=== PATIENT | female | born 1960 | race Caucasian/White ===

== ENCOUNTER 2020-02-08 13:13 | Outpatient (CLI) | payer OTHER, SELFPAY ==
--- NOTE | ~2020-02-08 | US_ITS ---
US retroperitoneal comp 02/08/2020 14:07 Procedure: Realtime transabdominal ultrasound of the kidneys and bladder. Indication: Abnormal renal function Comparison: No prior studies for comparison. Findings: There are multiple bilateral renal cysts, largest on the right measuring 2.8 cm in largest on the left measuring 2.4 cm. The right kidney measures 12.5 cm and left kidney measures 9.8 cm. Juan J dder within normal limits. There is poor cortical medullary differentiation, consistent with chronic medical renal disease. No hydronephrosis. Impression: 1: Increased cortical renal echotexture with decreased corticomedullary differentiation, consistent w ith chronic medical renal disease. 2: Bilateral renal cysts. Reviewed, dictated and finalized at location A. TOR Impression: 1: Increased cortical renal echotexture with decreased corticomedullary differe ntiation, consistent with chronic medical renal disease. 2: Bilateral renal cysts.
== END 2020-02-08 13:14 | disposition home or self-care (01) ==
PROVIDERS: PCP Family Medicine Adolescent Medicine; Visit Provider Internal Medicine Nephrology
DX: E87.5 Hyperkalemia (principal); N28.1 Cyst of kidney, acquired
CPT/HCPCS: 76770

== ENCOUNTER 2020-03-21 10:23 | Outpatient (CLI) | payer OTHER, SELFPAY ==
--- NOTE | ~2020-03-21 | MM_ITS ---
EXAMINATION: MM screening [place] BI w evan HISTORY: Screening TECHNIQUE: Craniocaudal and mediolateral oblique 3-D tomosynthesis images were obtained and synthetic 2-D images were generated. CAD analysis was submitted and interpreted. COMPARISON: Comparison to multiple prior studies sequentially, with oldest reviewed study dated 05/16. BREAST PARENCHYMAL COMPOSITION: There are scattered areas of fibroglandular density. FINDINGS: There is no evidence of suspicious mass, calcification, or architectural distortion to sugg est malignancy in either breast. There has been no suspicious interval change. IMPRESSION: 1. No mammographic evidence of malignancy. 2. Recommend routine screening mammography in one year. BI-RADS Category 1: Negative Reviewed, dictated and finalized at location A. AL LABORATORY TECHNOLOGY TEACHER
== END 2020-03-21 10:24 | disposition home or self-care (01) ==
LOC: ANHIMG 10:26
PROVIDERS: PCP Family Medicine Adolescent Medicine; Visit Provider Family Medicine Adolescent Medicine
DX: Z12.31 Encounter for screening mammogram for malignant neoplasm of breast (principal)
CPT/HCPCS: 77063; 77067

== ENCOUNTER 2020-12-18 10:31 | Outpatient (CLI) | payer OTHER, SELFPAY ==
--- NOTE | ~2020-12-18 | US_ITS ---
EXAMINATION: US retroperitoneal comp EXAM DATE: 12/18/2020 11:11 INDICATION: Abnormal renal function. TECHNIQUE: Multiple grayscale and Doppler images of the kidneys were obtained (by a technologist who performed the scan) and subsequently reviewed. There is no prior study for comparison. FINDINGS: There is echogenic renal cortex bilaterally making it difficult to distinguish from the hil ar fat, likely indicating medical renal disease. Right kidney: measures 11.1 x 6.1 x 4.4 centimeters. Several right renal lesions consistent with cyst s measuring up to 2.5 cm. There is no hydronephrosis. Left kidney: Measures 9.1 x 5.3 x 5.9 centimeters. Several anechoic renal lesions consistent with cys ts measuring up to 2.2 cm There is no hydronephrosis. Bladder unremarkable. IMPRESSION: 1. Echogenic cortices, medical renal disease. 2. Renal cysts. Reviewed, dictated and finalized at location B.
== END 2020-12-18 10:32 | disposition home or self-care (01) ==
LOC: ANHIMG 10:35
PROVIDERS: PCP Family Medicine Adolescent Medicine; Visit Provider Internal Medicine Nephrology
DX: R94.4 Abnormal results of kidney function studies (principal); E87.5 Hyperkalemia; N28.1 Cyst of kidney, acquired
CPT/HCPCS: 76770

== ENCOUNTER 2021-04-08 09:41 | Outpatient (CLI) | payer OTHER, SELFPAY ==
--- NOTE | ~2021-04-08 | MM_ITS ---
EXAMINATION: MM screening [place] BI w evan HISTORY: Screening TECHNIQUE: Craniocaudal and mediolateral oblique 3-D tomosynthesis images were obtained and synthetic 2-D images were generated. CAD analysis was submitted and interpreted. COMPARISON: Comparison to multiple prior studies sequentially, with oldest reviewed study dated 08/04. BREAST PARENCHYMAL COMPOSITION: There are scattered areas of fibroglandular density. FINDINGS: There is no evidence of suspicious mass, calcification, or architectural distortion to sugg est malignancy in either breast. There has been no suspicious interval change. IMPRESSION: 1. No mammographic evidence of malignancy. 2. Recommend routine screening mammography in one year. BI-RADS Category 1: Negative Reviewed, dictated and finalized at location A. CAL RECORDS ASSISTANT
== END 2021-04-08 09:42 | disposition home or self-care (01) ==
LOC: ANHIMG 09:44
PROVIDERS: PCP Family Medicine Adolescent Medicine; Visit Provider Family Medicine Adolescent Medicine
DX: Z12.31 Encounter for screening mammogram for malignant neoplasm of breast (principal)
CPT/HCPCS: 77063; 77067

== ENCOUNTER 2022-07-12 10:48 | Inpatient (IN) | payer OTHER, SELFPAY ==
[2022-07-12] VITALS (18 sets, daily range): BP systolic 122–158; BP diastolic 74–91; PULSE 91–122; RESP 16–24; TEMP 36.4–36.9; O2SAT 89–100
--- NOTE | ~2022-07-12 | XR_ITS ---
EXAMINATION: XR chest 2V DATE: 07/12/2022 12:34 INDICATION: Shortness of breath and cough TECHNIQUE: AP and lateral views of the chest are obtained. COMPARISON: None available FINDINGS: There are airspace opacities of the mid and lower lung zones. Small pleural effusions are p resent. Cardiomegaly is noted. There is no pneumothorax. There is mild thoracic spondylosis. IMPRESSION: 1. Minimal airspace opacities of the mid and lower lung zones, consistent with atelectasis versus pne umonia. 2. Small pleural effusions. Reviewed, dictated and finalized at location A. IMPRESSION: 1. Minimal airspace opacities of the mid and lower lung zones, consistent with atelectasis versus pneumonia. 2. Small pleural effusions.
--- NOTE | ~2022-07-12 | XR_ITS ---
EXAMINATION: XR chest 2V DATE: 07/15/2022 09:31 INDICATION: Pneumonia TECHNIQUE: PA and lateral views of the chest were obtained. COMPARISON: Chest radiograph dated 07/12/2022 FINDINGS: No focal airspace opacities, pulmonary edema, pleural effusion or pneumothorax. The cardiomediastinal silhouette is normal. Upper thoracic spondylosis. IMPRESSION: 1. No acute cardiopulmonary disease. Reviewed, dictated and finalized at location A.
--- NOTE | ~2022-07-12 | CT_ITS ---
EXAMINATION: CT brain wo con DATE: 07/12/2022 15:50 INDICATION: confusion, falls . TECHNIQUE: Computed tomography (CT) of the head was performed without intravenous contrast. The mA wa s adjusted according to patient size. Iterative reconstruction technique was employed. The dose-lengt h product was 1210.67 mGy-cm. COMPARISON: None. FINDINGS: No acute intracranial hemorrhage or extra-axial fluid collection. No hydrocephalus, mass, or herniation. No acute ischemic infarct. Unremarkable dural venous sinus attenuation. No acute osseous abnormality. Bilateral ethmoid air cell mucosal thickening, the remaining aerated spaces are clear. Mild atrophy and chronic white matter change. Atherosclerotic intracranial calcification. IMPRESSION: No acute intracranial process. Reviewed, dictated and finalized at location K.
--- NOTE | 2022-07-12 11:21 | ECG_ITS ---
Measurements Intervals [place] Rate: 102 P: 68 OR: 165 QRS: 55 QRSD: 92 T: 80 QT: 330 QTc: 431 Interpretive Statements SINUS TACHYCARDIA CANNOT RULE OUT SEPTAL INFARCT, AGE INDETERMINATE INFERIOR INFARCT, AGE INDETERMINATE BORDERLINE T WAVE ABNORMALITY- HIGH LATERAL LEADS ABNORMAL ECG NO PREVIOUS ECG AVAILABLE FOR COMPARISON Electronically Signed On 07-12-2022 13:07:14 CDT by Jordan Ann D.O.
--- NOTE | 2022-07-12 11:47 | PC.NURSE ---
PT has c/o cough, dyspnea and not feeling well for a few days. Exposed to influenza. Pt also reports weakness and falls.
[2022-07-12 11:49] LABS: Basophils Percent Auto 0.3 % (0.2-1.2); Eosinophils Percent Auto 0.2 % (0-4.4); Hematocrit 32.5 % (37.0-47.0); Immature Granulocyte Absolute 0.05 K/mm3 (0.00-0.031); Immature Granulocyte Percent A 0.5 % (0-0.5); Lymphocytes Absolute Auto 1.25 K/mm3 (0.9-3.2); Lymphocytes Percent Auto 12.2 % (18.3-44.2); Mean Corpuscular HGB Conc 30.8 g/dl (32-36); Mean Corpuscular Hemoglobin 26.1 pg (26-34); Mean Corpuscular Volume 84.9 fl (80-100); Mean Platelet Volume 9.2 fl (7.4-10.4); Monocytes Absolute Auto 0.7 K/mm3 (0.1-0.6); Monocytes Percent Auto 7.2 % (2.6-8.5); Neutrophils Absolute Auto 8.1 K/mm3 (1.3-6.7); Neutrophils Percent Auto 79.6 % (45.5-73.1); Platelet Count Result 291 k/mm3 (150-375); Red Blood Count 3.83 M/mm3 (4.2-5.4); Red Cell Distribution Width 13.7 % (11.5-14.5); White Blood Count 10.2 K/mm3 (4.5-10.0)
[2022-07-12] MEDS: ALBUTEROL SULFATE NEB 2.5 MG/3 ML INH INHALATION ×3 (11:50→20:35)
[2022-07-12] MEDS: IPRATROPIUM BR 0.02% INH SOLN 0.5 MG/2.5 ML VIAL INHALATION (11:50)
[2022-07-12 11:55] LABS: Lithium 0.3 mmol/L (0.6-1.2)
[2022-07-12 11:57] LABS: Alveolar/Arterial O2 Gradient 39.4 mmHg; Carboxyhemoglobin 0.8 % THb (0-2.0); Fractional Inspired Oxygen 21 %; Methemoglobin ABG 0.1 %THb (0-1.5); Oxygen Content ABG 13.4 %vol (16.0-22.0); PCO2 ABG 47.2 mmHg (35.0-45.0); PO2 ABG 53.8 mmHg (80.0-100.0); PO2 FiO2 Ratio Arterial Blood 2.56 %; Reduced Hemoglobin 12.7 %THb (0-5.0); pH ABG 7.342 (7.350-7.450)
[2022-07-12 11:57] LABS: Alanine Aminotransferase 20 U/L (6-35); Albumin Level 4.2 g/dL (3.5-5.1); Alkaline Phosphatase 80 U/L (38-126); Anion Gap 7 mmol/L (8-16); Aspartate Amino Transferase 43 U/L (14-36); Bilirubin,Total 0.3 mg/dL (0.2-1.3); Blood Urea Nitrogen 46 mg/dL (7-17); Calcium 9.5 mg/dL (8.4-10.2); Carbon Dioxide 28 mmol/L (22-30); Chloride 106 mmol/L (98-107); Estimated CRCL calculation 17 ml/min; Estimated Glomerular Filt Rate 15; Glucose 200 mg/dL (65-110); Potassium 4.7 mmol/L (3.4-5.0); Sodium 141 mmol/L (137-145)
[2022-07-12 11:58] LABS: Lactic Acid Reflex 1.3 mmol/L (0.7-2.0)
[2022-07-12 11:59] LABS: Oxygen Saturation ABG 85.9 % (95.0-100.0)
[2022-07-12 11:59] LABS: Prothrombin Time 13.5 Seconds (11.1-14.7)
[2022-07-12 12:00] LABS: Device ROOM AIR; Modified Allen's Test Pass; Oxyhemoglobin 86.4 % THb (90.0-100.0); Site Drawn RIGHT BRACHIAL
[2022-07-12 12:00] LABS: Partial Thromboplastin Time 32.1 SECONDS (22.3-36.8)
[2022-07-12 12:09] LABS: NT Pro B Type Natriuretic Pept 851 pg/mL (19.9-100); Troponin I 0.026 ng/mL (0.000-0.034)
[2022-07-12 12:23] LABS: Influenza A QL RT-PCR Negative (Negative); Influenza B QL RT-PCR Negative (Negative); SARS-CoV-2 RNA PCR Negative (Negative)
[2022-07-12] MEDS: AZITHROMYCIN 500 MG/NS 250 ML 500 MG/250 ML BAG 250 MG IVPB (13:32)
--- NOTE | 2022-07-12 14:19 | ED.GENADULT ---
HPI - General Adult General Chief complaint: Unspecified Stated complaint: confusion Time Seen by Provider: 07/12/22 11:04 Source: patient, family (sister) and RN notes reviewed Mode of arrival: ambulatory History of Present Illness HPI narrative: This is a 62 year old female with history of bipolar disorder, DM, hypertension who presents for evaluation of a bad cold . Patient presents with sinus drainage, congestion and cough. She has worsening cough for few days. She does not think she has fever or chills . She denies nausea or vomiting. She denies chest pain or shortness of breath. She reports weakness as she was unable to get up after falling this morning. Her brother helped her out of bed. She denies hitting her head or LOC. Her sister reports patient's provider at [facility] is weaning her off of lithium due to her kidney disease. She is wondering if her lithium levels are off. Related Data Home Medications Medication Instructions Recorded Confirmed benztropine 0.5 mg tablet 0.5 mg PO BID 06/09/21 07/12/22 chlorpromazine 100 mg tablet 100 mg PO QHS 06/09/21 07/12/22 trifluoperazine 2 mg tablet 2 mg PO QHS 06/09/21 07/12/22 lithium carbonate 300 mg capsule 150 mg PO QHS 06/15/22 07/12/22 levothyroxine 50 mcg tablet 50 mcg PO DAILY 07/12/22 07/12/22 Allergies Allergy/AdvReac Type Severity Reaction Status Date / Time Penicillins Allergy Unknown unknown Verified 07/12/22 15:00 Review of Systems Constitutional: Constitutional: Denies weakness ENT: Reports nasal congestion Cardiovascular: Cardiovascular: Denies syncope, Denies rapid heart rate, Denies irregular heart rhythm, Denies leg edema and Denies dyspnea Respiratory: Respiratory: Denies chest congestion, Reports cough, Denies hemoptysis, Denies excessive phlegm production and Denies dyspnea Gastrointestinal: Gastrointestinal: Denies abdominal pain, Denies hematochezia, Denies diarrhea and Denies vomiting Genitourinary: Genitourinary: Denies hematuria and Denies dysuria Musculoskeletal: Musculoskeletal: Denies joint swelling, Denies loss of height and Denies muscle weakness Neurologic: Denies syncope, Denies focal weakness and Denies weakness PMFSH Past Medical History Medical History (Updated 07/12/22 @ 21:03 by Lakisha Willis MD) Anxiety Bipolar disorder Chronic kidney disease Depression Hypercholesterolemia Hypothyroidism Type 2 diabetes mellitus Uterine cancer Vitamin D deficiency Surgical History Surgical History (Updated 07/12/22 @ 14:40 by María Simms PA-C) History of colonoscopy with polypectomy History of hysterectomy for cancer Family History Family History Father Acute myocardial infarction Mother Diabetes mellitus Heart disease Emphysema lung Sibling Breast cancer Social History Social History (Updated 07/12/22 @ 14:40 by María Simms PA-C) Social History: Surrogate medical decision maker: Radha Cheng, . Code status: Full code. Smoking status: Never smoker Second hand tobacco smoke exposure: No Alcohol intake: never Substance use: current Substance use type: does not use Lack of Transportation: No Lack of Food: Never True Current Housing: I Have Housing Concerned About Future Housing: No Difficulty Paying Gas/Electric Bills: No Difficulty Paying for Meds: No Currently Unemployed: No Education: Bachelor's Degree Difficulty w/ Childcare or Family Care: No Living arrangements: alone Occupation/Education: retired Spiritual care concerns: No Agree to blood products: Yes Exam Narrative: GENERAL: Well-appearing, well-nourished, and in no acute distress. HEAD: Normocephalic, atraumatic EYES: PERRLA and EOMI, conjunctiva clear without discharge THROAT:Mucous membranes moist, Oropharynx normal without erythema, exudate, peritonsillar swelling or fluctuance NECK: Supple, without lymphade
--- NOTE | 2022-07-12 14:36 | PM.IMHP ---
H&P: HPI History of Present Illness Date/Time: 07/12/22 15:15 Chief Complaint: Confusion. Narrative: This is a 62-year-old female with bipolar disorder, chronic kidney disease, hypothyroidism, and diabetes who presented to the emergency department via private vehicle from home for evaluation of confusion. The patient provides the following history and her sister offers additional information with the patient's permission. She has been feeling well for several days with which she describes as a bad cold. Symptoms include sinus congestion and drainage, mild sore throat, and a hacking but nonproductive cough. She has been getting progressively more weak and last night she reports that she fell on the floor in her bedroom though states she did not hurt herself. In fact she tells me that she landed on her feet. Her sister notes that she seems be a bit confused and she is concerned that perhaps the patient has lithium toxicity as she is being weaned off of that drug due to worsening renal function. The patient denies fever, chills, sweats, headache, neck ache, nausea, vomiting, diarrhea, and dysuria. She also denies vertigo, focal weakness, paresthesias, difficulty speaking and swallowing, and facial asymmetry. No chest pain, pleuritic pain, or palpitations. She lives at home with her brother who has had similar symptoms. She was afebrile on arrival to the emergency department with stable vital signs. Labs were significant for a white blood cell count of 10.2, hemoglobin 10.0, BUN 46, creatinine 3.10, glucose 200. She tested negative for influenza and COVID. Chest x-ray showed minimal airspace opacities in the mid and lower lung zones consistent with atelectasis versus pneumonia and small pleural effusions. Brain CT showed no acute findings. ABG showed a pH of 7.324, pCO2 42.2, bicarb 25. She does not have an oxygen requirement. In the ED she was started on azithromycin and ceftriaxone for findings of pneumonia and she is being admitted in this setting. Regarding her abnormal blood gas, she is a lifelong nonsmoker and has no history of asthma, COPD, or obstructive sleep apnea. She denies access drug ingestion, illicit substance use, and alcohol use. Review of Systems Review of Systems: Twelve systems were reviewed and are negative except for as per [id number] [facility] Past Medical History Medical History (Updated 07/12/22 @ 21:03 by Lakisha Willis MD) Anxiety Bipolar disorder Chronic kidney disease Depression Hypercholesterolemia Hypothyroidism Type 2 diabetes mellitus Uterine cancer Vitamin D deficiency Surgical History Surgical History (Updated 07/12/22 @ 14:40 by María Simms PA-C) History of colonoscopy with polypectomy History of hysterectomy for cancer Family History Family History Father Acute myocardial infarction Mother Diabetes mellitus Heart disease Emphysema lung Sibling Breast cancer Social History Social History (Updated 07/12/22 @ 14:40 by María Simms PA-C) Social History: Surrogate medical decision maker: Radhasister Conteh. Code status: Full code. Smoking status: Never smoker Second hand tobacco smoke exposure: No Alcohol intake: never Substance use: never Substance use type: does not use Lack of Transportation: No Lack of Food: Never True Current Housing: I Have Housing Concerned About Future Housing: No Difficulty Paying Gas/Electric Bills: No Difficulty Paying for Meds: No Currently Unemployed: No Education: Bachelor's Degree Difficulty w/ Childcare or Family Care: No Living arrangements: alone Occupation/Education: retired Spiritual care concerns: No Agree to blood products: Yes Meds Home Medications and Allergies Home Medications Medication Instructions Recorded Confirmed Type benztropine 0.5 mg tablet 0.5 mg PO BID 06/09/21 07/12/22 History chlorpromazine 100 mg tablet 1
--- NOTE | 2022-07-12 14:42 | ADMGEN ---
This patient, Nicky Villalobos, was admitted to Medical Room 251-. Patient/family oriented to hospital policies and general routines including ID bracelet, bed and alarms, visiting hours, pain management, procedures, bathroom and other care routines, personal items, smoking policy, room service/diet, and visiting hours. Information on how to activate the Rapid Response Team has been discussed. Patient/Family are encouraged to report perceived risks to care and to ask questions if they do not understand what they are told or what they should do.
[2022-07-12 15:33] LABS: Hemoglobin A1C 6.6 % (<5.7)
[2022-07-12 15:35] LABS: Iron 31 ug/dL (37-170)
[2022-07-12 15:36] LABS: Ethanol < 10 mg/dL (<10)
[2022-07-12 15:43] LABS: CRP 2.8 mg/dL (<1.0)
[2022-07-12 15:45] LABS: Percent Iron Saturation 11 % (20-50)
[2022-07-12 15:55] LABS: Procalcitonin 0.3 ng/mL
[2022-07-12 16:07] LABS: Thyroid Stimulating Hormone Reflex 0.441 uIU/mL (0.465-4.68)
[2022-07-12 16:20] LABS: Alveolar/Arterial O2 Gradient 56.5 mmHg; Base Excess ABG -2.6 mEq/l (+/-2.0); Carboxyhemoglobin 0.2 % THb (0-2.0); Fractional Inspired Oxygen 21 %; HCO3 ABG 24.4 mEq/l (22.0-26.0); Oxygen Content ABG 8.5 %vol (16.0-22.0); PCO2 ABG 52.5 mmHg (35.0-45.0); PO2 FiO2 Ratio Arterial Blood 1.45 %; Reduced Hemoglobin 43.7 %THb (0-5.0); Total Hemoglobin 10.8 g/dL (12.0-18.0)
[2022-07-12 16:23] LABS: pH ABG 7.285 (7.350-7.450)
[2022-07-12 16:24] LABS: Oxygen Saturation ABG 50.2 % (95.0-100.0); PO2 ABG 30.4 mmHg (80.0-100.0)
[2022-07-12 16:25] LABS: Modified Allen's Test Pass; Oxyhemoglobin 56.1 % THb (90.0-100.0); Site Drawn LEFT RADIAL
[2022-07-12 17:08] LABS: Glucose Point of Care 263 mg/dl (65-105)
[2022-07-12] MEDS: INSULIN ASPART (*BKC) 100 UNITS/ML SUB-Q (17:16)
--- NOTE | 2022-07-12 17:50 | PC.NURSE ---
This patient, Nicky Villalobos, was transferred to [facility] on 07/12/22 at 1745 . Personal belongings sent with patient. Report given to Harry MACIEL. Appropriate documentation sent with patient.
[2022-07-12 18:02] LABS: Folic Acid 12.2 ng/mL (2.76->20)
--- NOTE | 2022-07-12 18:32 | PC.NURSE ---
This patient, Nicky Villalobos, was received from [facility] on 07/12/22 at 1743. Patient/family oriented to unit policies and routines
[2022-07-12 19:51] LABS: Alveolar/Arterial O2 Gradient 89.7 mmHg; Base Excess ABG -1.6 mEq/l (+/-2.0); Fractional Inspired Oxygen 30 %; Oxygen Content ABG 13.3 %vol (16.0-22.0); Oxygen Saturation ABG 93.9 % (95.0-100.0); Oxyhemoglobin 92.8 % THb (90.0-100.0); PCO2 ABG 44.1 mmHg (35.0-45.0); PO2 ABG 72.4 mmHg (80.0-100.0); PO2 FiO2 Ratio Arterial Blood 2.41 %; Total Hemoglobin 10.1 g/dL (12.0-18.0); pH ABG 7.353 (7.350-7.450)
[2022-07-12 19:53] LABS: Device NON-INVASIVE VENT; Modified Allen's Test Pass; Site Drawn LEFT RADIAL
[2022-07-12 19:54] LABS: Non-Invasive Expiratory Pressure 6 CMH2O; Non-Invasive Inspiratory Pressure 14 CMH2O; Non-Invasive Vent Rate 20 /MIN
[2022-07-12 20:46] LABS: Glucose Point of Care 142 mg/dl (65-105)
[2022-07-12 21:22] LABS: Free T4 Free Thyroxine Reflex 1.43 ng/dL (0.78-2.19)
[2022-07-12] MEDS: BENZTROPINE MESYLATE 0.5 MG TABLET PO (21:26)
[2022-07-12] MEDS: SODIUM BICARBONATE TAB 650 MG TABLET PO (21:26)
[2022-07-12] MEDS: chlorproMAZINE HCL 25 MG TABLET 100 MG PO (21:26)
[2022-07-12] MEDS: TRIFLUOPERAZINE HCL 1 MG TABLET 2 MG PO (21:43)
[2022-07-12 22:18] LABS: Creatine Kinase 1347 U/L (30-135)
[2022-07-12 22:50] LABS: Total Triiodothyronine (T3) 1.01 NG/ML (0.97-1.69)
[2022-07-12] MEDS: LITHIUM CARBONATE 150 MG CAPSULE PO (23:26)
[2022-07-12] MEDS: guaiFENesin 12 HR 600 MG TABCR 1200 MG PO (23:26)
[2022-07-12] MEDS: PRAVASTATIN SODIUM 20 MG TABLET 40 MG PO (23:26)
[2022-07-12] MEDS: LACTATED RINGERS 1,000 ML 100 ML IV CONT (23:27)
[2022-07-13] VITALS (28 sets, daily range): BP systolic 127–147; BP diastolic 64–91; PULSE 74–109; RESP 20–25; TEMP 35.9–36.7; O2SAT 93–100
--- NOTE | 2022-07-13 02:14 | PCRCNOTE ---
Apnea link held pt on cont. BIPAP.
[2022-07-13] MEDS: ALBUTEROL SULFATE NEB 2.5 MG/3 ML INH INHALATION ×4 (03:12→20:57)
[2022-07-13 04:44] LABS: Appearance Urine Clear (Clear); Bacteria Urine None Seen /hpf; Bilirubin Urine Negative (Negative); Blood Urine 2+ (Negative); Color Urine Yellow (Yellow); Glucose Urine UA Trace mg/dL (Negative); Ketones Urine Negative (Negative); Leukocyte Esterase Ur 1+ LEU/UL (Negative); Nitrate Urine Negative (Negative); Non Pathogenic Casts 0-2; Protein Urine 2+ mg/dL (Negative); RBC Urine 0-2 /hpf (0-2); Specific Grav Ur 1.007 (1.001-1.035); Squamous Epithelial Cell Urine None seen /hpf (Few); Urobilinogen Urine 0.2 mg/dL (<2.0)
[2022-07-13 04:50] LABS: Add Urine Microscopic? YES
[2022-07-13 04:56] LABS: Amphetamine Screen Urine Negative (Negative); Barbiturate Screen Urine Negative (Negative); Benzodiazepines Screen Urine Negative (Negative); Cannabinoid Screen Urine Negative (Negative); Cocaine Screen Urine Negative (Negative); Methadone Screen Urine Negative (Negative); Opiate Screen Urine Negative (Negative); Phencyclidine Screen Urine Negative (Negative)
[2022-07-13 05:07] LABS: Basophils Percent Auto 0.5 % (0.2-1.2); Eosinophils Absolute Auto 0.1 K/mm3 (0-0.3); Eosinophils Percent Auto 1.7 % (0-4.4); Hemoglobin 9.2 g/dL (12.0-15.0); Immature Granulocyte Absolute 0.03 K/mm3 (0.00-0.031); Immature Granulocyte Percent A 0.4 % (0-0.5); Lymphocytes Absolute Auto 1.42 K/mm3 (0.9-3.2); Lymphocytes Percent Auto 18.3 % (18.3-44.2); Mean Corpuscular HGB Conc 29.7 g/dl (32-36); Mean Corpuscular Hemoglobin 25.9 pg (26-34); Mean Corpuscular Volume 87.3 fl (80-100); Mean Platelet Volume 9.3 fl (7.4-10.4); Monocytes Absolute Auto 0.9 K/mm3 (0.1-0.6); Monocytes Percent Auto 11.1 % (2.6-8.5); Neutrophils Absolute Auto 5.3 K/mm3 (1.3-6.7); Platelet Count Result 245 k/mm3 (150-375); Red Blood Count 3.55 M/mm3 (4.2-5.4); Red Cell Distribution Width 13.8 % (11.5-14.5); White Blood Count 7.8 K/mm3 (4.5-10.0)
[2022-07-13 05:18] LABS: Alanine Aminotransferase 20 U/L (6-35); Albumin Level 3.7 g/dL (3.5-5.1); Alkaline Phosphatase 68 U/L (38-126); Anion Gap 7 mmol/L (8-16); Aspartate Amino Transferase 42 U/L (14-36); Bilirubin,Total 0.3 mg/dL (0.2-1.3); Blood Urea Nitrogen 44 mg/dL (7-17); Calcium 9.5 mg/dL (8.4-10.2); Carbon Dioxide 26 mmol/L (22-30); Chloride 112 mmol/L (98-107); Estimated CRCL calculation 20 ml/min; Estimated Glomerular Filt Rate 18; Glucose 185 mg/dL (65-110); Magnesium 2.3 mg/dL (1.6-2.3); Potassium 4.4 mmol/L (3.4-5.0); Sodium 145 mmol/L (137-145)
[2022-07-13] MEDS: LEVOTHYROXINE SODIUM 50 MCG TABLET PO (06:45)
[2022-07-13 08:48] LABS: Glucose Point of Care 184 mg/dl (65-105)
--- NOTE | 2022-07-13 09:03 | P.PNIM_ITS ---
Progress Note: A&P Assessment and Plan (1) Acute respiratory failure with hypercapnia: Code(s): J96.02 - Acute respiratory failure with hypercapnia Status: Acute Assessment and Plan: ABG shows a respiratory acidosis with a pH of 7.342, pCO2 47.5, PO2 53.8, ABG O2 saturation 85.9, reduce hemoglobin 12 0.7%, and a bicarb of 25. Hypoxia presumably related to pneumonia. * She received a nebulizer treatment in the ED. * Placed on bipap overnight and repeat imaging with pO2 74 and improved. 07/13/22 Pt with spO2 98% and weaned to 2L high flow cannula. * Apnea link ordered for tonight. * Brain CT negative. (2) Confusion: Code(s): R41.0 - Disorientation, unspecified Status: Resolved Assessment and Plan: Likely related to hypercapnia. * Brain CT was unremarkable. * Urine drug screen negative. * Appears resolved. (3) Pneumonia: Qualifiers: Pneumonia type: due to unspecified organism Laterality: bilateral Lung location: lower lobe of lung Qualified Code(s): J18.9 - Pneumonia, unspecified organism Code(s): J18.9 - Pneumonia, unspecified organism Status: Acute Assessment and Plan: Patient presented with shortness of breath and cough. * Chest x-ray shows opacities to mid-lower lung rodgers and small pleural effusion. * Continue azithromycin and ceftriaxone, first doses 07/12/22. * Sputum for culture pending. * Urinary antigens and mycoplasma IgM pending * Patient's sister reported she was diagnosed with the flu on Wednesday and she is the caregiver for the patient. ED covid19/influenza/RSV negative. However, given exposure, will empirically treat with Tamiflu 30 mg daily (renal dose) and send respiratory viral panel. * Patient and family report no concerns for aspiration/dysphagia. (4) Chronic kidney disease: Qualifiers: Chronic kidney disease stage: stage 4 (severe) Qualified Code(s): N18.4 - Chronic kidney disease, stage 4 (severe) Code(s): N18.9 - Chronic kidney disease, unspecified Status: Chronic Assessment and Plan: Stage 4. She has had progressive of her disease over the last year. She is a patient of Dr. Ladd. [place] being weaned off. * Creatinine 3.10 on admission, it was about 2.6 in mid April. * Bladder scan to ensure she is not retaining urine. * CK >1300 and IV fluids initiated, repeat CK 1000. * Avoid nephrotoxic agents. * 07/13/22 BUN 44, creatinine 2.7, GFR 18. (5) Hypothyroidism: Qualifiers: Hypothyroidism type: unspecified Qualified Code(s): E03.9 - Hypothyroidism, unspecified Code(s): E03.9 - Hypothyroidism, unspecified Status: Chronic Assessment and Plan: TSH within normal limits. Continue levothyroxine at home dose. (6) Type 2 diabetes mellitus: Qualifiers: Diabetes mellitus moth exterminator insulin use: without moth exterminator use Diabetes mellitus complication status: with kidney complications Diabetes mellitus complication detail: with chronic kidney disease Chronic kidney disease stage: stage 4 (severe) Qualified Code(s): E11.22 - Type 2 diabetes mellitus with diabetic chronic kidney disease; N18.4 - Chronic kidney disease, stage 4 (severe) Code(s): E11.9 - Type 2 diabetes mellitus without complications Status: Chronic Assessment and Plan: Chronic. * Continue glipizide. Hold metformin while inpatient. * sliding scale insulin, Accu-Cheks, and hypoglycemic protocol. * A1c 6.6% and stable. (7) Bipolar disorder: Qualifiers: Active
--- NOTE | 2022-07-13 09:03 | PM.IMPN ---
Progress Note: A&P Assessment and Plan (1) Acute respiratory failure with hypercapnia: Code(s): J96.02 - Acute respiratory failure with hypercapnia Status: Acute Assessment and Plan: ABG shows a respiratory acidosis with a pH of 7.342, pCO2 47.5, PO2 53.8, ABG O2 saturation 85.9, reduce hemoglobin 12 0.7%, and a bicarb of 25. Hypoxia presumably related to pneumonia. She received a nebulizer treatment in the ED. Placed on bipap overnight and repeat imaging with pO2 74 and improved. 07/13/22 Pt with spO2 98% and weaned to 2L high flow cannula. Apnea link ordered for tonight. Brain CT negative. (2) Confusion: Code(s): R41.0 - Disorientation, unspecified Status: Resolved Assessment and Plan: Likely related to hypercapnia. Brain CT was unremarkable. Urine drug screen negative. Appears resolved. (3) Pneumonia: Qualifiers: Pneumonia type: due to unspecified organism Laterality: bilateral Lung location: lower lobe of lung Qualified Code(s): J18.9 - Pneumonia, unspecified organism Code(s): J18.9 - Pneumonia, unspecified organism Status: Acute Assessment and Plan: Patient presented with shortness of breath and cough. Chest x-ray shows opacities to mid-lower lung rodgers and small pleural effusion. Continue azithromycin and ceftriaxone, first doses 07/12/22. Sputum for culture pending. Urinary antigens and mycoplasma IgM pending Patient's sister reported she was diagnosed with the flu on Wednesday and she is the caregiver for the patient. ED covid19/influenza/RSV negative. However, given exposure, will empirically treat with Tamiflu 30 mg daily (renal dose) and send respiratory viral panel. Patient and family report no concerns for aspiration/dysphagia. (4) Chronic kidney disease: Qualifiers: Chronic kidney disease stage: stage 4 (severe) Qualified Code(s): N18.4 - Chronic kidney disease, stage 4 (severe) Code(s): N18.9 - Chronic kidney disease, unspecified Status: Chronic Assessment and Plan: Stage 4. She has had progressive of her disease over the last year. She is a patient of Dr. Ladd. [place] being weaned off. Creatinine 3.10 on admission, it was about 2.6 in mid April. Bladder scan to ensure she is not retaining urine. CK >1300 and IV fluids initiated, repeat CK 1000. Avoid nephrotoxic agents. 07/13/22 BUN 44, creatinine 2.7, GFR 18. (5) Hypothyroidism: Qualifiers: Hypothyroidism type: unspecified Qualified Code(s): E03.9 - Hypothyroidism, unspecified Code(s): E03.9 - Hypothyroidism, unspecified Status: Chronic Assessment and Plan: TSH within normal limits. Continue levothyroxine at home dose. (6) Type 2 diabetes mellitus: Qualifiers: Diabetes mellitus retirement insulin use: without meat slicer use Diabetes mellitus complication status: with kidney complications Diabetes mellitus complication detail: with chronic kidney disease Chronic kidney disease stage: stage 4 (severe) Qualified Code(s): E11.22 - Type 2 diabetes mellitus with diabetic chronic kidney disease; N18.4 - Chronic kidney disease, stage 4 (severe) Code(s): E11.9 - Type 2 diabetes mellitus without complications Status: Chronic Assessment and Plan: Chronic. Continue glipizide. Hold metformin while inpatient. sliding scale insulin, Accu-Cheks, and hypoglycemic protocol. A1c 6.6% and stable. (7) Bipolar disorder: Qualifiers: Active/Remission status: remission status unspecified Qualified Code(s): F31.9 - Bipolar disorder, unspecified Code(s): F31.9 - Bipolar disorder, unspecified Status: Chronic Assessment and Plan: Chronic, continue home medications. [place] level is a bit low at 0.3; she is reportedly being weaned off of lithium due to progression of kidney disease. (8) Normocytic anemia: Code(s):
[2022-07-13] MEDS: BENZTROPINE MESYLATE 0.5 MG TABLET PO ×2 (09:55→16:41)
[2022-07-13] MEDS: guaiFENesin 12 HR 600 MG TABCR 1200 MG PO ×2 (09:55→20:37)
[2022-07-13] MEDS: SODIUM BICARBONATE TAB 650 MG TABLET PO ×2 (09:56→16:43)
[2022-07-13] MEDS: glipiZIDE 5 MG TABLET PO ×2 (09:56→16:43)
[2022-07-13 11:06] LABS: Creatine Kinase 1007 U/L (30-135)
[2022-07-13 12:30] LABS: Glucose Point of Care 283 mg/dl (65-105)
[2022-07-13] MEDS: OSELTAMIVIR PHOSPHATE 30 MG CAPSULE PO (12:37)
[2022-07-13] MEDS: INSULIN ASPART (*BKC) 100 UNITS/ML SUB-Q (12:37)
[2022-07-13] MEDS: AZITHROMYCIN 500 MG/NS 250 ML 500 MG/250 ML BAG 250 MG IVPB (14:18)
[2022-07-13 16:05] LABS: Glucose Point of Care 119 mg/dl (65-105)
--- NOTE | 2022-07-13 16:06 | PCCCNOTE ---
On 07/13/22, the student, [Courtney Blas], provided care and completed [facility] documentation on this patient. I have reviewed the student's documentation and agree with the findings.
--- NOTE | 2022-07-13 17:32 | ECHO_ITS ---
Patient Info Name: Nicky Villalobos Age: 62 years : 1960 Gender: Female Ht: 62 in Wt: 195 lbs BSA: 2.01 m2 HR: 88 bpm BP: 127 / 77 mmHg Heart Rhythm: Sinus Rhythm Technical Quality: Fair Exam Date: 07/13/2022 7:52 AM Exam Location: [facility] Pulmonary Patient Status: Inpatient Admit Date: 07/13/2022 Staff Ordering Physician: María Simms PA-C Master Certified Rv Technician: Cally Blake RDCS Attending Provider: Panchito Bardales MD Referring Physician: Demi PORTILLO; Exam Type: CA echo doppler color flow Study Info Indications - HTN, HYPOXIA, HYPERCAPNIA Complete two-dimensional, color flow and Doppler transthoracic echocardiogram is performed. Summary 1. Complete two-dimensional, color flow and Doppler transthoracic echocardiogram is performed. 2. Left ventricular chamber dimension is normal. 3. Left ventricular systolic function is hyperdynamic, estimated at >70%. 4. There is moderate concentric increased left ventricular wall thickness. 5. The left ventricular diastolic function is abnormal. 6. E/e' 19 is elevated. 7. There is mild aortic valve sclerosis. 8. No pulmonary hypertension, estimated pulmonary arterial systolic pressure is 19 mmHg. Left Ventricle E/e' 19 is elevated. Left ventricular chamber dimension is normal. Left ventricular systolic function is hyperdynamic, estimated at >70%. There is moderate concentric increased left ventricular wall thickness. The left ventricular diastolic function is abnormal. Right Ventricle Right ventricular systolic function is normal and with normal TAPSE 1.9 cm. Right ventricular chamber dimension is normal. Left Atria Left atrial chamber dimension is normal. Right Atria Right atrial chamber dimension is normal. Aortic Valve The aortic valve is trileaflet. There is mild aortic valve sclerosis. There is no aortic valve stenosis. There is no aortic valve regurgitation. Pulmonic Valve There is no pulmonic regurgitation. Mitral Valve There is no mitral valve stenosis. There is no mitral valve regurgitation. Tricuspid Valve There is no tricuspid valve regurgitation. No pulmonary hypertension, estimated pulmonary arterial systolic pressure is 19 mmHg. Pericardium/Pleural There is no pericardial effusion. Inferior Vena Cava Inferior vena cava is not well visualized. Aorta The aortic root size at the sinus of Valsalva is normal. Left Ventricular Outflow Tract Name Value Normal LVOT 2D LVOT Diameter 2.0 cm LVOT Doppler LVOT Peak Gradient 17 mmHg LVOT Mean Gradient 11 mmHg LVOT VTI 42 cm LVOT VTI/AV VTI Ratio 1.1 LVOT Stroke Volume 125 ml LVOT CO 11.6 l/min LVOT CI 5.8 l/min/m2 Pulmonic Valve Name Value Normal RVOT Doppler RVOT Peak Gradient 2 mmH
[2022-07-13 20:12] LABS: Glucose Point of Care 151 mg/dl (65-105)
[2022-07-13] MEDS: chlorproMAZINE HCL 25 MG TABLET 100 MG PO (20:36)
[2022-07-13] MEDS: PRAVASTATIN SODIUM 20 MG TABLET 40 MG PO (20:37)
[2022-07-13] MEDS: LITHIUM CARBONATE 150 MG CAPSULE PO (20:37)
[2022-07-13] MEDS: TRIFLUOPERAZINE HCL 1 MG TABLET 2 MG PO (20:38)
[2022-07-14] VITALS (17 sets, daily range): BP systolic 134–187; BP diastolic 78–91; PULSE 88–112; RESP 16–22; TEMP 36.2–36.5; O2SAT 94–100
[2022-07-14 06:31] LABS: Basophils Percent Auto 0.7 % (0.2-1.2); Eosinophils Absolute Auto 0.4 K/mm3 (0-0.3); Eosinophils Percent Auto 5.9 % (0-4.4); Hematocrit 31.4 % (37.0-47.0); Hemoglobin 9.4 g/dL (12.0-15.0); Immature Granulocyte Absolute 0.01 K/mm3 (0.00-0.031); Immature Granulocyte Percent A 0.2 % (0-0.5); Lymphocytes Percent Auto 32.1 % (18.3-44.2); Mean Corpuscular HGB Conc 29.9 g/dl (32-36); Mean Corpuscular Hemoglobin 26.6 pg (26-34); Mean Platelet Volume 9.3 fl (7.4-10.4); Monocytes Absolute Auto 0.6 K/mm3 (0.1-0.6); Monocytes Percent Auto 9.8 % (2.6-8.5); Neutrophils Percent Auto 51.3 % (45.5-73.1); Platelet Count Result 252 k/mm3 (150-375); Red Blood Count 3.53 M/mm3 (4.2-5.4); Red Cell Distribution Width 13.8 % (11.5-14.5); White Blood Count 5.9 K/mm3 (4.5-10.0)
[2022-07-14 06:42] LABS: Alanine Aminotransferase 24 U/L (6-35); Albumin Level 3.7 g/dL (3.5-5.1); Alkaline Phosphatase 70 U/L (38-126); Anion Gap 7 mmol/L (8-16); Aspartate Amino Transferase 38 U/L (14-36); Bilirubin,Total 0.3 mg/dL (0.2-1.3); Blood Urea Nitrogen 42 mg/dL (7-17); Calcium 9.4 mg/dL (8.4-10.2); Carbon Dioxide 25 mmol/L (22-30); Chloride 114 mmol/L (98-107); Creatine Kinase 587 U/L (30-135); Estimated CRCL calculation 22 ml/min; Estimated Glomerular Filt Rate 19; Glucose 241 mg/dL (65-110); Potassium 4.7 mmol/L (3.4-5.0); Sodium 146 mmol/L (137-145)
[2022-07-14] MEDS: LEVOTHYROXINE SODIUM 50 MCG TABLET PO (06:55)
--- NOTE | 2022-07-14 07:01 | P.PNIM_ITS ---
Progress Note: A&P Assessment and Plan (1) Acute respiratory failure with hypercapnia: Code(s): J96.02 - Acute respiratory failure with hypercapnia Status: Resolved Assessment and Plan: ABG shows a respiratory acidosis with a pH of 7.342, pCO2 47.5, PO2 53.8, ABG O2 saturation 85.9, reduce hemoglobin 12 0.7%, and a bicarb of 25. Hypoxia presumably related to pneumonia. * She received a nebulizer treatment in the ED. * Placed on bipap overnight and repeat imaging with pO2 74 and improved. 07/13/22 Pt with spO2 98% and weaned to 2L high flow cannula. * Apnea link with significant apnea/hypopnea and desaturation. * Echocardiogram with suspected HFpEF- moderate LVH, hyperdynamic LV systolic function and abnormal diastolic function. H2FPEF score 70% * Brain CT negative. * Appears resolved. Patient will need nocturnal oxygen set up. (2) Confusion: Code(s): R41.0 - Disorientation, unspecified Status: Resolved Assessment and Plan: Likely related to hypercapnia. * Brain CT was unremarkable. * Urine drug screen negative. * Appears resolved. (3) Pneumonia: Qualifiers: Laterality: bilateral Lung location: lower lobe of lung Pneumonia type: due to unspecified organism Qualified Code(s): J18.9 - Pneumonia, unspecified organism Code(s): J18.9 - Pneumonia, unspecified organism Status: Acute Assessment and Plan: Patient presented with shortness of breath and cough. * Chest x-ray shows opacities to mid-lower lung rodgers and small pleural effusion. * Continue azithromycin and ceftriaxone, first doses 07/12- 07/14. * Sputum for culture pending. * Urinary antigens and mycoplasma IgM pending * Patient's sister reported she was diagnosed with the flu on Wednesday and she is the caregiver for the patient. ED covid19/influenza/RSV negative. However, given exposure, will empirically treat with Tamiflu 30 mg daily (renal dose) and send respiratory viral panel. * Patient and family report no concerns for aspiration/dysphagia. * 07/14/22 Afebrile. Weaned to room air. Repeat chest x-ray in am. Transition to oral cefdinir 300 mg daily (renal dosed) in am. completed 3 days azithromycin 500 mg Q24 hours. * Trend CBC, CRP, procalcitonin (4) Chronic kidney disease: Qualifiers: Chronic kidney disease stage: stage 4 (severe) Qualified Code(s): N18.4 - Chronic kidney disease, stage 4 (severe) Code(s): N18.9 - Chronic kidney disease, unspecified Status: Chronic Assessment and Plan: Stage 4. She has had progressive of her disease over the last year. She is a patient of Dr. Ladd. [place] being weaned off. * Creatinine 3.10 on admission, it was about 2.6 in mid April. * Bladder scan to ensure she is not retaining urine. * CK >1300 and IV fluids initiated, repeat CK 1000. * Avoid nephrotoxic agents. * 07/13/22 BUN 44, creatinine 2.7, GFR 18. * 07/14/22 BUN 42, creatinine 2.5, GFR 19. Improved and appears near baseline. (5) Hypothyroidism: Qualifiers: Hypothyroidism type: unspecified Qualified Code(s): E03.9 - Hypothyroidism, unspecified Code(s): E03.9 - Hypothyroidism, unspecified Status: Chronic Assessment and Plan: TSH within normal limits. Continue levothyroxine at home dose. (6) Type 2 diabetes mellitus: Qualifiers: Chronic kidney disease stage: stage 4 (severe) Diabetes mellitus complication detail: with chronic kidney disease Diabetes mellitus complication status: with kidney complications Diabetes mellitus terminal operations manager insulin use:
--- NOTE | 2022-07-14 07:01 | PM.IMPN ---
Progress Note: A&P Assessment and Plan (1) Acute respiratory failure with hypercapnia: Code(s): J96.02 - Acute respiratory failure with hypercapnia Status: Resolved Assessment and Plan: ABG shows a respiratory acidosis with a pH of 7.342, pCO2 47.5, PO2 53.8, ABG O2 saturation 85.9, reduce hemoglobin 12 0.7%, and a bicarb of 25. Hypoxia presumably related to pneumonia. She received a nebulizer treatment in the ED. Placed on bipap overnight and repeat imaging with pO2 74 and improved. 07/13/22 Pt with spO2 98% and weaned to 2L high flow cannula. Apnea link with significant apnea/hypopnea and desaturation. Echocardiogram with suspected HFpEF- moderate LVH, hyperdynamic LV systolic function and abnormal diastolic function. H2FPEF score 70% Brain CT negative. Appears resolved. Patient will need nocturnal oxygen set up. (2) Confusion: Code(s): R41.0 - Disorientation, unspecified Status: Resolved Assessment and Plan: Likely related to hypercapnia. Brain CT was unremarkable. Urine drug screen negative. Appears resolved. (3) Pneumonia: Qualifiers: Laterality: bilateral Lung location: lower lobe of lung Pneumonia type: due to unspecified organism Qualified Code(s): J18.9 - Pneumonia, unspecified organism Code(s): J18.9 - Pneumonia, unspecified organism Status: Acute Assessment and Plan: Patient presented with shortness of breath and cough. Chest x-ray shows opacities to mid-lower lung rodgers and small pleural effusion. Continue azithromycin and ceftriaxone, first doses 07/12- 07/14. Sputum for culture pending. Urinary antigens and mycoplasma IgM pending Patient's sister reported she was diagnosed with the flu on Wednesday and she is the caregiver for the patient. ED covid19/influenza/RSV negative. However, given exposure, will empirically treat with Tamiflu 30 mg daily (renal dose) and send respiratory viral panel. Patient and family report no concerns for aspiration/dysphagia. 07/14/22 Afebrile. Weaned to room air. Repeat chest x-ray in am. Transition to oral cefdinir 300 mg daily (renal dosed) in am. completed 3 days azithromycin 500 mg Q24 hours. Trend CBC, CRP, procalcitonin (4) Chronic kidney disease: Qualifiers: Chronic kidney disease stage: stage 4 (severe) Qualified Code(s): N18.4 - Chronic kidney disease, stage 4 (severe) Code(s): N18.9 - Chronic kidney disease, unspecified Status: Chronic Assessment and Plan: Stage 4. She has had progressive of her disease over the last year. She is a patient of Dr. Ladd. [place] being weaned off. Creatinine 3.10 on admission, it was about 2.6 in mid April. Bladder scan to ensure she is not retaining urine. CK >1300 and IV fluids initiated, repeat CK 1000. Avoid nephrotoxic agents. 07/13/22 BUN 44, creatinine 2.7, GFR 18. 5/ BUN 42, creatinine 2.5, GFR 19. Improved and appears near baseline. (5) Hypothyroidism: Qualifiers: Hypothyroidism type: unspecified Qualified Code(s): E03.9 - Hypothyroidism, unspecified Code(s): E03.9 - Hypothyroidism, unspecified Status: Chronic Assessment and Plan: TSH within normal limits. Continue levothyroxine at home dose. (6) Type 2 diabetes mellitus: Qualifiers: Chronic kidney disease stage: stage 4 (severe) Diabetes mellitus complication detail: with chronic kidney disease Diabetes mellitus complication status: with kidney complications Diabetes mellitus director long term care insulin use: without director long term care use Qualified Code(s): E11.22 - Type 2 diabetes mellitus with diabetic chronic kidney disease; N18.4 - Chronic kidney disease, stage 4 (severe) Code(s): E11.9 - Type 2 diabetes mellitus without complications Status: Chronic Assessment and Plan: Chronic. Continue glipizide. Hold metformin while inpatient. Her dose may need to be adjusted given
[2022-07-14] MEDS: ALBUTEROL SULFATE NEB 2.5 MG/3 ML INH INHALATION ×3 (07:21→19:49)
[2022-07-14 08:30] LABS: Glucose Point of Care 220 mg/dl (65-105)
[2022-07-14] MEDS: BENZTROPINE MESYLATE 0.5 MG TABLET PO ×2 (09:59→18:35)
[2022-07-14] MEDS: glipiZIDE 5 MG TABLET PO ×2 (09:59→18:35)
[2022-07-14] MEDS: SODIUM BICARBONATE TAB 650 MG TABLET PO ×2 (09:59→18:35)
[2022-07-14] MEDS: OSELTAMIVIR PHOSPHATE 30 MG CAPSULE PO (09:59)
[2022-07-14] MEDS: amLODIPine BESYLATE 5 MG TABLET 10 MG PO (09:59)
[2022-07-14] MEDS: guaiFENesin 12 HR 600 MG TABCR 1200 MG PO ×2 (09:59→21:12)
[2022-07-14] MEDS: INSULIN ASPART (*BKC) 100 UNITS/ML SUB-Q (10:00)
[2022-07-14] MEDS: FERROUS SULFATE 324 MG TABLET PO (10:00)
[2022-07-14 12:00] LABS: Glucose Point of Care 421 mg/dl (65-105)
[2022-07-14] MEDS: INSULIN ASPART (*BKC) 100 UNITS/ML 12 UNITS SUB-Q (13:47)
[2022-07-14 14:55] LABS: Glucose Point of Care 157 mg/dl (65-105)
[2022-07-14] MEDS: AZITHROMYCIN 500 MG/NS 250 ML 500 MG/250 ML BAG 250 MG IVPB (15:23)
[2022-07-14 16:47] LABS: Glucose Point of Care 94 mg/dl (65-105)
--- NOTE | 2022-07-14 19:33 | PC.NURSE ---
This patient, Nicky Villalobos, was transferred to [facility] on 07/14/22 at 1033. Personal belongings sent with patient. Report given to Kalyani. Appropriate documentation sent with patient.
[2022-07-14] MEDS: chlorproMAZINE HCL 25 MG TABLET 100 MG PO (21:12)
[2022-07-14] MEDS: LITHIUM CARBONATE 150 MG CAPSULE PO (21:12)
[2022-07-14] MEDS: PRAVASTATIN SODIUM 20 MG TABLET 40 MG PO (21:12)
[2022-07-14] MEDS: TRIFLUOPERAZINE HCL 1 MG TABLET 2 MG PO (21:12)
[2022-07-14 21:51] LABS: Glucose Point of Care 115 mg/dl (65-105)
[2022-07-15] VITALS (13 sets, daily range): BP systolic 117–127; BP diastolic 86–99; PULSE 71–93; RESP 16–20; TEMP 36.2–36.8; O2SAT 92–100
[2022-07-15] MEDS: ALBUTEROL SULFATE NEB 2.5 MG/3 ML INH INHALATION ×4 (01:22→20:37)
[2022-07-15] MEDS: LEVOTHYROXINE SODIUM 50 MCG TABLET PO (06:06)
[2022-07-15 06:30] LABS: Basophils Absolute Auto 0.1 K/mm3 (0.0-0.1); Basophils Percent Auto 0.7 % (0.2-1.2); Eosinophils Absolute Auto 0.5 K/mm3 (0-0.3); Eosinophils Percent Auto 7.6 % (0-4.4); Hematocrit 32.3 % (37.0-47.0); Hemoglobin 9.6 g/dL (12.0-15.0); Immature Granulocyte Absolute 0.03 K/mm3 (0.00-0.031); Immature Granulocyte Percent A 0.4 % (0-0.5); Lymphocytes Absolute Auto 1.95 K/mm3 (0.9-3.2); Lymphocytes Percent Auto 28.6 % (18.3-44.2); Mean Corpuscular HGB Conc 29.7 g/dl (32-36); Mean Corpuscular Hemoglobin 26.4 pg (26-34); Mean Corpuscular Volume 88.7 fl (80-100); Mean Platelet Volume 9.2 fl (7.4-10.4); Monocytes Absolute Auto 0.5 K/mm3 (0.1-0.6); Monocytes Percent Auto 7.9 % (2.6-8.5); Neutrophils Absolute Auto 3.7 K/mm3 (1.3-6.7); Neutrophils Percent Auto 54.8 % (45.5-73.1); Platelet Count Result 258 k/mm3 (150-375); Red Blood Count 3.64 M/mm3 (4.2-5.4); Red Cell Distribution Width 13.7 % (11.5-14.5); White Blood Count 6.8 K/mm3 (4.5-10.0)
[2022-07-15 06:46] LABS: Alanine Aminotransferase 26 U/L (6-35); Albumin Level 3.7 g/dL (3.5-5.1); Alkaline Phosphatase 65 U/L (38-126); Anion Gap 6 mmol/L (8-16); Aspartate Amino Transferase 39 U/L (14-36); Bilirubin,Total 0.3 mg/dL (0.2-1.3); Blood Urea Nitrogen 38 mg/dL (7-17); CRP 1.8 mg/dL (<1.0); Calcium 9.4 mg/dL (8.4-10.2); Carbon Dioxide 28 mmol/L (22-30); Chloride 108 mmol/L (98-107); Estimated CRCL calculation 17 ml/min; Estimated Glomerular Filt Rate 20; Glucose 166 mg/dL (65-110); Potassium 4.4 mmol/L (3.4-5.0); Sodium 142 mmol/L (137-145)
[2022-07-15 07:13] LABS: Procalcitonin 0.3 ng/mL
[2022-07-15 07:38] LABS: Glucose Point of Care 139 mg/dl (65-105)
[2022-07-15] MEDS: SODIUM BICARBONATE TAB 650 MG TABLET PO ×2 (08:29→17:18)
[2022-07-15] MEDS: OSELTAMIVIR PHOSPHATE 30 MG CAPSULE PO (08:29)
[2022-07-15] MEDS: amLODIPine BESYLATE 5 MG TABLET 10 MG PO (08:29)
[2022-07-15] MEDS: BENZTROPINE MESYLATE 0.5 MG TABLET PO ×2 (08:29→17:18)
[2022-07-15] MEDS: CEFDINIR 300 MG CAPSULE PO (08:29)
[2022-07-15] MEDS: guaiFENesin 12 HR 600 MG TABCR 1200 MG PO ×2 (08:29→20:47)
[2022-07-15] MEDS: FERROUS SULFATE 324 MG TABLET PO (08:29)
[2022-07-15] MEDS: glipiZIDE 5 MG TABLET PO ×2 (08:29→17:18)
[2022-07-15 11:20] LABS: Glucose Point of Care 286 mg/dl (65-105)
[2022-07-15] MEDS: INSULIN ASPART (*BKC) 100 UNITS/ML SUB-Q ×2 (11:50→17:18)
--- NOTE | 2022-07-15 14:59 | P.PNIM_ITS ---
Progress Note: A&P Assessment and Plan (1) Acute respiratory failure with hypercapnia: Code(s): J96.02 - Acute respiratory failure with hypercapnia Status: Resolved Assessment and Plan: ABG shows a respiratory acidosis with a pH of 7.342, pCO2 47.5, PO2 53.8, ABG O2 saturation 85.9, reduce hemoglobin 12 0.7%, and a bicarb of 25. Hypoxia presumably related to pneumonia. * She received a nebulizer treatment in the ED. * Placed on bipap and repeat imaging with pO2 74 and improved. 07/13/22 Pt with spO2 98% and weaned to 2L high flow cannula. * Apnea link with significant apnea/hypopnea and desaturation. * Echocardiogram with suspected HFpEF- moderate LVH, hyperdynamic LV systolic function and abnormal diastolic function. H2FPEF score 70% * Brain CT negative. * Appears resolved. Patient will need nocturnal oxygen set up. * plan to complete [facility] tonight on 2 L supplemental O2. hopeful discharge tomorrow if improved [facility] on nocturnal O2 (2) Confusion: Code(s): R41.0 - Disorientation, unspecified Status: Resolved Assessment and Plan: Likely related to hypercapnia. * Brain CT was unremarkable. * Urine drug screen negative. * Appears resolved. patient is back to her baseline status at this time (3) Pneumonia: Qualifiers: Laterality: bilateral Lung location: lower lobe of lung Pneumonia type : due to unspecified organism Qualified Code(s): J18.9 - Pneumonia, unspecified organism Code(s): J18.9 - Pneumonia, unspecified organism Status: Acute Assessment and Plan: Patient presented with shortness of breath and cough. * Chest x-ray shows opacities to mid-lower lung rodgers and small pleural effusion. * Continue azithromycin and ceftriaxone, first doses 07/12- 07/14. * Sputum for culture pending. * Urinary antigens and mycoplasma IgM pending * Patient's sister reported she was diagnosed with the flu on Wednesday and she is the caregiver for the patient. ED covid19/influenza/RSV negative. However, given exposure, will continue to treat empirically with Tamiflu 30 mg daily (renal dose) and send respiratory viral panel. * Patient and family report no concerns for aspiration/dysphagia. * patient is an overall symptomatic improvement. She has been weaned to room air. Repeat CXR with no acute cardiopulmonary disease. * continue p.o. cefdinir 300 mg daily (renal dosed) for 4 total doses to complete a 7 day course (4) Chronic kidney disease: Qualifiers: Chronic kidney disease stage: stage 4 (severe) Qualified Code(s): N18.4 - Chronic kidney disease, stage 4 (severe) Code(s): N18.9 - Chronic kidney disease, unspecified Status: Chronic Assessment and Plan: Stage 4. She has had progressive of her disease over the last year. She is a pat ient of Dr. Ladd. [place] being weaned off. * Creatinine 3.10 on admission, it was about 2.6 in mid April. * CK >1300 and IV fluids initiated, repeat CK 1000. * Avoid nephrotoxic agents. * creatinine appears stable, near baseline (5) Hypothyroidism: Qualifiers: Hypothyroidism type: unspecified Qualified Code(s): E03.9 - Hypothyroidism, unspecified Code(s): E03.9 - Hypothyroidism, unspecified Status: Chronic Assessment and Plan: TSH within normal limits. Continue levothyroxine at home dose. (6) Type 2 diabetes mellitus: Qualifiers: Diabetes mellitus terminal operations manager insulin use: without penitentiary use Diabetes mellitus complication status: with kidney complications Diabetes mellitus c
--- NOTE | 2022-07-15 14:59 | PM.IMPN ---
Progress Note: A&P Assessment and Plan (1) Acute respiratory failure with hypercapnia: Code(s): J96.02 - Acute respiratory failure with hypercapnia Status: Resolved Assessment and Plan: ABG shows a respiratory acidosis with a pH of 7.342, pCO2 47.5, PO2 53.8, ABG O2 saturation 85.9, reduce hemoglobin 12 0.7%, and a bicarb of 25. Hypoxia presumably related to pneumonia. She received a nebulizer treatment in the ED. Placed on bipap and repeat imaging with pO2 74 and improved. 07/13/22 Pt with spO2 98% and weaned to 2L high flow cannula. Apnea link with significant apnea/hypopnea and desaturation. Echocardiogram with suspected HFpEF- moderate LVH, hyperdynamic LV systolic function and abnormal diastolic function. H2FPEF score 70% Brain CT negative. Appears resolved. Patient will need nocturnal oxygen set up. plan to complete [facility] tonight on 2 L supplemental O2. hopeful discharge tomorrow if improved [facility] on nocturnal O2 (2) Confusion: Code(s): R41.0 - Disorientation, unspecified Status: Resolved Assessment and Plan: Likely related to hypercapnia. Brain CT was unremarkable. Urine drug screen negative. Appears resolved. patient is back to her baseline status at this time (3) Pneumonia: Qualifiers: Laterality: bilateral Lung location: lower lobe of lung Pneumonia type: due to unspecified organism Qualified Code(s): J18.9 - Pneumonia, unspecified organism Code(s): J18.9 - Pneumonia, unspecified organism Status: Acute Assessment and Plan: Patient presented with shortness of breath and cough. Chest x-ray shows opacities to mid-lower lung rodgers and small pleural effusion. Continue azithromycin and ceftriaxone, first doses 07/12- 07/14. Sputum for culture pending. Urinary antigens and mycoplasma IgM pending Patient's sister reported she was diagnosed with the flu on Wednesday and she is the caregiver for the patient. ED covid19/influenza/RSV negative. However, given exposure, will continue to treat empirically with Tamiflu 30 mg daily (renal dose) and send respiratory viral panel. Patient and family report no concerns for aspiration/dysphagia. patient is an overall symptomatic improvement. She has been weaned to room air. Repeat CXR with no acute cardiopulmonary disease. continue p.o. cefdinir 300 mg daily (renal dosed) for 4 total doses to complete a 7 day course (4) Chronic kidney disease: Qualifiers: Chronic kidney disease stage: stage 4 (severe) Qualified Code(s): N18.4 - Chronic kidney disease, stage 4 (severe) Code(s): N18.9 - Chronic kidney disease, unspecified Status: Chronic Assessment and Plan: Stage 4. She has had progressive of her disease over the last year. She is a patient of Dr. Ladd. [place] being weaned off. Creatinine 3.10 on admission, it was about 2.6 in mid April. CK >1300 and IV fluids initiated, repeat CK 1000. Avoid nephrotoxic agents. creatinine appears stable, near baseline (5) Hypothyroidism: Qualifiers: Hypothyroidism type: unspecified Qualified Code(s): E03.9 - Hypothyroidism, unspecified Code(s): E03.9 - Hypothyroidism, unspecified Status: Chronic Assessment and Plan: TSH within normal limits. Continue levothyroxine at home dose. (6) Type 2 diabetes mellitus: Qualifiers: Diabetes mellitus roller mill tender insulin use: without roller mill tender use Diabetes mellitus complication status: with kidney complications Diabetes mellitus complication detail: with chronic kidney disease Chronic kidney disease stage: stage 4 (severe) Qualified Code(s): E11.22 - Type 2 diabetes mellitus with diabetic chronic kidney disease; N18.4 - Chronic kidney disease, stage 4 (severe) Code(s): E11.9 - Type 2 diabetes mellitus without complications Status: Chronic Assessment and Plan: Chronic. Continue glipizid
[2022-07-15 16:33] LABS: Glucose Point of Care 245 mg/dl (65-105)
[2022-07-15] MEDS: chlorproMAZINE HCL 25 MG TABLET 100 MG PO (20:47)
[2022-07-15] MEDS: TRIFLUOPERAZINE HCL 1 MG TABLET 2 MG PO (20:47)
[2022-07-15] MEDS: LITHIUM CARBONATE 150 MG CAPSULE PO (20:47)
[2022-07-15] MEDS: PRAVASTATIN SODIUM 20 MG TABLET 40 MG PO (20:47)
[2022-07-15 21:00] LABS: Glucose Point of Care 169 mg/dl (65-105)
[2022-07-16] VITALS (9 sets, daily range): BP systolic 153; BP diastolic 86; PULSE 86–103; RESP 18–20; TEMP 35.9; O2SAT 93–100
[2022-07-16] MEDS: ALBUTEROL SULFATE NEB 2.5 MG/3 ML INH INHALATION ×3 (01:44→13:34)
--- NOTE | 2022-07-16 05:04 | PCRCNOTE ---
Attempted apnea link on 2L. Found apnea link off patient multiple times throughout night. Also found patient without cannula in her nose multiple times. Not enough data was recorded. Will attempt again karyn 07/16.
[2022-07-16] MEDS: LEVOTHYROXINE SODIUM 50 MCG TABLET PO (06:14)
[2022-07-16 06:34] LABS: Basophils Percent Auto 0.5 % (0.2-1.2); Eosinophils Absolute Auto 0.5 K/mm3 (0-0.3); Hematocrit 35.2 % (37.0-47.0); Hemoglobin 10.2 g/dL (12.0-15.0); Immature Granulocyte Absolute 0.04 K/mm3 (0.00-0.031); Immature Granulocyte Percent A 0.5 % (0-0.5); Lymphocytes Absolute Auto 2.07 K/mm3 (0.9-3.2); Lymphocytes Percent Auto 24.4 % (18.3-44.2); Mean Corpuscular Hemoglobin 25.5 pg (26-34); Mean Platelet Volume 9.3 fl (7.4-10.4); Monocytes Absolute Auto 0.6 K/mm3 (0.1-0.6); Monocytes Percent Auto 7.2 % (2.6-8.5); Neutrophils Absolute Auto 5.2 K/mm3 (1.3-6.7); Neutrophils Percent Auto 61.4 % (45.5-73.1); Platelet Count Result 294 k/mm3 (150-375); Red Cell Distribution Width 13.3 % (11.5-14.5); White Blood Count 8.5 K/mm3 (4.5-10.0)
[2022-07-16 06:52] LABS: Alanine Aminotransferase 29 U/L (6-35); Albumin Level 4.1 g/dL (3.5-5.1); Alkaline Phosphatase 78 U/L (38-126); Anion Gap 10 mmol/L (8-16); Aspartate Amino Transferase 37 U/L (14-36); Bilirubin,Total 0.4 mg/dL (0.2-1.3); Blood Urea Nitrogen 47 mg/dL (7-17); Calcium 9.4 mg/dL (8.4-10.2); Carbon Dioxide 26 mmol/L (22-30); Chloride 105 mmol/L (98-107); Estimated CRCL calculation 20 ml/min; Estimated Glomerular Filt Rate 24; Glucose 199 mg/dL (65-110); Potassium 4.9 mmol/L (3.4-5.0); Sodium 141 mmol/L (137-145)
[2022-07-16 07:38] LABS: Glucose Point of Care 182 mg/dl (65-105)
[2022-07-16 07:39] LABS: Platelet Estimate Adequate (Adequate)
[2022-07-16 07:40] LABS: Burr Cells 1+ (NORMAL); Schistocytes None Seen (NORMAL)
[2022-07-16] MEDS: CEFDINIR 300 MG CAPSULE PO (09:25)
[2022-07-16] MEDS: SODIUM BICARBONATE TAB 650 MG TABLET PO (09:25)
[2022-07-16] MEDS: glipiZIDE 5 MG TABLET PO (09:25)
[2022-07-16] MEDS: OSELTAMIVIR PHOSPHATE 30 MG CAPSULE PO (09:25)
[2022-07-16] MEDS: BENZTROPINE MESYLATE 0.5 MG TABLET PO (09:25)
[2022-07-16] MEDS: guaiFENesin 12 HR 600 MG TABCR 1200 MG PO (09:25)
[2022-07-16] MEDS: amLODIPine BESYLATE 5 MG TABLET 10 MG PO (09:26)
[2022-07-16] MEDS: FERROUS SULFATE 324 MG TABLET PO (09:26)
--- NOTE | 2022-07-16 11:04 | P.DS_ITS ---
DS: Admitting Diagnosis Discharge Date 07/16/2022 Admitting Diagnosis pneumonia DS: Discharge Diagnosis Discharge Diagnosis (1) Acute respiratory failure with hypercapnia: Code(s): J96.02 - Acute respiratory failure with hypercapnia Status: Resolved Assessment and Plan: ABG shows a respiratory acidosis with a pH of 7.342, pCO2 47.5, PO2 53.8, ABG O2 saturation 85.9, reduce hemoglobin 12 0.7%, and a bicarb of 25. Hypoxia presumably related to pneumonia. * She received a nebulizer treatment in the ED. * Placed on bipap and repeat imaging with pO2 74 and improved. 07/13/22 Pt with spO2 98% and weaned to 2L high flow cannula. * Apnea link with significant apnea/hypopnea and desaturation. * Echocardiogram with suspected HFpEF- moderate LVH, hyperdynamic LV systolic function and abnormal diastolic function. H2FPEF score 70% * Brain CT negative. * Pt with 297 min with O2 sats <88% on apnea link on 07/14. Repeated on 2 L on 07/15, with short test due to apnea link off pt and cannula out of nose but still with significant episodes of hypoxia. Pt will be discharged on 4 L nocturnal O2 with plans for repeat overnight oximetry as an outpatient. Home oxygen has been arranged and pts sister and brother will be educated as well to assist patient. * Will need outpatient sleep study (2) Confusion: Code(s): R41.0 - Disorientation, unspecified Status: Resolved Assessment and Plan: Likely related to hypercapnia. * Brain CT was unremarkable. * Urine drug screen negative. * Resolved. patient is back to her baseline status (3) Pneumonia: Qualifiers: Laterality: bilateral Lung location: lower lobe of lung Pneumonia type: due to unspecified organism Qualified Code(s): J18.9 - Pneumonia, unspecified organism Code(s): J18.9 - Pneumonia, unspecified organism Status: Acute Assessment and Plan: Patient presented with shortness of breath and cough. * Chest x-ray showed opacities to mid-lower lung rodgers and small pleural effusion. * Received azithromycin and ceftriaxone. Continue PO cefdinir to complete 7 day course, 30 mg daily renally dosed * Sputum culture negative * Urinary antigens and mycoplasma IgM pending, will monitor * Patient's sister reported she was diagnosed with the flu on Wednesday and she is the caregiver for the patient. ED covid19/influenza/RSV negative. However, given exposure, treated empirically with Tamiflu 30 mg daily (renally dosed) * Patient and family report no concerns for aspiration/dysphagia. * patient with overall symptomatic improvement. She was weaned to room air during daytime. Repeat CXR with no acute cardiopulmonary disease. (4) Chronic kidney disease: Qualifiers: Chronic kidney disease stage: stage 4 (severe) Qualified Code(s): N18.4 - Chronic kidney disease, stage 4 (severe) Code(s): N18.9 - Chronic kidney disease, unspecified Status: Chronic Assessment and Plan: Stage 4. She has had progressive of her disease over the last year. She is a patient of Dr. Ladd. [place] being weaned off. * Creatinine 3.10 on admission, it was about 2.6 in mid April. * CK >1300 and IV fluids initiated, repeat CK 1000. * Avoid nephrotoxic agents. * creatinine stabilized (5) Hypothyroidism: Qualifiers: Hypothyroidism type: unspecified Qualified Code(s): E03.9 - Hypothyro idism, unspecified Code(s): E03.9 - Hypothyroidism, unspecified Status: Chronic Assessment and Plan: TSH within normal limits. * Continue le
--- NOTE | 2022-07-16 11:04 | PM.DS ---
DS: Admitting Diagnosis Discharge Date 07/16/2022 Admitting Diagnosis pneumonia DS: Discharge Diagnosis Discharge Diagnosis (1) Acute respiratory failure with hypercapnia: Code(s): J96.02 - Acute respiratory failure with hypercapnia Status: Resolved Assessment and Plan: ABG shows a respiratory acidosis with a pH of 7.342, pCO2 47.5, PO2 53.8, ABG O2 saturation 85.9, reduce hemoglobin 12 0.7%, and a bicarb of 25. Hypoxia presumably related to pneumonia. She received a nebulizer treatment in the ED. Placed on bipap and repeat imaging with pO2 74 and improved. 07/13/22 Pt with spO2 98% and weaned to 2L high flow cannula. Apnea link with significant apnea/hypopnea and desaturation. Echocardiogram with suspected HFpEF- moderate LVH, hyperdynamic LV systolic function and abnormal diastolic function. H2FPEF score 70% Brain CT negative. Pt with 297 min with O2 sats <88% on apnea link on 07/14. Repeated on 2 L on 07/15, with short test due to apnea link off pt and cannula out of nose but still with significant episodes of hypoxia. Pt will be discharged on 4 L nocturnal O2 with plans for repeat overnight oximetry as an outpatient. Home oxygen has been arranged and pts sister and brother will be educated as well to assist patient. Will need outpatient sleep study (2) Confusion: Code(s): R41.0 - Disorientation, unspecified Status: Resolved Assessment and Plan: Likely related to hypercapnia. Brain CT was unremarkable. Urine drug screen negative. Resolved. patient is back to her baseline status (3) Pneumonia: Qualifiers: Laterality: bilateral Lung location: lower lobe of lung Pneumonia type: due to unspecified organism Qualified Code(s): J18.9 - Pneumonia, unspecified organism Code(s): J18.9 - Pneumonia, unspecified organism Status: Acute Assessment and Plan: Patient presented with shortness of breath and cough. Chest x-ray showed opacities to mid-lower lung rodgers and small pleural effusion. Received azithromycin and ceftriaxone. Continue PO cefdinir to complete 7 day course, 30 mg daily renally dosed Sputum culture negative Urinary antigens and mycoplasma IgM pending, will monitor Patient's sister reported she was diagnosed with the flu on Wednesday and she is the caregiver for the patient. ED covid19/influenza/RSV negative. However, given exposure, treated empirically with Tamiflu 30 mg daily (renally dosed) Patient and family report no concerns for aspiration/dysphagia. patient with overall symptomatic improvement. She was weaned to room air during daytime. Repeat CXR with no acute cardiopulmonary disease. (4) Chronic kidney disease: Qualifiers: Chronic kidney disease stage: stage 4 (severe) Qualified Code(s): N18.4 - Chronic kidney disease, stage 4 (severe) Code(s): N18.9 - Chronic kidney disease, unspecified Status: Chronic Assessment and Plan: Stage 4. She has had progressive of her disease over the last year. She is a patient of Dr. Ladd. [place] being weaned off. Creatinine 3.10 on admission, it was about 2.6 in mid April. CK >1300 and IV fluids initiated, repeat CK 1000. Avoid nephrotoxic agents. creatinine stabilized (5) Hypothyroidism: Qualifiers: Hypothyroidism type: unspecified Qualified Code(s): E03.9 - Hypothyroidism, unspecified Code(s): E03.9 - Hypothyroidism, unspecified Status: Chronic Assessment and Plan: TSH within normal limits. Continue levothyroxine at home dose. (6) Type 2 diabetes mellitus: Qualifiers: Chronic kidney disease stage: stage 4 (severe) Diabetes mellitus complication detail: with chronic kidney disease Diabetes mellitus complication status: with kidney complications Diabetes mellitus halfway insulin use: without rat exterminator use Qualified Code(s): E11.22 - Type 2 diabetes mellitus with diabetic chron
[2022-07-16 11:45] LABS: Glucose Point of Care 217 mg/dl (65-105)
[2022-07-16] MEDS: INSULIN ASPART (*BKC) 100 UNITS/ML SUB-Q (12:15)
[2022-07-16 20:51] LABS: Pneumococcal Antigen Urine Not Detected (Not Detected)
[2022-07-17 20:46] LABS: Mycoplasma IgM Antibody Titer 84 U/mL (<770)
[2022-07-20 06:09] LABS: Legionella pneumophila Ag Ur Not Detected (Not Detected)
== END 2022-07-16 14:15 | disposition home or self-care (01) | DRG 133 ==
LOC: ANHED 11:04 → ANH2MED 14:06 → ANHIMU 17:56 → ANH3MEDSUR 07-14 13:57
PROVIDERS: Nurse Practitioner Family; Physician Assistant; Admitting Provider Internal Medicine; Emergency Provider General Practice; PCP Family Medicine Adolescent Medicine; Visit Provider Physician Assistant
DX: J96.02 Acute respiratory failure with hypercapnia (principal); J18.9 Pneumonia, unspecified organism; I12.9 Hypertensive chronic kidney disease with stage 1 through stage 4 chronic kidney disease, or unspecified chronic kidney disease; D63.1 Anemia in chronic kidney disease; E11.22 Type 2 diabetes mellitus with diabetic chronic kidney disease; E03.9 Hypothyroidism, unspecified; E78.00 Pure hypercholesterolemia, unspecified; E55.9 Vitamin D deficiency, unspecified; F31.9 Bipolar disorder, unspecified; G47.30 Sleep apnea, unspecified; N18.4 Chronic kidney disease, stage 4 (severe); R41.0 Disorientation, unspecified; Z90.710 Acquired absence of both cervix and uterus; Z85.42 Personal history of malignant neoplasm of other parts of uterus; Z20.822 Contact with and (suspected) exposure to COVID-19; Z88.0 Allergy status to penicillin; Z79.84 Long term (current) use of oral hypoglycemic drugs
CPT/HCPCS: 36415; 36600; 70450; 71046; 80053; 80178; 80307; 81001; 82375; 82550; 82607; 82728; 82746; 82805; 82948; 83036; 83050; 83540; 83550; 83605; 83735; 83880; 84145; 84439; 84443; 84480; 84484; 85025; 85610; 85730; 86140; 86738; 87040; 87070; 87086; 87205; 87254; 87449; 87636; 87899; 93005; 93306; 94002; 94640; 94667; 94668; 94762; 96365; 96367; 97161; 97165; 99285; A9270; G0378; G0379; J0456; J0696; J1815; J7120

== ENCOUNTER 2023-01-05 10:07 | Outpatient (CLI) | payer OTHER, SELFPAY ==
--- NOTE | ~2023-01-05 | MM_ITS ---
EXAMINATION: MM screening [place] BI w evan HISTORY: Screening mammogram, family history of breast cancer in her sister. TECHNIQUE: Craniocaudal and mediolateral oblique 3-D tomosynthesis images were obtained and synthetic 2-D images were generated. CAD analysis was submitted and interpreted. COMPARISON: 04/08/2021, 03/21/2020, 03/01/2019 BREAST PARENCHYMAL COMPOSITION: There are scattered areas of fibroglandular density. FINDINGS: No suspicious mass, calcification, or architectural distortion are identified in either yesy ast to suggest malignancy. There has been no suspicious interval change. IMPRESSION: 1. No mammographic evidence of malignancy. 2. Recommend routine screening mammography in one year. BI-RADS Category 1: Negative Reviewed, dictated and finalized at location A. [employer]
== END 2023-01-05 10:08 | disposition home or self-care (01) ==
PROVIDERS: PCP Family Medicine Adolescent Medicine; Visit Provider Family Medicine Adolescent Medicine
DX: Z12.31 Encounter for screening mammogram for malignant neoplasm of breast (principal)
CPT/HCPCS: 77063; 77067

== ENCOUNTER 2023-05-29 10:32 | Emergency (ER) | payer OTHER, SELFPAY ==
--- NOTE | 2023-05-29 10:38 | ED.GENADULT ---
HPI - General Adult General Chief complaint: Upper Respiratory Infection Stated complaint: DIFFICULTY SWALLOWING Time Seen by Provider: 05/29/23 10:34 Source: patient Mode of arrival: ambulatory Limitations: no limitations History of Present Illness HPI narrative: 63-year-old female patient presents to the [facility] with complaints of sore throat/difficulty swallowing for weeks. Patient does have history of psych issues was recently taken off of the lithium in January. Patient does have stage IV kidney failure and is getting ready to start dialysis, but not currently on. The patient's primary doctor this week for complaints of belching and was put on pantoprozole. The patient's sister is with her who is her proxy and states that for the past 4 days patient has significantly declined and has not really been taking in much fluid or food and is complaining that she cannot swallow. Patient states she last urinated this morning however patient has had some confusion is so unable to assess if this is true. Related Data Home Medications Medication Instructions Recorded Confirmed benztropine 0.5 mg tablet 0.5 mg PO BID 06/09/21 05/29/23 chlorpromazine 100 mg tablet 100 mg PO QHS 06/09/21 05/29/23 trifluoperazine 2 mg tablet 2 mg PO QHS 06/09/21 05/29/23 levothyroxine 50 mcg tablet 50 mcg PO DAILY 07/12/22 05/29/23 cholecalciferol (vitamin D3) 25 25 mcg PO DAILY 12/07/22 05/29/23 mcg (1,000 unit) chewable tablet (Vitamin D3) Allergies Allergy/AdvReac Type Severity Reaction Status Date / Time Penicillins Allergy Unknown unknown Verified 05/29/23 10:39 Review of Systems Review of Systems: CONSTITUTIONAL: Denies fever, chills, or sweats. EYES: Denies visual changes, redness, or discharge. ENT: Denies rhinorrhea, congestion, sore throat, or otalgia. CARDIOVASCULAR: Denies chest pain, palpitations, or edema. RESPIRATORY: Denies cough or dyspnea. GASTROINTESTINAL: Denies abdominal pain, nausea, vomiting, or diarrhea. GENITOURINARY: Denies dysuria or hematuria. SKIN: Denies rash or itching. MUSCULOSKELETAL: Denies back pain, joint pain, or myalgia. NEUROLOGIC: Denies headache, numbness, or weakness. PSYCHIATRIC: Denies anxiety or depression. 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 Code status: Full code. Smoking status: Never smoker Second hand tobacco smoke exposure: No Alcohol intake: never Substance use: current Substance use type: does not use Do You Feel Safe in your Home?: Yes Lack of Transportation: No Lack of Food: Never True Current Housing: I Have Housing Concerned About Future Housing: No Difficulty Paying Gas/Electric Bills: No Difficulty Paying for Meds: No Currently Unemployed: No Education: Bachelor's Degree Difficulty w/ Childcare or Family Care: No Living arrangements: alone Occupation/Education: retired Gender identity (if verbaliz
[2023-05-29 10:42] VITALS: BP 148/91; PULSE 88; RESP 16; TEMP 36.2; O2SAT 98
== END 2023-05-29 11:19 | disposition short-term general hospital (02) ==
PROVIDERS: Emergency Provider Nurse Practitioner Family; PCP Family Medicine Adolescent Medicine
DX: R33.9 Retention of urine, unspecified (principal); J02.9 Acute pharyngitis, unspecified; R41.0 Disorientation, unspecified; I12.9 Hypertensive chronic kidney disease with stage 1 through stage 4 chronic kidney disease, or unspecified chronic kidney disease; E11.22 Type 2 diabetes mellitus with diabetic chronic kidney disease; Z79.84 Long term (current) use of oral hypoglycemic drugs; N18.4 Chronic kidney disease, stage 4 (severe); E03.9 Hypothyroidism, unspecified; E66.9 Obesity, unspecified; Z68.31 Body mass index [BMI] 31.0-31.9, adult; E78.00 Pure hypercholesterolemia, unspecified; N25.81 Secondary hyperparathyroidism of renal origin; E55.9 Vitamin D deficiency, unspecified; Z85.42 Personal history of malignant neoplasm of other parts of uterus
CPT/HCPCS: 87081; 87880; 99212; G0463

== ENCOUNTER 2023-05-29 11:39 | Inpatient (IN) | payer OTHER, SELFPAY ==
[2023-05-29] VITALS (9 sets, daily range): BP systolic 135–153; BP diastolic 76–88; PULSE 83–98; RESP 14–21; TEMP 36.6–37.3; O2SAT 94–100; BMI 31.8
--- NOTE | ~2023-05-29 | XR_ITS ---
EXAMINATION: XR barium swallow modified DATE: 05/31/2023 13:45 INDICATION: Dysphagia. TECHNIQUE: The patient was given barium-containing material of multiple consistencies to swallow by t he speech pathologist while I performed fluoroscopy. Fluoroscopy exposure time was 0.1 minutes. The n umber of fluoroscopy images saved to the PACS was 1. Dose-area product was 0.9 Gy-cm^2. FINDINGS: There is reduced laryngeal elevation. IMPRESSION: 1. No laryngeal penetration or aspiration. 2. Please refer to the speech therapy report for recommendations. Reviewed, dictated and finalized at location A.
--- NOTE | ~2023-05-29 | US_ITS ---
EXAMINATION: US renal BI DATE: 05/30/2023 09:04 INDICATION: acute/chronic CKD TECHNIQUE: Multiple grayscale and Doppler ultrasound images of the kidneys were obtained. COMPARISON: 12/18/2020, report only. FINDINGS: The right kidney measures 13.4 x 4.6 x 5.2 cm. The left kidney measures 11.7 x 5.5 x 4.7 cm. The kidn eys demonstrate increased parenchymal echogenicity. Somewhat lobular, thick-walled, septated right up per pole and left lower pole lesions measuring 2.9 cm and 3.1 cm respectively. Multiple simple appear ing right renal cysts also noted. There is mild left. The bladder is normal. IMPRESSION: Nonsimple right upper pole and left lower pole renal cystic lesions, recommend MRI or CT without and with contrast for further evaluation. Bilateral medical renal disease. Mild left hydronephrosis. Reviewed, dictated and finalized at location K.
--- NOTE | ~2023-05-29 | MR_ITS ---
EXAMINATION: MR abdomen wo/w con DATE: 06/04/2023 09:18 INDICATION: Kidney masses. TECHNIQUE: Magnetic resonance imaging (MRI) of the abdomen was performed without and with 15 mL Multi Lalo intravenous contrast. COMPARISON: None. FINDINGS: The liver is normal. There are gallstones in the gallbladder, which is normal in size. The spleen is normal. There are dilated sidechains of the pancreatic duct, likely chronic pancreatitis. The adrenal glands are normal. There are cysts in the kidneys measuring up to 3.4 cm on the right. There is a 12 mm hemorrhagic cyst in left kidney. There are no dilated loops of bowel. There are no pathologically enlarged lymph nodes. There is no free intraperitoneal fluid. IMPRESSION: 1. Benign cysts in the kidneys. 2. Cholelithiasis. Reviewed, dictated and finalized at location A.
--- NOTE | ~2023-05-29 | CT_ITS ---
EXAMINATION: CT brain wo con DATE: 05/29/2023 13:05 INDICATION: Transient alteration of awareness TECHNIQUE: Computed tomography (CT) of the head was performed without intravenous contrast. The mA wa s adjusted according to patient size. Iterative reconstruction technique was employed. Exam dose: 60 5.33 mGy-cm total exam DLP. COMPARISON: 07/12/2022 CT brain images are not available from PACS at this time FINDINGS: Bilateral carotid siphon internal carotid artery calcifications. There is nonspecific diminished attenuation cerebral white matter, likely due to chronic small vessel ischemic changes. There is central and cortical cerebral volume loss. Chronic right basal ganglia lacunar infarct. Smal l chronic lacunar infarct of the head of the right caudate nucleus. No intracranial mass lesion or hemorrhage or recent cerebrovascular accident is noted. No midline shift or mass effect. No subdural or epidural hematoma. No fracture or bone destruction of the cranial vault. The paranasal sinuses and mastoid air cells are normally developed and aerated. IMPRESSION: Cerebral atherosclerosis chronic right basal ganglia lacunar infarcts Moderate central and cortical cerebral atrophy No acute intracranial finding Reviewed, dictated and finalized at Location A. Reviewed, dictated and finalized at location A. IMPRESSION: Cerebral atherosclerosis chronic right basal ganglia lacunar infar cts Moderate central and cortical cerebral atrophy No acute intracranial finding
--- NOTE | ~2023-05-29 | XR_ITS ---
XR UGI w esoph water soluble DATE: 05/30/2023 09:26 INDICATION: TECHNIQUE: Single contrast water soluble upper gastrointestinal series DAP: 34.681 Gycm2 1.6 minutes fluoroscopy time. 108 images. COMPARISON: None FINDINGS: Normal deglutition. There are some tertiary contractions of the esophagus. No stricture, mu cosal fold thickening, erosion or ulceration of the esophagus or stomach is detected. Normally shaped duodenal bulb. No duodenal stricture. There is some thickening of the folds in the po stbulbar area of the duodenum suggesting duodenitis. IMPRESSION: Prominent post bulbar duodenal folds suggesting duodenitis Reviewed, dictated and finalized at Location A. Reviewed, dictated and finalized at location A.
--- NOTE | 2023-05-29 12:39 | ECG_ITS ---
Measurements Intervals [place] Rate: 84 P: 74 WI: 164 QRS: 28 QRSD: 112 T: 56 QT: 375 Avg RR: 711 QTc: 416 QTcB: 444 QTcF: 420 Interpretive Statements SINUS RHYTHM INFERIOR MYOCARDIAL INFARCTION, OF INDETERMINATE AGE [40+ ms Q WAVE AND OR ST/T ABNORMALITY IN II/aVF] ABNORMAL ECG SEE SCANNED COPY FOR SIGNATURE MTDD
--- NOTE | 2023-05-29 12:42 | ED.AMS ---
HPI - Altered Mental Status General Chief Complaint: Altered Mental Status Stated Complaint: stage 4 kidney failure/sent from express care/conf Time Seen by Provider: 05/29/23 12:02 History of Present Illness HPI narrative: Patient is a 63-year-old female who presents ER from urgent care for altered mental status. Worsening over last week. Typically oriented x4 but currently only oriented to self. She believes it is 1961, when told that is her year and she is given a 2nd chance she still gets question wrong. She is unsure why she is here. Family reports decreased urination over last week. No reports of fever. Patient has been off of lithium for the last 4 months due to worsening renal failure. She sees Dr. Ladd and is in the early stages of going on dialysis but is not been determined if it will be hemodialysis or peritoneal dialysis. Family reports patient has some mental delay but her current cognition is different than the norm. Related Data Home Medications Medication Instructions Recorded Confirmed benztropine 0.5 mg tablet 0.5 mg PO BID 06/09/21 05/29/23 chlorpromazine 100 mg tablet 100 mg PO QHS 06/09/21 05/29/23 trifluoperazine 2 mg tablet 2 mg PO QHS 06/09/21 05/29/23 levothyroxine 50 mcg tablet 25 mcg PO DAILY 07/12/22 05/29/23 amlodipine 10 mg tablet 10 mg PO DAILY 05/29/23 05/29/23 sodium bicarbonate 650 mg tablet 650 mg PO QHS 05/29/23 05/29/23 Allergies Allergy/AdvReac Type Severity Reaction Status Date / Time Penicillins Allergy Unknown unknown Verified 05/29/23 18:14 Review of Systems Review of Systems: ROS unobtainable: Yes unobtainable due to mental status PMFSH Past Medical History Medical History Anxiety Bipolar disorder, unspecified Chronic kidney disease, stage IV (severe) Depression Hypertensive chronic kidney disease with stage 1 through stage 4 chronic kidney disease, or unspecified chronic kidney disease Hypothyroidism, unspecified Obesity (BMI 30-39.9) Pneumonia Pure hypercholesterolemia, unspecified 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 Code status: Full code. Smoking status: Never smoker Second hand tobacco smoke exposure: No Alcohol intake: never Substance use: current Substance use type: does not use Do You Feel Safe in your Home?: Yes Lack of Transportation: No Lack of Food: Never True Current Housing: I Have Housing Concerned About Future Housing: No Difficulty Paying Gas/Electric Bills: No Difficulty Paying for Meds: No Currently Unemployed: No Education: Decline to Answer Difficulty w/ Childcare or Family Care: No Living arrangements: alone Occupation/Education: retired Spiritual care concerns: No Agree to blood products: Yes Exam Narrative: GENERAL: Well-appearing, well-nourished, and in no acute distress. HEAD: Normocephalic, atraumatic. ENT: Mucous membranes moist. NECK: Supple. CHEST: Clear to auscultation. No respiratory distress. HEART: Regular rate and rhythm. Normal peripheral pulses. ABDOMEN: Soft, nontender, nondistended. EXTREMITIES: Normal range of motion. No edema. SKIN: Warm, dry, no rash. NEURO: Alert and oriented x1. PSYCH: Normal mood and affect. Course Course Emergency Course: Patient resting comfortably. Admit for observation for altered mental status and UTI. Vital Signs Vital signs: Vital Signs Temperature 99.1 F 05/29/23 11:55 Pulse Rate 83 05/29/23 11:55 Respiratory Rate 21 H 05/29/23 11:55 Blood Pressure 135/88 05/29/23 11:55 Pulse Oximetry 96 05/29/23 11:55 Oxygen Delivery Room Air 05/29/23 11:55 Temperature 97.9 F 05/29/23 18:09 Pulse Rate 98 05/29/23 18:09 Respiratory Rate 14 05/29/23 18:09 Blood Pressure 141/76 H 05/29/23 18:09 Pulse Oximetry 96 05/29/23 18:09 Oxygen Delivery Room Air 05/29/23 17:50 MDM - Altered Mental Status Lab Data 05/29/23 12:38 05/29/23 12:38 Labs: Lab Results 05/29/23 05/29/23 Range/Units 12:38 13:28 WBC 6.6 (4.5-10.0) K/mm3 RBC 4.12 L (4.2-5.4) M/mm3 Hgb 10.8 L (12.0-15.0) g/dL Hct 34.7 L (37.0-47.0) % MCV 84.2 (80-100) fl MCH 26.2 (26-34) pg MCHC 31.1 L (32-36) g/dl RDW 13.2 (11.5-14.5) % Plt Count 330 (150-375) k/mm3 MPV 9.5 (7.4-10.4) fl Immature Gran % (Auto) 0.3 (0-0.5) % Neut % (Auto) 64.6 (45.5-73.1) % Lymph % (Auto) 24.7 (18.3-44.2) % [place] % (Auto) 7.2 (2.6-8.5) % Eos % (Auto) 2.4 (0-4.4) % Baso % (Auto) 0.8 (0.2-1.2) % Lymph # (Auto) 1.64 (0.9-3.2) K/mm3 [place] # (Auto) 0.5 (0.1-0.6) K/mm3 Eos # (Auto) 0.2 (0-0.3) K/mm3 Baso # (Auto) 0.1 (0.0-0.1) K/mm3 Abs Immat Gran (auto) 0.02 (0.00-0.031) K/mm3 Absolute Neuts (auto) 4.3 (1.3-6.7) K/mm3 Absolute Nucleated RBC 0.000 (0.0-0.012) K/mm3 Nucleated RBC % 0.0 (0.0-0.2) % PT 13.4 (11.1-14.7) Seconds INR 1.0 APTT 37.8 H (22.3-36.8) Seconds Sodium 139 (137-145) mmol/L Potassium 4.1 (3.4-5.0) mmol/L Chloride 109 H (98-107) mmol/L Carbon Dioxide 22 (22-30) mmol/L Anion Gap 8 (4-12) mmol/L BUN 33 H D (7-17) mg/dL Creatinine 4.30 H (0.7-1.0) mg/dL Estim Creat Clear Calc 11 ml/min Estimated GFR 10 L (59 - ) Glucose 69 (65-110) mg/dL Calcium 9.8 (8.4-10.2) mg/dL Total Bilirubin 0.4 (0.2-1.3) mg/dL AST 29 (14-36) U/L ALT 19 (6-35) U/L Alkaline Phosphatase 86 (38-126) U/L Ammonia < 9 L (9-30) umol/L Troponin I 0.020 (0.000-0.034) ng/mL Total Protein 7.0 (6.3-8.2) g/dL Albumin 4.0 (3.5-5.1) g/dL Urine Color Yellow (Yellow) Urine Appearance Clear (Clear) Urine pH 6.0 (5.0-9.0) Ur Specific [place] 1.005 (1.001-1.035) Urine Protein 2+ H (Negative) mg/dL Urine Glucose (UA) Negative (Negative) mg/dL Urine Ketones Trace H (Negative) mg/dL Ur Blood (Man) 1+ H (Negative) Urine Nitrate Negative (Negative) Urine Bilirubin Negative (Negative) Urine Urobilinogen 0.2 (<2.0) mg/dL Leukocyte Esterase Rfl 3+ H (Negative) [place]/UL Urine RBC 0-2 (0-2) /hpf Urine WBC 51-100 H (0-3) /hpf Ur Squamous Epith Cells None seen (Few) /hpf Urine Bacteria Rare /hpf Urine Casts 0-2 Urine Opiates Screen Negative (Negative) Urine Methadone Screen Negative (Negative) Ur Barbiturates Screen Negative (Negative) Ur Phencyclidine Scrn Negative (Negative) Ur Amphetamine Screen Negative (Negative) U Benzodiazepines Scrn Negative (Negative) [place] < 0.2 L (0.6-1.2) mmol/L Urine Cocaine Screen Negative (Negative) U Cannabinoids Screen Negative (Negative) Ethyl Alcohol < 10 (<10) mg/dL Imaging Data Radiologist's impression: ITS Impressions Head CT 05/29/23 13:08 IMPRESSION: Cerebral atherosclerosis chronic right basal ganglia lacunar infarcts Moderate central and cortical cerebral atrophy No acute intracranial finding ECG Data EKG #1: ECG completion date: 05/29/23 ECG completion time: 12:39 EKG Interpretation: normal rate (84), sinus rhythm, non-specific ST changes (baseline wander II/aVF), normal QRS, normal QT and NL axis Discharge Plan Discharge Clinical Impression: Acute UTI, Acute metabolic encephalopathy Patient Disposition: Still a Patient Condition: Stable
[2023-05-29 12:46] LABS: Basophils Absolute Auto 0.1 K/mm3 (0.0-0.1); Basophils Percent Auto 0.8 % (0.2-1.2); Eosinophils Absolute Auto 0.2 K/mm3 (0-0.3); Eosinophils Percent Auto 2.4 % (0-4.4); Hematocrit 34.7 % (37.0-47.0); Hemoglobin 10.8 g/dL (12.0-15.0); Immature Granulocyte Absolute 0.02 K/mm3 (0.00-0.031); Immature Granulocyte Percent A 0.3 % (0-0.5); Lymphocytes Absolute Auto 1.64 K/mm3 (0.9-3.2); Lymphocytes Percent Auto 24.7 % (18.3-44.2); Mean Corpuscular HGB Conc 31.1 g/dl (32-36); Mean Corpuscular Hemoglobin 26.2 pg (26-34); Mean Corpuscular Volume 84.2 fl (80-100); Mean Platelet Volume 9.5 fl (7.4-10.4); Monocytes Absolute Auto 0.5 K/mm3 (0.1-0.6); Monocytes Percent Auto 7.2 % (2.6-8.5); Neutrophils Absolute Auto 4.3 K/mm3 (1.3-6.7); Neutrophils Percent Auto 64.6 % (45.5-73.1); Platelet Count Result 330 k/mm3 (150-375); Red Blood Count 4.12 M/mm3 (4.2-5.4); Red Cell Distribution Width 13.2 % (11.5-14.5); White Blood Count 6.6 K/mm3 (4.5-10.0)
[2023-05-29 12:54] LABS: Ammonia < 9 umol/L (9-30)
[2023-05-29 12:55] LABS: Ethanol < 10 mg/dL (<10)
[2023-05-29 12:56] LABS: Alanine Aminotransferase 19 U/L (6-35); Alkaline Phosphatase 86 U/L (38-126); Anion Gap 8 mmol/L (4-12); Aspartate Amino Transferase 29 U/L (14-36); Bilirubin,Total 0.4 mg/dL (0.2-1.3); Blood Urea Nitrogen 33 mg/dL (7-17); Calcium 9.8 mg/dL (8.4-10.2); Carbon Dioxide 22 mmol/L (22-30); Chloride 109 mmol/L (98-107); Estimated CRCL calculation 11 ml/min; Estimated Glomerular Filt Rate 10; Glucose 69 mg/dL (65-110); Potassium 4.1 mmol/L (3.4-5.0); Sodium 139 mmol/L (137-145)
[2023-05-29 12:59] LABS: Lithium < 0.2 mmol/L (0.6-1.2)
[2023-05-29 13:01] LABS: Prothrombin Time 13.4 Seconds (11.1-14.7)
[2023-05-29 13:02] LABS: Partial Thromboplastin Time 37.8 Seconds (22.3-36.8)
[2023-05-29 13:44] LABS: Appearance Urine Clear (Clear); Bacteria Urine Rare /hpf; Bilirubin Urine Negative (Negative); Blood Urine 1+ (Negative); Color Urine Yellow (Yellow); Glucose Urine UA Negative (Negative); Ketones Urine Trace mg/dL (Negative); Leukocyte Esterase Ur 3+ LEU/UL (Negative); Nitrate Urine Negative (Negative); Non Pathogenic Casts 0-2; Protein Urine 2+ mg/dL (Negative); RBC Urine 0-2 /hpf (0-2); Specific Grav Ur 1.005 (1.001-1.035); Squamous Epithelial Cell Urine None Seen /hpf (Few); Urobilinogen Urine 0.2 mg/dL (<2.0); WBC Urine 51-100 /hpf (0-3)
[2023-05-29 13:45] LABS: Add Urine Microscopic? YES
[2023-05-29 13:53] LABS: Amphetamine Screen Urine Negative (Negative); Barbiturate Screen Urine Negative (Negative); Benzodiazepines Screen Urine Negative (Negative); Cannabinoid Screen Urine Negative (Negative); Cocaine Screen Urine Negative (Negative); Methadone Screen Urine Negative (Negative); Opiate Screen Urine Negative (Negative); Phencyclidine Screen Urine Negative (Negative)
[2023-05-29] MEDS: SODIUM CHLORIDE 0.9% IV 1,000 ML 100 ML IV CONT (15:22)
--- NOTE | 2023-05-29 16:57 | PC.NURSE ---
This patient, Nicky Villalobos, was admitted to 3 [facility] Surg Room 303-01 @ 16:29. Patient/family oriented to hospital policies and general routines including ID bracelet, bed and alarms, visiting hours, pain management, procedures, bathroom and other care routines, personal items, smoking policy, room service/diet, and visiting hours. Information on how to activate the Rapid Response Team has been discussed. Patient/Family are encouraged to report perceived risks to care and to ask questions if they do not understand what they are told or what they should do.
--- NOTE | 2023-05-29 17:08 | P.HP_ITS ---
H&P: HPI History of Present Illness Date/Time: 05/29/23 15:30 Chief Complaint: Difficulties swallowing. Narrative: This is a 63-year-old female with bipolar disorder, chronic kidney disease, hypothyroidism, and diabetes who presented to the emergency department via private vehicle from home for evaluation of difficulties swallowing. The patient provides the following history and her sister offers additional information with the patient's permission. Due to the patient's worsening kidney function she was tapered off of lithium last fall and she has had increasing issues with anxiety since that time and according to sister she seems to perseverate on things that are beyond her control but caused her to be quite distressed. She was trialed on Zoloft but apparently did not react well to the drug in since that she has been on treated for anxiety. The last several months she has been complaining of difficulties swallowing seems to have same anxiety surrounding both liquid and solid intake. She has lost about 30 lb in the same time frame and she has intermittent episodes of indigestion and belching. She called her sister today with these concerns and she was brought in for evaluation. She does not have sensations as though food is getting stuck in her throat or chest. She denies concerns for aspiration. No nausea or vomiting. Historically she has not had issues with GERD and she has no history of ulcers to her knowledge. No melena or hematochezia. She has had a colonoscopy with history of polyps but has never had an upper endoscopy. In the ED: She was afebrile on arrival with stable vital signs. Labs were significant for a chronic and stable anemia and an increased BUN and creatinine from baseline at 33 and 4.30 respectively. Urine was positive for 2+ protein, trace ketones, 1+ blood, 3+ leukocyte esterase, 51 to 100 wbc's, and rare bacteria. With further questioning she has noticed a decrease in urine output and mild dysuria. Review of Systems Review of Systems: Twelve systems were reviewed and are negative except for as per HPI. 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 Code status: Full code. Smoking status: Never smoker Second hand tobacco smoke exposure: No Alcohol intake: never Substance use: current Substance use type: does not use Do You Feel Safe in your Home?: Yes Lack of Transportation: No Lack of Food: Never True Current Housing: I Have Housing Concerned About Future Housing: No Difficulty Paying Gas/Electric Bills: No Difficulty Paying for Meds: No Currently Unemployed: No Education: Decline to Answer Difficulty w/ Childcare or Family Care: No Living arrangements: alone Occupation/Education: retired Spiritual care concerns: No Agree to blood products: Yes Meds Home Medications and Allergies Home Medications Medication Instructions Recorded Confirmed Type benztropine 0.5 mg tablet 0.5 mg PO BID 06/09/21 05/29/23 History chlorpromazine 100 mg tablet 100 mg PO QHS 06/09/21 05/29/23 History trifluoperazine 2 mg tablet 2 mg PO QHS 06/09/21 05/29/23 History levothyroxine 50 mcg tablet 25 mcg PO DAILY 07/12/22 05/29/23 History pravastatin 40 mg tablet 40 mg PO QHS #90 tabs 10/28/22 05/29/23 Rx glipizide 5 mg tablet 5 mg PO BID #180 tabs 11/26/22 05/29/23 Rx pantoprazole 40 mg tablet,delayed 40 mg PO QAM #30 tabs 05/25/23 05/29/23 Rx release amlodipine 10 mg tablet 10 mg PO DAILY 05/29/23 05/29/23 History sodium bicarbonate 650 mg tablet 650 mg PO QHS 05/29/23 05/29/23 History Allergies Allergy/AdvReac Type Severity Reaction Status Date / Time Penicillins Allergy Unknown unknown Verified 05/29/23 18:14 Vital Signs Vital Signs - 24 hr 05/29/23 11:55 05/29/23 12:40 05/29/23 15:22 Temperature 99.1 F 98.4 F Pulse Rate 83 Respiratory Rate 21 H Blood Pressure 135/88 Pulse Oximetry 96 Oxygen Delivery Room Air Room Air 05/29/23 12:00 05/29/23 13:00 05/29/23 14:00 Temperature Pulse Rate 88 84 85 Respiratory Rate 14 21 H 20 Blood Pressure 138/84 136/80 135/88 Pulse Oximetry 98 97 100 Oxygen Delivery 05/29/23 15:00 Temperature Pulse Rate 87 Respiratory Rate 18 Blood Pressure 136/78 Pulse Oximetry 97 Oxygen Delivery Exam Narrative: General:?Nontoxic-appearing female in the semi-Amador position in bed in no acute distress. Weight: 76.5 kg. BMI: 31.9. HEENT:??Normocephalic, atraumatic. Wearing corrective lenses. PERRL, EOMI. Sclera anicteric. Tacky mucous membranes. Neck:??Supple. Respiratory:?Respirations are nonlabored and lungs are clear to auscultation. Cardiovascular:??Regular rate and rhythm with S1-S2. Gastrointestinal:??Abdomen is soft and protuberant with a distended bladder. No guarding or rebound tenderness. Skin:??Warm and dry.? No rash or lesions on limited exam. Extremities:??No cyanosis, clubbing, or edema. Radial and pedal pulses intact. No palpable knots or cords. Neurological:??Alert and oriented to name, age, date of , and place. She could not give me the current year. Cranial nerves 2-12 are grossly intact. Speech is clear.? No facial asymmetry. No gross focal deficits to casual conversation. Psychiatric:?Flat affect.? Poor eye contact. H&P: Results Labs Labs: Short CBC 05/29/23 Range/Units 12:38 WBC 6.6 (4.5-10.0) K/mm3 Hgb 10.8 L (12.0-15.0) g/dL Hct 34.7 L (37.0-47.0) % Plt Count 330 (150-375) k/mm3 [facility] 04/06/24 12:38 Sodium 139 Potassium 4.1 Chloride 109 H Carbon Dioxide 22 BUN 33 H D Creatinine 4.30 H Glucose 69 Calcium 9.8 Cardiac Enzymes 05/29/23 Range/Units 12:38 Troponin I 0.020 (0.000-0.034) ng/mL Liver Function 05/29/23 Range/Units 12:38 Total Bilirubin 0.4 (0.2-1.3) mg/dL AST 29 (14-36) U/L ALT 19 (6-35) U/L Alkaline Phosphatase 86 (38-126) U/L Albumin 4.0 (3.5-5.1) g/dL Urine 05/29/23 Range/Units 13:28 Urine Color Yellow (Yellow) Urine Appearance Clear (Clear) Urine pH 6.0 (5.0-9.0) Ur Specific [place] 1.005 (1.001-1.035) Urine Protein 2+ H (Negative) mg/dL Urine Glucose (UA) Negative (Negative) mg/dL Impressions Head CT 05/29/23 13:08 IMPRESSION: Cerebral atherosclerosis chronic right basal ganglia lacunar infarcts Moderate central and cortical cerebral atrophy No acute intracranial finding Assessment and Plan Assessment and plan (1) Acute on chronic kidney failure: Code(s): N17.9 - Acute kidney failure, unspecified; N18.9 - Chronic kidney disease, unspecified Status: Acute (2) Urinary retention: Code(s): R33.9 - Retention of urine, unspecified Status: Acute (3) Dysphagia: Code(s): R13.10 - Dysphagia, unspecified Status: Acute (4) Dehydration: Code(s): E86.0 - Dehydration Status: Acute (5) Abnormal urinalysis: Code(s): R82.90 - Unspecified abnormal findings in urine Status: Acute (6) Chronic anemia: Code(s): D64.9 - Anemia, unspecified Status: Acute (7) Type 2 diabetes mellitus: Code(s): E11.9 - Type 2 diabetes mellitus without complications Status: Acute (8) Psychiatric illness: Code(s): F99 - Mental disorder, not otherwise specified Status: Acute Plan The patient presented to the emergency department for evaluation of difficulty swallowing as detailed in HPI. Labs, imaging, EKG, and all reports were personally reviewed. This has been an ongoing problem for her for a couple of months and she has lost approximately 30 lb in the same time frame. She complains of GERD symptoms, bloating, and belching raising the possibility of gastritis or ulcer. May be some component of anxiety; when I was in the room with her and encouraged her to drink she was able to do so without issue. Continue PPI and obtain upper GI series tomorrow. May consider GI consult depending those results. She has worsening renal failure which is likely due to a combination of dehydration from decreased oral intake and urinary retention. Sandhu catheter has been inserted with strict I/O. Renal ultrasound ordered. All medications will be renally dosed and nephrotoxic agents will be held. She is on several medications which could cause urinary retention but these need to be continued for her underlying psychiatric illnesses. She endorses mild dysuria and her UA does demonstrate increased WBCs, 3+ leukocyte esterase, and rare bacteria on microscopy thus will continue ceftriaxone pending urine culture. She will be cautiously hydrated overnight with close monitoring of volume status. Hold glipizide given worsening renal function. Initiate sliding scale insulin, Accu-Cheks, and hypoglycemic protocol. The rest of her home medications will be reviewed and resumed as appropriate. Findings and treatment plan were discussed with the patient and her sister. Questions were solicited and answered to satisfaction. The patient's medical management will be taken over by the hospitalist team in a.m. Quality VTE Prophylaxis VTE prophylaxis: pharmacologic ordered The patient has been admitted under observation status.
[2023-05-29 17:14] LABS: Glucose Point of Care 77 mg/dl (65-105)
[2023-05-29 18:17] LABS: Glucose Point of Care 118 mg/dl (65-105)
[2023-05-29] MEDS: chlorproMAZINE HCL 25 MG TABLET 100 MG PO (21:40)
[2023-05-29] MEDS: PRAVASTATIN SODIUM 20 MG TABLET 40 MG PO (21:40)
[2023-05-29] MEDS: SODIUM BICARBONATE TAB 650 MG TABLET PO (21:40)
[2023-05-29] MEDS: BENZTROPINE MESYLATE 0.5 MG TABLET PO (21:40)
[2023-05-29] MEDS: TRIFLUOPERAZINE HCL 1 MG TABLET 2 MG PO (21:41)
[2023-05-29 22:20] LABS: Glucose Point of Care 169 mg/dl (65-105)
[2023-05-30] MEDS: LEVOTHYROXINE SODIUM 25 MCG TABLET PO (05:03)
[2023-05-30] MEDS: SODIUM CHLORIDE 0.9% IV 1,000 ML 100 ML IV CONT (05:06)
[2023-05-30 06:00] VITALS: BP 147/86; PULSE 96; RESP 17; TEMP 36.4; O2SAT 94
[2023-05-30 06:09] LABS: Hematocrit 31.9 % (37.0-47.0); Hemoglobin 9.6 g/dL (12.0-15.0); Mean Corpuscular HGB Conc 30.1 g/dl (32-36); Mean Corpuscular Hemoglobin 25.6 pg (26-34); Mean Corpuscular Volume 85.1 fl (80-100); Mean Platelet Volume 9.6 fl (7.4-10.4); Platelet Count Result 305 k/mm3 (150-375); Red Blood Count 3.75 M/mm3 (4.2-5.4); Red Cell Distribution Width 13.2 % (11.5-14.5)
[2023-05-30 06:19] LABS: Anion Gap 11 mmol/L (4-12); Blood Urea Nitrogen 30 mg/dL (7-17); Calcium 9.6 mg/dL (8.4-10.2); Carbon Dioxide 18 mmol/L (22-30); Chloride 111 mmol/L (98-107); Estimated CRCL calculation 12 ml/min; Estimated Glomerular Filt Rate 11; Glucose 119 mg/dL (65-110); Magnesium 2.3 mg/dL (1.6-2.3); Potassium 3.8 mmol/L (3.4-5.0); Sodium 140 mmol/L (137-145)
[2023-05-30 07:39] LABS: Glucose Point of Care 118 mg/dl (65-105)
--- NOTE | 2023-05-30 09:24 | P.PNIM_ITS ---
Progress Note: A&P Assessment and Plan (1) Dysphagia: Code(s): R13.10 - Dysphagia, unspecified Status: Acute Assessment and Plan: 05/30/23: * Reporting difficulty swallowing for the past 2 weeks, she states that things seem to get caught in her throat and she is unable to clear it. * Upper GI series results pending * GI consulted * Will need a barium swallow as she was choking on thin liquids while I was in the room * Denies any new neuro deficits * Speech is normal, facial features are symmetrical * CT of the brain showing old chronic right basal ganglia lacune are infarcts, moderate central and cortical cerebral atrophy, no acute intracranial finding (2) Acute UTI: Code(s): N39.0 - Urinary tract infection, site not specified Status: Acute Assessment and Plan: 05/30/23: * UA showed 2+ protein, trace ketones, 1+ urine blood, 3+ leukocytes, 51-100 urine wbc's. * Urine culture was obtained and is pending * Patient was started on Rocephin and will continue * Renal ultrasound results pending (3) Hypothyroidism, unspecified: Code(s): E03.9 - Hypothyroidism, unspecified Status: Chronic Assessment and Plan: 05/30/23: * Continue Synthroid (4) Bipolar disorder, unspecified: Code(s): F31.9 - Bipolar disorder, unspecified Status: Chronic Assessment and Plan: 05/30/23: * Continue sertraline and chlorpromazine (5) Type 2 diabetes mellitus with diabetic chronic kidney disease: Code(s): E11.22 - Type 2 diabetes mellitus with diabetic chronic kidney disease Status: Chronic Assessment and Plan: 05/30/23: * Blood glucose ranging * Hemoglobin A1c * Accu-Cheks AC and HS * Diabetic diet * Hypoglycemic protocol * Low-dose sliding scale insulin ordered * Will hold glipizide now (6) Pure hypercholesterolemia, unspecified: Code(s): E78.00 - Pure hypercholesterolemia, unspecified Status: Chronic Assessment and Plan: 05/30/23: * Continue pravastatin Time Spent With Patient Time with patient: 25 - 35 minutes Subjective Date/time seen: 05/30/23 09:24 Interval history: This is a 63-year-old female who presented to the hospital on 05/29/2023 with difficulty swallowing. Workup in the hospital included a head CT which was negative for any acute findings, showed cerebral atherosclerosis chronic right basal ganglia lacunar infarcts. Renal ultrasound and Upper GI series, results pending. Labs revealed a white blood cell count of 6.0, hemoglobin 9.6, BUN 30, creatinine 4.10, EGFR 11. UA shown 2+ urine protein, trace ketones, 1+ urine blood, 3+ leukocyte, 51-100 urine wbc's. Urine culture was obtained and is pending. Patient was given 1 L of normal saline in the ED along with some Rocephin. Nephrology was consulted for acute kidney injury superimposed on chronic kidney disease. She denies any fever, chills, nausea, vomiting, abdominal pain, pain, shortness a breath. She endorses 1 episode of diarrhea today, she some congestion, along with some burping that has been going on for a couple of weeks. We will go ahead and consult GI and also get a barium swallow study. Review of Systems Review of Systems: All systems reviewed & are unremarkable except as noted in HPI and below Constitutional: Constitutional: Reports as per HPI and Reports no additional constitutional complaints Eyes: Eyes: Reports as per HPI and Reports no additional eye complaints ENT: Reports system reviewed and no additional complaints, except as documented and Reports as per HPI Cardiovascular: Cardiovascular: Reports as per HPI and Reports no additional cardiovascular complaints Respiratory: Respiratory: Reports as per HPI and Reports no additional respiratory complaints Gastrointestinal: Gastrointestinal: Reports as per HPI and Reports no additional gastrointestinal complaints Genitourinary: Genitourinary: Reports no additional female genitourinary complaints and Reports as per HPI Musculoskeletal: Musculoskeletal: Reports no additional musculoskeletal complaints and Reports as per HPI Integumentary/Breasts: Skin/Breast: Reports system reviewed and no additional complaints, except as docu and Reports as per HPI Neurologic: Reports system reviewed and no additional complaints, except as documented and Reports as per HPI Psychiatric: Psychiatric: Reports no additional psychiatric complaints and Reports as per HPI Exam Narrative: General: In no acute distress, well nourished Head: atraumatic, no encephalopathy Eyes: EOMI, PERRLA, sclera clear ENT: moist mucous membranes, nasal passages clear Neck: supple, no JVD, no adenopathy, trachea midline Cardiac: Normal S1 and S2. RRR, No murmur, gallops or friction rubs, peripheral pulses intact. Respiratory: Lungs clear to auscultation, no adventitious lung sounds, currently on room air Gastrointestinal: soft, non-distended, non-tender, normoactive bowel sounds. : murray catheter in place Extremities: moves all extremities well, no edema Skin: clean, dry, intact. No wounds or lesions. Neuro: Alert and oriented x3, cranial nerves intact, no neuro deficits. Psych: normal mood, normal affect, interactive Objective Data Vital Signs Vital Signs: Vital Signs - 24 hr 05/29/23 11:55 05/29/23 12:40 05/29/23 15:22 Temperature 99.1 F 98.4 F Pulse Rate 83 Respiratory Rate 21 H Blood Pressure 135/88 Pulse Oximetry 96 Oxygen Delivery Room Air Room Air 05/29/23 12:00 05/29/23 13:00 05/29/23 14:00 Temperature Pulse Rate 88 84 85 Respiratory Rate 14 21 H 20 Blood Pressure 138/84 136/80 135/88 Pulse Oximetry 98 97 100 Oxygen Delivery 05/29/23 15:00 05/29/23 17:50 05/29/23 18:09 Temperature 97.9 F Pulse Rate 87 98 Respiratory Rate 18 14 Blood Pressure 136/78 141/76 H Pulse Oximetry 97 96 Oxygen Delivery Room Air 05/29/23 21:26 05/29/23 20:00 05/30/23 06:00 Temperature 98.7 F 97.6 F Pulse Rate 93 96 Respiratory Rate 18 17 Blood Pressure 153/79 H 147/86 H Pulse Oximetry 94 94 94 Oxygen Delivery Room Air Intake/Output Intake/Output: Intake & Output 05/27/23 05/28/23 05/29/23 05/30/23 23:59 23:59 23:59 23:59 Intake Total 50 1700 Output Total 700 1450 Balance -650 250 Meds/Results Medications: Active Medications Generic Name Dose Route Start Last Admin Trade Name Freq PRN Reason Stop Dose Admin Acetaminophen 650 mg 05/29/23 14:55 Acetaminophen 325 Mg Tablet PO Q4H PRN Mild Pain (1-3) or Fever Amlodipine Besylate 10 mg 05/30/23 09:00 Amlodipine Besylate 5 Mg Tablet PO DAILY VIRIDIANA Benztropine Mesylate 0.5 mg 05/29/23 20:40 05/29/23 21:40 Benztropine Mesylate 0.5 Mg Tablet PO 0.5 mg BID VIRIDIANA Administration Chlorpromazine HCl 100 mg 05/29/23 21:00 05/29/23 21:40 Chlorpromazine Hcl 25 Mg Tablet PO 100 mg QHS VIRIDIANA Administration Dextrose 12.5 gm 05/29/23 20:59 Dextrose 50% 25 Gm/50 Ml Syringe IV PUSH PRN PRN Hypoglycemia Protocol Glucagon 1 mg 05/29/23 20:59 Glucagon For Inj 1 Mg Vial IM PRN PRN Hypoglycemia Protocol Glucose 15 gm 05/29/23 20:59 Glucose Oral Gel 15 Gm Of Glucse In 37.5 Gm Tube PO PRN PRN Hypoglycemia Protocol Ceftriaxone Sodium 1 gm in 50 mls @ 100 mls/hr 05/30/23 14:00 Rocephin 1 Gm/Ns 50 Ml IVPB Q24H VIRIDIANA Sodium Chloride 1,000 mls @ 80 mls/hr 05/29/23 14:55 05/30/23 05:06 Normal Saline Iv IV CONT 100 mls/hr .[id number] VIRIDIANA Administration Dextrose 1,000 mls @ 100 mls/hr 05/29/23 20:59 Dextrose 5% 1,000 Ml IVPB PRN PRN Hypoglycemia Protocol Insulin Aspart 2 - 5 units 05/30/23 08:00 Insulin Aspart (*Bkc) 100 Units/Ml SUB-Q TIDWM [facility] Protocol Insulin Aspart 1 - 2 units 05/29/23 21:00 05/29/23 21:40 Insulin Aspart (*Bkc) 100 Units/Ml SUB-Q Not Given HS [facility] Protocol Levothyroxine Sodium 25 mcg 05/30/23 06:30 05/30/23 05:03 Levothyroxine Sodium 25 Mcg Tablet PO 25 mcg DAILY@0630 VIRIDIANA Administration Ondansetron HCl 4 mg 05/29/23 14:55 Ondansetron Inj 4 Mg/2 Ml Vial IV PUSH Q4H PRN Nausea Pantoprazole Sodium 40 mg 05/30/23 09:00 Pantoprazole 40 Mg Tablet PO QAM [facility] Pravastatin Sodium 40 mg 05/29/23 21:00 05/29/23 21:40 Pravastatin Sodium 20 Mg Tablet PO 40 mg QHS VIRIDIANA Administration Sodium Bicarbonate 1,300 mg 05/30/23 09:00 Sodium Bicarbonate Tab 650 Mg Tablet PO QAM [facility] Sodium Bicarbonate 650 mg 05/29/23 21:00 05/29/23 21:40 Sodium Bicarbonate Tab 650 Mg Tablet PO 650 mg HS VIRIDIANA Administration Trifluoperazine HCl 2 mg 05/29/23 21:00 05/29/23 21:41 Trifluoperazine Hcl 1 Mg Tablet PO 2 mg QHS VIRIDIANA Administration Radiology Results: ITS Impressions Head CT 05/29/23 13:08 IMPRESSION: Cerebral atherosclerosis chronic right basal ganglia lacunar infarcts Moderate central and cortical cerebral atrophy No acute intracranial finding Labs Labs: Laboratory Results - last 24 hr 05/29/23 05/29/23 05/29/23 12:38 13:28 17:12 WBC 6.6 RBC 4.12 L Hgb 10.8 L Hct 34.7 L MCV 84.2 MCH 26.2 MCHC 31.1 L RDW 13.2 Plt Count 330 MPV 9.5 Immature Gran % (Auto) 0.3 Neut % (Auto) 64.6 Lymph % (Auto) 24.7 [place] % (Auto) 7.2 Eos % (Auto) 2.4 Baso % (Auto) 0.8 Lymph # (Auto) 1.64 [place] # (Auto) 0.5 Eos # (Auto) 0.2 Baso # (Auto) 0.1 Abs Immat Gran (auto) 0.02 Absolute Neuts (auto) 4.3 Absolute Nucleated RBC 0.000 Nucleated RBC % 0.0 PT 13.4 INR 1.0 APTT 37.8 H Sodium 139 Potassium 4.1 Chloride 109 H Carbon Dioxide 22 Anion Gap 8 BUN 33 H D Creatinine 4.30 H Estim Creat Clear Calc 11 Estimated GFR 10 L Glucose 69 POC Capillary Glucose 77 Calcium 9.8 Magnesium Total Bilirubin 0.4 AST 29 ALT 19 Alkaline Phosphatase 86 Ammonia < 9 L Troponin I 0.020 Total Protein 7.0 Albumin 4.0 Urine Color Yellow Urine Appearance Clear Urine pH 6.0 Ur Specific [place] 1.005 Urine Protein 2+ H Urine Glucose (UA) Negative Urine Ketones Trace H Ur Blood (Man) 1+ H Urine Nitrate Negative Urine Bilirubin Negative Urine Urobilinogen 0.2 Leukocyte Esterase Rfl 3+ H Urine RBC 0-2 Urine WBC 51-100 H Ur Squamous Epith Cells None seen Urine Bacteria Rare Urine Casts 0-2 Urine Opiates Screen Negative Urine Methadone Screen Negative Ur Barbiturates Screen Negative Ur Phencyclidine Scrn Negative Ur Amphetamine Screen Negative U Benzodiazepines Scrn Negative [place] < 0.2 L Urine Cocaine Screen Negative U Cannabinoids Screen Negative Ethyl Alcohol < 10 05/29/23 05/29/23 05/30/23 18:13 21:37 05:22 WBC 6.0 RBC 3.75 L Hgb 9.6 L Hct 31.9 L MCV 85.1 MCH 25.6 L MCHC 30.1 L RDW 13.2 Plt Count 305 MPV 9.6 Immature Gran % (Auto) Neut % (Auto) Lymph % (Auto) [place] % (Auto) Eos % (Auto) Baso % (Auto) Lymph # (Auto) [place] # (Auto) Eos # (Auto) Baso # (Auto) Abs Immat Gran (auto) Absolute Neuts (auto) Absolute Nucleated RBC Nucleated RBC % PT INR APTT Sodium Potassium Chloride Carbon Dioxide Anion Gap BUN Creatinine Estim Creat Clear Calc Estimated GFR Glucose POC Capillary Glucose 118 H 169 H Calcium Magnesium Total Bilirubin AST ALT Alkaline Phosphatase Ammonia Troponin I Total Protein Albumin Urine Color Urine Appearance Urine pH Ur Specific [place] Urine Protein Urine Glucose (UA) Urine Ketones Ur Blood (Man) Urine Nitrate Urine Bilirubin Urine Urobilinogen Leukocyte Esterase Rfl Urine RBC Urine WBC Ur Squamous Epith Cells Urine Bacteria Urine Casts Urine Opiates Screen Urine Methadone Screen Ur Barbiturates Screen Ur Phencyclidine Scrn Ur Amphetamine Screen U Benzodiazepines Scrn [place] Urine Cocaine Screen U Cannabinoids Screen Ethyl Alcohol 05/30/23 05/30/23 05:25 07:36 WBC RBC Hgb Hct MCV MCH MCHC RDW Plt Count MPV Immature Gran % (Auto) Neut % (Auto) Lymph % (Auto) [place] % (Auto) Eos % (Auto) Baso % (Auto) Lymph # (Auto) [place] # (Auto) Eos # (Auto) Baso # (Auto) Abs Immat Gran (auto) Absolute Neuts (auto) Absolute Nucleated RBC Nucleated RBC % PT INR APTT Sodium 140 Potassium 3.8 Chloride 111 H Carbon Dioxide 18 L Anion Gap 11 BUN 30 H Creatinine 4.10 H Estim Creat Clear Calc 12 Estimated GFR 11 L Glucose 119 H POC Capillary Glucose 118 H Calcium 9.6 Magnesium 2.3 Total Bilirubin AST ALT Alkaline Phosphatase Ammonia Troponin I Total Protein Albumin Urine Color Urine Appearance Urine pH Ur Specific [place] Urine Protein Urine Glucose (UA) Urine Ketones Ur Blood (Man) Urine Nitrate Urine Bilirubin Urine Urobilinogen Leukocyte Esterase Rfl Urine RBC Urine WBC Ur Squamous Epith Cells Urine Bacteria Urine Casts Urine Opiates Screen Urine Methadone Screen Ur Barbiturates Screen Ur Phencyclidine Scrn Ur Amphetamine Screen U Benzodiazepines Scrn [place] Urine Cocaine Screen U Cannabinoids Screen Ethyl Alcohol
[2023-05-30] MEDS: SODIUM BICARBONATE TAB 650 MG TABLET 1300 MG PO (09:33)
[2023-05-30] MEDS: amLODIPine BESYLATE 5 MG TABLET 10 MG PO (09:34)
[2023-05-30] MEDS: BENZTROPINE MESYLATE 0.5 MG TABLET PO ×2 (09:34→16:15)
[2023-05-30] MEDS: PANTOPRAZOLE 40 MG TABLET PO (09:34)
[2023-05-30] MEDS: INSULIN ASPART (*BKC) 100 UNITS/ML SUB-Q (12:00)
[2023-05-30 12:54] LABS: Glucose Point of Care 252 mg/dl (65-105)
[2023-05-30 13:14] LABS: Glucose Point of Care 241 mg/dl (65-105)
[2023-05-30 14:00] VITALS: BP 134/85; PULSE 92; RESP 18; TEMP 36.2; O2SAT 97
--- NOTE | 2023-05-30 16:40 | P.CONNP_ITS ---
Assessment and Plan Assessment and plan (1) DES (acute kidney injury): Code(s): N17.9 - Acute kidney failure, unspecified Status: Acute Assessment and Plan: The patient has DES. she has not been eating very well over the last few months. possibly she is dehydrated. other causes of des consist of rhabdomyolysis, obstruction, and less likely AIN or GN. will get ck, urine 'lytes, renal sono. continue IVFs for now (2) Chronic kidney disease, stage IV (severe): Code(s): N18.4 - Chronic kidney disease, stage 4 (severe) Status: Acute Assessment and Plan: sees Dr Ladd in the office baseline gfr around 20 (3) Vitamin D deficiency: Code(s): E55.9 - Vitamin D deficiency, unspecified Status: Acute (4) Hypertensive chronic kidney disease with stage 1 through stage 4 chronic kidney disease, or unspecified chronic kidney disease: Code(s): I12.9 - Hypertensive chronic kidney disease with stage 1 through stage 4 chronic kidney disease, or unspecified chronic kidney disease Status: Chronic Assessment and Plan: BP isunder good control amlodipine on board. (5) Type 2 diabetes mellitus with diabetic chronic kidney disease: Code(s): E11.22 - Type 2 diabetes mellitus with diabetic chronic kidney disease Status: Chronic Assessment and Plan: on accuchecks and SSI per hospitalist History of Present Illness Reason for Consult Consult date: 05/30/23 Chief Complaint Chief complaint: v-tac History of Present Illness Narrative: Nicky Acuñais a 63-year-old female with bipolar disorder, chronic kidney disease, hypothyroidism, and diabetes who came in with difficulty swallowing. This has been going on for the last few months intermittently. she has lost 30 pounds over the last few months. no n/v. no gerd. She went to the ER and was found to be dehydrated. her Creatinine generally runs in the 2 to 2.5 range and is up to 4.1 this time. she received fluids overnight and the creatinine came down from 4.3 to 4.1. hemoglobin was stable. 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 Code status: Full code. Smoking status: Never smoker Second hand tobacco smoke exposure: No Alcohol intake: never Substance use: current Substance use type: does not use Do You Feel Safe in your Home?: Yes Lack of Transportation: No Lack of Food: Never True Current Housing: I Have Housing Concerned About Future Housing: No Difficulty Paying Gas/Electric Bills: No Difficulty Paying for Meds: No Currently Unemployed: No Education: Decline to Answer Difficulty w/ Childcare or Family Care: No Living arrangements: alone Occupation/Education: retired Spiritual care concerns: No Agree to blood products: Yes Meds Home Medications and Allergies Home Medications Medication Instructions Recorded Confirmed Type benztropine 0.5 mg tablet 0.5 mg PO BID 06/09/21 05/29/23 History chlorpromazine 100 mg tablet 100 mg PO QHS 06/09/21 05/29/23 History trifluoperazine 2 mg tablet 2 mg PO QHS 06/09/21 05/29/23 History levothyroxine 50 mcg tablet 25 mcg PO DAILY 07/12/22 05/29/23 History pravastatin 40 mg tablet 40 mg PO QHS #90 tabs 10/28/22 05/29/23 Rx glipizide 5 mg tablet 5 mg PO BID #180 tabs 11/26/22 05/29/23 Rx pantoprazole 40 mg tablet,delayed 40 mg PO QAM #30 tabs 05/25/23 05/29/23 Rx release amlodipine 10 mg tablet 10 mg PO DAILY 05/29/23 05/29/23 History sodium bicarbonate 650 mg tablet 650 mg PO QHS 05/29/23 05/29/23 History Allergies Allergy/AdvReac Type Severity Reaction Status Date / Time Penicillins Allergy Unknown unknown Verified 05/29/23 18:14 Vital Signs Vital Signs - 24 hr 05/29/23 17:50 05/29/23 18:09 05/29/23 21:26 Temperature 97.9 F 98.7 F Pulse Rate 98 93 Respiratory Rate 14 18 Blood Pressure 141/76 H 153/79 H Pulse Oximetry 96 94 Oxygen Delivery Room Air 05/29/23 20:00 05/30/23 06:00 05/30/23 09:34 Temperature 97.6 F Pulse Rate 96 Respiratory Rate 17 Blood Pressure 147/86 H Pulse Oximetry 94 94 Oxygen Delivery Room Air Room Air 05/30/23 14:00 Temperature 97.2 F L Pulse Rate 92 Respiratory Rate 18 Blood Pressure 134/85 Pulse Oximetry 97 Oxygen Delivery Results Lab Results 05/30/23 05:22 05/30/23 05:25 Lab results: Most recent lab results Calcium 9.6 mg/dL (8.4-10.2) 05/30/23 05:25 Magnesium 2.3 mg/dL (1.6-2.3) 05/30/23 05:25 AMG Consult Billing Inpatient Consult Inpatient Consults: [id number] Initial Admit Mod
[2023-05-30 16:58] LABS: Glucose Point of Care 152 mg/dl (65-105)
--- NOTE | 2023-05-30 17:44 | WPDGICN ---
Assessment and Plan Assessment and plan (1) Dysphagia: Code(s): R13.10 - Dysphagia, unspecified Status: Acute Assessment and Plan: will proceed with egd tomorrow to assess if esophagitis, ring, stricture, etc (2) Acute on chronic kidney failure: Code(s): N17.9 - Acute kidney failure, unspecified; N18.9 - Chronic kidney disease, unspecified Status: Acute Assessment and Plan: by nephrology on fluids (3) Bipolar disorder, unspecified: Code(s): F31.9 - Bipolar disorder, unspecified Status: Chronic (4) Acute metabolic encephalopathy: Code(s): G93.41 - Metabolic encephalopathy Status: Acute (5) Acute UTI: Code(s): N39.0 - Urinary tract infection, site not specified Status: Acute Assessment and Plan: on abx (6) Psychiatric illness: Code(s): F99 - Mental disorder, not otherwise specified Status: Acute (7) Type 2 diabetes mellitus: Code(s): E11.9 - Type 2 diabetes mellitus without complications Status: Acute GI Consult Note Consult date/time: 05/30/23 17:44 Reason for consult: dysphagia, weight loss HPI: Nicky Villalobos is a 63 year old female with history of bipolar disorder, chronic kidney disease stage IV, hypothyroidism, and diabetes here with some confusion (sister at bedside says that due to the patient's worsening kidney function she was tapered off of lithium last fall and she has had increasing issues with anxiety), last 2 weeks also choking and poor appetite, no eating more than 4-5 bites which is unusual, also weight loss. Patient says that she has been choking because of anxiety . Never had EGD. Colonoscopy in 2015 per patient. Labs chronic anemia and an increased BUN and creatinine from baseline at 33 and 4.30 respectively. Urine was positive for 2+ protein, trace ketones, 1+ blood, 3+ leukocyte esterase, 51 to 100 wbc's, and rare bacteria, started on abx and evaluated by nephrology. Review of Systems Constitutional: Comments: weight loss Eyes: Eyes: Denies blurry vision ENT: Reports Normal hearing present Cardiovascular: Cardiovascular: Denies chest pain Respiratory: Respiratory: Denies cough Gastrointestinal: Gastrointestinal: Reports no additional gastrointestinal complaints Genitourinary: Genitourinary: Denies flank pain Musculoskeletal: Musculoskeletal: Denies neck pain Integumentary/Breasts: Skin/Breast: Denies rash Neurologic: Reports confusion Psychiatric: Psychiatric: Reports anxiety and Denies confusion [facility] Past Medical History Medical History Anxiety Bipolar disorder, unspecified Chronic kidney disease, stage IV (severe) Depression Hypertensive chronic kidney disease with stage 1 through stage 4 chronic kidney disease, or unspecified chronic kidney disease Hypothyroidism, unspecified Obesity (BMI 30-39.9) Pneumonia Pure hypercholesterolemia, unspecified Secondary renal 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 Code status: Full code. Smoking status: Never smoker Second hand tobacco smoke exposure: No Alcohol intake: never Substance use: current Substance use type: does not use Do You Feel Safe in your Home?: Yes Lack of Transportation: No Lack of Food: Never True Current Housing: I Have Housing Concerned About Future Housing: No Difficulty Paying Gas/Electric Bills: No Difficulty Paying for Meds: No Currently Unemployed: No Education: Decline to Answer Difficulty w/ Childcare or Family Care: No Living arrangements: alone Occupation/Education: retired Spiritual care concerns: No Agree to blood products: Yes Meds Home Medications and Allergies Home Medications Medication Instructions Recorded Confirmed Type benztropine 0.5 mg tablet 0.5 mg PO BID 06/09/21 05/29/23 History chlorpromazine 100 mg tablet 100 mg PO QHS 06/09/21 05/29/23 History trifluoperazine 2 mg tablet 2 mg PO QHS 06/09/21 05/29/23 History levothyroxine 50 mcg tablet 25 mcg PO DAILY 07/12/22 05/29/23 History pravastatin 40 mg tablet 40 mg PO QHS #90 tabs 10/28/22 05/29/23 Rx glipizide 5 mg tablet 5 mg PO BID #180 tabs 11/26/22 05/29/23 Rx pantoprazole 40 mg tablet,delayed 40 mg PO QAM #30 tabs 05/25/23 05/29/23 Rx release amlodipine 10 mg tablet 10 mg PO DAILY 05/29/23 05/29/23 History sodium bicarbonate 650 mg tablet 650 mg PO QHS 05/29/23 05/29/23 History Allergies Allergy/AdvReac Type Severity Reaction Status Date / Time Penicillins Allergy Unknown unknown Verified 05/29/23 18:14 Vital Signs Vital Signs - 24 hr 05/29/23 17:50 05/29/23 18:09 05/29/23 21:26 Temperature 97.9 F 98.7 F Pulse Rate 98 93 Respiratory Rate 14 18 Blood Pressure 141/76 H 153/79 H Pulse Oximetry 96 94 Oxygen Delivery Room Air 05/29/23 20:00 05/30/23 06:00 05/30/23 09:34 Temperature 97.6 F Pulse Rate 96 Respiratory Rate 17 Blood Pressure 147/86 H Pulse Oximetry 94 94 Oxygen Delivery Room Air Room Air 05/30/23 14:00 Temperature 97.2 F L Pulse Rate 92 Respiratory Rate 18 Blood Pressure 134/85 Pulse Oximetry 97 Oxygen Delivery Exam Const: General: comfortable and no acute distress HENMT: Face/Nose/Sinus: Normal nares present Eyes: Sclera: sclerae normal Neck: Neck: supple Resp: Effort & Inspection: normal respiratory effort Cardio: Rate: regular rate GI: GI Palp: Yes Soft to palpation and No Tenderness to palpation present (GI) Auscultation: normal bowel sounds Skin: General skin exam: normal color Neuro: Speech: normal speech Motor exam (neuro): 5/5 motor strength present throughout Other: awake and alert but confused after more complex questions sister at bedside Extrem: General: normal to inspection Psych: Affect: Anxious affect present Results Labs 05/30/23 05:22 05/30/23 05:25 Labs: Short CBC 05/30/23 Range/Units 05:22 WBC 6.0 (4.5-10.0) K/mm3 Hgb 9.6 L (12.0-15.0) g/dL Hct 31.9 L (37.0-47.0) % Plt Count 305 (150-375) k/mm3 BMP 05/30/23 05:25 Sodium 140 Potassium 3.8 Chloride 111 H Carbon Dioxide 18 L BUN 30 H Creatinine 4.10 H Glucose 119 H Calcium 9.6 AMG Consult Billing Inpatient Consult Inpatient Consults: [id number] Initial Admit High
[2023-05-30 18:46] LABS: Appearance Urine Clear (Clear); Bacteria Urine None Seen /hpf; Bilirubin Urine Negative (Negative); Blood Urine 1+ (Negative); Color Urine Yellow (Yellow); Glucose Urine UA Negative (Negative); Ketones Urine Negative (Negative); Leukocyte Esterase Ur 2+ LEU/UL (Negative); Nitrate Urine Negative (Negative); Non Pathogenic Casts 0-2; Protein Urine 2+ mg/dL (Negative); RBC Urine 0-2 /hpf (0-2); Specific Grav Ur 1.006 (1.001-1.035); Squamous Epithelial Cell Urine None Seen /hpf (Few); Urobilinogen Urine 0.2 mg/dL (<2.0); pH Urine 6.5 (5.0-9.0)
[2023-05-30 18:47] LABS: Creatinine Urine 33.3 mg/dL; Total Protein Urine Random 111 mg/dL; Ur Ttl Prot Creatinine Ratio 3.33 mg/mg (0-0.20)
[2023-05-30 18:48] LABS: Add Urine Microscopic? YES; Sodium Urine Random 35 meq/L
[2023-05-30 20:00] VITALS: O2SAT 99
[2023-05-30 20:39] LABS: Creatine Kinase 64 U/L (30-135)
[2023-05-30 21:17] VITALS: BP 159/94; PULSE 92; RESP 18; TEMP 36.4; O2SAT 99
[2023-05-30] MEDS: SODIUM BICARBONATE TAB 650 MG TABLET PO (21:27)
[2023-05-30] MEDS: TRIFLUOPERAZINE HCL 1 MG TABLET 2 MG PO (21:27)
[2023-05-30] MEDS: chlorproMAZINE HCL 25 MG TABLET 100 MG PO (21:28)
[2023-05-30] MEDS: PRAVASTATIN SODIUM 20 MG TABLET 40 MG PO (21:28)
[2023-05-30] MEDS: HEPARIN SODIUM 5,000 UNITS/ML VIAL 5000 UNITS SUB-Q (21:48)
[2023-05-31] VITALS (9 sets, daily range): BP systolic 120–141; BP diastolic 74–95; PULSE 85–100; RESP 16–24; TEMP 36.1–36.4; O2SAT 96–100
[2023-05-31 04:01] LABS: Glucose Point of Care 150 mg/dl (65-105)
[2023-05-31] MEDS: SODIUM CHLORIDE 0.9% IV 1,000 ML 80 ML IV CONT (05:41)
[2023-05-31 06:45] LABS: Albumin Level 3.8 g/dL (3.5-5.1); Anion Gap 9 mmol/L (4-12); Blood Urea Nitrogen 28 mg/dL (7-17); Calcium 9.7 mg/dL (8.4-10.2); Carbon Dioxide 20 mmol/L (22-30); Chloride 110 mmol/L (98-107); Estimated CRCL calculation 12 ml/min; Estimated Glomerular Filt Rate 12; Glucose 145 mg/dL (65-110); Phosphorus 4.6 mg/dL (2.5-4.5); Potassium 3.9 mmol/L (3.4-5.0); Sodium 139 mmol/L (137-145)
[2023-05-31 06:59] LABS: Glucose Point of Care 148 mg/dl (65-105)
--- NOTE | 2023-05-31 08:52 | P.PNIM_ITS ---
Progress Note: A&P Assessment and Plan (1) Dysphagia: Code(s): R13.10 - Dysphagia, unspecified Status: Acute Assessment and Plan: 05/30/23: * Reporting difficulty swallowing for the past 2 weeks, she states that things seem to get caught in her throat and she is unable to clear it. * Upper GI series results pending * GI consulted * Will need a barium swallow as she was choking on thin liquids while I was in the room * Denies any new neuro deficits * Speech is normal, facial features are symmetrical * CT of the brain showing old chronic right basal ganglia lacune are infarcts, moderate central and cortical cerebral atrophy, no acute intracranial finding 05/31/2023: * Plan is for an EGD today GI * She will have a barium swallow was well * GI following (2) Acute UTI: Code(s): N39.0 - Urinary tract infection, site not specified Status: Acute Assessment and Plan: 05/30/23: * UA showed 2+ protein, trace ketones, 1+ urine blood, 3+ leukocytes, 51-100 urine wbc's. * Urine culture was obtained and is pending * Patient was started on Rocephin and will continue * Renal ultrasound results pending 05/31/23: * Urine culture showing aerococcus urinae * Rocephin changed to cefdinir * Renal ultrasound showing non simple right upper pole and left lower pole renal cystic lesion, mild left hydronephrosis * Nephrology following (3) Hypothyroidism, unspecified: Code(s): E03.9 - Hypothyroidism, unspecified Status: Chronic Assessment and Plan: 05/30/23: * Continue Synthroid 05/31/23: * No change to current treatment (4) Bipolar disorder, unspecified: Code(s): F31.9 - Bipolar disorder, unspecified Status: Chronic Assessment and Plan: 05/30/23: * Continue sertraline and chlorpromazine 05/31/23: * No change to current treatment plan (5) Type 2 diabetes mellitus with diabetic chronic kidney disease: Code(s): E11.22 - Type 2 diabetes mellitus with diabetic chronic kidney disease Status: Chronic Assessment and Plan: 05/30/23: * Blood glucose ranging 148-152 * Hemoglobin A1c 6.5 * Accu-Cheks AC and HS * Diabetic diet * Hypoglycemic protocol * Low-dose sliding scale insulin ordered * Will hold glipizide now 05/31/23: * Continue with current treatment plan (6) Pure hypercholesterolemia, unspecified: Code(s): E78.00 - Pure hypercholesterolemia, unspecified Status: Chronic Assessment and Plan: 05/30/23: * Continue pravastatin 05/31/23: * No change to current treatment plan Time Spent With Patient Time with patient: 15 - 25 minutes Subjective Date/time seen: 05/31/23 08:52 Interval history: 05/30/23: This is a 63-year-old female who presented to the hospital on 05/29/2023 with difficulty swallowing. Workup in the hospital included a head CT which was negative for any acute findings, showed cerebral atherosclerosis chronic right basal ganglia lacunar infarcts. Renal ultrasound and Upper GI series, results pending. Labs revealed a white blood cell count of 6.0, hemoglobin 9.6, BUN 30, creatinine 4.10, EGFR 11. UA shown 2+ urine protein, trace ketones, 1+ urine blood, 3+ leukocyte, 51-100 urine wbc's. Urine culture was obtained and is pending. Patient was given 1 L of normal saline in the ED along with some Rocephin. Nephrology was consulted for acute kidney injury superimposed on chronic kidney disease. She denies any fever, chills, nausea, vomiting, abdominal pain, pain, shortness a breath. She endorses 1 episode of diarrhea today, she some congestion, along with some burping that has been going on for a couple of weeks. We will go ahead and consult GI and also get a barium swallow study. 05/31/23: Plan today for EGD with GI services along with a barium swallow. Labs today showing a creatinine of 3.9 EGFR bicarb 20. Urine culture showing aerococcus urinae final read. Patient was switched from Rocephin to cefdinir today. Nephrology and GI following. Review of Systems Review of Systems: All systems reviewed & are unremarkable except as noted in HPI and below Constitutional: Constitutional: Reports as per HPI and Reports no additional constitutional complaints Eyes: Eyes: Reports as per HPI and Reports no additional eye complaints ENT: Reports system reviewed and no additional complaints, except as documented and Reports as per HPI Cardiovascular: Cardiovascular: Reports as per HPI and Reports no additional cardiovascular complaints Respiratory: Respiratory: Reports as per HPI and Reports no additional respiratory complaints Gastrointestinal: Gastrointestinal: Reports as per HPI and Reports no additional gastrointestinal complaints Genitourinary: Genitourinary: Reports no additional female genitourinary complaints and Reports as per HPI Musculoskeletal: Musculoskeletal: Reports no additional musculoskeletal complaints and Reports as per HPI Integumentary/Breasts: Skin/Breast: Reports system reviewed and no additional complaints, except as docu and Reports as per HPI Neurologic: Reports system reviewed and no additional complaints, except as documented and Reports as per HPI Psychiatric: Psychiatric: Reports no additional psychiatric complaints and Reports as per HPI Exam Narrative: General: In no acute distress, well nourished Head: atraumatic, no encephalopathy Eyes: EOMI, PERRLA, sclera clear ENT: moist mucous membranes, nasal passages clear Neck: supple, no JVD, no adenopathy, trachea midline Cardiac: Normal S1 and S2. RRR, No murmur, gallops or friction rubs, peripheral pulses intact. Respiratory: Lungs clear to auscultation, no adventitious lung sounds, currently on room air Gastrointestinal: soft, non-distended, non-tender, normoactive bowel sounds. : murray catheter in place Extremities: moves all extremities well, no edema Skin: clean, dry, intact. No wounds or lesions. Neuro: Alert and oriented x3, cranial nerves intact, no neuro deficits. Psych: normal mood, normal affect, interactive Objective Data Vital Signs Vital Signs: Vital Signs - 24 hr 05/30/23 09:34 05/30/23 14:00 05/30/23 21:17 Temperature 97.2 F L 97.6 F Pulse Rate 92 92 Respiratory Rate 18 18 Blood Pressure 134/85 159/94 H Pulse Oximetry 97 99 Oxygen Delivery Room Air 05/30/23 20:00 05/31/23 06:00 Temperature 97.6 F Pulse Rate 85 Respiratory Rate 18 Blood Pressure 141/85 H Pulse Oximetry 99 96 Oxygen Delivery Room Air Intake/Output Intake/Output: Intake & Output 05/28/23 05/29/23 05/30/23 05/31/23 23:59 23:59 23:59 23:59 Intake Total 50 3104 Output Total 700 3000 1250 Balance -650 104 -1250 Meds/Results Medications: Active Medications Generic Name Dose Route Start Last Admin Trade Name Freq PRN Reason Stop Dose Admin Acetaminophen 650 mg 05/29/23 14:55 Acetaminophen 325 Mg Tablet PO Q4H PRN Mild Pain (1-3) or Fever Amlodipine Besylate 10 mg 05/30/23 09:00 05/30/23 09:34 Amlodipine Besylate 5 Mg Tablet PO 10 mg DAILY VIRIDIANA Administration Benztropine Mesylate 0.5 mg 05/29/23 20:40 05/30/23 16:15 Benztropine Mesylate 0.5 Mg Tablet PO 0.5 mg BID VIRIDIANA Administration Cefdinir 300 mg 05/31/23 09:00 Cefdinir 300 Mg Capsule PO 06/05/23 21:00 Q12HR VIRIDIANA Chlorpromazine HCl 100 mg 05/29/23 21:00 05/30/23 21:28 Chlorpromazine Hcl 25 Mg Tablet PO 100 mg QHS VIRIDIANA Administration Dextrose 12.5 gm 05/29/23 20:59 Dextrose 50% 25 Gm/50 Ml Syringe IV PUSH PRN PRN Hypoglycemia Protocol Glucagon 1 mg 05/29/23 20:59 Glucagon For Inj 1 Mg Vial IM PRN PRN Hypoglycemia Protocol Glucose 15 gm 05/29/23 20:59 Glucose Oral Gel 15 Gm Of Glucse In 37.5 Gm Tube PO PRN PRN Hypoglycemia Protocol Heparin Sodium (Porcine) 5,000 units 05/30/23 21:00 05/30/23 21:48 Heparin Sodium 5,000 Units/Ml Vial SUB-Q 5,000 units Q12HR VIRIDIANA Administration Sodium Chloride 1,000 mls @ 80 mls/hr 05/29/23 14:55 05/31/23 05:41 Normal Saline Iv IV CONT 80 mls/hr .[id number] VIRIDIANA Administration Dextrose 1,000 mls @ 100 mls/hr 05/29/23 20:59 Dextrose 5% 1,000 Ml IVPB PRN PRN Hypoglycemia Protocol Insulin Aspart 2 - 5 units 05/30/23 08:00 05/30/23 17:21 Insulin Aspart (*Bkc) 100 Units/Ml SUB-Q Not Given TIDWM [facility] Protocol Insulin Aspart 1 - 2 units 05/29/23 21:00 05/30/23 21:50 Insulin Aspart (*Bkc) 100 Units/Ml SUB-Q Not Given HS VIRIDIANA Protocol Levothyroxine Sodium 25 mcg 05/30/23 06:30 05/31/23 05:33 Levothyroxine Sodium 25 Mcg Tablet PO Not Given DAILY@0630 [facility] Ondansetron HCl 4 mg 05/29/23 14:55 Ondansetron Inj 4 Mg/2 Ml Vial IV PUSH Q4H PRN Nausea Pantoprazole Sodium 40 mg 05/30/23 09:00 05/30/23 09:34 Pantoprazole 40 Mg Tablet PO 40 mg QAM VIRIDIANA Administration Pravastatin Sodium 40 mg 05/29/23 21:00 05/30/23 21:28 Pravastatin Sodium 20 Mg Tablet PO 40 mg QHS VIRIDIANA Administration Sodium Bicarbonate 1,300 mg 05/30/23 09:00 05/30/23 09:33 Sodium Bicarbonate Tab 650 Mg Tablet PO 1,300 mg QAM VIRIDIANA Administration Sodium Bicarbonate 650 mg 05/29/23 21:00 05/30/23 21:27 Sodium Bicarbonate Tab 650 Mg Tablet PO 650 mg HS VIRIDIANA Administration Trifluoperazine HCl 2 mg 05/29/23 21:00 05/30/23 21:27 Trifluoperazine Hcl 1 Mg Tablet PO 2 mg QHS VIRIDIANA Administration Radiology Results: ITS Impressions Head CT 05/29/23 13:08 IMPRESSION: Cerebral atherosclerosis chronic right basal ganglia lacunar infarcts Moderate central and cortical cerebral atrophy No acute intracranial finding Renal Ultrasound 05/30/23 15:09 IMPRESSION: Nonsimple right upper pole and left lower pole renal cystic lesions, recommend MRI or CT without and with contrast for further evaluation. Bilateral medical renal disease. Mild left hydronephrosis. Labs Labs: Laboratory Results - last 24 hr 05/30/23 05/30/23 05/30/23 05:22 11:24 13:09 Sodium Potassium Chloride Carbon Dioxide Anion Gap BUN Creatinine Estim Creat Clear Calc Estimated GFR Glucose POC Capillary Glucose 252 H 241 H Calcium Phosphorus Total Creatine Kinase 64 Albumin Urine Color Urine Appearance Urine pH Ur Specific [place] Urine Protein Urine Glucose (UA) Urine Ketones Ur Blood (Man) Urine Nitrate Urine Bilirubin Urine Urobilinogen Ur Leukocyte Esterase Urine RBC Urine WBC Ur Squamous Epith Cells Urine Bacteria Urine Casts U Random Total Protein Ur Random Sodium Urine Creatinine Protein/Creat Ratio 2 05/30/23 05/30/23 05/30/23 16:53 18:30 20:35 Sodium Potassium Chloride Carbon Dioxide Anion Gap BUN Creatinine Estim Creat Clear Calc Estimated GFR Glucose POC Capillary Glucose 152 H 150 H Calcium Phosphorus Total Creatine Kinase Albumin Urine Color Yellow Urine Appearance Clear Urine pH 6.5 Ur Specific [place] 1.006 Urine Protein 2+ H Urine Glucose (UA) Negative Urine Ketones Negative Ur Blood (Man) 1+ H Urine Nitrate Negative Urine Bilirubin Negative Urine Urobilinogen 0.2 Ur Leukocyte Esterase 2+ H Urine RBC 0-2 Urine WBC 11-20 H Ur Squamous Epith Cells None seen Urine Bacteria None seen Urine Casts 0-2 U Random Total Protein 111 Ur Random Sodium 35 Urine Creatinine 33.3 Protein/Creat Ratio 2 3.33 H 05/31/23 05/31/23 05:49 06:47 Sodium 139 Potassium 3.9 Chloride 110 H Carbon Dioxide 20 L Anion Gap 9 BUN 28 H Creatinine 3.90 H Estim Creat Clear Calc 12 Estimated GFR 12 L Glucose 145 H POC Capillary Glucose 148 H Calcium 9.7 Phosphorus 4.6 H Total Creatine Kinase Albumin 3.8 Urine Color Urine Appearance Urine pH Ur Specific [place] Urine Protein Urine Glucose (UA) Urine Ketones Ur Blood (Man) Urine Nitrate Urine Bilirubin Urine Urobilinogen Ur Leukocyte Esterase Urine RBC Urine WBC Ur Squamous Epith Cells Urine Bacteria Urine Casts U Random Total Protein Ur Random Sodium Urine Creatinine Protein/Creat Ratio 2 Quality VTE Prophylaxis VTE prophylaxis: pharmacologic ordered
[2023-05-31 09:37] LABS: Glucose Point of Care 138 mg/dl (65-105)
[2023-05-31] MEDS: LACTATED RINGERS 1,000 ML 150 ML IV CONT (09:37)
[2023-05-31 09:51] LABS: Basophils Percent Auto 0.6 % (0.2-1.2); Eosinophils Absolute Auto 0.2 K/mm3 (0-0.3); Eosinophils Percent Auto 3.1 % (0-4.4); Hematocrit 32.1 % (37.0-47.0); Immature Granulocyte Absolute 0.01 K/mm3 (0.00-0.031); Immature Granulocyte Percent A 0.2 % (0-0.5); Lymphocytes Absolute Auto 1.43 K/mm3 (0.9-3.2); Lymphocytes Percent Auto 22.5 % (18.3-44.2); Mean Corpuscular HGB Conc 31.2 g/dl (32-36); Mean Corpuscular Hemoglobin 26.3 pg (26-34); Mean Corpuscular Volume 84.5 fl (80-100); Mean Platelet Volume 9.8 fl (7.4-10.4); Monocytes Absolute Auto 0.4 K/mm3 (0.1-0.6); Monocytes Percent Auto 6.8 % (2.6-8.5); Neutrophils Absolute Auto 4.2 K/mm3 (1.3-6.7); Neutrophils Percent Auto 66.8 % (45.5-73.1); Platelet Count Result 329 k/mm3 (150-375); Red Cell Distribution Width 13.2 % (11.5-14.5); White Blood Count 6.4 K/mm3 (4.5-10.0)
--- NOTE | 2023-05-31 09:52 | P.PNAN_ITS ---
Anes - Initial Pre Proc Eval Procedure: Operation Date: 05/31/23 15:30 Proposed Procedures p Esophagogastroduodenoscopy - Jean Haque MD Date/Time: 05/31/23 09:52 Surgeon: Clemente Ford MD Pre Op Diagnosis: v-tac Patient Data Age: 63 Gender: F Height: 1.55 m Weight: 76.6 kg Last Vital Signs Temp 97.6 F 05/31/23 09:30 Pulse 87 05/31/23 09:30 Resp 19 05/31/23 09:30 BP 139/74 05/31/23 09:30 Pulse Ox 100 05/31/23 09:30 O2 Del Method Room Air 05/31/23 09:30 Allergies Allergy/AdvReac Type Severity Reaction Status Date / Time Penicillins Allergy Unknown unknown Verified 05/31/23 09:28 Home Medications Medication Instructions Recorded Confirmed Type benztropine 0.5 mg tablet 0.5 mg PO BID 06/09/21 05/29/23 History chlorpromazine 100 mg tablet 100 mg PO QHS 06/09/21 05/29/23 History trifluoperazine 2 mg tablet 2 mg PO QHS 06/09/21 05/29/23 History levothyroxine 50 mcg tablet 25 mcg PO DAILY 07/12/22 05/29/23 History pravastatin 40 mg tablet 40 mg PO QHS #90 tabs 10/28/22 05/29/23 Rx glipizide 5 mg tablet 5 mg PO BID #180 tabs 11/26/22 05/29/23 Rx pantoprazole 40 mg tablet,delayed 40 mg PO QAM #30 tabs 05/25/23 05/29/23 Rx release amlodipine 10 mg tablet 10 mg PO DAILY 05/29/23 05/29/23 History sodium bicarbonate 650 mg tablet 650 mg PO QHS 05/29/23 05/29/23 History Laboratory Tests 05/30/23 05/30/23 05/30/23 05:22 11:24 13:09 WBC RBC Hgb Hct MCV MCH MCHC RDW Plt Count MPV Immature Gran % (Auto) Neut % (Auto) Lymph % (Auto) [place] % (Auto) Eos % (Auto) Baso % (Auto) Lymph # (Auto) [place] # (Auto) Eos # (Auto) Baso # (Auto) Abs Immat Gran (auto) Absolute Neuts (auto) Absolute Nucleated RBC Nucleated RBC % Sodium Potassium Chloride Carbon Dioxide Anion Gap BUN Creatinine Estim Creat Clear Calc Estimated GFR Glucose POC Capillary Glucose 252 H mg/dl 241 H mg/dl (65-105) (65-105) Calcium Phosphorus Total Bilirubin AST ALT Alkaline Phosphatase Total Creatine Kinase 64 U/L (30-135) Total Protein Albumin Urine Color Urine Appearance Urine pH Ur Specific [place] Urine Protein Urine Glucose (UA) Urine Ketones Ur Blood (Man) Urine Nitrate Urine Bilirubin Urine Urobilinogen Ur Leukocyte Esterase Urine RBC Urine WBC Ur Squamous Epith Cells Urine Bacteria Urine Casts U Random Total Protein Ur Random Sodium Urine Creatinine Protein/Creat Ratio 2 05/30/23 05/30/23 05/30/23 16:53 18:30 20:35 WBC RBC Hgb Hct MCV MCH MCHC RDW Plt Count MPV Immature Gran % (Auto) Neut % (Auto) Lymph % (Auto) [place] % (Auto) Eos % (Auto) Baso % (Auto) Lymph # (Auto) [place] # (Auto) Eos # (Auto) Baso # (Auto) Abs Immat Gran (auto) Absolute Neuts (auto) Absolute Nucleated RBC Nucleated RBC % Sodium Potassium Chloride Carbon Dioxide Anion Gap BUN Creatinine Estim Creat Clear Calc Estimated GFR Glucose POC Capillary Glucose 152 H mg/dl 150 H mg/dl (65-105) (65-105) Calcium Phosphorus Total Bilirubin AST ALT Alkaline Phosphatase Total Creatine Kinase Total Protein Albumin Urine Color Yellow (Yellow) Urine Appearance Clear (Clear) Urine pH 6.5 (5.0-9.0) Ur Specific [place] 1.006 (1.001-1.035) Urine Protein 2+ H mg/dL (Negative) Urine Glucose (UA) Negative mg/dL (Negative) Urine Ketones Negative mg/dL (Negative) Ur Blood (Man) 1+ H (Negative) Urine Nitrate Negative (Negative) Urine Bilirubin Negative (Negative) Urine Urobilinogen 0.2 mg/dL (<2.0) Ur Leukocyte Esterase 2+ H [place]/UL (Negative) Urine RBC 0-2 /hpf (0-2) Urine WBC 11-20 H /hpf (0-3) Ur Squamous Epith Cells None seen /hpf (Few) Urine Bacteria None seen /hpf Urine Casts 0-2 U Random Total Protein 111 mg/dL Ur Random Sodium 35 meq/L Urine Creatinine 33.3 mg/dL Protein/Creat Ratio 2 3.33 H mg/mg (0-0.20) 05/31/23 05/31/23 05/31/23 05:43 05:49 06:47 WBC Pending RBC Pending Hgb Pending Hct Pending MCV Pending MCH Pending MCHC Pending RDW Pending Plt Count Pending MPV Pending Immature Gran % (Auto) Pending Neut % (Auto) Pending Lymph % (Auto) Pending [place] % (Auto) Pending Eos % (Auto) Pending Baso % (Auto) Pending Lymph # (Auto) Pending [place] # (Auto) Pending Eos # (Auto) Pending Baso # (Auto) Pending Abs Immat Gran (auto) Pending Absolute Neuts (auto) Pending Absolute Nucleated RBC Pending Nucleated RBC % Pending Sodium Pending 139 mmol/L (137-145) Potassium Pending 3.9 mmol/L (3.4-5.0) Chloride Pending 110 H mmol/L (98-107) Carbon Dioxide Pending 20 L mmol/L (22-30) Anion Gap Pending 9 mmol/L (4-12) BUN Pending 28 H mg/dL (7-17) Creatinine Pending 3.90 H mg/dL (0.7-1.0) Estim Creat Clear Calc Pending 12 ml/min Estimated GFR Pending 12 L (59 - ) Glucose Pending 145 H mg/dL (65-110) POC Capillary Glucose 148 H mg/dl (65-105) Calcium Pending 9.7 mg/dL (8.4-10.2) Phosphorus 4.6 H mg/dL (2.5-4.5) Total Bilirubin Pending AST Pending ALT Pending Alkaline Phosphatase Pending Total Creatine Kinase Total Protein Pending Albumin Pending 3.8 g/dL (3.5-5.1) Urine Color Urine Appearance Urine pH Ur Specific [place] Urine Protein Urine Glucose (UA) Urine Ketones Ur Blood (Man) Urine Nitrate Urine Bilirubin Urine Urobilinogen Ur Leukocyte Esterase Urine RBC Urine WBC Ur Squamous Epith Cells Urine Bacteria Urine Casts U Random Total Protein Ur Random Sodium Urine Creatinine Protein/Creat Ratio 2 05/31/23 09:35 WBC RBC Hgb Hct MCV MCH MCHC RDW Plt Count MPV Immature Gran % (Auto) Neut % (Auto) Lymph % (Auto) [place] % (Auto) Eos % (Auto) Baso % (Auto) Lymph # (Auto) [place] # (Auto) Eos # (Auto) Baso # (Auto) Abs Immat Gran (auto) Absolute Neuts (auto) Absolute Nucleated RBC Nucleated RBC % Sodium Potassium Chloride Carbon Dioxide Anion Gap BUN Creatinine Estim Creat Clear Calc Estimated GFR Glucose POC Capillary Glucose 138 H mg/dl (65-105) Calcium Phosphorus Total Bilirubin AST ALT Alkaline Phosphatase Total Creatine Kinase Total Protein Albumin Urine Color Urine Appearance Urine pH Ur Specific [place] Urine Protein Urine Glucose (UA) Urine Ketones Ur Blood (Man) Urine Nitrate Urine Bilirubin Urine Urobilinogen Ur Leukocyte Esterase Urine RBC Urine WBC Ur Squamous Epith Cells Urine Bacteria Urine Casts U Random Total Protein Ur Random Sodium Urine Creatinine Protein/Creat Ratio 2 Patient hx anesthesia problems: none Family hx anesthesia problems: none Results Review: All pre-operative results and documents have been reviewed as part of the pre- operative evaluation. 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 Code status: Full code. Smoking status: Never smoker Second hand tobacco smoke exposure: No Alcohol intake: never Substance use: current Substance use type: does not use Do You Feel Safe in your Home?: Yes Lack of Transportation: No Lack of Food: Never True Current Housing: I Have Housing Concerned About Future Housing: No Difficulty Paying Gas/Electric Bills: No Difficulty Paying for Meds: No Currently Unemployed: No Education: Decline to Answer Difficulty w/ Childcare or Family Care: No Living arrangements: alone Occupation/Education: retired Spiritual care concerns: No Agree to blood products: Yes Anes - Eval Final PreProcedure Day of Procedure 05/31/23 09:52 Patient weight: obese Heart: regular rate and rhythm Lungs: clear to auscultation Airway: Mallampati scale class II Neurological: alert and oriented Last oral intake: >/= 8 hours ASA classification: III Emergent: no Anesthetic plan: proceed Anesthesia type and monitoring: general GIVS and standard monitoring Results Review: All pre-operative results and documents have been reviewed as part of the pre- operative evaluation. Informed Consent: The patient's anesthetic plan and its attendant risks and benefits were discussed with the patient/family/POA. Questions were solicited and answers provided to the satisfaction of the patient/family/POA.
[2023-05-31 09:58] LABS: Alanine Aminotransferase 17 U/L (6-35); Albumin Level 3.7 g/dL (3.5-5.1); Alkaline Phosphatase 90 U/L (38-126); Anion Gap 9 mmol/L (4-12); Aspartate Amino Transferase 31 U/L (14-36); Bilirubin,Total 0.4 mg/dL (0.2-1.3); Blood Urea Nitrogen 29 mg/dL (7-17); Calcium 10.1 mg/dL (8.4-10.2); Carbon Dioxide 21 mmol/L (22-30); Chloride 109 mmol/L (98-107); Estimated CRCL calculation 12 ml/min; Estimated Glomerular Filt Rate 12; Glucose 145 mg/dL (65-110); Potassium 3.9 mmol/L (3.4-5.0); Sodium 139 mmol/L (137-145)
[2023-05-31] MEDS: BENZOCAINE (*SP) 60 ML SPRAY CAN (HURRICAINE) 1 SPRAY MUCOUS MEM (10:04)
[2023-05-31] MEDS: amLODIPine BESYLATE 5 MG TABLET 10 MG PO (11:12)
[2023-05-31] MEDS: BENZTROPINE MESYLATE 0.5 MG TABLET PO ×2 (11:13→16:44)
[2023-05-31] MEDS: HEPARIN SODIUM 5,000 UNITS/ML VIAL 5000 UNITS SUB-Q ×2 (11:13→21:53)
[2023-05-31] MEDS: PANTOPRAZOLE 40 MG TABLET PO (11:14)
[2023-05-31] MEDS: SODIUM BICARBONATE TAB 650 MG TABLET 1300 MG PO (11:15)
[2023-05-31 11:16] LABS: Glucose Point of Care 121 mg/dl (65-105)
--- NOTE | 2023-05-31 11:40 | P.PNNP_ITS ---
Progress Note: A&P Assessment and Plan (1) DES (acute kidney injury): Code(s): N17.9 - Acute kidney failure, unspecified Status: Acute Assessment and Plan: * some improvement noted * suspect a component of volume depletion/dehydration and infection * has not been eating/drinking well for the last few months * UA suggestive of UTI * evaluation to date: * renal u/s with cystic lesions, bilateral medical renal disease, and mild left hydronephrosis * urine electrolytes non-prerenal * urine eosinophils negative * nephrotic range proteinuria * CPK normal * possible element of CKD progression (?) * continue trial of IVFs * follow repeat labs and UOP (2) Chronic kidney disease, stage IV (severe): Code(s): N18.4 - Chronic kidney disease, stage 4 (severe) Status: Chronic Assessment and Plan: * creatinine had been running around 2.7 - 3.1mg/dl for the last 6 moths * associated with worsening proteinuria arguing in favor of ongoing CKD progression * though to be secondary to diabetes, hypertension, vascular disease and possibly 40 years of lithium use (3) Dysphagia: Code(s): R13.10 - Dysphagia, unspecified Status: Acute Assessment and Plan: * noted for the last 2 weeks if not longer * EGD today with mild gastritis * upper GI series results noted as well * continue supportive therapy (4) Acute UTI: Code(s): N39.0 - Urinary tract infection, site not specified Status: Acute Assessment and Plan: * admission UA highly suggestive * urine culture with Aerococcus urinae * on antibiotics (5) Hypertensive chronic kidney disease with stage 1 through stage 4 chronic kidney disease, or unspecified chronic kidney disease: Code(s): I12.9 - Hypertensive chronic kidney disease with stage 1 through stage 4 chronic kidney disease, or unspecified chronic kidney disease Status: Chronic Assessment and Plan: * reasonable control at this time * follow trend of hemodynamics (6) Type 2 diabetes mellitus with diabetic chronic kidney disease: Code(s): E11.22 - Type 2 diabetes mellitus with diabetic chronic kidney disease Status: Chronic Assessment and Plan: * follow accu-cheks * glycemic control per hospitalists Will continue to follow. Subjective Date/time seen: 05/31/23 11:04 Interval history: Follow-up for acute kidney injury/acute renal failure on chronic kidney disease. Chart reviewed -- assuming care from Dr. Hernandez; s/p EGD earlier today with results/findings noted; no other acute complaints voiced at the time of my visit; no issues/events overnight or earlier this morning; slow improvement in renal function noted. Exam Narrative: General: WD/WN female in NAD Heart: normal S1 and S2; no rub Lungs: clear to auscultation Abdomen: soft, nontender, nondistended, positive bowel sounds Extremities: no cyanosis or clubbing; no edema Skin: warm and dry Objective Data Vital Signs Vital Signs: Vital Signs Temp Pulse Resp BP Pulse Ox O2 Del Method 05/31/23 10:35 85 22 H 131/76 100 Room Air 05/31/23 10:25 85 17 137/84 100 Room Air 05/31/23 10:15 100 23 H 120/86 100 Room Air 05/31/23 09:30 97.6 F 87 19 139/74 100 Room Air 05/31/23 06:00 97.6 F 85 18 141/85 H 96 05/30/23 20:00 99 Room Air 05/30/23 21:17 97.6 F 92 18 159/94 H 99 05/30/23 14:00 97.2 F L 92 18 134/85 97 Intake/Output Intake/Output: Intake & Output 05/28/23 05/29/23 05/30/23 05/31/23 23:59 23:59 23:59 23:59 Intake Total 50 3104 100 Output Total 700 3000 1550 Balance -650 104 -1450 Meds/Results Medications: Active Medications Generic Name Dose Route Start Last Admin Trade Name Freq PRN Reason Stop Dose Admin Acetaminophen 650 mg 05/29/23 14:55 Acetaminophen 325 Mg Tablet PO Q4H PRN Mild Pain (1-3) or Fever Amlodipine Besylate 10 mg 05/30/23 09:00 05/31/23 11:12 Amlodipine Besylate 5 Mg Tablet PO 10 mg DAILY VIRIDIANA Administration Benztropine Mesylate 0.5 mg 05/29/23 20:40 05/31/23 11:13 Benztropine Mesylate 0.5 Mg Tablet PO 0.5 mg BID VIRIDIANA Administration Cefdinir 300 mg 05/31/23 09:00 Cefdinir 300 Mg Capsule PO 06/05/23 21:00 Q12HR VIRIDIANA Chlorpromazine HCl 100 mg 05/29/23 21:00 05/30/23 21:28 Chlorpromazine Hcl 25 Mg Tablet PO 100 mg QHS VIRIDIANA Administration Dextrose 12.5 gm 05/29/23 20:59 Dextrose 50% 25 Gm/50 Ml Syringe IV PUSH PRN PRN Hypoglycemia Protocol Glucagon 1 mg 05/29/23 20:59 Glucagon For Inj 1 Mg Vial IM PRN PRN Hypoglycemia Protocol Glucose 15 gm 05/29/23 20:59 Glucose Oral Gel 15 Gm Of Glucse In 37.5 Gm Tube PO PRN PRN Hypoglycemia Protocol Heparin Sodium (Porcine) 5,000 units 05/30/23 21:00 05/31/23 11:13 Heparin Sodium 5,000 Units/Ml Vial SUB-Q 5,000 units Q12HR VIRIDIANA Administration Sodium Chloride 1,000 mls @ 80 mls/hr 05/29/23 14:55 05/31/23 05:41 Normal Saline Iv IV CONT 80 mls/hr .[id number] VIRIDIANA Administration Dextrose 1,000 mls @ 100 mls/hr 05/29/23 20:59 Dextrose 5% 1,000 Ml IVPB PRN PRN Hypoglycemia Protocol Insulin Aspart 2 - 5 units 05/30/23 08:00 05/31/23 12:12 Insulin Aspart (*Bkc) 100 Units/Ml SUB-Q Not Given TIDWM [facility] Protocol Insulin Aspart 1 - 2 units 05/29/23 21:00 05/30/23 21:50 Insulin Aspart (*Bkc) 100 Units/Ml SUB-Q Not Given HS [facility] Protocol Levothyroxine Sodium 25 mcg 05/30/23 06:30 05/31/23 05:33 Levothyroxine Sodium 25 Mcg Tablet PO Not Given DAILY@0630 [facility] Ondansetron HCl 4 mg 05/29/23 14:55 Ondansetron Inj 4 Mg/2 Ml Vial IV PUSH Q4H PRN Nausea Pantoprazole Sodium 40 mg 05/30/23 09:00 05/31/23 11:14 Pantoprazole 40 Mg Tablet PO 40 mg QAM [facility] Administration Pravastatin Sodium 40 mg 05/29/23 21:00 05/30/23 21:28 Pravastatin Sodium 20 Mg Tablet PO 40 mg QHS VIRIDIANA Administration Sodium Bicarbonate 1,300 mg 05/30/23 09:00 05/31/23 11:15 Sodium Bicarbonate Tab 650 Mg Tablet PO 650 mg QAM [facility]IR[facility]IANA Administration Sodium Bicarbonate 650 mg 05/29/23 21:00 05/30/23 21:27 Sodium Bicarbonate Tab 650 Mg Tablet PO 650 mg HS [facility]IRIDIANA Administration Trifluoperazine HCl 2 mg 05/29/23 21:00 05/30/23 21:27 Trifluoperazine Hcl 1 Mg Tablet PO 2 mg QHS VIRIDIANA Administration Radiology Results: ITS Impressions Head CT 05/29/23 13:08 IMPRESSION: Cerebral atherosclerosis chronic right basal ganglia lacunar infarcts Moderate central and cortical cerebral atrophy No acute intracranial finding Renal Ultrasound 05/30/23 15:09 IMPRESSION: Nonsimple right upper pole and left lower pole renal cystic lesions, recommend MRI or CT without and with contrast for further evaluation. Bilateral medical renal disease. Mild left hydronephrosis. Upper GI Series 05/31/23 10:21 IMPRESSION: Prominent post bulbar duodenal folds suggesting duodenitis Labs Labs: Laboratory Tests 05/31/23 05:49 05/31/23 05:49 Calcium 10.1 Phosphorus 4.6 H Total Bilirubin 0.4 AST 31 ALT 17 Alkaline Phosphatase 90 Total Protein 6.0 L Albumin 3.7 Microbiology 05/29/23 13:28 Urine Catheterized Urine Culture - Final Aerococcus urinae [facility] Follow-up Hospital Follow-up: [id number] [facility]
[2023-05-31] MEDS: CEFDINIR 300 MG CAPSULE PO ×2 (13:44→21:53)
--- NOTE | 2023-05-31 14:22 | PCSTNOTE ---
Please refer to the Modified Barium Swallow Evaluation in the EMR.
--- NOTE | 2023-05-31 14:53 | P.PNIM_ITS ---
Progress Note: A&P Assessment and Plan (1) Dysphagia: Code(s): R13.10 - Dysphagia, unspecified Status: Acute Assessment and Plan: 05/30/23: * Reporting difficulty swallowing for the past 2 weeks, she states that things seem to get caught in her throat and she is unable to clear it. * Upper GI series results pending * GI consulted * Will need a barium swallow as she was choking on thin liquids while I was in the room * Denies any new neuro deficits * Speech is normal, facial features are symmetrical * CT of the brain showing old chronic right basal ganglia lacune are infarcts, moderate central and cortical cerebral atrophy, no acute intracranial finding 05/31/23: * EGD today only showed gastritis, she had biopsies taken in GI will follow up with her when the biopsies results. * She had a barium swallow as well today and passed without any issue * GI has signed off and will follow up with her outpatient (2) Acute UTI: Code(s): N39.0 - Urinary tract infection, site not specified Status: Acute Assessment and Plan: 05/30/23: * UA showed 2+ protein, trace ketones, 1+ urine blood, 3+ leukocytes, 51-100 urine wbc's. * Urine culture was obtained and is pending * Patient was started on Rocephin and will continue * Renal ultrasound results pending 05/31/2023: * Urine culture showing aerococcus urinae on final read * Rocephin switched to cefdinir * Nephrology is following for acute kidney injury (3) Hypothyroidism, unspecified: Code(s): E03.9 - Hypothyroidism, unspecified Status: Chronic Assessment and Plan: 05/30/23: * Continue Synthroid 05/31/23: * No change to current treatment plan (4) Bipolar disorder, unspecified: Code(s): F31.9 - Bipolar disorder, unspecified Status: Chronic Assessment and Plan: 05/30/23: * Continue sertraline and chlorpromazine 05/31/23: * No change to current treatment (5) Type 2 diabetes mellitus with diabetic chronic kidney disease: Code(s): E11.22 - Type 2 diabetes mellitus with diabetic chronic kidney disease Status: Chronic Assessment and Plan: 05/30/23: * Blood glucose -407 * Hemoglobin A1c 6.5 * Accu-Cheks AC and HS * Diabetic diet * Hypoglycemic protocol * Low-dose sliding scale insulin ordered * Will hold glipizide now 05/31/23: * No change to current treatment plan (6) Pure hypercholesterolemia, unspecified: Code(s): E78.00 - Pure hypercholesterolemia, unspecified Status: Chronic Assessment and Plan: 05/30/23: * Continue pravastatin 05/31/23: * No change to current treatment plan Time Spent With Patient Time with patient: 25 - 35 minutes Subjective Date/time seen: 05/31/23 14:53 Interval history: 05/30/23: This is a 63-year-old female who presented to the hospital on 05/29/2023 with difficulty swallowing. Workup in the hospital included a head CT which was ne gative for any acute findings, showed cerebral atherosclerosis chronic right basal ganglia lacunar infarcts. Renal ultrasound and Upper GI series, results pending. Labs revealed a white blood cell count of 6.0, hemoglobin 9.6, BUN 30, creatinine 4.10, EGFR 11. UA shown 2+ urine protein, trace ketones, 1+ urine blood, 3+ leukocyte, 51-100 urine wbc's. Urine culture was obtained and is pending. Patient was given 1 L of normal saline in the ED along with some Rocephin. Nephrology was consulted for acute kidney injury superimposed on chronic kidney disease. She denies any fever, chills, nausea, vomiting, abdominal pain, pain, shortness a breath. She endorses 1 episode of diarrhea today, she some congestion, along with some burping that has been going on for a couple of weeks. We will go ahead and consult GI and also get a barium swallow study. 05/31/23: She denies any new complaints today. Plan today for EGD showed mild gastritis, biopsies were taken. She also had a barium swallow today which was normal. Labs today showing a creatinine of 3.9 EGFR bicarb 20. Urine culture showing aerococcus urinae final read. Patient was switched from Rocephin to cefdinir today. Nephrology following for acute kidney injury. Review of Systems Review of Systems: Twelve systems were reviewed and are negative except for as per HPI. All systems reviewed & are unremarkable except as noted in HPI and below Constitutional: Constitutional: Reports as per HPI and Reports no additional constitutional complaints Eyes: Eyes: Reports as per HPI and Reports no additional eye complaints ENT: Reports system reviewed and no additional complaints, except as documented and Reports as per HPI Cardiovascular: Cardiovascular: Reports as per HPI and Reports no additional cardiovascular complaints Respiratory: Respiratory: Reports as per HPI and Reports no additional respiratory complaints Gastrointestinal: Gastrointestinal: Reports as per HPI and Reports no additional gastrointestinal complaints Genitourinary: Genitourinary: Reports no additional female genitourinary complaints and Reports as per HPI Musculoskeletal: Musculoskeletal: Reports no additional musculoskeletal complaints and Reports as per HPI Integumentary/Breasts: Skin/Breast: Reports system reviewed and no additional complaints, except as docu and Reports as per HPI Neurologic: Reports system reviewed and no additional complaints, except as documented and Reports as per HPI Psychiatric: Psychiatric: Reports no additional psychiatric complaints and Reports as per HPI Exam Narrative: General: In no acute distress, well nourished Head: atraumatic, no encephalopathy Eyes: EOMI, PERRLA, sclera clear ENT: moist mucous membranes, nasal passages clear Neck: supple, no JVD, no adenopathy, trachea midline Cardiac: Normal S1 and S2. RRR, No murmur, gallops or friction rubs, peripheral pulses intact. Respiratory: Lungs clear to auscultation, no adventitious lung sounds, currently on room air Gastrointestinal: soft, non-distended, non-tender, normoactive bowel sounds. : voiding without difficulty. Extremities: moves all extremities well, no edema Skin: clean, dry, intact. No wounds or lesions. Neuro: Alert and oriented x3, cranial nerves intact, no neuro deficits. Psych: normal mood, normal affect, interactive Objective Data Vital Signs Vital Signs: Vital Signs - 24 hr 05/30/23 21:17 05/30/23 20:00 05/31/23 06:00 Temperature 97.6 F 97.6 F Pulse Rate 92 85 Respiratory Rate 18 18 Blood Pressure 159/94 H 141/85 H Pulse Oximetry 99 99 96 Oxygen Delivery Room Air 05/31/23 09:30 05/31/23 10:15 05/31/23 10:25 Temperature 97.6 F Pulse Rate 87 100 85 Respiratory Rate 19 23 H 17 Blood Pressure 139/74 120/86 137/84 Pulse Oximetry 100 100 100 Oxygen Delivery Room Air Room Air Room Air 05/31/23 10:35 Temperature Pulse Rate 85 Respiratory Rate 22 H Blood Pressure 131/76 Pulse Oximetry 100 Oxygen Delivery Room Air Intake/Output Intake/Output: Intake & Output 05/28/23 05/29/23 05/30/23 05/31/23 23:59 23:59 23:59 23:59 Intake Total 50 3104 100 Output Total 700 3000 1550 Balance -650 104 -1450 Meds/Results Medications: Active Medications Generic Name Dose Route Start Last Admin Trade Name Freq PRN Reason Stop Dose Admin Acetaminophen 650 mg 05/29/23 14:55 Acetaminophen 325 Mg Tablet PO Q4H PRN Mild Pain (1-3) or Fever Amlodipine Besylate 10 mg 05/30/23 09:00 05/31/23 11:12 Amlodipine Besylate 5 Mg Tablet PO 10 mg DAILY VIRIDIANA Administration Benztropine Mesylate 0.5 mg 05/29/23 20:40 05/31/23 11:13 Benztropine Mesylate 0.5 Mg Tablet PO 0.5 mg BID VIRIDIANA Administration Cefdinir 300 mg 05/31/23 09:00 05/31/23 13:44 Cefdinir 300 Mg Capsule PO 06/05/23 21:00 300 mg Q12HR VIRIDIANA Administration Chlorpromazine HCl 100 mg 05/29/23 21:00 05/30/23 21:28 Chlorpromazine Hcl 25 Mg Tablet PO 100 mg QHS VIRIDIANA Administration Dextrose 12.5 gm 05/29/23 20:59 Dextrose 50% 25 Gm/50 Ml Syringe IV PUSH PRN PRN Hypoglycemia Protocol Glucagon 1 mg 05/29/23 20:59 Glucagon For Inj 1 Mg Vial IM PRN PRN Hypoglycemia Protocol Glucose 15 gm 05/29/23 20:59 Glucose Oral Gel 15 Gm Of Glucse In 37.5 Gm Tube PO PRN PRN Hypoglycemia Protocol Heparin Sodium (Porcine) 5,000 units 05/30/23 21:00 05/31/23 11:13 Heparin Sodium 5,000 Units/Ml Vial SUB-Q 5,000 units Q12HR VIRIDIANA Administration Sodium Chloride 1,000 mls @ 80 mls/hr 05/29/23 14:55 05/31/23 05:41 Normal Saline Iv IV CONT 80 mls/hr .[id number] VIRIDIANA Administration Dextrose 1,000 mls @ 100 mls/hr 05/29/23 20:59 Dextrose 5% 1,000 Ml IVPB PRN PRN Hypoglycemia Protocol Insulin Aspart 2 - 5 units 05/30/23 08:00 05/31/23 12:12 Insulin Aspart (*Bkc) 100 Units/Ml SUB-Q Not Given TIDWM [facility] Protocol Insulin Aspart 1 - 2 units 05/29/23 21:00 05/30/23 21:50 Insulin Aspart (*Bkc) 100 Units/Ml SUB-Q Not Given HS [facility] Protocol Levothyroxine Sodium 25 mcg 05/30/23 06:30 05/31/23 05:33 Levothyroxine Sodium 25 Mcg Tablet PO Not Given DAILY@0630 [facility] Ondansetron HCl 4 mg 05/29/23 14:55 Ondansetron Inj 4 Mg/2 Ml Vial IV PUSH Q4H PRN Nausea Pantoprazole Sodium 40 mg 05/30/23 09:00 05/31/23 11:14 Pantoprazole 40 Mg Tablet PO 40 mg QAM VIRIDIANA Administration Pravastatin Sodium 40 mg 05/29/23 21:00 05/30/23 21:28 Pravastatin Sodium 20 Mg Tablet PO 40 mg QHS VIRIDIANA Administration Sodium Bicarbonate 1,300 mg 05/30/23 09:00 05/31/23 11:15 Sodium Bicarbonate Tab 650 Mg Tablet PO 650 mg QAM [facility] Administration Sodium Bicarbonate 650 mg 05/29/23 21:00 05/30/23 21:27 Sodium Bicarbonate Tab 650 Mg Tablet PO 650 mg HS [facility] Administration Trifluoperazine HCl 2 mg 05/29/23 21:00 05/30/23 21:27 Trifluoperazine Hcl 1 Mg Tablet PO 2 mg QHS VIRIDIANA Administration Radiology Results: ITS Impressions Head CT 05/29/23 13:08 IMPRESSION: Cerebral atherosclerosis chronic right basal ganglia lacunar infarcts Moderate central and cortical cerebral atrophy No acute intracranial finding Renal Ultrasound 05/30/23 15:09 IMPRESSION: Nonsimple right upper pole and left lower pole renal cystic lesions, recommend MRI or CT without and with contrast for further evaluation. Bilateral medical renal disease. Mild left hydronephrosis. Upper GI Series 05/31/23 10:21 IMPRESSION: Prominent post bulbar duodenal folds suggesting duodenitis Labs Labs: Laboratory Results - last 24 hr 05/30/23 05/30/23 05/30/23 05:22 16:53 18:30 WBC RBC Hgb Hct MCV MCH MCHC RDW Plt Count MPV Immature Gran % (Auto) Neut % (Auto) Lymph % (Auto) [place] % (Auto) Eos % (Auto) Baso % (Auto) Lymph # (Auto) [place] # (Auto) Eos # (Auto) Baso # (Auto) Abs Immat Gran (auto) Absolute Neuts (auto) Absolute Nucleated RBC Nucleated RBC % Sodium Potassium Chloride Carbon Dioxide Anion Gap BUN Creatinine Estim Creat Clear Calc Estimated GFR Glucose POC Capillary Glucose 152 H Calcium Phosphorus Total Bilirubin AST ALT Alkaline Phosphatase Total Creatine Kinase 64 Total Protein Albumin Urine Color Yellow Urine Appearance Clear Urine pH 6.5 Ur Specific [place] 1.006 Urine Protein 2+ H Urine Glucose (UA) Negative Urine Ketones Negative Ur Blood (Man) 1+ H Urine Nitrate Negative Urine Bilirubin Negative Urine Urobilinogen 0.2 Ur Leukocyte Esterase 2+ H Urine RBC 0-2 Urine WBC 11-20 H Ur Squamous Epith Cells None seen Urine Bacteria None seen Urine Casts 0-2 U Random Total Protein 111 Ur Random Sodium 35 Urine Creatinine 33.3 Protein/Creat Ratio 2 3.33 H 05/30/23 05/31/23 05/31/23 20:35 05:43 05:49 WBC 6.4 RBC 3.80 L Hgb 10.0 L Hct 32.1 L MCV 84.5 MCH 26.3 MCHC 31.2 L RDW 13.2 Plt Count 329 MPV 9.8 Immature Gran % (Auto) 0.2 Neut % (Auto) 66.8 Lymph % (Auto) 22.5 [place] % (Auto) 6.8 Eos % (Auto) 3.1 Baso % (Auto) 0.6 Lymph # (Auto) 1.43 [place] # (Auto) 0.4 Eos # (Auto) 0.2 Baso # (Auto) 0.0 Abs Immat Gran (auto) 0.01 Absolute Neuts (auto) 4.2 Absolute Nucleated RBC 0.000 Nucleated RBC % 0.0 Sodium 139 139 Potassium 3.9 3.9 Chloride 109 H 110 H Carbon Dioxide 21 L 20 L Anion Gap 9 9 BUN 29 H 28 H Creatinine 3.90 H 3.90 H Estim Creat Clear Calc 12 12 Estimated GFR 12 L 12 L Glucose 145 H 145 H POC Capillary Glucose 150 H Calcium 10.1 9.7 Phosphorus 4.6 H Total Bilirubin 0.4 AST 31 ALT 17 Alkaline Phosphatase 90 Total Creatine Kinase Total Protein 6.0 L Albumin 3.7 3.8 Urine Color Urine Appearance Urine pH Ur Specific [place] Urine Protein Urine Glucose (UA) Urine Ketones Ur Blood (Man) Urine Nitrate Urine Bilirubin Urine Urobilinogen Ur Leukocyte Esterase Urine RBC Urine WBC Ur Squamous Epith Cells Urine Bacteria Urine Casts U Random Total Protein Ur Random Sodium Urine Creatinine Protein/Creat Ratio 2 05/31/23 05/31/23 05/31/23 06:47 09:35 11:11 WBC RBC Hgb Hct MCV MCH MCHC RDW Plt Count MPV Immature Gran % (Auto) Neut % (Auto) Lymph % (Auto) [place] % (Auto) Eos % (Auto) Baso % (Auto) Lymph # (Auto) [place] # (Auto) Eos # (Auto) Baso # (Auto) Abs Immat Gran (auto) Absolute Neuts (auto) Absolute Nucleated RBC Nucleated RBC % Sodium Potassium Chloride Carbon Dioxide Anion Gap BUN Creatinine Estim Creat Clear Calc Estimated GFR Glucose POC Capillary Glucose 148 H 138 H 121 H Calcium Phosphorus Total Bilirubin AST ALT Alkaline Phosphatase Total Creatine Kinase Total Protein Albumin Urine Color Urine Appearance Urine pH Ur Specific [place] Urine Protein Urine Glucose (UA) Urine Ketones Ur Blood (Man) Urine Nitrate Urine Bilirubin Urine Urobilinogen Ur Leukocyte Esterase Urine RBC Urine WBC Ur Squamous Epith Cells Urine Bacteria Urine Casts U Random Total Protein Ur Random Sodium Urine Creatinine Protein/Creat Ratio 2 Quality VTE Prophylaxis VTE prophylaxis: pharmacologic ordered
[2023-05-31 16:29] LABS: Glucose Point of Care 242 mg/dl (65-105)
[2023-05-31] MEDS: INSULIN ASPART (*BKC) 100 UNITS/ML SUB-Q (18:02)
[2023-05-31 20:51] LABS: Glucose Point of Care 164 mg/dl (65-105)
[2023-05-31] MEDS: TRIFLUOPERAZINE HCL 1 MG TABLET 2 MG PO (21:52)
[2023-05-31] MEDS: chlorproMAZINE HCL 25 MG TABLET 100 MG PO (21:53)
[2023-05-31] MEDS: PRAVASTATIN SODIUM 20 MG TABLET 40 MG PO (21:53)
[2023-05-31] MEDS: SODIUM BICARBONATE TAB 650 MG TABLET PO (21:53)
[2023-06-01 02:04] LABS: Eosinophil Urine None Seen % (None Seen); Urine Eos QC 2nd Tech Confirmed
[2023-06-01 04:35] VITALS: BP 113/81; PULSE 84; RESP 20; TEMP 36.4; O2SAT 93
[2023-06-01] MEDS: SODIUM CHLORIDE 0.9% IV 1,000 ML 80 ML IV CONT ×2 (05:05→18:27)
[2023-06-01] MEDS: LEVOTHYROXINE SODIUM 25 MCG TABLET PO (05:05)
[2023-06-01 06:26] LABS: Basophils Absolute Auto 0.1 K/mm3 (0.0-0.1); Basophils Percent Auto 0.9 % (0.2-1.2); Eosinophils Absolute Auto 0.3 K/mm3 (0-0.3); Eosinophils Percent Auto 4.9 % (0-4.4); Hematocrit 31.7 % (37.0-47.0); Hemoglobin 9.5 g/dL (12.0-15.0); Immature Granulocyte Absolute 0.02 K/mm3 (0.00-0.031); Immature Granulocyte Percent A 0.3 % (0-0.5); Lymphocytes Absolute Auto 1.62 K/mm3 (0.9-3.2); Lymphocytes Percent Auto 27.6 % (18.3-44.2); Mean Corpuscular Volume 86.6 fl (80-100); Mean Platelet Volume 9.6 fl (7.4-10.4); Monocytes Absolute Auto 0.4 K/mm3 (0.1-0.6); Monocytes Percent Auto 6.8 % (2.6-8.5); Neutrophils Absolute Auto 3.5 K/mm3 (1.3-6.7); Neutrophils Percent Auto 59.5 % (45.5-73.1); Platelet Count Result 312 k/mm3 (150-375); Red Blood Count 3.66 M/mm3 (4.2-5.4); White Blood Count 5.9 K/mm3 (4.5-10.0)
[2023-06-01 07:26] LABS: Alanine Aminotransferase 15 U/L (6-35); Albumin Level 3.5 g/dL (3.5-5.1); Alkaline Phosphatase 82 U/L (38-126); Anion Gap 8 mmol/L (4-12); Aspartate Amino Transferase 19 U/L (14-36); Bilirubin,Total 0.3 mg/dL (0.2-1.3); Blood Urea Nitrogen 28 mg/dL (7-17); Calcium 9.5 mg/dL (8.4-10.2); Carbon Dioxide 22 mmol/L (22-30); Chloride 109 mmol/L (98-107); Estimated CRCL calculation 13 ml/min; Estimated Glomerular Filt Rate 12; Glucose 140 mg/dL (65-110); Sodium 139 mmol/L (137-145)
[2023-06-01 08:09] LABS: Glucose Point of Care 134 mg/dl (65-105)
[2023-06-01 09:03] VITALS: O2SAT 96
[2023-06-01] MEDS: CEFDINIR 300 MG CAPSULE PO ×2 (09:37→23:25)
[2023-06-01] MEDS: amLODIPine BESYLATE 5 MG TABLET 10 MG PO (09:37)
[2023-06-01] MEDS: SODIUM BICARBONATE TAB 650 MG TABLET 1300 MG PO (09:37)
[2023-06-01] MEDS: BENZTROPINE MESYLATE 0.5 MG TABLET PO ×2 (09:37→16:43)
[2023-06-01] MEDS: PANTOPRAZOLE 40 MG TABLET PO (09:37)
[2023-06-01] MEDS: HEPARIN SODIUM 5,000 UNITS/ML VIAL 5000 UNITS SUB-Q ×2 (09:38→23:25)
--- NOTE | 2023-06-01 10:35 | P.PNNP_ITS ---
Progress Note: A&P Assessment and Plan (1) DES (acute kidney injury): Code(s): N17.9 - Acute kidney failure, unspecified Status: Acute Assessment and Plan: * some improvement noted * suspect a component of volume depletion/dehydration and infection * has not been eating/drinking well for the last few months * UA suggestive of UTI * evaluation to date: * renal u/s with cystic lesions, bilateral medical renal disease, and mild left hydronephrosis * urine electrolytes non-prerenal * urine eosinophils negative * nephrotic range proteinuria * CPK normal * possible element of CKD progression (?) * continue trial of IVFs * follow repeat labs and UOP (2) Chronic kidney disease, stage IV (severe): Code(s): N18.4 - Chronic kidney disease, stage 4 (severe) Status: Chronic Assessment and Plan: * creatinine had been running around 2.7 - 3.1mg/dl for the last 6 moths * associated with worsening proteinuria arguing in favor of ongoing CKD progression * though to be secondary to diabetes, hypertension, vascular disease and possibly 40 years of lithium use (3) Dysphagia: Code(s): R13.10 - Dysphagia, unspecified Status: Acute Assessment and Plan: * noted for the last 2 weeks if not longer * EGD today with mild gastritis * upper GI series results noted as well * continue supportive therapy (4) Acute UTI: Code(s): N39.0 - Urinary tract infection, site not specified Status: Acute Assessment and Plan: * admission UA highly suggestive * urine culture with Aerococcus urinae * on antibiotics (5) Hypertensive chronic kidney disease with stage 1 through stage 4 chronic kidney disease, or unspecified chronic kidney disease: Code(s): I12.9 - Hypertensive chronic kidney disease with stage 1 through stage 4 chronic kidney disease, or unspecified chronic kidney disease Status: Chronic Assessment and Plan: * reasonable control at this time * follow trend of hemodynamics (6) Type 2 diabetes mellitus with diabetic chronic kidney disease: Code(s): E11.22 - Type 2 diabetes mellitus with diabetic chronic kidney disease Status: Chronic Assessment and Plan: * follow accu-cheks * glycemic control per hospitalists Will continue to follow. Subjective Date/time seen: 06/01/23 10:35 Interval history: Follow-up for acute kidney injury/acute renal failure on chronic kidney disease. No apparent distress voiced at the time of my visit; sister at bedside and we discussed the situation; eating/drinking better but still not back to baseline; ongoing fluctuations in mentation as noted by visual hallucinations and confusion; renal function relatively stable by labs this AM (but not back to baseline). Exam Narrative: General: WD/WN female in NAD Heart: normal S1 and S2; no rub Lungs: clear to auscultation Abdomen: soft, nontender, nondistended, positive bowel sounds Extremities: no cyanosis or clubbing; no edema Skin: warm and intact Objective Data Vital Signs Vital Signs: Vital Signs Temp Pulse Resp BP Pulse Ox O2 Del Method FiO2 06/01/23 09:03 96 Room Air 21 06/01/23 04:35 97.6 F 84 20 113/81 93 05/31/23 20:00 98 Room Air 05/31/23 20:40 97.3 F L 88 24 H 128/95 H 98 05/31/23 14:00 96.9 F L 96 16 130/83 96 Intake/Output Intake/Output: Intake & Output 05/29/23 05/30/23 05/31/23 06/01/23 23:59 23:59 23:59 23:59 Intake Total 50 3104 2100 200 Output Total 700 3000 2575 5635 Balance -650 090 -789 -183 Meds/Results Medications: Active Medications Generic Name Dose Route Start Last Admin Trade Name Freq PRN Reason Stop Dose Admin Acetaminophen 650 mg 05/29/23 14:55 Acetaminophen 325 Mg Tablet PO Q4H PRN Mild Pain (1-3) or Fever Amlodipine Besylate 10 mg 05/30/23 09:00 06/01/23 09:37 Amlodipine Besylate 5 Mg Tablet PO 10 mg DAILY VIRIDIANA Administration Benztropine Mesylate 0.5 mg 05/29/23 20:40 06/01/23 09:37 Benztropine Mesylate 0.5 Mg Tablet PO 0.5 mg BID VIRIDIANA Administration Cefdinir 300 mg 05/31/23 09:00 06/01/23 09:37 Cefdinir 300 Mg Capsule PO 06/05/23 21:00 300 mg Q12HR VIRIDIANA Administration Chlorpromazine HCl 100 mg 05/29/23 21:00 05/31/23 21:53 Chlorpromazine Hcl 25 Mg Tablet PO 100 mg QHS VIRIDIANA Administration Dextrose 12.5 gm 05/29/23 20:59 Dextrose 50% 25 Gm/50 Ml Syringe IV PUSH PRN PRN Hypoglycemia Protocol Glucagon 1 mg 05/29/23 20:59 Glucagon For Inj 1 Mg Vial IM PRN PRN Hypoglycemia Protocol Glucose 15 gm 05/29/23 20:59 Glucose Oral Gel 15 Gm Of Glucse In 37.5 Gm Tube PO PRN PRN Hypoglycemia Protocol Heparin Sodium (Porcine) 5,000 units 05/30/23 21:00 06/01/23 09:38 Heparin Sodium 5,000 Units/Ml Vial SUB-Q 5,000 units Q12HR VIRIDIANA Administration Sodium Chloride 1,000 mls @ 80 mls/hr 05/29/23 14:55 06/01/23 05:05 Normal Saline Iv IV CONT 80 mls/hr .[id number] VIRIDIANA Administration Dextrose 1,000 mls @ 100 mls/hr 05/29/23 20:59 Dextrose 5% 1,000 Ml IVPB PRN PRN Hypoglycemia Protocol Insulin Aspart 2 - 5 units 05/30/23 08:00 06/01/23 09:36 Insulin Aspart (*Bkc) 100 Units/Ml SUB-Q Not Given TIDWM VIRIDIANA Protocol Insulin Aspart 1 - 2 units 05/29/23 21:00 05/31/23 21:54 Insulin Aspart (*Bkc) 100 Units/Ml SUB-Q Not Given HS VIRIDIANA Protocol Levothyroxine Sodium 25 mcg 05/30/23 06:30 06/01/23 05:05 Levothyroxine Sodium 25 Mcg Tablet PO 25 mcg DAILY@0630 VIRIDIANA Administration Ondansetron HCl 4 mg 05/29/23 14:55 Ondansetron Inj 4 Mg/2 Ml Vial IV PUSH Q4H PRN Nausea Pantoprazole Sodium 40 mg 05/30/23 09:00 06/01/23 09:37 Pantoprazole 40 Mg Tablet PO 40 mg QAM VIRIDIANA Administration Pravastatin Sodium 40 mg 05/29/23 21:00 05/31/23 21:53 Pravastatin Sodium 20 Mg Tablet PO 40 mg QHS VIRIDIANA Administration Sodium Bicarbonate 1,300 mg 05/30/23 09:00 06/01/23 09:37 Sodium Bicarbonate Tab 650 Mg Tablet PO 1,300 mg QAM VIRIDIANA Administration Sodium Bicarbonate 650 mg 05/29/23 21:00 05/31/23 21:53 Sodium Bicarbonate Tab 650 Mg Tablet PO 650 mg HS VIRIDIANA Administration Trifluoperazine HCl 2 mg 05/29/23 21:00 05/31/23 21:52 Trifluoperazine Hcl 1 Mg Tablet PO 2 mg QHS VIRIDIANA Administration Radiology Results: ITS Impressions Head CT 05/29/23 13:08 IMPRESSION: Cerebral atherosclerosis chronic right basal ganglia lacunar infarcts Moderate central and cortical cerebral atrophy No acute intracranial finding Renal Ultrasound 05/30/23 15:09 IMPRESSION: Nonsimple right upper pole and left lower pole renal cystic lesions, recommend MRI or CT without and with contrast for further evaluation. Bilateral medical renal disease. Mild left hydronephrosis. Upper GI Series 05/31/23 10:21 IMPRESSION: Prominent post bulbar duodenal folds suggesting duodenitis Modified Barium Swallow 05/31/23 15:00 IMPRESSION: 1. No laryngeal penetration or aspiration. 2. Please refer to the speech therapy report for recommendations. Labs Labs: Laboratory Tests 06/01/23 05:58 06/01/23 05:59 Calcium 9.5 Total Bilirubin 0.3 AST 19 ALT 15 Alkaline Phosphatase 82 Total Protein 6.0 L Albumin 3.5 Urine Eosinophils Microbiology 05/29/23 13:28 Urine Catheterized Urine Culture - Final Aerococcus urinae [facility] Follow-up Hospital Follow-up: [id number] [facility]
[2023-06-01 11:54] LABS: Glucose Point of Care 250 mg/dl (65-105)
[2023-06-01] MEDS: INSULIN ASPART (*BKC) 100 UNITS/ML SUB-Q ×2 (12:27→23:38)
--- NOTE | 2023-06-01 12:49 | P.PNIM_ITS ---
Progress Note: A&P Assessment and Plan (1) Dysphagia: Code(s): R13.10 - Dysphagia, unspecified Status: Acute Assessment and Plan: 05/30/23: * Reporting difficulty swallowing for the past 2 weeks, she states that things seem to get caught in her throat and she is unable to clear it. * Upper GI series results pending * GI consulted * Will need a barium swallow as she was choking on thin liquids while I was in the room * Denies any new neuro deficits * Speech is normal, facial features are symmetrical * CT of the brain showing old chronic right basal ganglia lacune are infarcts, moderate central and cortical cerebral atrophy, no acute intracranial finding 05/31/23: * EGD today only showed gastritis, she had biopsies taken in GI will follow up with her when the biopsies results. * She had a barium swallow as well today and passed without any issue * GI has signed off and will follow up with her outpatient 06/01/23: * No change to current treatment plan (2) Acute UTI: Code(s): N39.0 - Urinary tract infection, site not specified Status: Acute Assessment and Plan: 05/30/23: * UA showed 2+ protein, trace ketones, 1+ urine blood, 3+ leukocytes, 51-100 urine wbc's. * Urine culture was obtained and is pending * Patient was started on Rocephin and will continue * Renal ultrasound results pending 05/31/2023: * Urine culture showing aerococcus urinae on final read * Rocephin switched to cefdinir * Nephrology is following for acute kidney injury 06/01/2023: * Continue cefdinir * Nephrology following * Creatinine 3.8 today trending downward (3) Hypothyroidism, unspecified: Code(s): E03.9 - Hypothyroidism, unspecified Status: Chronic Assessment and Plan: 05/30/23: * Continue Synthroid 05/31/23: * No change to current treatment plan (4) Bipolar disorder, unspecified: Code(s): F31.9 - Bipolar disorder, unspecified Status: Chronic Assessment and Plan: 05/30/23: * Continue sertraline and chlorpromazine 05/31/23: * No change to current treatment (5) Type 2 diabetes mellitus with diabetic chronic kidney disease: Code(s): E11.22 - Type 2 diabetes mellitus with diabetic chronic kidney disease Status: Chronic Assessment and Plan: 05/30/23: * Blood glucose -820 * Hemoglobin A1c 6.5 * Accu-Cheks AC and HS * Diabetic diet * Hypoglycemic protocol * Low-dose sliding scale insulin ordered * Will hold glipizide now 05/31/23: * No change to current treatment plan (6) Pure hypercholesterolemia, unspecified: Code(s): E78.00 - Pure hypercholesterolemia, unspecified Status: Chronic Assessment and Plan: 05/30/23: * Continue pravastatin 05/31/23: * No change to current treatment plan Time Spent With Patient Time with patient: 15 - 25 minutes Subjective Date/time seen: 06/01/23 12:49 Interval history: 05/30/23: This is a 63-year-old female who presented to the hospital on 05/29/2023 with difficulty swallowing. Workup in the hospital included a head CT which was negative for any acute findings, showed cerebral atherosclerosis chronic right basal ganglia lacunar infarcts. Renal ultrasound and Upper GI series, results pending. Labs revealed a white blood cell count of 6.0, hemoglobin 9.6, BUN 30, creatinine 4.10, EGFR 11. UA shown 2+ urine protein, trace ketones, 1+ urine blood, 3+ leukocyte, 51-100 urine wbc's. Urine culture was obtained and is pending. Patient was given 1 L of normal saline in the ED along with some Rocephin. Nephrology was consulted for acute kidney injury superimposed on chronic kidney disease. She denies any fever, chills, nausea, vomiting, abdominal pain, pain, shortness a breath. She endorses 1 episode of diarrhea today, she some congestion, along with some burping that has been going on for a couple of weeks. We will go ahead and consult GI and also get a barium swallow study. 05/31/23: She denies any new complaints today. Plan today for EGD showed mild gastritis, biopsies were taken. She also had a barium swallow today which was normal. Labs today showing a creatinine of 3.9 EGFR bicarb 20. Urine culture showing aerococcus urinae final read. Patient was switched from Rocephin to cefdinir today. Nephrology following for acute kidney injury. 06/01/23: She denies any new complaints today. Labs revealed Hemoglobin is 9.5, creatinine 3.80, EGFR 12. Nephrology is still following. Review of Systems Review of Systems: Twelve systems were reviewed and are negative except for as per HPI. All systems reviewed & are unremarkable except as noted in HPI and below Constitutional: Constitutional: Reports as per HPI and Reports no additional constitutional complaints Eyes: Eyes: Reports as per HPI and Reports no additional eye complaints ENT: Reports system reviewed and no additional complaints, except as d ocumented and Reports as per HPI Cardiovascular: Cardiovascular: Reports as per HPI and Reports no additional cardiovascular complaints Respiratory: Respiratory: Reports as per HPI and Reports no additional respiratory complaints Gastrointestinal: Gastrointestinal: Reports as per HPI and Reports no additional gastrointestinal complaints Genitourinary: Genitourinary: Reports no additional female genitourinary complaints and Reports as per HPI Musculoskeletal: Musculoskeletal: Reports no additional musculoskeletal complaints and Reports as per HPI Integumentary/Breasts: Skin/Breast: Reports system reviewed and no additional complaints, except as docu and Reports as per HPI Neurologic: Reports system reviewed and no additional complaints, except as documented and Reports as per HPI Psychiatric: Psychiatric: Reports no additional psychiatric complaints and Reports as per HPI Exam Narrative: General: In no acute distress, well nourished Head: atraumatic, no encephalopathy Eyes: EOMI, PERRLA, sclera clear ENT: moist mucous membranes, nasal passages clear Neck: supple, no JVD, no adenopathy, trachea midline Cardiac: Normal S1 and S2. RRR, No murmur, gallops or friction rubs, peripheral pulses intact. Respiratory: Lungs clear to auscultation, no adventitious lung sounds, currently on room air Gastrointestinal: soft, non-distended, non-tender, normoactive bowel sounds. : voiding without difficulty. Extremities: moves all extremities well, no edema Skin: clean, dry, intact. No wounds or lesions. Neuro: Alert and oriented x3, cranial nerves intact, no neuro deficits. Psych: normal mood, normal affect, interactive Objective Data Vital Signs Vital Signs: Vital Signs - 24 hr 05/31/23 14:00 05/31/23 20:40 05/31/23 20:00 Temperature 96.9 F L 97.3 F L Pulse Rate 96 88 Respiratory Rate 16 24 H Blood Pressure 130/83 128/95 H Pulse Oximetry 96 98 98 Oxygen Delivery Room Air Fraction of Inspired Oxygen 06/01/23 04:35 06/01/23 09:03 Temperature 97.6 F Pulse Rate 84 Respiratory Rate 20 Blood Pressure 113/81 Pulse Oximetry 93 96 Oxygen Delivery Room Air Fraction of Inspired Oxygen 21 Intake/Output Intake/Output: Intake & Output 05/29/23 05/30/23 05/31/23 06/01/23 23:59 23:59 23:59 23:59 Intake Total 50 3104 2100 437 Output Total 700 7412 2195 1127 Balance -650 681 -803 -274 Meds/Results Medications: Active Medications Generic Name Dose Route Start Last Admin Trade Name Freq PRN Reason Stop Dose Admin Acetaminophen 650 mg 05/29/23 14:55 Acetaminophen 325 Mg Tablet PO Q4H PRN Mild Pain (1-3) or Fever Amlodipine Besylate 10 mg 05/30/23 09:00 06/01/23 09:37 Amlodipine Besylate 5 Mg Tablet PO 10 mg DAILY VIRIDIANA Administration Benztropine Mesylate 0.5 mg 05/29/23 20:40 06/01/23 09:37 Benztropine Mesylate 0.5 Mg Tablet PO 0.5 mg BID VIRIDIANA Administration Cefdinir 300 mg 05/31/23 09:00 06/01/23 09:37 Cefdinir 300 Mg Capsule PO 06/05/23 21:00 300 mg Q12HR VIRIDIANA Administration Chlorpromazine HCl 100 mg 05/29/23 21:00 05/31/23 21:53 Chlorpromazine Hcl 25 Mg Tablet PO 100 mg QHS VIRIDIANA Administration Dextrose 12.5 gm 05/29/23 20:59 Dextrose 50% 25 Gm/50 Ml Syringe IV PUSH PRN PRN Hypoglycemia Protocol Glucagon 1 mg 05/29/23 20:59 Glucagon For Inj 1 Mg Vial IM PRN PRN Hypoglycemia Protocol Glucose 15 gm 05/29/23 20:59 Glucose Oral Gel 15 Gm Of Glucse In 37.5 Gm Tube PO PRN PRN Hypoglycemia Protocol Heparin Sodium (Porcine) 5,000 units 05/30/23 21:00 06/01/23 09:38 Heparin Sodium 5,000 Units/Ml Vial SUB-Q 5,000 units Q12HR VIRIDIANA Administration Sodium Chloride 1,000 mls @ 80 mls/hr 05/29/23 14:55 06/01/23 05:05 Normal Saline Iv IV CONT 80 mls/hr .[id number] VIRIDIANA Administration Dextrose 1,000 mls @ 100 mls/hr 05/29/23 20:59 Dextrose 5% 1,000 Ml IVPB PRN PRN Hypoglycemia Protocol Insulin Aspart 2 - 5 units 05/30/23 08:00 06/01/23 12:27 Insulin Aspart (*Bkc) 100 Units/Ml SUB-Q 2 units TIDWM VIRIDIANA Administration Protocol Insulin Aspart 1 - 2 units 05/29/23 21:00 05/31/23 21:54 Insulin Aspart (*Bkc) 100 Units/Ml SUB-Q Not Given HS VIRIDIANA Protocol Levothyroxine Sodium 25 mcg 05/30/23 06:30 06/01/23 05:05 Levothyroxine Sodium 25 Mcg Tablet PO 25 mcg DAILY@0630 VIRIDIANA Administration Ondansetron HCl 4 mg 05/29/23 14:55 Ondansetron Inj 4 Mg/2 Ml Vial IV PUSH Q4H PRN Nausea Pantoprazole Sodium 40 mg 05/30/23 09:00 06/01/23 09:37 Pantoprazole 40 Mg Tablet PO 40 mg QAM VIRIDIANA Administration Pravastatin Sodium 40 mg 05/29/23 21:00 05/31/23 21:53 Pravastatin Sodium 20 Mg Tablet PO 40 mg QHS VIRIDIANA Administration Sodium Bicarbonate 1,300 mg 05/30/23 09:00 06/01/23 09:37 Sodium Bicarbonate Tab 650 Mg Tablet PO 1,300 mg QAM VIRIDIANA Administration Sodium Bicarbonate 650 mg 05/29/23 21:00 05/31/23 21:53 Sodium Bicarbonate Tab 650 Mg Tablet PO 650 mg HS VIRIDIANA Administration Trifluoperazine HCl 2 mg 05/29/23 21:00 05/31/23 21:52 Trifluoperazine Hcl 1 Mg Tablet PO 2 mg QHS VIRIDIANA Administration Radiology Results: ITS Impressions Head CT 05/29/23 13:08 IMPRESSION: Cerebral atherosclerosis chronic right basal ganglia lacunar infarcts Moderate central and cortical cerebral atrophy No acute intracranial finding Renal Ultrasound 05/30/23 15:09 IMPRESSION: Nonsimple right upper pole and left lower pole renal cystic lesions, recommend MRI or CT without and with contrast for further evaluation. Bilateral medical renal disease. Mild left hydronephrosis. Upper GI Series 05/31/23 10:21 IMPRESSION: Prominent post bulbar duodenal folds suggesting duodenitis Modified Barium Swallow 05/31/23 15:00 IMPRESSION: 1. No laryngeal penetration or aspiration. 2. Please refer to the speech therapy report for recommendations. Labs Labs: Laboratory Results - last 24 hr 05/31/23 05/31/23 05/31/23 16:25 20:45 23:02 WBC RBC Hgb Hct MCV MCH MCHC RDW Plt Count MPV Immature Gran % (Auto) Neut % (Auto) Lymph % (Auto) [place] % (Auto) Eos % (Auto) Baso % (Auto) Lymph # (Auto) [place] # (Auto) Eos # (Auto) Baso # (Auto) Abs Immat Gran (auto) Absolute Neuts (auto) Absolute Nucleated RBC Nucleated RBC % Sodium Potassium Chloride Carbon Dioxide Anion Gap BUN Creatinine Estim Creat Clear Calc Estimated GFR Glucose POC Capillary Glucose 242 H 164 H Calcium Total Bilirubin AST ALT Alkaline Phosphatase Total Protein Albumin Urine Eosinophils None seen 06/01/23 06/01/23 06/01/23 05:58 05:59 07:52 WBC 5.9 RBC 3.66 L Hgb 9.5 L Hct 31.7 L MCV 86.6 MCH 26.0 MCHC 30.0 L RDW 13.0 Plt Count 312 MPV 9.6 Immature Gran % (Auto) 0.3 Neut % (Auto) 59.5 Lymph % (Auto) 27.6 [place] % (Auto) 6.8 Eos % (Auto) 4.9 H Baso % (Auto) 0.9 Lymph # (Auto) 1.62 [place] # (Auto) 0.4 Eos # (Auto) 0.3 Baso # (Auto) 0.1 Abs Immat Gran (auto) 0.02 Absolute Neuts (auto) 3.5 Absolute Nucleated RBC 0.000 Nucleated RBC % 0.0 Sodium 139 Potassium 4.0 Chloride 109 H Carbon Dioxide 22 Anion Gap 8 BUN 28 H Creatinine 3.80 H Estim Creat Clear Calc 13 Estimated GFR 12 L Glucose 140 H POC Capillary Glucose 134 H Calcium 9.5 Total Bilirubin 0.3 AST 19 ALT 15 Alkaline Phosphatase 82 Total Protein 6.0 L Albumin 3.5 Urine Eosinophils 06/01/23 11:16 WBC RBC Hgb Hct MCV MCH MCHC RDW Plt Count MPV Immature Gran % (Auto) Neut % (Auto) Lymph % (Auto) [place] % (Auto) Eos % (Auto) Baso % (Auto) Lymph # (Auto) [place] # (Auto) Eos # (Auto) Baso # (Auto) Abs Immat Gran (auto) Absolute Neuts (auto) Absolute Nucleated RBC Nucleated RBC % Sodium Potassium Chloride Carbon Dioxide Anion Gap BUN Creatinine Estim Creat Clear Calc Estimated GFR Glucose POC Capillary Glucose 250 H Calcium Total Bilirubin AST ALT Alkaline Phosphatase Total Protein Albumin Urine Eosinophils Quality VTE Prophylaxis VTE prophylaxis: pharmacologic ordered
[2023-06-01 14:00] VITALS: BP 128/94; PULSE 108; RESP 22; TEMP 36.5; O2SAT 97
[2023-06-01 16:08] LABS: Glucose Point of Care 174 mg/dl (65-105)
[2023-06-01 20:50] VITALS: BP 146/94; PULSE 89; RESP 20; TEMP 36.3; O2SAT 98
[2023-06-01 21:49] LABS: Glucose Point of Care 248 mg/dl (65-105)
[2023-06-01] MEDS: chlorproMAZINE HCL 25 MG TABLET 100 MG PO (23:24)
[2023-06-01] MEDS: TRIFLUOPERAZINE HCL 1 MG TABLET 2 MG PO (23:24)
[2023-06-01] MEDS: PRAVASTATIN SODIUM 20 MG TABLET 40 MG PO (23:25)
[2023-06-01] MEDS: SODIUM BICARBONATE TAB 650 MG TABLET PO (23:25)
[2023-06-02 04:45] VITALS: BP 157/91; PULSE 80; RESP 16; TEMP 36.8; O2SAT 98
[2023-06-02] MEDS: LEVOTHYROXINE SODIUM 25 MCG TABLET PO (05:53)
[2023-06-02 06:11] LABS: Basophils Percent Auto 0.6 % (0.2-1.2); Eosinophils Absolute Auto 0.3 K/mm3 (0-0.3); Eosinophils Percent Auto 4.2 % (0-4.4); Hematocrit 33.1 % (37.0-47.0); Hemoglobin 9.8 g/dL (12.0-15.0); Immature Granulocyte Absolute 0.03 K/mm3 (0.00-0.031); Immature Granulocyte Percent A 0.4 % (0-0.5); Lymphocytes Absolute Auto 1.69 K/mm3 (0.9-3.2); Lymphocytes Percent Auto 23.8 % (18.3-44.2); Mean Corpuscular HGB Conc 29.6 g/dl (32-36); Mean Corpuscular Hemoglobin 25.7 pg (26-34); Mean Corpuscular Volume 86.6 fl (80-100); Mean Platelet Volume 9.7 fl (7.4-10.4); Monocytes Absolute Auto 0.6 K/mm3 (0.1-0.6); Monocytes Percent Auto 7.7 % (2.6-8.5); Neutrophils Absolute Auto 4.5 K/mm3 (1.3-6.7); Neutrophils Percent Auto 63.3 % (45.5-73.1); Platelet Count Result 316 k/mm3 (150-375); Red Blood Count 3.82 M/mm3 (4.2-5.4); Red Cell Distribution Width 13.1 % (11.5-14.5); White Blood Count 7.1 K/mm3 (4.5-10.0)
[2023-06-02 06:33] LABS: Alanine Aminotransferase 14 U/L (6-35); Albumin Level 3.8 g/dL (3.5-5.1); Alkaline Phosphatase 84 U/L (38-126); Anion Gap 11 mmol/L (4-12); Aspartate Amino Transferase 20 U/L (14-36); Bilirubin,Total 0.3 mg/dL (0.2-1.3); Blood Urea Nitrogen 33 mg/dL (7-17); Calcium 9.9 mg/dL (8.4-10.2); Carbon Dioxide 20 mmol/L (22-30); Chloride 113 mmol/L (98-107); Estimated CRCL calculation 12 ml/min; Estimated Glomerular Filt Rate 11; Glucose 144 mg/dL (65-110); Potassium 3.8 mmol/L (3.4-5.0); Sodium 144 mmol/L (137-145)
--- NOTE | 2023-06-02 06:51 | PC.NURSE ---
Pt refused 2100 meds on 06/01/23. Pt was educated and still refused meds. Called pt sister to make her aware then pt agreed to take meds while pt sister was on the phone. Pt has been re-directed multiple times throughout the night. Pt continues to hallucinate throughout the night stating she is in residential and the police is here for her. Pt states she does not want to take meds due to its evidence of all the hurt she has caused her friends and family. Pt pulled out her IV twice and pulled out her murray. Murray was reinserted due to bladder scan of 450ml in the bladder. Pt currently does not have an IV, on standby for further instructions by the AM hospitalist.
[2023-06-02 08:02] LABS: Glucose Point of Care 152 mg/dl (65-105)
[2023-06-02] MEDS: BENZTROPINE MESYLATE 0.5 MG TABLET PO ×2 (08:19→17:20)
[2023-06-02] MEDS: amLODIPine BESYLATE 5 MG TABLET 10 MG PO (08:20)
[2023-06-02] MEDS: PANTOPRAZOLE 40 MG TABLET PO (08:20)
[2023-06-02] MEDS: SODIUM BICARBONATE TAB 650 MG TABLET 1300 MG PO (08:20)
[2023-06-02] MEDS: HEPARIN SODIUM 5,000 UNITS/ML VIAL 5000 UNITS SUB-Q ×2 (08:20→20:25)
[2023-06-02 08:57] LABS: Hypochromasia 1+; Platelet Estimate Adequate (Adequate); Schistocytes None Seen
[2023-06-02] MEDS: CEFDINIR 300 MG CAPSULE PO ×2 (09:46→20:24)
[2023-06-02 11:29] LABS: Glucose Point of Care 309 mg/dl (65-105)
--- NOTE | 2023-06-02 11:30 | P.PNNP_ITS ---
Progress Note: A&P Assessment and Plan (1) DES (acute kidney injury): Code(s): N17.9 - Acute kidney failure, unspecified Status: Acute Assessment and Plan: * some improvement noted * suspect a component of volume depletion/dehydration and infection * has not been eating/drinking well for the last few months * UA suggestive of UTI * evaluation to date: * renal u/s with cystic lesions, bilateral medical renal disease, and mild left hydronephrosis * urine electrolytes non-prerenal * urine eosinophils negative * nephrotic range proteinuria * CPK normal * suspect there is an element of CKD progression present as well * follow repeat labs and UOP (2) Chronic kidney disease, stage IV (severe): Code(s): N18.4 - Chronic kidney disease, stage 4 (severe) Status: Chronic Assessment and Plan: * creatinine had been running around 2.7 - 3.1mg/dl for the last 6 moths * associated with worsening proteinuria arguing in favor of ongoing CKD progression * though to be secondary to diabetes, hypertension, vascular disease and possibly 40 years of lithium use (3) Dysphagia: Code(s): R13.10 - Dysphagia, unspecified Status: Acute Assessment and Plan: * noted for the last 2 weeks if not longer * EGD today with mild gastritis * upper GI series results noted as well * continue supportive therapy (4) Acute UTI: Code(s): N39.0 - Urinary tract infection, site not specified Status: Acute Assessment and Plan: * admission UA highly suggestive * urine culture with Aerococcus urinae * on antibiotics (5) Hypertensive chronic kidney disease with stage 1 through stage 4 chronic kidney disease, or unspecified chronic kidney disease: Code(s): I12.9 - Hypertensive chronic kidney disease with stage 1 through stage 4 chronic kidney disease, or unspecified chronic kidney disease Status: Chronic Assessment and Plan: * reasonable control at this time * follow trend of hemodynamics (6) Type 2 diabetes mellitus with diabetic chronic kidney disease: Code(s): E11.22 - Type 2 diabetes mellitus with diabetic chronic kidney disease Status: Chronic Assessment and Plan: * follow accu-cheks * glycemic control per hospitalists Will continue to follow. Subjective Date/time seen: 06/02/23 11:30 Interval history: Follow-up for acute kidney injury/acute renal failure on chronic kidney disease. No new issues or complaints voiced at this time; no apparent distress voiced; renal function fluctuating as noted by trend of AM labs; no acute issues/events overnight or earlier this morning. Exam Narrative: General: WD/WN female in NAD Heart: normal S1 and S2; no rub Lungs: clear to auscultation Abdomen: soft, nontender, nondistended, positive bowel sounds Extremities: no cyanosis or clubbing; no edema Skin: no rash Objective Data Vital Signs Vital Signs: Vital Signs Temp Pulse Resp BP Pulse Ox O2 Del Method 06/02/23 1w:00 97.8 F 84 20 116/87 100 06/02/23 04:45 98.3 F 80 16 157/91 H 98 06/01/23 20:00 Room Air 06/01/23 20:50 97.3 F L 89 20 146/94 H 98 Intake/Output Intake/Output: Intake & Output 05/30/23 05/31/23 06/01/23 06/02/23 23:59 23:59 23:59 23:59 Intake Total 3104 2100 3467 1349.3 Output Total 3000 2575 2675 1999 Balance 104 -475 792 -650.7 Meds/Results Medications: Active Medications Generic Name Dose Route Start Last Admin Trade Name Freq PRN Reason Stop Dose Admin Acetaminophen 650 mg 05/29/23 14:55 Acetaminophen 325 Mg Tablet PO Q4H PRN Mild Pain (1-3) or Fever Amlodipine Besylate 10 mg 05/30/23 09:00 06/02/23 08:20 Amlodipine Besylate 5 Mg Tablet PO 10 mg DAILY VIRIDIANA Administration Benztropine Mesylate 0.5 mg 05/29/23 20:40 06/02/23 08:19 Benztropine Mesylate 0.5 Mg Tablet PO 0.5 mg BID VIRIDIANA Administration Cefdinir 300 mg 05/31/23 09:00 06/02/23 09:46 Cefdinir 300 Mg Capsule PO 06/05/23 21:00 300 mg Q12HR VIRIDIANA Administration Chlorpromazine HCl 100 mg 05/29/23 21:00 06/01/23 23:24 Chlorpromazine Hcl 25 Mg Tablet PO 100 mg QHS VIRIDIANA Administration Dextrose 12.5 gm 05/29/23 20:59 Dextrose 50% 25 Gm/50 Ml Syringe IV PUSH PRN PRN Hypoglycemia Protocol Glucagon 1 mg 05/29/23 20:59 Glucagon For Inj 1 Mg Vial IM PRN PRN Hypoglycemia Protocol Glucose 15 gm 05/29/23 20:59 Glucose Oral Gel 15 Gm Of Glucse In 37.5 Gm Tube PO PRN PRN Hypoglycemia Protocol Heparin Sodium (Porcine) 5,000 units 05/30/23 21:00 06/02/23 08:20 Heparin Sodium 5,000 Units/Ml Vial SUB-Q 5,000 units Q12HR VIRIDIANA Administration Sodium Chloride 1,000 mls @ 80 mls/hr 05/29/23 14:55 06/02/23 05:13 Normal Saline Iv IV CONT 0 mls/hr .[id number] VIRIDIANA Infusion Dextrose 1,000 mls @ 100 mls/hr 05/29/23 20:59 Dextrose 5% 1,000 Ml IVPB PRN PRN Hypoglycemia Protocol Insulin Aspart 2 - 5 units 05/30/23 08:00 06/02/23 13:22 Insulin Aspart (*Bkc) 100 Units/Ml SUB-Q 4 units TIDWM VIRIDIANA Administration Protocol Insulin Aspart 1 - 2 units 05/29/23 21:00 06/01/23 23:38 Insulin Aspart (*Bkc) 100 Units/Ml SUB-Q 2 units HS VIRIDIANA Administration Protocol Levothyroxine Sodium 25 mcg 05/30/23 06:30 06/02/23 05:53 Levothyroxine Sodium 25 Mcg Tablet PO 25 mcg DAILY@0630 VIRIDIANA Administration Ondansetron HCl 4 mg 05/29/23 14:55 Ondansetron Inj 4 Mg/2 Ml Vial IV PUSH Q4H PRN Nausea Pantoprazole Sodium 40 mg 05/30/23 09:00 06/02/23 08:20 Pantoprazole 40 Mg Tablet PO 40 mg QAM VIRIDIANA Administration Pravastatin Sodium 40 mg 05/29/23 21:00 06/01/23 23:25 Pravastatin Sodium 20 Mg Tablet PO 40 mg QHS VIRIDIANA Administration Sodium Bicarbonate 1,300 mg 05/30/23 09:00 06/02/23 08:20 Sodium Bicarbonate Tab 650 Mg Tablet PO 1,300 mg QAM VIRIDIANA Administration Sodium Bicarbonate 650 mg 05/29/23 21:00 06/01/23 23:25 Sodium Bicarbonate Tab 650 Mg Tablet PO 650 mg HS VIRIDIANA Administration Trifluoperazine HCl 2 mg 05/29/23 21:00 06/01/23 23:24 Trifluoperazine Hcl 1 Mg Tablet PO 2 mg QHS VIRIDIANA Administration Radiology Results: ITS Impressions Head CT 05/29/23 13:08 IMPRESSION: Cerebral atherosclerosis chronic right basal ganglia lacunar infarcts Moderate central and cortical cerebral atrophy No acute intracranial finding Renal Ultrasound 05/30/23 15:09 IMPRESSION: Nonsimple right upper pole and left lower pole renal cystic lesions, recommend MRI or CT without and with contrast for further evaluation. Bilateral medical renal disease. Mild left hydronephrosis. Upper GI Series 05/31/23 10:21 IMPRESSION: Prominent post bulbar duodenal folds suggesting duodenitis Modified Barium Swallow 05/31/23 15:00 IMPRESSION: 1. No laryngeal penetration or aspiration. 2. Please refer to the speech therapy report for recommendations. Labs Labs: Laboratory Tests 06/02/23 05:32 06/02/23 05:32 Calcium 9.9 Total Bilirubin 0.3 AST 20 ALT 14 Alkaline Phosphatase 84 Total Protein 6.0 L Albumin 3.8 AMG Follow-up Billing Hospital Follow-up Hospital Follow-up: [id number] Subs Hosp Care Mod
--- NOTE | 2023-06-02 12:55 | P.DS_ITS ---
DS: Admitting Diagnosis Discharge Date 06/02/23 Admitting Diagnosis Acute on chronic kidney failure Urinary retention Dysphasia Dehydration Abnormally urinalysis Chronic anemia Type 2 diabetes mellitus Psychiatric illness DS: Discharge Diagnosis Discharge Diagnosis (1) Dysphagia: Code(s): R13.10 - Dysphagia, unspecified Status: Acute (2) Acute UTI: Code(s): N39.0 - Urinary tract infection, site not specified Status: Acute (3) Hypothyroidism, unspecified: Code(s): E03.9 - Hypothyroidism, unspecified Status: Chronic (4) Bipolar disorder, unspecified: Code(s): F31.9 - Bipolar disorder, unspecified Status: Chronic (5) Type 2 diabetes mellitus with diabetic chronic kidney disease: Code(s): E11.22 - Type 2 diabetes mellitus with diabetic chronic kidney disease Status: Chronic (6) Pure hypercholesterolemia, unspecified: Code(s): E78.00 - Pure hypercholesterolemia, unspecified Status: Chronic DS: Summary Hospital Course Reason for hospitalization: Acute on chronic kidney failure Urinary retention Dysphasia Dehydration Abnormally urinalysis Chronic anemia Type 2 diabetes mellitus Psychiatric illness Hospital Course: 05/30/23: This is a 63-year-old female who presented to the hospital on 05/29/2023 with difficulty swallowing.? Workup in the hospital included a head CT which was negative for any acute findings, showed cerebral atherosclerosis chronic right basal ganglia lacunar infarcts.? Renal ultrasound and Upper GI series, results pending.? Labs revealed a white blood cell count of 6.0, hemoglobin 9.6, BUN 30, creatinine 4.10, EGFR 11.? UA shown 2+ urine protein, trace ketones, 1+ urine blood, 3+ leukocyte, 51-100 urine wbc's.? Urine culture was obtained and is pending.? Patient was given 1 L of normal saline in the ED along with some Rocephin.? Nephrology was consulted for acute kidney injury superimposed on chronic kidney disease.? She denies any fever, chills, nausea, vomiting, abdominal pain, pain, shortness a breath.? She endorses 1 episode of diarrhea today, she some congestion, along with some burping that has been going on for a couple of weeks.? We will go ahead and consult GI and also get a barium swallow study. 05/31/23: She denies any new complaints today.? Plan today for EGD showed mild gastritis, biopsies were taken.? She also had a barium swallow today which was normal.? Labs today showing a creatinine of 3.9 EGFR bicarb 20.? Urine culture showing aerococcus urinae final read.? Patient was switched from Rocephin to cefdinir today.? Nephrology following for acute kidney injury. 06/01/23: She denies any new complaints today.? Labs revealed Hemoglobin is 9.5, creatinine 3.80, EGFR 12.? Nephrology is still following. 06/02/2023: She denies any new complaints today. Labs today show hemoglobin of 9.8, creatinine is 4.1, EGFR is 11. I spoke with Nephrology and they are fine with discharge today. Patient will need to follow up with Dr. Murali valdivia in a couple of weeks to discuss her kidney function further. She was started on cefdinir for her urinary tract infection and will need to finish that course and follow- up with primary care physician in 1 week. Final diagnosis: Acute on chronic kidney disease, urinary tract infection, dysphasia, dehydration Status at Discharge Cognitive/behavioral status at discharge: Alert and oriented x3 Functional status at discharge: independent ambulation Overall status at discharge: patient is progressing back to baseline Time Spent with Patient Time attestation: Total time spent providing and/or coordinating discharge services: Time spent: Greater than 30 minutes Exam Narrative: General: In no acute distress, well nourished Head: atraumatic, no encephalopathy Eyes: EOMI, PERRLA, sclera clear ENT: moist mucous membranes, nasal passages clear Neck: supple, no JVD, no adenopathy, trachea midline Cardiac: Normal S1 and S2. RRR, No murmur, gallops or friction rubs, peripheral pulses intact. Respiratory: Lungs clear to auscultation, no adventitious lung sounds, currently on room air Gastrointestinal: soft, non-distended, non-tender, normoactive bowel sounds. : voiding without difficulty. Extremities: moves all extremities well, no edema Skin: clean, dry, intact. No wounds or lesions. Neuro: Alert and oriented x3, cranial nerves intact, no neuro deficits. Psych: normal mood, normal affect, interactive DS: Data Data Completed and Pending Completed studies during hospitalization: Pending at discharge 05/31/23 10:13 Surgical [PTH] Routine Head CT Modified barium swallow Renal ultrasound Pending studies at discharge: None Labs on day of discharge: Labs from last 24 hours 06/02/23 06/02/23 06/02/23 11:19 07:54 05:32 WBC 7.1 RBC 3.82 L Hgb 9.8 L Hct 33.1 L MCV 86.6 MCH 25.7 L MCHC 29.6 L RDW 13.1 Plt Count 316 MPV 9.7 Immature Gran % (Auto) 0.4 Neut % (Auto) 63.3 Lymph % (Auto) 23.8 [place] % (Auto) 7.7 Eos % (Auto) 4.2 Baso % (Auto) 0.6 Lymph # (Auto) 1.69 [place] # (Auto) 0.6 Eos # (Auto) 0.3 Baso # (Auto) 0.0 Abs Immat Gran (auto) 0.03 Absolute Neuts (auto) 4.5 Absolute Nucleated RBC 0.000 Nucleated RBC % 0.0 Platelet Estimate Adequate Hypochromasia 1+ Schistocytes None seen Sodium 144 Potassium 3.8 Chloride 113 H Carbon Dioxide 20 L Anion Gap 11 BUN 33 H Creatinine 4.10 H Estim Creat Clear Calc 12 Estimated GFR 11 L Glucose 144 H POC Capillary Glucose 309 H 152 H Calcium 9.9 Total Bilirubin 0.3 AST 20 ALT 14 Alkaline Phosphatase 84 Total Protein 6.0 L Albumin 3.8 06/01/23 06/01/23 20:54 16:03 WBC RBC Hgb Hct MCV MCH MCHC RDW Plt Count MPV Immature Gran % (Auto) Neut % (Auto) Lymph % (Auto) [place] % (Auto) Eos % (Auto) Baso % (Auto) Lymph # (Auto) [place] # (Auto) Eos # (Auto) Baso # (Auto) Abs Immat Gran (auto) Absolute Neuts (auto) Absolute Nucleated RBC Nucleated RBC % Platelet Estimate Hypochromasia Schistocytes Sodium Potassium Chloride Carbon Dioxide Anion Gap BUN Creatinine Estim Creat Clear Calc Estimated GFR Glucose POC Capillary Glucose 248 H 174 H Calcium Total Bilirubin AST ALT Alkaline Phosphatase Total Protein Albumin Procedures/Treatments: EGD Discharge Plan Discharge Attending physician on discharge: Jericho Junior Consulting providers: Jean Haque; Deniz Hernandez Discharging Clinician: Kandice Salazar Anticipated Discharge Date/Time: 06/02/23 12:44 Patient Disposition: Home, Self-Care Activity: as tolerated Diet: as tolerated Discharge Instructions: * Finish your antibiotic as directed * Follow-up with your primary care physician in 1 week * He will also need follow-up with Dr. Hernandez within 2 weeks regarding your kidney function * Follow-up with ANDREA Salinas in 2 weeks for biopsy recurrent after EGD Patient Instructions: Antibiotic Form Patient Language: [place]ian Stand Alone Forms: General Discharge Information Follow-up/Referrals: Deniz Hernandez MD [Physician] - 2 Weeks Jean Haqeu MD [Physician] - 2 Weeks Vic Clarke MD [Primary Care Provider] - 1 Week Discharge Medications: New cefdinir 300 mg Capsule 300 mg PO Q12HR Qty: 7 0RF Continued pantoprazole 40 mg tablet,delayed release (DR/EC) 40 mg PO QAM Qty: 30 5RF Rx Instructions: For acid trifluoperazine 2 mg tablet 2 mg PO QHS benztropine 0.5 mg tablet 0.5 mg PO BID chlorpromazine 100 mg tablet 100 mg PO QHS levothyroxine 50 mcg tablet 25 mcg PO DAILY Rx Instructions: TAKE 1 TABLET BY MOUTH EVERY DAY sodium bicarbonate 650 mg tablet 650 mg PO QHS Rx Instructions: Take 2 tabs in the AM and 1 tab in the PM amlodipine 10 mg tablet 10 mg PO DAILY Rx Instructions: TAKE 1 TABLET BY MOUTH EVERY DAY pravastatin 40 mg tablet 40 mg PO QHS Qty: 90 2RF glipizide 5 mg tablet 5 mg PO BID Qty: 180 3RF Date of admission: 06/01/23 13:19 Primary Care Provider: Vic Clarke Admitting Provider: Clemente Ford Attending physician on admission: Clemente Ford Condition: Improved Quality VTE Prophylaxis VTE prophylaxis: pharmacologic ordered
[2023-06-02] MEDS: INSULIN ASPART (*BKC) 100 UNITS/ML SUB-Q (13:22)
[2023-06-02 14:00] VITALS: BP 116/87; PULSE 84; RESP 20; TEMP 36.6; O2SAT 100
[2023-06-02 16:29] LABS: Glucose Point of Care 183 mg/dl (65-105)
[2023-06-02 20:00] VITALS: PULSE 84; RESP 20; O2SAT 100
[2023-06-02] MEDS: chlorproMAZINE HCL 25 MG TABLET 100 MG PO (20:24)
[2023-06-02] MEDS: SODIUM BICARBONATE TAB 650 MG TABLET PO (20:24)
[2023-06-02] MEDS: PRAVASTATIN SODIUM 20 MG TABLET 40 MG PO (20:24)
[2023-06-02] MEDS: TRIFLUOPERAZINE HCL 1 MG TABLET 2 MG PO (20:25)
[2023-06-02] MEDS: ACETAMINOPHEN 325 MG TABLET 650 MG PO (20:25)
[2023-06-02 21:05] VITALS: BP 133/76; PULSE 86; RESP 16; TEMP 36.3; O2SAT 100
[2023-06-02 21:51] LABS: Glucose Point of Care 290 mg/dl (65-105)
[2023-06-03 05:45] VITALS: BP 135/73; PULSE 87; RESP 20; TEMP 36.7; O2SAT 97
[2023-06-03 06:50] LABS: Basophils Percent Auto 0.6 % (0.2-1.2); Eosinophils Absolute Auto 0.3 K/mm3 (0-0.3); Eosinophils Percent Auto 4.9 % (0-4.4); Hematocrit 31.4 % (37.0-47.0); Hemoglobin 9.5 g/dL (12.0-15.0); Immature Granulocyte Absolute 0.02 K/mm3 (0.00-0.031); Immature Granulocyte Percent A 0.3 % (0-0.5); Lymphocytes Absolute Auto 1.62 K/mm3 (0.9-3.2); Lymphocytes Percent Auto 24.2 % (18.3-44.2); Mean Corpuscular HGB Conc 30.3 g/dl (32-36); Mean Corpuscular Hemoglobin 25.8 pg (26-34); Mean Corpuscular Volume 85.3 fl (80-100); Mean Platelet Volume 9.8 fl (7.4-10.4); Monocytes Absolute Auto 0.5 K/mm3 (0.1-0.6); Monocytes Percent Auto 7.2 % (2.6-8.5); Neutrophils Absolute Auto 4.2 K/mm3 (1.3-6.7); Neutrophils Percent Auto 62.8 % (45.5-73.1); Platelet Count Result 305 k/mm3 (150-375); Red Blood Count 3.68 M/mm3 (4.2-5.4); Red Cell Distribution Width 12.9 % (11.5-14.5); White Blood Count 6.7 K/mm3 (4.5-10.0)
[2023-06-03 07:04] LABS: Alanine Aminotransferase 13 U/L (6-35); Albumin Level 3.5 g/dL (3.5-5.1); Alkaline Phosphatase 82 U/L (38-126); Anion Gap 8 mmol/L (4-12); Aspartate Amino Transferase 19 U/L (14-36); Bilirubin,Total 0.3 mg/dL (0.2-1.3); Blood Urea Nitrogen 34 mg/dL (7-17); Calcium 9.7 mg/dL (8.4-10.2); Carbon Dioxide 22 mmol/L (22-30); Chloride 110 mmol/L (98-107); Estimated CRCL calculation 12 ml/min; Estimated Glomerular Filt Rate 12; Glucose 150 mg/dL (65-110); Potassium 3.7 mmol/L (3.4-5.0); Sodium 140 mmol/L (137-145)
[2023-06-03 08:02] LABS: Glucose Point of Care 153 mg/dl (65-105)
--- NOTE | 2023-06-03 09:04 | P.PNIM_ITS ---
Progress Note: A&P Assessment and Plan (1) Acute UTI: Code(s): N39.0 - Urinary tract infection, site not specified Status: Acute Assessment and Plan: 05/30/23: * UA showed 2+ protein, trace ketones, 1+ urine blood, 3+ leukocytes, 51-100 urine wbc's. * Urine culture was obtained and is pending * Patient was started on Rocephin and will continue * Renal ultrasound results pending 05/31/2023: * Urine culture showing aerococcus urinae on final read * Rocephin switched to cefdinir * Nephrology is following for acute kidney injury 06/01/2023: * Continue cefdinir * Nephrology following * Creatinine 3.8 today trending downward 06/03/2023: * No change to current treatment (2) Dysphagia: Code(s): R13.10 - Dysphagia, unspecified Status: Acute Assessment and Plan: 05/30/23: * Reporting difficulty swallowing for the past 2 weeks, she states that things seem to get caught in her throat and she is unable to clear it. * Upper GI series results pending * GI consulted * Will need a barium swallow as she was choking on thin liquids while I was in the room * Denies any new neuro deficits * Speech is normal, facial features are symmetrical * CT of the brain showing old chronic right basal ganglia lacune are infarcts, moderate central and cortical cerebral atrophy, no acute intracranial finding 05/31/23: * EGD today only showed gastritis, she had biopsies taken in GI will follow up with her when the biopsies results. * She had a barium swallow as well today and passed without any issue * GI has signed off and will follow up with her outpatient 06/01/23: * No change to current treatment plan (3) Hypothyroidism, unspecified: Code(s): E03.9 - Hypothyroidism, unspecified Status: Chronic Assessment and Plan: 05/30/23: * Continue Synthroid 05/31/23: * No change to current treatment plan (4) Bipolar disorder, unspecified: Code(s): F31.9 - Bipolar disorder, unspecified Status: Chronic Assessment and Plan: 05/30/23: * Continue sertraline and chlorpromazine 05/31/23: * No change to current treatment (5) Type 2 diabetes mellitus with diabetic chronic kidney disease: Code(s): E11.22 - Type 2 diabetes mellitus with diabetic chronic kidney disease Status: Chronic Assessment and Plan: 05/30/23: * Blood glucose [id number] * Hemoglobin A1c 6.5 * Accu-Cheks AC and HS * Diabetic diet * Hypoglycemic protocol * Low-dose sliding scale insulin ordered * Will hold glipizide now 05/31/23: * No change to current treatment plan (6) Pure hypercholesterolemia, unspecified: Code(s): E78.00 - Pure hypercholesterolemia, unspecified Status: Chronic Assessment and Plan: 05/30/23: * Continue pravastatin 05/31/23: * No change to current treatment plan (7) Urinary retention: Code(s): R33.9 - Retention of urine, unspecified Status: Acute Assessment and Plan: 05/31/23: * Murray DC yesterday and we did a voiding trial. She was only able to the void a little bit and then her post void bladder scan showed greater than 250 still in her bladder. We went ahead and replace the Murray catheter and started her on tamsulosin. Urology was also consulted. Plan is to take Murray out again tomorrow and give her another voiding trial. If she is still unable to clear her bladder we will have to replace the Murray again and she will have to follow up with Urology on an outpatient basis. Her sister was present for this discussion in the room and states that if she goes home with her Murray catheter in she had concerns for safety issues. * Continue tamsulosin * Urology following Time Spent With Patient Time with patient: 25 - 35 minutes Subjective Date/time seen: 06/03/23 09:04 Interval history: 05/30/23: This is a 63-year-old female who presented to the hospital on 05/29/2023 with difficulty swallowing. Workup in the hospital included a head CT which was negative for any acute findings, showed cerebral atherosclerosis chronic right basal ganglia lacunar infarcts. Renal ultrasound and Upper GI series, results pending. Labs revealed a white blood cell count of 6.0, hemoglobin 9.6, BUN 30, creatinine 4.10, EGFR 11. UA shown 2+ urine protein, trace ketones, 1+ urine blood, 3+ leukocyte, 51-100 urine wbc's. Urine culture was obtained and is pending. Patient was given 1 L of normal saline in the ED along with some Rocephin. Nephrology was consulted for acute kidney injury superimposed on chronic kidney disease. She denies any fever, chills, nausea, vomiting, abdominal pain, pain, shortness a breath. She endorses 1 episode of diarrhea today, she some congestion, along with some burping that has been going on for a couple of weeks. We will go ahead and consult GI and also get a barium swallow study. 05/31/23: She denies any new complaints today. Plan today for EGD showed mild gastritis, biopsies were taken. She also had a barium swallow today which was normal. Labs today showing a creatinine of 3.9 EGFR bicarb 20. Urine culture showing aerococcus urinae final read. Patient was switched from Rocephin to cefdinir today. Nephrology following for acute kidney injury. 06/01/23: She denies any new complaints today. Labs revealed Hemoglobin is 9.5, creatinine 3.80, EGFR 12. Nephrology is still following. 06/02/23: Patient had murray catheter placed due to urinary retention. We tried a voiding trial yesterday upon discharge and after her first void bladder scan read greater than 250ml. Murray placed again and patient started on Flomax. We will get Urology consult. 06/03/23: Patient denies any patient complaints today. Labs today show hemoglobin of 9.5, creatinine 3.9, EGFR 12, blood sugars ranging 150-290. Urology to see patient today. We will continue with Flomax for now with plans for voiding trial tomorrow it if she does well with a voiding trial we may be able to discharge in the morning. Review of Systems Review of Systems: Twelve systems were reviewed and are negative except for as per HPI. All systems reviewed & are unremarkable except as noted in HPI and below Constitutional: Constitutional: Reports as per HPI and Reports no additional constitutional complaints Eyes: Eyes: Reports as per HPI and Reports no additional eye complaints ENT: Reports system reviewed and no additional complaints, except as documented and Reports as per HPI Cardiovascular: Cardiovascular: Reports as per HPI and Reports no additional cardiovascular complaints Respiratory: Respiratory: Reports as per HPI and Reports no additional respiratory complaints Gastrointestinal: Gastrointestinal: Reports as per HPI and Reports no additional gastrointestinal complaints Genitourinary: Genitourinary: Reports no additional female genitourinary complaints and Reports as per HPI Musculoskeletal: Musculoskeletal: Reports no additional musculoskeletal complaints and Reports as per HPI Integumentary/Breasts: Skin/Breast: Reports system reviewed and no additional complaints, except as docu and Reports as per HPI Neurologic: Reports system reviewed and no additional complaints, except as documented and Reports as per HPI Psychiatric: Psychiatric: Reports no additional psychiatric complaints and Reports as per HPI Exam Narrative: General: In no acute distress, well nourished Head: atraumatic, no encephalopathy Eyes: EOMI, PERRLA, sclera clear ENT: moist mucous membranes, nasal passages clear Neck: supple, no JVD, no adenopathy, trachea midline Cardiac: Normal S1 and S2. RRR, No murmur, gallops or friction rubs, peripheral pulses intact. Respiratory: Lungs clear to auscultation, no adventitious lung sounds, currently on room air Gastrointestinal: soft, non-distended, non-tender, normoactive bowel sounds. : voiding without difficulty. Extremities: moves all extremities well, no edema Skin: clean, dry, intact. No wounds or lesions. Neuro: Alert and oriented x3, cranial nerves intact, no neuro deficits. Psych: normal mood, normal affect, interactive Objective Data Vital Signs Vital Signs: Vital Signs - 24 hr 06/02/23 14:00 06/02/23 20:00 06/02/23 21:05 Temperature 97.8 F 97.3 F L Pulse Rate 84 84 86 Respiratory Rate 20 20 16 Blood Pressure 116/87 133/76 Pulse Oximetry 100 100 100 Oxygen Delivery Room Air Fraction of Inspired Oxygen 06/03/23 05:45 Temperature 98.1 F Pulse Rate 87 Respiratory Rate 20 Blood Pressure 135/73 Pulse Oximetry 97 Oxygen Delivery Fraction of Inspired Oxygen Intake/Output Intake/Output: Intake & Output 05/31/23 06/01/23 06/02/23 06/03/23 23:59 23:59 23:59 23:59 Intake Total 2100 3467 3369.3 450 Output Total 2575 2675 3515 1450 Balance -475 792 -145.7 -1000 Meds/Results Medications: Active Medications Generic Name Dose Route Start Last Admin Trade Name Freq PRN Reason Stop Dose Admin Acetaminophen 650 mg 05/29/23 14:55 06/02/23 20:25 Acetaminophen 325 Mg Tablet PO 650 mg Q4H PRN Administration Mild Pain (1-3) or Fever Amlodipine Besylate 10 mg 05/30/23 09:00 06/02/23 08:20 Amlodipine Besylate 5 Mg Tablet PO 10 mg DAILY VIRIDIANA Administration Benztropine Mesylate 0.5 mg 05/29/23 20:40 06/02/23 17:20 Benztropine Mesylate 0.5 Mg Tablet PO 0.5 mg BID VIRIDIANA Administration Cefdinir 300 mg 05/31/23 09:00 06/02/23 20:24 Cefdinir 300 Mg Capsule PO 06/05/23 21:00 300 mg Q12HR VIRIDIANA Administration Chlorpromazine HCl 100 mg 05/29/23 21:00 06/02/23 20:24 Chlorpromazine Hcl 25 Mg Tablet PO 100 mg QHS VIRIDIANA Administration Dextrose 12.5 gm 05/29/23 20:59 Dextrose 50% 25 Gm/50 Ml Syringe IV PUSH PRN PRN Hypoglycemia Protocol Glucagon 1 mg 05/29/23 20:59 Glucagon For Inj 1 Mg Vial IM PRN PRN Hypoglycemia Protocol Glucose 15 gm 05/29/23 20:59 Glucose Oral Gel 15 Gm Of Glucse In 37.5 Gm Tube PO PRN PRN Hypoglycemia Protocol Heparin Sodium (Porcine) 5,000 units 05/30/23 21:00 06/02/23 20:25 Heparin Sodium 5,000 Units/Ml Vial SUB-Q 5,000 units Q12HR VIRIDIANA Administration Sodium Chloride 1,000 mls @ 80 mls/hr 05/29/23 14:55 06/02/23 17:26 Normal Saline Iv IV CONT Not Given .[id number] [facility] Dextrose 1,000 mls @ 100 mls/hr 05/29/23 20:59 Dextrose 5% 1,000 Ml IVPB PRN PRN Hypoglycemia Protocol Insulin Aspart 2 - 5 units 05/30/23 08:00 06/03/23 08:18 Insulin Aspart (*Bkc) 100 Units/Ml SUB-Q Not Given TIDWM [facility] Protocol Insulin Aspart 1 - 2 units 05/29/23 21:00 06/02/23 22:02 Insulin Aspart (*Bkc) 100 Units/Ml SUB-Q Not Given HS [facility] Protocol Levothyroxine Sodium 25 mcg 05/30/23 06:30 06/03/23 05:14 Levothyroxine Sodium 25 Mcg Tablet PO Not Given DAILY@0630 [facility] Ondansetron HCl 4 mg 05/29/23 14:55 Ondansetron Inj 4 Mg/2 Ml Vial IV PUSH Q4H PRN Nausea Pantoprazole Sodium 40 mg 05/30/23 09:00 06/02/23 08:20 Pantoprazole 40 Mg Tablet PO 40 mg QAM VIRIDIANA Administration Pravastatin Sodium 40 mg 05/29/23 21:00 06/02/23 20:24 Pravastatin Sodium 20 Mg Tablet PO 40 mg QHS VIRIDIANA Administration Sodium Bicarbonate 1,300 mg 05/30/23 09:00 06/02/23 08:20 Sodium Bicarbonate Tab 650 Mg Tablet PO 1,300 mg QAM VIRIDIANA Administration Sodium Bicarbonate 650 mg 05/29/23 21:00 06/02/23 20:24 Sodium Bicarbonate Tab 650 Mg Tablet PO 650 mg HS VIRIDIANA Administration Tamsulosin HCl 0.4 mg 06/03/23 08:35 Tamsulosin Hcl 0.4 Mg Capsule PO QAM [facility] Trifluoperazine HCl 2 mg 05/29/23 21:00 06/02/23 20:25 Trifluoperazine Hcl 1 Mg Tablet PO 2 mg QHS VIRIDIANA Administration Radiology Results: ITS Impressions Head CT 05/29/23 13:08 IMPRESSION: Cerebral atherosclerosis chronic right basal ganglia lacunar infarcts Moderate central and cortical cerebral atrophy No acute intracranial finding Renal Ultrasound 05/30/23 15:09 IMPRESSION: Nonsimple right upper pole and left lower pole renal cystic lesions, recommend MRI or CT without and with contrast for further evaluation. Bilateral medical renal disease. Mild left hydronephrosis. Upper GI Series 05/31/23 10:21 IMPRESSION: Prominent post bulbar duodenal folds suggesting duodenitis Modified Barium Swallow 05/31/23 15:00 IMPRESSION: 1. No laryngeal penetration or aspiration. 2. Please refer to the speech therapy report for recommendations. Labs Labs: Laboratory Results - last 24 hr 06/02/23 06/02/23 06/02/23 11:19 16:26 21:09 WBC RBC Hgb Hct MCV MCH MCHC RDW Plt Count MPV Immature Gran % (Auto) Neut % (Auto) Lymph % (Auto) [place] % (Auto) Eos % (Auto) Baso % (Auto) Lymph # (Auto) [place] # (Auto) Eos # (Auto) Baso # (Auto) Abs Immat Gran (auto) Absolute Neuts (auto) Absolute Nucleated RBC Nucleated RBC % Sodium Potassium Chloride Carbon Dioxide Anion Gap BUN Creatinine Estim Creat Clear Calc Estimated GFR Glucose POC Capillary Glucose 309 H 183 H 290 H Calcium Total Bilirubin AST ALT Alkaline Phosphatase Total Protein Albumin 06/03/23 06/03/23 06:12 07:49 WBC 6.7 RBC 3.68 L Hgb 9.5 L Hct 31.4 L MCV 85.3 MCH 25.8 L MCHC 30.3 L RDW 12.9 Plt Count 305 MPV 9.8 Immature Gran % (Auto) 0.3 Neut % (Auto) 62.8 Lymph % (Auto) 24.2 [place] % (Auto) 7.2 Eos % (Auto) 4.9 H Baso % (Auto) 0.6 Lymph # (Auto) 1.62 [place] # (Auto) 0.5 Eos # (Auto) 0.3 Baso # (Auto) 0.0 Abs Immat Gran (auto) 0.02 Absolute Neuts (auto) 4.2 Absolute Nucleated RBC 0.000 Nucleated RBC % 0.0 Sodium 140 Potassium 3.7 Chloride 110 H Carbon Dioxide 22 Anion Gap 8 BUN 34 H Creatinine 3.90 H Estim Creat Clear Calc 12 Estimated GFR 12 L Glucose 150 H POC Capillary Glucose 153 H Calcium 9.7 Total Bilirubin 0.3 AST 19 ALT 13 Alkaline Phosphatase 82 Total Protein 6.0 L Albumin 3.5 Quality VTE Prophylaxis VTE prophylaxis: pharmacologic ordered
[2023-06-03] MEDS: PANTOPRAZOLE 40 MG TABLET PO (09:56)
[2023-06-03] MEDS: CEFDINIR 300 MG CAPSULE PO ×2 (09:56→22:17)
[2023-06-03] MEDS: amLODIPine BESYLATE 5 MG TABLET 10 MG PO (09:56)
[2023-06-03] MEDS: BENZTROPINE MESYLATE 0.5 MG TABLET PO ×2 (09:56→18:35)
[2023-06-03] MEDS: TAMSULOSIN HCL 0.4 MG CAPSULE PO (09:56)
[2023-06-03] MEDS: SODIUM BICARBONATE TAB 650 MG TABLET 1300 MG PO (09:57)
[2023-06-03] MEDS: HEPARIN SODIUM 5,000 UNITS/ML VIAL 5000 UNITS SUB-Q ×2 (09:57→22:17)
[2023-06-03 12:08] LABS: Glucose Point of Care 272 mg/dl (65-105)
--- NOTE | 2023-06-03 12:32 | P.PNNP_ITS ---
Progress Note: A&P Assessment and Plan (1) DES (acute kidney injury): Code(s): N17.9 - Acute kidney failure, unspecified Status: Acute Assessment and Plan: * relative stability noted * suspect a component of volume depletion/dehydration and infection * has not been eating/drinking well for the last few months * UA suggestive of UTI * evaluation to date: * renal u/s with cystic lesions, bilateral medical renal disease, and mild left hydronephrosis * urine electrolytes non-prerenal * urine eosinophils negative * nephrotic range proteinuria * CPK normal * suspect there is an element of CKD progression present as well * follow repeat labs and UOP (2) Chronic kidney disease, stage IV (severe): Code(s): N18.4 - Chronic kidney disease, stage 4 (severe) Status: Chronic Assessment and Plan: * creatinine had been running around 2.7 - 3.1mg/dl for the last 6 moths * associated with worsening proteinuria arguing in favor of ongoing CKD progression * though to be secondary to diabetes, hypertension, vascular disease and possibly 40 years of lithium use (3) Dysphagia: Code(s): R13.10 - Dysphagia, unspecified Status: Acute Assessment and Plan: * noted for the last 2 weeks if not longer * s/p EGD with mild gastritis * upper GI series results noted as well * continue supportive therapy (4) Acute UTI: Code(s): N39.0 - Urinary tract infection, site not specified Status: Acute Assessment and Plan: * admission UA highly suggestive * urine culture with Aerococcus urinae * on antibiotics (5) Urinary retention: Code(s): R33.9 - Retention of urine, unspecified Status: Acute Assessment and Plan: * evidence noted following discontinuation of murray catheter yesterday * murray catheter replaced and started on flomax * Urology to see (6) Hypertensive chronic kidney disease with stage 1 through stage 4 chronic kidney disease, or unspecified chronic kidney disease: Code(s): I12.9 - Hypertensive chronic kidney disease with stage 1 through stage 4 chronic kidney disease, or unspecified chronic kidney disease Status: Chronic Assessment and Plan: * reasonable control at this time * follow trend of hemodynamics (7) Type 2 diabetes mellitus with diabetic chronic kidney disease: Code(s): E11.22 - Type 2 diabetes mellitus with diabetic chronic kidney disease Status: Chronic Assessment and Plan: * follow accu-cheks * glycemic control per hospitalists Will continue to follow. Subjective Date/time seen: 06/03/23 12:32 Interval history: Follow-up for acute kidney injury/acute renal failure on chronic kidney disease. Tentative plan for discharge yesterday but following murray catheter removal, she had evidence of urinary retention necessitating replacement of murray catheter and discharge cancelled; started on flomax and awaiting Urology consultation; intermittent confusion noted but did recognize me and know who I was. Exam Narrative: General: WD/WN female in NAD Heart: normal S1 and S2; no rub Lungs: clear to auscultation Abdomen: soft, nontender, nondistended, positive bowel sounds Extremities: no cyanosis or clubbing; no edema Skin: no nodules Objective Data Vital Signs Vital Signs: Vital Signs Temp Pulse Resp BP Pulse Ox O2 Del Method FiO2 06/03/23 12:00 97.1 F L 100 18 120/70 97 06/03/23 05:45 98.1 F 87 20 135/73 97 06/02/23 21:05 97.3 F L 86 16 133/76 100 06/02/23 20:00 84 20 100 Room Air 21 Intake/Output Intake/Output: Intake & Output 05/31/23 06/01/23 06/02/23 06/03/23 23:59 23:59 23:59 23:59 Intake Total 2100 3467 3369.3 1050 Output Total 2575 2675 3515 3050 Balance -475 792 -145.7 -2000 Meds/Results Medications: Active Medications Generic Name Dose Route Start Last Admin Trade Name Freq PRN Reason Stop Dose Admin Acetaminophen 650 mg 05/29/23 14:55 06/02/23 20:25 Acetaminophen 325 Mg Tablet PO 650 mg Q4H PRN Administration Mild Pain (1-3) or Fever Amlodipine Besylate 10 mg 05/30/23 09:00 06/03/23 09:56 Amlodipine Besylate 5 Mg Tablet PO 10 mg DAILY VIRIDIANA Administration Benztropine Mesylate 0.5 mg 05/29/23 20:40 06/03/23 09:56 Benztropine Mesylate 0.5 Mg Tablet PO 0.5 mg BID VIRIDIANA Administration Cefdinir 300 mg 05/31/23 09:00 06/03/23 09:56 Cefdinir 300 Mg Capsule PO 06/05/23 21:00 300 mg Q12HR VIRIDIANA Administration Chlorpromazine HCl 100 mg 05/29/23 21:00 06/02/23 20:24 Chlorpromazine Hcl 25 Mg Tablet PO 100 mg QHS VIRIDIANA Administration Dextrose 12.5 gm 05/29/23 20:59 Dextrose 50% 25 Gm/50 Ml Syringe IV PUSH PRN PRN Hypoglycemia Protocol Glucagon 1 mg 05/29/23 20:59 Glucagon For Inj 1 Mg Vial IM PRN PRN Hypoglycemia Protocol Glucose 15 gm 05/29/23 20:59 Glucose Oral Gel 15 Gm Of Glucse In 37.5 Gm Tube PO PRN PRN Hypoglycemia Protocol Heparin Sodium (Porcine) 5,000 units 05/30/23 21:00 06/03/23 09:57 Heparin Sodium 5,000 Units/Ml Vial SUB-Q 5,000 units Q12HR VIRIDIANA Administration Sodium Chloride 1,000 mls @ 80 mls/hr 05/29/23 14:55 06/02/23 17:26 Normal Saline Iv IV CONT Not Given .[id number] VIRIDIANA Dextrose 1,000 mls @ 100 mls/hr 05/29/23 20:59 Dextrose 5% 1,000 Ml IVPB PRN PRN Hypoglycemia Protocol Insulin Aspart 2 - 5 units 05/30/23 08:00 06/03/23 13:17 Insulin Aspart (*Bkc) 100 Units/Ml SUB-Q 3 units TIDWM VIRIDIANA Administration Protocol Insulin Aspart 1 - 2 units 05/29/23 21:00 06/02/23 22:02 Insulin Aspart (*Bkc) 100 Units/Ml SUB-Q Not Given HS VIRIDIANA Protocol Levothyroxine Sodium 25 mcg 05/30/23 06:30 06/03/23 05:14 Levothyroxine Sodium 25 Mcg Tablet PO Not Given DAILY@0630 VIRIDIANA Ondansetron HCl 4 mg 05/29/23 14:55 Ondansetron Inj 4 Mg/2 Ml Vial IV PUSH Q4H PRN Nausea Pantoprazole Sodium 40 mg 05/30/23 09:00 06/03/23 09:56 Pantoprazole 40 Mg Tablet PO 40 mg QAM VIRIDIANA Administration Pravastatin Sodium 40 mg 05/29/23 21:00 06/02/23 20:24 Pravastatin Sodium 20 Mg Tablet PO 40 mg QHS VIRIDIANA Administration Sodium Bicarbonate 1,300 mg 05/30/23 09:00 06/03/23 09:57 Sodium Bicarbonate Tab 650 Mg Tablet PO 1,300 mg QAM VIRIDIANA Administration Sodium Bicarbonate 650 mg 05/29/23 21:00 06/02/23 20:24 Sodium Bicarbonate Tab 650 Mg Tablet PO 650 mg HS VIRIDIANA Administration Tamsulosin HCl 0.4 mg 06/04/23 09:00 Tamsulosin Hcl 0.4 Mg Capsule PO QAM VIRIDIANA Trifluoperazine HCl 2 mg 05/29/23 21:00 06/02/23 20:25 Trifluoperazine Hcl 1 Mg Tablet PO 2 mg QHS VIRIDIANA Administration Radiology Results: ITS Impressions Head CT 05/29/23 13:08 IMPRESSION: Cerebral atherosclerosis chronic right basal ganglia lacunar infarcts Moderate central and cortical cerebral atrophy No acute intracranial finding Renal Ultrasound 05/30/23 15:09 IMPRESSION: Nonsimple right upper pole and left lower pole renal cystic lesions, recommend MRI or CT without and with contrast for further evaluation. Bilateral medical renal disease. Mild left hydronephrosis. Upper GI Series 05/31/23 10:21 IMPRESSION: Prominent post bulbar duodenal folds suggesting duodenitis Modified Barium Swallow 05/31/23 15:00 IMPRESSION: 1. No laryngeal penetration or aspiration. 2. Please refer to the speech therapy report for recommendations. Labs Labs: Laboratory Tests 06/03/23 06:12 06/03/23 06:12 Calcium 9.7 Total Bilirubin 0.3 AST 19 ALT 13 Alkaline Phosphatase 82 Total Protein 6.0 L Albumin 3.5 AMG Follow-up Billing Hospital Follow-up Hospital Follow-up: [id number] Mod
--- NOTE | 2023-06-03 13:02 | P.CONUR_ITS ---
Assessment and Plan Assessment and plan (1) Urinary retention: Code(s): R33.9 - Retention of urine, unspecified Status: Acute Assessment and Plan: Urinary retention on admission. This is likely related to some of her antipsychotic medications which she needs to continue on. Murray removed on 06/01 and she was able to void with reasonable post void residual, however murray was replaced. Will continue murray today and plan for void trial early in the AM and will monitor urine output. Her sister does not feel that she can safely manage a catheter at home due to her mental status (2) Renal cyst: Code(s): N28.1 - Cyst of kidney, acquired Status: Acute Assessment and Plan: [place] 05/30/23 shows a nonsimple cyst of the right upper pole and the left lower pole with recommendations for f/u CT or MRI with contrast. Her renal function precludes CT with contrast. Will proceed with MRI for further evaluation. Urology Consult Note HPI Date Seen: 06/03/23 Requesting Physician: Clemente Ford MD Primary Care Provider: Vic Clarke MD Consult Narrative Narrative: Nicky Villalobos is a 63 year old female with history of psychiatric disease and type 2 diabetes who is being seen in consultation for urinary retention. She was admitted on 05/29/23 for dysphagia. She was noted to be retaining urine on admi ssion and a murray catheter was placed. Amount of urine retained is unclear. The patient has been confused and has been tugging at her catheter. Murray was removed on 06/02/2023 with plans to discharge the patient. She was able to void a small amount and a bladder scan demonstrated a residual of 230 cc. A murray catheter was replaced as a result of this. She has chronic kidney disease and her creatinine is elevated to 3.9. A renal US completed on 05/30/23 shows a nonsimple cyst of the right upper pole and the left lower pole with mild left hydronephrosis. Urine culture completed on 05/29/23 grew Aerococcus which is likely a contaminant. At the time of my evaluation, she is quite confused and unable to provide any history. Her sister is present at the bedside. She is concerned about her sister needing a catheter, especially if she were to go home with a catheter due to her mental state. 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 Code status: Full code. Smoking status: Never smoker Second hand tobacco smoke exposure: No Alcohol intake: never Substance use: current Substance use type: does not use Do You Feel Safe in your Home?: Yes Lack of Transportation: No Lack of Food: Never True Current Housing: I Have Housing Concerned About Future Housing: No Difficulty Paying Gas/Electric Bills: No Difficulty Paying for Meds: No Currently Unemployed: No Education: Decline to Answer Difficulty w/ Childcare or Family Care: No Living arrangements: alone Occupation/Education: retired Spiritual care concerns: No Agree to blood products: Yes Meds Home Medications and Allergies Home Medications Medication Instructions Recorded Confirmed Type benztropine 0.5 mg tablet 0.5 mg PO BID 06/09/21 05/29/23 History chlorpromazine 100 mg tablet 100 mg PO QHS 06/09/21 05/29/23 History trifluoperazine 2 mg tablet 2 mg PO QHS 06/09/21 05/29/23 History levothyroxine 50 mcg tablet 25 mcg PO DAILY 07/12/22 05/29/23 History pravastatin 40 mg tablet 40 mg PO QHS #90 tabs 10/28/22 05/29/23 Rx glipizide 5 mg tablet 5 mg PO BID #180 tabs 11/26/22 05/29/23 Rx pantoprazole 40 mg tablet,delayed 40 mg PO QAM #30 tabs 05/25/23 05/29/23 Rx release amlodipine 10 mg tablet 10 mg PO DAILY 05/29/23 05/29/23 History sodium bicarbonate 650 mg tablet 650 mg PO QHS 05/29/23 05/29/23 History Allergies Allergy/AdvReac Type Severity Reaction Status Date / Time Penicillins Allergy Unknown unknown Verified 05/31/23 09:28 Vital Signs Vital Signs - 24 hr 06/02/23 14:00 06/02/23 20:00 06/02/23 21:05 Temperature 97.8 F 97.3 F L Pulse Rate 84 84 86 Respiratory Rate 20 20 16 Blood Pressure 116/87 133/76 Pulse Oximetry 100 100 100 Oxygen Delivery Room Air Fraction of Inspired Oxygen 21 06/03/23 05:45 Temperature 98.1 F Pulse Rate 87 Respiratory Rate 20 Blood Pressure 135/73 Pulse Oximetry 97 Oxygen Delivery Fraction of Inspired Oxygen Exam Narrative: General: Awake, alert, comfortable, no acute distress HEENT: Normocephalic, atraumatic, sclerae anicteric Respiratory: Normal respiratory effort, no accessory muscle use Abdomen: Nondistended, soft, nontender : murray catheter drainiing clear yellow urine Skin: Normal coloration, warm and dry Neurologic: No focal neuro deficits noted Psychiatric: Appropriate mood and affect, judgment and insight intact Results Labs 06/03/23 06:12 06/03/23 06:12 Labs: Short CBC 06/03/23 Range/Units 06:12 WBC 6.7 (4.5-10.0) K/mm3 Hgb 9.5 L (12.0-15.0) g/dL Hct 31.4 L (37.0-47.0) % Plt Count 305 (150-375) k/mm3 BMP 06/03/23 06:12 Sodium 140 Potassium 3.7 Chloride 110 H Carbon Dioxide 22 BUN 34 H Creatinine 3.90 H Glucose 150 H Calcium 9.7 Liver Function 06/03/23 Range/Units 06:12 Total Bilirubin 0.3 (0.2-1.3) mg/dL AST 19 (14-36) U/L ALT 13 (6-35) U/L Alkaline Phosphatase 82 (38-126) U/L Albumin 3.5 (3.5-5.1) g/dL
[2023-06-03] MEDS: INSULIN ASPART (*BKC) 100 UNITS/ML SUB-Q (13:17)
[2023-06-03 14:00] VITALS: BP 120/70; PULSE 100; RESP 18; TEMP 36.2; O2SAT 97
[2023-06-03 16:21] LABS: Glucose Point of Care 174 mg/dl (65-105)
[2023-06-03 20:40] VITALS: BP 154/87; PULSE 78; RESP 20; TEMP 36.3; O2SAT 98
[2023-06-03] MEDS: TRIFLUOPERAZINE HCL 1 MG TABLET 2 MG PO (22:16)
[2023-06-03] MEDS: SODIUM BICARBONATE TAB 650 MG TABLET PO (22:16)
[2023-06-03] MEDS: chlorproMAZINE HCL 25 MG TABLET 100 MG PO (22:16)
[2023-06-03] MEDS: PRAVASTATIN SODIUM 20 MG TABLET 40 MG PO (22:16)
[2023-06-03 22:22] LABS: Glucose Point of Care 170 mg/dl (65-105)
[2023-06-04 05:20] VITALS: BP 101/73; PULSE 108; RESP 20; TEMP 35.9; O2SAT 90
[2023-06-04] MEDS: LEVOTHYROXINE SODIUM 25 MCG TABLET PO (05:46)
[2023-06-04 06:32] LABS: Basophils Percent Auto 0.5 % (0.2-1.2); Eosinophils Absolute Auto 0.4 K/mm3 (0-0.3); Eosinophils Percent Auto 4.7 % (0-4.4); Hematocrit 34.8 % (37.0-47.0); Hemoglobin 10.5 g/dL (12.0-15.0); Immature Granulocyte Absolute 0.02 K/mm3 (0.00-0.031); Immature Granulocyte Percent A 0.3 % (0-0.5); Lymphocytes Absolute Auto 1.78 K/mm3 (0.9-3.2); Lymphocytes Percent Auto 23.1 % (18.3-44.2); Mean Corpuscular HGB Conc 30.2 g/dl (32-36); Mean Corpuscular Hemoglobin 25.8 pg (26-34); Mean Corpuscular Volume 85.5 fl (80-100); Monocytes Absolute Auto 0.6 K/mm3 (0.1-0.6); Monocytes Percent Auto 8.2 % (2.6-8.5); Neutrophils Absolute Auto 4.9 K/mm3 (1.3-6.7); Neutrophils Percent Auto 63.2 % (45.5-73.1); Nucleated Red Blood Cells Perc 0.5 % (0.0-0.2); Platelet Count Result 310 k/mm3 (150-375); Red Blood Count 4.07 M/mm3 (4.2-5.4); White Blood Count 7.7 K/mm3 (4.5-10.0)
[2023-06-04 06:43] LABS: Alanine Aminotransferase 16 U/L (6-35); Albumin Level 3.8 g/dL (3.5-5.1); Alkaline Phosphatase 83 U/L (38-126); Anion Gap 6 mmol/L (4-12); Aspartate Amino Transferase 24 U/L (14-36); Bilirubin,Total 0.2 mg/dL (0.2-1.3); Blood Urea Nitrogen 37 mg/dL (7-17); Calcium 9.8 mg/dL (8.4-10.2); Carbon Dioxide 24 mmol/L (22-30); Chloride 108 mmol/L (98-107); Estimated CRCL calculation 13 ml/min; Estimated Glomerular Filt Rate 12; Glucose 164 mg/dL (65-110); Potassium 3.8 mmol/L (3.4-5.0); Sodium 138 mmol/L (137-145)
[2023-06-04 08:12] LABS: Glucose Point of Care 169 mg/dl (65-105)
--- NOTE | 2023-06-04 09:26 | P.PNUR_ITS ---
Progress Note: A&P Assessment and Plan (1) Urinary retention: Code(s): R33.9 - Retention of urine, unspecified Status: Acute Assessment and Plan: Urinary retention on admission. This is likely related to some of her antipsychotic medications which she needs to continue on. Murray removed on 06/01 and she was able to void with reasonable post void residual, however murray was replaced. Murray catheter to be removed this AM. Monitor urine output and check bladder scan after first void. (2) Renal cyst: Code(s): N28.1 - Cyst of kidney, acquired Status: Acute Assessment and Plan: [place] 05/30/23 shows a nonsimple cyst of the right upper pole and the left lower pole with recommendations for f/u imaging MRI abdomen w/wo completed this morning shows benign renal cysts that require no further follow up Subjective Subjective Date/Time Seen: 06/04/23 09:26 Interval history: Nicky is feeling well this morning. She is more responsive and participates in conversation more. She has no pain. Denies nausea or vomiting. Murray catheter is draining clear yellow urine. Review of Systems Review of Systems: All systems reviewed & are unremarkable except as noted in HPI and below Exam Narrative: General: Awake, alert, comfortable, no acute distress HEENT: Normocephalic, atraumatic, sclerae anicteric Respiratory: Normal respiratory effort, no accessory muscle use Abdomen: Nondistended, soft, nontender : murray catheter draining clear yellow urine Skin: Normal coloration, warm and dry Neurologic: No focal neuro deficits noted Psychiatric: Appropriate mood and affect, judgment and insight intact Objective Data Vital Signs Vital Signs: Vital Signs - 24 hr 06/03/23 14:00 06/03/23 20:40 06/04/23 05:20 Temperature 97.1 F L 97.3 F L 96.6 F L Pulse Rate 100 78 108 H Respiratory Rate 18 20 20 Blood Pressure 120/70 154/87 H 101/73 Pulse Oximetry 97 98 90 Intake/Output Intake/Output: Intake & Output 06/01/23 06/02/23 06/03/23 06/04/23 23:59 23:59 23:59 23:59 Intake Total 3467 3369.3 1670 440 Output Total 2675 3515 3500 1950 Balance 792 -145.7 -1830 -1510 Meds/Results Medications: Active Medications Generic Name Dose Route Start Last Admin Trade Name Freq PRN Reason Stop Dose Admin Acetaminophen 650 mg 05/29/23 14:55 06/02/23 20:25 Acetaminophen 325 Mg Tablet PO 650 mg Q4H PRN Administration Mild Pain (1-3) or Fever Amlodipine Besylate 10 mg 05/30/23 09:00 06/03/23 09:56 Amlodipine Besylate 5 Mg Tablet PO 10 mg DAILY VIRIDIANA Administration Benztropine Mesylate 0.5 mg 05/29/23 20:40 06/03/23 18:35 Benztropine Mesylate 0.5 Mg Tablet PO 0.5 mg BID VIRIDIANA Administration Cefdinir 300 mg 05/31/23 09:00 06/03/23 22:17 Cefdinir 300 Mg Capsule PO 06/05/23 21:00 300 mg Q12HR VIRIDIANA Administration Chlorpromazine HCl 100 mg 05/29/23 21:00 06/03/23 22:16 Chlorpromazine Hcl 25 Mg Tablet PO 100 mg QHS VIRIDIANA Administration Dextrose 12.5 gm 05/29/23 20:59 Dextrose 50% 25 Gm/50 Ml Syringe IV PUSH PRN PRN Hypoglycemia Protocol Glucagon 1 mg 05/29/23 20:59 Glucagon For Inj 1 Mg Vial IM PRN PRN Hypoglycemia Protocol Glucose 15 gm 05/29/23 20:59 Glucose Oral Gel 15 Gm Of Glucse In 37.5 Gm Tube PO PRN PRN Hypoglycemia Protocol Heparin Sodium (Porcine) 5,000 units 05/30/23 21:00 06/03/23 22:17 Heparin Sodium 5,000 Units/Ml Vial SUB-Q 5,000 units Q12HR VIRIDIANA Administration Sodium Chloride 1,000 mls @ 80 mls/hr 05/29/23 14:55 06/02/23 17:26 Normal Saline Iv IV CONT Not Given .[id number] VIRIDIANA Dextrose 1,000 mls @ 100 mls/hr 05/29/23 20:59 Dextrose 5% 1,000 Ml IVPB PRN PRN Hypoglycemia Protocol Insulin Aspart 2 - 5 units 05/30/23 08:00 06/04/23 08:53 Insulin Aspart (*Bkc) 100 Units/Ml SUB-Q Not Given TIDWM [facility] Protocol Insulin Aspart 1 - 2 units 05/29/23 21:00 06/03/23 22:17 Insulin Aspart (*Bkc) 100 Units/Ml SUB-Q Not Given HS [facility] Protocol Levothyroxine Sodium 25 mcg 05/30/23 06:30 06/04/23 05:46 Levothyroxine Sodium 25 Mcg Tablet PO 25 mcg DAILY@0630 VIRIDIANA Administration Ondansetron HCl 4 mg 05/29/23 14:55 Ondansetron Inj 4 Mg/2 Ml Vial IV PUSH Q4H PRN Nausea Pantoprazole Sodium 40 mg 05/30/23 09:00 06/03/23 09:56 Pantoprazole 40 Mg Tablet PO 40 mg QAM [facility] Administration Pravastatin Sodium 40 mg 05/29/23 21:00 06/03/23 22:16 Pravastatin Sodium 20 Mg Tablet PO 40 mg QHS [facility] Administration Sodium Bicarbonate 1,300 mg 05/30/23 09:00 06/03/23 09:57 Sodium Bicarbonate Tab 650 Mg Tablet PO 1,300 mg QAM [facility] Administration Sodium Bicarbonate 650 mg 05/29/23 21:00 06/03/23 22:16 Sodium Bicarbonate Tab 650 Mg Tablet PO 650 mg HS [facility] Administration Tamsulosin HCl 0.4 mg 06/04/23 09:00 Tamsulosin Hcl 0.4 Mg Capsule PO QAM VIRIDIANA Trifluoperazine HCl 2 mg 05/29/23 21:00 06/03/23 22:16 Trifluoperazine Hcl 1 Mg Tablet PO 2 mg QHS VIRIDIANA Administration Radiology Results: ITS Impressions Head CT 05/29/23 13:08 IMPRESSION: Cerebral atherosclerosis chronic right basal ganglia lacunar infarcts Moderate central and cortical cerebral atrophy No acute intracranial finding Renal Ultrasound 05/30/23 15:09 IMPRESSION: Nonsimple right upper pole and left lower pole renal cystic lesions, recommend MRI or CT without and with contrast for further evaluation. Bilateral medical renal disease. Mild left hydronephrosis. Upper GI Series 05/31/23 10:21 IMPRESSION: Prominent post bulbar duodenal folds suggesting duodenitis Modified Barium Swallow 05/31/23 15:00 IMPRESSION: 1. No laryngeal penetration or aspiration. 2. Please refer to the speech therapy report for recommendations. Abdomen MRI 06/04/23 09:21 IMPRESSION: 1. Benign cysts in the kidneys. 2. Cholelithiasis. Labs Labs: Laboratory Results - last 24 hr 06/03/23 06/03/23 06/03/23 11:54 16:07 20:44 WBC RBC Hgb Hct MCV MCH MCHC RDW Plt Count MPV Immature Gran % (Auto) Neut % (Auto) Lymph % (Auto) [place] % (Auto) Eos % (Auto) Baso % (Auto) Lymph # (Auto) [place] # (Auto) Eos # (Auto) Baso # (Auto) Abs Immat Gran (auto) Absolute Neuts (auto) Absolute Nucleated RBC Nucleated RBC % Sodium Potassium Chloride Carbon Dioxide Anion Gap BUN Creatinine Estim Creat Clear Calc Estimated GFR Glucose POC Capillary Glucose 272 H 174 H 170 H Calcium Total Bilirubin AST ALT Alkaline Phosphatase Total Protein Albumin 06/04/23 06/04/23 05:46 08:07 WBC 7.7 RBC 4.07 L Hgb 10.5 L Hct 34.8 L MCV 85.5 MCH 25.8 L MCHC 30.2 L RDW 13.0 Plt Count 310 MPV 10.0 Immature Gran % (Auto) 0.3 Neut % (Auto) 63.2 Lymph % (Auto) 23.1 [place] % (Auto) 8.2 Eos % (Auto) 4.7 H Baso % (Auto) 0.5 Lymph # (Auto) 1.78 [place] # (Auto) 0.6 Eos # (Auto) 0.4 H Baso # (Auto) 0.0 Abs Immat Gran (auto) 0.02 Absolute Neuts (auto) 4.9 Absolute Nucleated RBC 0.040 H Nucleated RBC % 0.5 H Sodium 138 Potassium 3.8 Chloride 108 H Carbon Dioxide 24 Anion Gap 6 BUN 37 H Creatinine 3.70 H Estim Creat Clear Calc 13 Estimated GFR 12 L Glucose 164 H POC Capillary Glucose 169 H Calcium 9.8 Total Bilirubin 0.2 AST 24 ALT 16 Alkaline Phosphatase 83 Total Protein 6.0 L Albumin 3.8
[2023-06-04] MEDS: BENZTROPINE MESYLATE 0.5 MG TABLET PO (09:33)
[2023-06-04] MEDS: SODIUM BICARBONATE TAB 650 MG TABLET 1300 MG PO (09:33)
[2023-06-04] MEDS: PANTOPRAZOLE 40 MG TABLET PO (09:33)
[2023-06-04] MEDS: TAMSULOSIN HCL 0.4 MG CAPSULE PO (09:34)
[2023-06-04] MEDS: HEPARIN SODIUM 5,000 UNITS/ML VIAL 5000 UNITS SUB-Q (09:34)
[2023-06-04] MEDS: CEFDINIR 300 MG CAPSULE PO (09:34)
[2023-06-04] MEDS: amLODIPine BESYLATE 5 MG TABLET 10 MG PO (09:34)
[2023-06-04 09:49] VITALS: TEMP 36.7
[2023-06-04 09:51] VITALS: PULSE 92
--- NOTE | 2023-06-04 10:37 | P.PNNP_ITS ---
Progress Note: A&P Assessment and Plan (1) DES (acute kidney injury): Code(s): N17.9 - Acute kidney failure, unspecified Status: Acute Assessment and Plan: * relative stability noted * suspect a component of volume depletion/dehydration and infection * has not been eating/drinking well for the last few months * UA suggestive of UTI * evaluation to date: * renal u/s with cystic lesions, bilateral medical renal disease, and mild left hydronephrosis * urine electrolytes non-prerenal * urine eosinophils negative * nephrotic range proteinuria * CPK normal * suspect there is an element of CKD progression present as well * follow repeat labs and UOP (2) Chronic kidney disease, stage IV (severe): Code(s): N18.4 - Chronic kidney disease, stage 4 (severe) Status: Chronic Assessment and Plan: * creatinine had been running around 2.7 - 3.1mg/dl for the last 6 moths * associated with worsening proteinuria arguing in favor of ongoing CKD p rogression * though to be secondary to diabetes, hypertension, vascular disease and possibly 40 years of lithium use (3) Dysphagia: Code(s): R13.10 - Dysphagia, unspecified Status: Acute Assessment and Plan: * noted for the last 2 weeks if not longer * s/p EGD with mild gastritis * upper GI series results noted as well * continue supportive therapy (4) Acute UTI: Code(s): N39.0 - Urinary tract infection, site not specified Status: Acute Assessment and Plan: * admission UA highly suggestive * urine culture with Aerococcus urinae * on antibiotics (5) Urinary retention: Code(s): R33.9 - Retention of urine, unspecified Status: Acute Assessment and Plan: * evidence noted following discontinuation of murray catheter on 06/01 * murray catheter replaced and started on flomax * voiding trial today * Urology following (6) Hypertensive chronic kidney disease with stage 1 through stage 4 chronic kidney disease, or unspecified chronic kidney disease: Code(s): I12.9 - Hypertensive chronic kidney disease with stage 1 through stage 4 chronic kidney disease, or unspecified chronic kidney disease Status: Chronic Assessment and Plan: * reasonable control at this time * follow trend of hemodynamics (7) Type 2 diabetes mellitus with diabetic chronic kidney disease: Code(s): E11.22 - Type 2 diabetes mellitus with diabetic chronic kidney disease Status: Chronic Assessment and Plan: * follow accu-cheks * glycemic control per hospitalists Will continue to follow. Subjective Date/time seen: 06/04/23 10:37 Interval history: Follow-up for acute kidney injury/acute renal failure on chronic kidney disease. No apparent distress noted at the time of my visit; no acute issues/events overnight or earlier this morning to report; plan voiding trial this morning without murray catheter as noted by Urology; no other acute complaints to report currently. Exam Narrative: General: WD/WN female in NAD Heart: normal S1 and S2; no rub Lungs: clear to auscultation Abdomen: soft, nontender, nondistended, positive bowel sounds Extremities: no cyanosis or clubbing; no edema Skin: warm and dry Objective Data Vital Signs Vital Signs: Vital Signs Temp Pulse Resp BP Pulse Ox O2 Del Method 06/04/23 08:00 Room Air 06/04/23 09:51 92 06/04/23 09:49 98.0 F 06/04/23 05:20 96.6 F L 108 H 20 101/73 90 06/03/23 20:40 97.3 F L 78 20 154/87 H 98 Intake/Output Intake/Output: Intake & Output 06/01/23 06/02/23 06/03/23 06/04/23 23:59 23:59 23:59 23:59 Intake Total 3467 3369.3 1670 1040 Output Total 2675 3515 3500 2600 Balance 792 -145.7 -1830 -1560 Meds/Results Medications: Active Medications Generic Name Dose Route Start Last Admin Trade Name Bernardq PRN Reason Stop Dose Admin Acetaminophen 650 mg 05/29/23 14:55 06/02/23 20:25 Acetaminophen 325 Mg Tablet PO 650 mg Q4H PRN Administration Mild Pain (1-3) or Fever Amlodipine Besylate 10 mg 05/30/23 09:00 06/04/23 09:34 Amlodipine Besylate 5 Mg Tablet PO 10 mg DAILY VIRIDIANA Administration Benztropine Mesylate 0.5 mg 05/29/23 20:40 06/04/23 09:33 Benztropine Mesylate 0.5 Mg Tablet PO 0.5 mg BID VIRIDIANA Administration Cefdinir 300 mg 05/31/23 09:00 06/04/23 09:34 Cefdinir 300 Mg Capsule PO 06/05/23 21:00 300 mg Q12HR VIRIDIANA Administration Chlorpromazine HCl 100 mg 05/29/23 21:00 06/03/23 22:16 Chlorpromazine Hcl 25 Mg Tablet PO 100 mg QHS VIRIDIANA Administration Dextrose 12.5 gm 05/29/23 20:59 Dextrose 50% 25 Gm/50 Ml Syringe IV PUSH PRN PRN Hypoglycemia Protocol Glucagon 1 mg 05/29/23 20:59 Glucagon For Inj 1 Mg Vial IM PRN PRN Hypoglycemia Protocol Glucose 15 gm 05/29/23 20:59 Glucose Oral Gel 15 Gm Of Glucse In 37.5 Gm Tube PO PRN PRN Hypoglycemia Protocol Heparin Sodium (Porcine) 5,000 units 05/30/23 21:00 06/04/23 09:34 Heparin Sodium 5,000 Units/Ml Vial SUB-Q 5,000 units Q12HR VIRIDIANA Administration Dextrose 1,000 mls @ 100 mls/hr 05/29/23 20:59 Dextrose 5% 1,000 Ml IVPB PRN PRN Hypoglycemia Protocol Insulin Aspart 2 - 5 units 05/30/23 08:00 06/04/23 11:47 Insulin Aspart (*Bkc) 100 Units/Ml SUB-Q 3 units TIDWM VIRIDIANA Administration Protocol Insulin Aspart 1 - 2 units 05/29/23 21:00 06/03/23 22:17 Insulin Aspart (*Bkc) 100 Units/Ml SUB-Q Not Given HS VIRIDIANA Protocol Levothyroxine Sodium 25 mcg 05/30/23 06:30 06/04/23 05:46 Levothyroxine Sodium 25 Mcg Tablet PO 25 mcg DAILY@0630 VIRIDIANA Administration Ondansetron HCl 4 mg 05/29/23 14:55 Ondansetron Inj 4 Mg/2 Ml Vial IV PUSH Q4H PRN Nausea Pantoprazole Sodium 40 mg 05/30/23 09:00 06/04/23 09:33 Pantoprazole 40 Mg Tablet PO 40 mg QAM VIRIDIANA Administration Pravastatin Sodium 40 mg 05/29/23 21:00 06/03/23 22:16 Pravastatin Sodium 20 Mg Tablet PO 40 mg QHS VIRIDIANA Administration Sodium Bicarbonate 1,300 mg 05/30/23 09:00 06/04/23 09:33 Sodium Bicarbonate Tab 650 Mg Tablet PO 1,300 mg QAM VIRIDIANA Administration Sodium Bicarbonate 650 mg 05/29/23 21:00 06/03/23 22:16 Sodium Bicarbonate Tab 650 Mg Tablet PO 650 mg HS VIRIDIANA Administration Tamsulosin HCl 0.4 mg 06/04/23 09:00 06/04/23 09:34 Tamsulosin Hcl 0.4 Mg Capsule PO 0.4 mg QAM VIRIDIANA Administration Trifluoperazine HCl 2 mg 05/29/23 21:00 06/03/23 22:16 Trifluoperazine Hcl 1 Mg Tablet PO 2 mg QHS VIRIDIANA Administration Radiology Results: ITS Impressions Head CT 05/29/23 13:08 IMPRESSION: Cerebral atherosclerosis chronic right basal ganglia lacunar infarcts Moderate central and cortical cerebral atrophy No acute intracranial finding Renal Ultrasound 05/30/23 15:09 IMPRESSION: Nonsimple right upper pole and left lower pole renal cystic lesions, recommend MRI or CT without and with contrast for further evaluation. Bilateral medical renal disease. Mild left hydronephrosis. Upper GI Series 05/31/23 10:21 IMPRESSION: Prominent post bulbar duodenal folds suggesting duodenitis Modified Barium Swallow 05/31/23 15:00 IMPRESSION: 1. No laryngeal penetration or aspiration. 2. Please refer to the speech therapy report for recommendations. Abdomen MRI 06/04/23 09:21 IMPRESSION: 1. Benign cysts in the kidneys. 2. Cholelithiasis. Labs Labs: Laboratory Tests 06/04/23 05:46 06/04/23 05:46 Calcium 9.8 Total Bilirubin 0.2 AST 24 ALT 16 Alkaline Phosphatase 83 Total Protein 6.0 L Albumin 3.8 AMG Follow-up Billing Hospital Follow-up Hospital Follow-up: [id number] [facility]
--- NOTE | 2023-06-04 11:02 | P.DS_ITS ---
DS: Admitting Diagnosis Discharge Date 06/04/23 Admitting Diagnosis Acute on chronic kidney failure Urinary retention Dysphagia Dehydration Abnormal urinalysis Chronic anemia Type 2 diabetes mellitus Psychiatric illness DS: Discharge Diagnosis Discharge Diagnosis (1) Acute UTI: Code(s): N39.0 - Urinary tract infection, site not specified Status: Acute (2) Dysphagia: Code(s): R13.10 - Dysphagia, unspecified Status: Acute (3) Hypothyroidism, unspecified: Code(s): E03.9 - Hypothyroidism, unspecified Status: Chronic (4) Bipolar disorder, unspecified: Code(s): F31.9 - Bipolar disorder, unspecified Status: Chronic (5) Type 2 diabetes mellitus with diabetic chronic kidney disease: Code(s): E11.22 - Type 2 diabetes mellitus with diabetic chronic kidney disease Status: Chronic (6) Pure hypercholesterolemia, unspecified: Code(s): E78.00 - Pure hypercholesterolemia, unspecified Status: Chronic (7) Urinary retention: Code(s): R33.9 - Retention of urine, unspecified Status: Acute DS: Summary Hospital Course Reason for hospitalization: Acute on chronic kidney failure Urinary retention Dysphagia Dehydration Abnormal urinalysis Chronic anemia Type 2 diabetes mellitus Psychiatric illness Hospital Course: Interval history: 05/30/23: This is a 63-year-old female who presented to the hospital on 05/29/2023 with difficulty swallowing.? Workup in the hospital included a head CT which was negative for any acute findings, showed cerebral atherosclerosis chronic right basal ganglia lacunar infarcts.? Renal ultrasound and Upper GI series, results pending.? Labs revealed a white blood cell count of 6.0, hemoglobin 9.6, BUN 30, creatinine 4.10, EGFR 11.? UA shown 2+ urine protein, trace ketones, 1+ urine blood, 3+ leukocyte, 51-100 urine wbc's.? Urine culture was obtained and is pending.? Patient was given 1 L of normal saline in the ED along with some Rocephin.? Nephrology was consulted for acute kidney injury superimposed on chronic kidney disease.? She denies any fever, chills, nausea, vomiting, abdominal pain, pain, shortness a breath.? She endorses 1 episode of diarrhea today, she some congestion, along with some burping that has been going on for a couple of weeks.? We will go ahead and consult GI and also get a barium swallow study. 4/8/24: She denies any new complaints today.? Plan today for EGD showed mild gastritis, biopsies were taken.? She also had a barium swallow today which was normal.? Labs today showing a creatinine of 3.9 EGFR bicarb 20.? Urine culture showing a erococcus urinae final read.? Patient was switched from Rocephin to cefdinir today.? Nephrology following for acute kidney injury. 06/01/23: She denies any new complaints today.? Labs revealed Hemoglobin is 9.5, creatinine 3.80, EGFR 12.? Nephrology is still following. 06/02/23: Patient had murray catheter placed due to urinary retention. We tried a voiding trial yesterday upon discharge and after her first void bladder scan read greater than 250ml. Murray placed again and patient started on Flomax. We will get Urology consult. 06/03/23: Patient denies any patient complaints today.? Labs today show hemoglobin of 9.5, creatinine 3.9, EGFR 12, blood sugars ranging 150-290.? Urology to see patient today.? We will continue with Flomax for now with plans for voiding trial tomorrow it if she does well with a voiding trial we may be able to discharge in the morning. 06/04/2023: Patient denies any new complaints today. Labs today reveal a hemoglobin of 10.5, creatinine is down to 3.7, blood sugar is ranging 164-170. Murray was discontinued today and she underwent a voiding trial. She was able to void 300 ml and her postvoid bladder scan only showed 55 ml. She is okay to go home without the Murray catheter in. We will continue with tamsulosin. MRI abdomen shows benign cyst in the kidneys, cholelithiasis. Patient is stable for discharge today. She will need to follow up with GI in 2 weeks for biopsy results. She will also need to follow up with Urology in 2 weeks for evaluation of her urinary retention. She will also need to follow-up with her Nephrology in 2 weeks for continued monitoring and care of creatinine of 3.8. She will also need to follow up with her primary care physician in 1 week as she was treated for a urinary tract infection. She will finish her cefdinir tomorrow. Final diagnosis: Acute urinary tract infection, acute on chronic kidney disease, urinary retention, GERD, dehydration Status at Discharge Cognitive/behavioral status at discharge: Alert oriented x3 Functional status at discharge: independent ambulation Overall status at discharge: patient is progressing back to baseline Time Spent with Patient Time attestation: Total time spent providing and/or coordinating discharge services: Time spent: Greater than 30 minutes Exam Narrative: General: In no acute distress, well nourished Head: atraumatic, no encephalopathy Eyes: EOMI, PERRLA, sclera clear ENT: moist mucous membranes, nasal passages clear Neck: supple, no JVD, no adenopathy, trachea midline Cardiac: Normal S1 and S2. RRR, No murmur, gallops or friction rubs, peripheral pulses intact. Respiratory: Lungs clear to auscultation, no adventitious lung sounds, currently on room air Gastrointestinal: soft, non-distended, non-tender, normoactive bowel sounds. : voiding without difficulty. Extremities: moves all extremities well, no edema Skin: clean, dry, intact. No wounds or lesions. Neuro: Alert and oriented x3, cranial nerves intact, no neuro deficits. Psych: normal mood, normal affect, interactive DS: Data Data Completed and Pending Completed studies during hospitalization: Abdomen MRI Modified barium swallow Upper GI series Renal ultrasound Head CT Pending studies at discharge: 05/31/23 10:13 Surgical [PTH] Routine Labs on day of discharge: Labs from last 24 hours 06/04/23 06/04/23 06/03/23 08:07 05:46 20:44 WBC 7.7 RBC 4.07 L Hgb 10.5 L Hct 34.8 L MCV 85.5 MCH 25.8 L MCHC 30.2 L RDW 13.0 Plt Count 310 MPV 10.0 Immature Gran % (Auto) 0.3 Neut % (Auto) 63.2 Lymph % (Auto) 23.1 [place] % (Auto) 8.2 Eos % (Auto) 4.7 H Baso % (Auto) 0.5 Lymph # (Auto) 1.78 [place] # (Auto) 0.6 Eos # (Auto) 0.4 H Baso # (Auto) 0.0 Abs Immat Gran (auto) 0.02 Absolute Neuts (auto) 4.9 Absolute Nucleated RBC 0.040 H Nucleated RBC % 0.5 H Sodium 138 Potassium 3.8 Chloride 108 H Carbon Dioxide 24 Anion Gap 6 BUN 37 H Creatinine 3.70 H Estim Creat Clear Calc 13 Estimated GFR 12 L Glucose 164 H POC Capillary Glucose 169 H 170 H Calcium 9.8 Total Bilirubin 0.2 AST 24 ALT 16 Alkaline Phosphatase 83 Total Protein 6.0 L Albumin 3.8 06/03/23 06/03/23 16:07 11:54 WBC RBC Hgb Hct MCV MCH MCHC RDW Plt Count MPV Immature Gran % (Auto) Neut % (Auto) Lymph % (Auto) [place] % (Auto) Eos % (Auto) Baso % (Auto) Lymph # (Auto) [place] # (Auto) Eos # (Auto) Baso # (Auto) Abs Immat Gran (auto) Absolute Neuts (auto) Absolute Nucleated RBC Nucleated RBC % Sodium Potassium Chloride Carbon Dioxide Anion Gap BUN Creatinine Estim Creat Clear Calc Estimated GFR Glucose POC Capillary Glucose 174 H 272 H Calcium Total Bilirubin AST ALT Alkaline Phosphatase Total Protein Albumin Procedures/Treatments: EGD Imaging Radiologist's impression: EXAMINATION: MR abdomen wo/w con DATE: 06/04/2023 09:18 INDICATION: Kidney masses. TECHNIQUE: Magnetic resonance imaging (MRI) of the abdomen was performed without and with 15 mL MultiHance intravenous contrast. COMPARISON: None. FINDINGS: The liver is normal. There are gallstones in the gallbladder, which is normal in size. The spleen is normal. There are dilated sidechains of the pancreatic duct, likely chronic pancreatitis. The adrenal glands are normal. There are cysts in the kidneys measuring up to 3.4 cm on the right. There is a 12 mm hemorrhagic cyst in left kidney. There are no dilated loops of bowel. There are no pathologically enlarged lymph nodes. There is no free intraperitoneal fluid. IMPRESSION: 1. Benign cysts in the kidneys. 2. Cholelithiasis. Reviewed, dictated and finalized at location A. Discharge Plan Discharge Attending physician on discharge: Jericho Junior Consulting providers: Jean Haque; Deniz Hernandez; Franklyn Catherine Discharging Clinician: Kandice Salazar Anticipated Discharge Date/Time: 06/02/23 12:44 Patient Disposition: Home, Self-Care Activity: as tolerated Diet: as tolerated Discharge Instructions: * Finish your antibiotic as directed * Follow-up with your primary care physician in 1 week * you will also need follow-up with Dr. Hernandez within 2 weeks regarding your kidney function * Follow-up with Dr. Aguayo, GI in 2 weeks for biopsy recurrent after EGD * Follow up with Urology in 2 weeks for evaluation of your urinary retention * You were started on Flomax, continue taking this medication as directed. Patient Instructions: Antibiotic Form, Tamsulosin (By mouth), Cefdinir (By mouth), Gastritis (DC), Urinary Tract Infection in Women (DC), Chronic Kidney Disease (DC), GERD (Gastroesophageal Reflux Disease) (DC), Acute Urinary Retention in Women (ED) Patient Language: Hungarian Stand Alone Forms: General Discharge Information Follow-up/Referrals: Franklyn Catherine MD [Physician] - 2 Weeks Deniz Hernandez MD [Physician] - 2 Weeks Jean Haque MD [Physician] - 2 Weeks Vic Clarke MD [Primary Care Provider] - 1 Week Discharge Medications: New cefdinir 300 mg Capsule 300 mg PO Q12HR Qty: 2 0RF tamsulosin 0.4 mg Capsule 0.4 mg PO QAM Qty: 30 0RF Continued pantoprazole 40 mg tablet,delayed release (DR/EC) 40 mg PO QAM Qty: 30 5RF Rx Instructions: For acid trifluoperazine 2 mg tablet 2 mg PO QHS benztropine 0.5 mg tablet 0.5 mg PO BID chlorpromazine 100 mg tablet 100 mg PO QHS levothyroxine 50 mcg tablet 25 mcg PO DAILY Rx Instructions: TAKE 1 TABLET BY MOUTH EVERY DAY sodium bicarbonate 650 mg tablet 650 mg PO QHS Rx Instructions: Take 2 tabs in the AM and 1 tab in the PM amlodipine 10 mg tablet 10 mg PO DAILY Rx Instructions: TAKE 1 TABLET BY MOUTH EVERY DAY pravastatin 40 mg tablet 40 mg PO QHS Qty: 90 2RF glipizide 5 mg tablet 5 mg PO BID Qty: 180 3RF Date of admission: 06/01/23 13:19 Primary Care Provider: Vic Clarke Admitting Provider: Clemente Ford Attending physician on admission: Clemente Ford Condition: Improved Quality VTE Prophylaxis VTE prophylaxis: pharmacologic ordered
[2023-06-04 11:36] LABS: Glucose Point of Care 261 mg/dl (65-105)
[2023-06-04] MEDS: INSULIN ASPART (*BKC) 100 UNITS/ML SUB-Q (11:47)
[2023-06-04 14:00] VITALS: BP 121/86; PULSE 94; RESP 18; TEMP 35.8; O2SAT 100
--- NOTE | 2023-06-04 15:08 | PC.NURSE ---
Pt voided 300 mL urine after murray removal. Bladder scanned patient after and got 55 mL in bladder. Kandice Salazar notified. Proceeding with discharge without murray catheter.
== END 2023-06-04 15:55 | disposition home or self-care (01) | DRG 469 ==
LOC: ANHED 12:13 → ANH3MEDSUR 15:54
PROVIDERS: Internal Medicine Gastroenterology; Internal Medicine Nephrology; Physician Assistant; Admitting Provider Internal Medicine; Emergency Provider Emergency Medicine; PCP Family Medicine Adolescent Medicine; Visit Provider Nurse Practitioner Acute Care
PROC: 0DJ08ZZ Inspection of Upper Intestinal Tract, Via Natural or Artificial Opening Endoscopic (ICD-10-PCS; CPT 43235; principal; 2023-05-31 15:30)
DX: N17.9 Acute kidney failure, unspecified (principal); N39.0 Urinary tract infection, site not specified; N18.4 Chronic kidney disease, stage 4 (severe); I12.9 Hypertensive chronic kidney disease with stage 1 through stage 4 chronic kidney disease, or unspecified chronic kidney disease; G93.41 Metabolic encephalopathy; K29.70 Gastritis, unspecified, without bleeding; R13.10 Dysphagia, unspecified; N25.81 Secondary hyperparathyroidism of renal origin; E11.22 Type 2 diabetes mellitus with diabetic chronic kidney disease; E03.9 Hypothyroidism, unspecified; E78.00 Pure hypercholesterolemia, unspecified; E86.0 Dehydration; I67.2 Cerebral atherosclerosis; D64.9 Anemia, unspecified; E55.9 Vitamin D deficiency, unspecified; R33.9 Retention of urine, unspecified; B96.89 Other specified bacterial agents as the cause of diseases classified elsewhere; F99 Mental disorder, not otherwise specified; F41.9 Anxiety disorder, unspecified; F31.9 Bipolar disorder, unspecified; Z85.42 Personal history of malignant neoplasm of other parts of uterus; Z86.73 Personal history of transient ischemic attack (TIA), and cerebral infarction without residual deficits
CPT/HCPCS: 36415; 70450; 74183; 74240; 76775; 80048; 80053; 80069; 80178; 80307; 81001; 82140; 82550; 82570; 82948; 83735; 84156; 84300; 84484; 85025; 85027; 85610; 85730; 85999; 87081; 87086; 87880; 88305; 92611; 93005; 99285; A9270; A9577; G0378; J0696; J1644; J1815; J2704; J7030; J7120

== ENCOUNTER 2023-07-06 14:34 | Outpatient (CLI) | payer OTHER, SELFPAY ==
--- NOTE | ~2023-07-06 | MR_ITS ---
EXAMINATION: MR brain/brain stem wo con DATE: 07/06/2023 15:48 INDICATION: Acute but persistent short-term memory loss. TECHNIQUE: Magnetic resonance imaging (MRI) of the brain and brainstem was performed without intraven ous contrast. COMPARISON: Head CT 05/29/2023 FINDINGS: There are scattered areas of nonspecific increased T2-weighted signal intensity in the cere bral white matter, which is within normal limits for the patient's age. There is no intracranial hemo rrhage, acute infarction, or abnormal intracranial mass lesion. The ventricles are normal in size. Th e orbits are normal. The mastoid air cells are normal. The paranasal sinuses are clear. IMPRESSION: 1. Normal aging brain. Reviewed, dictated and finalized at location A. IMPRESSION: 1. Normal aging brain.
== END 2023-07-06 14:35 | disposition home or self-care (01) ==
PROVIDERS: PCP Family Medicine Adolescent Medicine; Visit Provider Family Medicine Adolescent Medicine
DX: F03.90 Unspecified dementia, unspecified severity, without behavioral disturbance, psychotic disturbance, mood disturbance, and anxiety (principal)
CPT/HCPCS: 70551

== ENCOUNTER 2023-09-03 11:30 | Inpatient (IN) | payer OTHER, SELFPAY ==
[2023-09-03] VITALS (43 sets, daily range): BP systolic 92–160; BP diastolic 55–123; PULSE 77–122; RESP 13–26; TEMP 36.6–38; O2SAT 90–100; BMI 29.5
--- NOTE | ~2023-09-03 | XR_ITS ---
EXAMINATION: XR shoulder LT min 2V DATE: 09/03/2023 13:14 INDICATION: Left shoulder pain with abduction TECHNIQUE: AP internally and externally rotated, AP oblique externally rotated and transscapular Y vi ews of the left shoulder were obtained. COMPARISON: None FINDINGS: Normal alignment. No fracture. Glenohumeral joint is normal. Mild acromioclavicular osteoarthritis. Soft tissues are unremarkable. IMPRESSION: Mild left acromioclavicular osteoarthritis. No acute osseous abnormality. Reviewed, dictated and finalized at location A.
--- NOTE | ~2023-09-03 | US_ITS ---
Renal-Bladder ultrasound Clinical History: Hyperkalemia Technique: Real-time sonographic imaging of the kidneys and urinary bladder was performed. Findings: The right kidney measures 13.6 cm in length, and is markedly echogenic. Multiple right marcos l cysts are present. No right hydronephrosis. Left kidney not visualized.. The urinary bladder is collapsed around a Sandhu catheter. Impression: Echogenic right kidney is compatible with chronic medical renal disease, multiple renal cysts. Left kidney not seen. Collapsed urinary bladder limits evaluation. Reviewed, dictated and finalized at location M. Impression: Echogenic right kidney is compatible with chronic medical renal disease, multip le renal cysts. Left kidney not seen. Collapsed urinary bladder limits evaluation.
--- NOTE | ~2023-09-03 | CT_ITS ---
Clinical Indication: Status post fall, pain CT Scan of the Chest, Abdomen, and Pelvis, and thoracic and lumbar spine, without Contrast: Technique: Contiguous sections were acquired throughout the chest, abdomen, and pelvis without IV con trast administration. Dedicated imaging of the thoracic and lumbar spine was also performed. Dose red uction technique was used on this scan by utilizing automated exposure control and iterative reconstr uction technique. The dose-length product (DLP) was 4120.65 mGy-cm. Findings: There is no evidence of any significant mediastinal, hilar or axillary lymphadenopathy. The mediastin al soft tissues appear normal. There is no evidence of pleural or pericardial effusion. The lungs are clear. No pulmonary nodules or infiltrates are noted. The liver, spleen, pancreas, gallbladder, and adrenal glands are within normal limits. Bilateral marcos l cysts are probably present. No evidence of aortic aneurysm. No lymphadenopathy. No bowel obstruction or bowel wall thickening. There is no evidence to suggest acute appendicitis. Urinary bladder is unremarkable. No pelvic mass seen. No ascites. No fracture or subluxation seen in the thoracic or lumbar spine. There is an intraosseous hemangioma of T8. There is moderate degenerative disc narrowing at T6-T7, T7-T8, T8-T9. There is mild edematous change at T11-T12, Schmorl's node at the superior endplate of T12. Intervertebral disc spaces in lumb ar spine are relatively well-preserved. No spinal canal stenosis or cord compression identified in the thoracic spine. No significant thoraci c spine disc bulge or herniation seen. There is mild disc bulge at L4-L5, with advanced facet arthropathy and probable mild to moderate cent ral canal stenosis at this level. There is moderate left neural foraminal narrowing and severe right neural foraminal narrowing at this level. Remainder of the lumbar levels demonstrate minimal degenerative change. No other spinal canal stenosi s or neural foraminal narrowing evident in the lumbar spine. Impression: No acute posttraumatic abnormality identified. No fracture or subluxation of the thoracolumbar spine. Advanced degenerative spondylosis at L4-L5, as detailed above. Mild degenerative change overall the t horacic spine, as above. Reviewed, dictated and finalized at location . Impression: No acute posttraumatic abnormality identified. No fracture or subluxation of th e thoracolumbar spine. Advanced degenerative spondylosis at L4-L5, as detailed above. Mild degenerativ e change overall the thoracic spine, as above.
--- NOTE | ~2023-09-03 | MR_ITS ---
MRI of the cervical spine Clinical History: Cervical fracture Technique: Axial T2-weighted and gradient images, and sagittal T1-weighted, T2-weighted, and STIR sapna ges were acquired. Correlation made with CT scan of the cervical spine dated 09/03/2023. Findings: There is marrow edema involving the left lamina/facet of C7, compatible with a nondisplaced fracture seen on prior CT scan. There is additional marrow edema in the region of the right transver se process of C7, compatible fracture in this region, also seen on prior CT scan. There is an acute m ild compression deformity of T3, with mild superior endplate loss of height and associated marrow jase ma. No other fracture or marrow edema seen in the remainder the visualized osseous structures. Remain ing vertebral bodies maintain normal height and alignment. No significant disc bulge or herniation seen at any cervical level. No spinal canal stenosis or cord compression identified in the cervical spine. There is mild motion artifact, but there may be bilater al neural foraminal narrowing at C3-C4, C4-C5. Remaining neural foramina are probably preserved. No abnormal signal seen in the spinal cord. No epidural mass or collection. No other paravertebral soft tissue abnormality seen. Impression: Marrow edema at the left lamina/facet of C7, compatible with nondisplaced fracture, which is better d elineated on prior CT scan. Additional marrow edema in the region of the right transverse process of C7, also consistent with und erlying fracture, also better seen on prior CT scan. Acute mild compression fracture of T3, as detailed above. Mild degenerative spondylosis, as above. Reviewed, dictated and finalized at location . Impression: Marrow edema at the left lamina/facet of C7, compatible with nondisplaced fract ure, which is better delineated on prior CT scan. Additional marrow edema in the region of the right transverse process of C7, al so consistent with underlying fracture, also better seen on prior CT scan. Acute mild compression fracture of T3, as detailed above. Mild degenerative spondylosis, as above.
--- NOTE | ~2023-09-03 | CT_ITS ---
Noncontrast CT scan of the cervical spine Technique: Multiple contiguous axial [address] images of the cervical spine were obtained and rec onstructed in 2D sagittal and coronal planes on the acquisition scanner. Dose reduction technique was used on this scan by utilizing automated exposure control, adjustment of the mA and/or kV according to patient size. The dose-length product (DLP) was 457.62 mGy-cm. Clinical History: Pain Findings: There is an acute, essentially nondisplaced fracture of the left facet/transverse process o f C7 (sagittal image [id number] for example). There is similar probable nondisplaced fracture of the right C7 transverse process (series 2 image 263 for example). No other fracture or dislocation seen. The in tervertebral disc spaces are preserved. No prevertebral soft tissue swelling. Impression: Acute nondisplaced fracture of the left facet/transverse process of C7. Additional nondisplaced fracture of the right C7 transverse process. Reviewed, dictated and finalized at location . Impression: Acute nondisplaced fracture of the left facet/transverse process of C7. Additional nondisplaced fracture of the right C7 transverse process.
--- NOTE | ~2023-09-03 | XR_ITS ---
EXAMINATION: XR chest 1V portable DATE: 09/04/2023 09:07 INDICATION: Chronic kidney disease and hyperkalemia TECHNIQUE: frontal view of the chest was obtained. COMPARISON: Chest radiograph dated 07/15/2022 FINDINGS: The lungs remain clear with no focal airspace opacities, pulmonary edema, pleural effusion or pneumot horax. The cardiomediastinal silhouette is normal. Small amount of oral contrast material within a lo op of small bowel in the left upper quadrant. IMPRESSION: 1. No acute cardiopulmonary disease. Reviewed, dictated and finalized at location A.
--- NOTE | ~2023-09-03 | CT_ITS ---
CT head without contrast Indication: Status post fall COMPARISON: 05/29/2023 Technique: Serial scans were obtained through the brain without the administration of contrast. Dose reduction technique was used on this scan by utilizing automated exposure control and iterative recon struction technique. The dose-length product (DLP) was 681.00 mGy-cm. Findings: There is no evidence of intracranial hemorrhage, mass lesion, or acute infarct. The ventri cles and subarachnoid spaces are dilated, consistent with mild atrophy. Low attenuation regions are seen within the periventricular white matter bilaterally, likely representing changes from chronic mi crovascular ischemic disease. There is no evidence of edema, mass effect or midline shift. The visu alized paranasal sinuses and mastoid air cells are clear. Impression: No intracranial hemorrhage, mass, or acute infarct. Atrophy and chronic white matter changes, as above. Reviewed, dictated and finalized at [facility]. Impression: No intracranial hemorrhage, mass, or acute infarct. Atrophy and chronic white matter changes, as above.
--- NOTE | 2023-09-03 12:44 | ECG_ITS ---
Test Date: 2023-09-03 13:23:26 Measurements Intervals [place] Rate: 81 P: 79 MN: 233 QRS: 204 QRSD: 173 T: 19 QT: 420 QTc: 488 Interpretive Statements SINUS RHYTHM WITH FIRST DEGREE AV BLOCK RIGHT AXIS DEVIATION IVCD, PEAKED T WAVES- CONSIDER HYPERKALEMIA POSSIBLE ANTERIOR MYOCARDIAL INFARCTION , OF INDETERMINATE AGE INFERIOR INFARCT, AGE INDETERMINATE BASELINE WANDER- I, V2-V3 ABNORMAL ECG No previous ECG available for comparison Electronically Signed On 09-03-2023 15:28:55 CDT by Jordan Ann D.O.
--- NOTE | 2023-09-03 12:47 | ED.FALL ---
HPI - Fall General Chief Complaint: Fall Stated Complaint: Fall, Shoulder Pain Time Seen by Provider: 09/03/23 12:03 History of Present Illness HPI Narrative: patient is a 63-year-old female with a history of CKD, hypertension, hyperlipidemia, hypothyroidism, diabetes presenting after a fall. Patient's family is at bedside and helps with the history. Patient lives independently. She had a fall last night around 11:00 p.m.. She states that her legs felt weak and she may have felt lightheaded. States that she fell to the floor onto her left side. Did not strike her head or lose consciousness. Has had left shoulder pain and neck pain since that time. She was unable to get up due to the pain and weakness so she laid on the floor until her family checked on her this morning. She denies chest pain, shortness of breath, leg swelling. She is complaining of some left abdominal pain. No nausea or vomiting. Related Data Home Medications Medication Instructions Recorded Confirmed benztropine 0.5 mg tablet 0.5 mg PO BID 06/09/21 09/03/23 chlorpromazine 100 mg tablet 100 mg PO QHS 06/09/21 09/03/23 trifluoperazine 2 mg tablet 2 mg PO QHS 06/09/21 09/03/23 sodium bicarbonate 650 mg tablet 650 mg PO QHS 05/29/23 09/03/23 divalproex 500 mg tablet,delayed See Rx Instructions .Route .COMPLEX 09/03/23 09/03/23 release Allergies Allergy/AdvReac Type Severity Reaction Status Date / Time Penicillins Allergy Unknown unknown Verified 09/03/23 12:06 Review of Systems Review of Systems: All systems reviewed & are unremarkable except as noted in HPI and below PMFSH Past Medical History Medical History Anxiety Bipolar disorder, unspecified Chronic kidney disease, stage IV (severe) Depression Hypertensive chronic kidney disease with stage 1 through stage 4 chronic kidney disease, or unspecified chronic kidney disease Hypothyroidism, unspecified Obesity (BMI 30-39.9) Pneumonia Pure hypercholesterolemia, unspecified Secondary renal hyperparathyroidism Stage 5 chronic kidney disease Type 2 diabetes mellitus with diabetic chronic kidney disease Uterine cancer Vitamin D deficiency Surgical History Surgical History History of colonoscopy with polypectomy History of hysterectomy for cancer Family History Family History Father Acute myocardial infarction Mother Diabetes mellitus Heart disease Emphysema lung Sibling Breast cancer Sibling Heart disease Diabetes mellitus Social History Social History Social History: Surrogate medical decision maker: Radha Cheng, . Code status: Full code. Smoking status: Never smoker Second hand tobacco smoke exposure: No Alcohol intake: never Substance use: never Substance use type: does not use Do You Feel Safe in your Home?: Yes Lack of Transportation: No Lack of Food: Never True Current Housing: I Have Housing Concerned About Future Housing: No Difficulty Paying Gas/Electric Bills: No Difficulty Paying for Meds: No Currently Unemployed: No Education: Bachelor's Degree Difficulty w/ Childcare or Family Care: No Living arrangements: alone Occupation/Education: retired Gender identity (if verbalized by the patient): Female Spiritual care concerns: No Agree to blood products: Yes Exam Narrative: GENERAL: Nontoxic, lying in bed in no acute distress, pleasant cooperative HEAD: Normocephalic, atraumatic. EYES: PERRLA and EOMI. ENT: Nares clear, no rhinorrhea or epistaxis. Mucous membranes dry NECK: Supple. C-collar in place, mild midline tenderness of C-spine that extends into bilateral paraspinal musculature CHEST: Clear to auscultation. No respiratory distress. HEART: Regular rate and rhythm ABDOMEN: Soft, nontender, nondisten
--- NOTE | 2023-09-03 13:33 | PC.NURSE ---
STEMI called overhead after EKG shown to EDP.
--- NOTE | 2023-09-03 13:37 | PC.NURSE ---
STEMI [address] Dr [address]e [address]
--- NOTE | 2023-09-03 13:38 | PC.NURSE ---
Dr. Foote at bedside discussing possible cardiac cath. Does not appear to be a candidate at this time.
[2023-09-03 13:40] LABS: Basophils Absolute Auto 0.1 K/mm3 (0.0-0.1); Basophils Percent Auto 0.5 % (0.2-1.2); Eosinophils Absolute Auto 0.1 K/mm3 (0-0.3); Eosinophils Percent Auto 1.3 % (0-4.4); Hematocrit 30.9 % (37.0-47.0); Hemoglobin 9.2 g/dL (12.0-15.0); Immature Granulocyte Absolute 0.07 K/mm3 (0.00-0.031); Immature Granulocyte Percent A 0.6 % (0-0.5); Lymphocytes Absolute Auto 1.11 K/mm3 (0.9-3.2); Lymphocytes Percent Auto 10.2 % (18.3-44.2); Mean Corpuscular HGB Conc 29.8 g/dl (32-36); Mean Corpuscular Hemoglobin 27.5 pg (26-34); Mean Corpuscular Volume 92.2 fl (80-100); Mean Platelet Volume 9.3 fl (7.4-10.4); Neutrophils Absolute Auto 8.6 K/mm3 (1.3-6.7); Neutrophils Percent Auto 78.4 % (45.5-73.1); Platelet Count Result 180 k/mm3 (150-375); Red Blood Count 3.35 M/mm3 (4.2-5.4); Red Cell Distribution Width 17.8 % (11.5-14.5); White Blood Count 10.9 K/mm3 (4.5-10.0)
[2023-09-03] MEDS: SODIUM CHLORIDE 0.9% IV 500 ML 999 ML IV CONT (13:47)
[2023-09-03 13:51] LABS: Anisocytosis 1+; Hypochromasia 1+; Platelet Estimate Adequate (Adequate)
[2023-09-03 13:52] LABS: Creatine Kinase 156 U/L (30-135); Schistocytes None Seen
[2023-09-03 13:54] LABS: INR 1.1
[2023-09-03 13:55] LABS: Partial Thromboplastin Time 32.7 Seconds (22.3-36.8)
[2023-09-03] MEDS: ACETAMINOPHEN 500 MG TABLET 1000 MG PO (13:57)
[2023-09-03 14:15] LABS: Alanine Aminotransferase 17 U/L (6-35); Albumin Level 4.5 g/dL (3.5-5.1); Alkaline Phosphatase 87 U/L (38-126); Anion Gap 11 mmol/L (4-12); Aspartate Amino Transferase 30 U/L (14-36); Bilirubin,Total 0.4 mg/dL (0.2-1.3); Blood Urea Nitrogen 74 mg/dL (7-17); Calcium 10.3 mg/dL (8.4-10.2); Carbon Dioxide 15 mmol/L (22-30); Chloride 119 mmol/L (98-107); Estimated CRCL calculation 10 ml/min; Estimated Glomerular Filt Rate 10; Glucose 116 mg/dL (65-110); Lipase 130 U/L (23-300); Magnesium 2.3 mg/dL (1.6-2.3); Sodium 145 mmol/L (137-145); Troponin I 0.035 ng/mL (0.000-0.034)
[2023-09-03 14:16] LABS: Lactic Acid Reflex 0.7 mmol/L (0.7-2.0)
[2023-09-03] MEDS: SODIUM BICARBONATE 8.4% 50 MEQ/50 ML SYRINGE IV PUSH (14:23)
[2023-09-03] MEDS: INSULIN HUMAN REGULAR (*BKC) 100 UNITS/ML 10 UNITS IV PUSH (14:23)
[2023-09-03] MEDS: DEXTROSE 50% 25 GM/50 ML SYRINGE IV PUSH (14:23)
[2023-09-03] MEDS: CALCIUM GLUC 2,000 MG/NS 100ML 2,000 MG/100 ML BAG 100 MG IVPB (14:34)
[2023-09-03 15:19] LABS: Anion Gap 10 mmol/L (4-12); Blood Urea Nitrogen 73 mg/dL (7-17); Calcium 10.6 mg/dL (8.4-10.2); Carbon Dioxide 17 mmol/L (22-30); Chloride 118 mmol/L (98-107); Estimated CRCL calculation 10 ml/min; Estimated Glomerular Filt Rate 11; Glucose 210 mg/dL (65-110); Potassium 9.5 mmol/L (3.4-5.0); Sodium 145 mmol/L (137-145)
--- NOTE | 2023-09-03 16:18 | PM.IMHP ---
H&P: HPI History of Present Illness Date/Time: 09/03/23 16:18 Chief Complaint: Fall, Weakness Narrative: 63 y/o F presents here with fall and weakness with PMH of anxiety/depression, bipolar disorder, CKD, HTN, hypothyroidism, secondary renal hyperparathyroidism, type 2 diabetes, and vitamin-D deficiency. The patient presents here with ground level fall overnight. Patient on able to contribute to majority of history. HPI obtained through chart review. The patient presented here post ground level fall. States she fell around 11:00 p.m. last night. States she was walking when her legs began to feel weak, she became lightheaded, and then she fell onto her left side. She denies head strike or loss of consciousness. Reporting lower back pain and left shoulder pain post fall. Denying any current complaints beyond discomfort due to the bed. Patient does have a history of severe CKD, no previous need for hemodialysis. Initial VS at presentation: 98? F, HR 85, RR 16, 151/118, and 100% on RA ED workup showed: WBC 10.9, hemoglobin 9.2, INR 1.1, sodium 145, K 10 (repeat 9.5), creatinine 4.4 and GFR 10 (previously 3.96 and GFR 12 on 08/31/23), CK 156, and initial troponin 0.035. Head CT showed no acute findings, chronic atrophy and chronic white matter changes. C-spine CT showed an acute nondisplaced fracture of the left facet/ transverse process of the C7 and a right nondisplaced C7 transverse process fracture. Shoulder XR negative for acute fracture. CT of the chest/abdomen/pelvis/spine showed no acute posttraumatic abnormality identified, no fracture subluxation of the thoracic lumbar spine, advanced degenerative spondylosis of L4-L5, mild degenerative changes overall to the thoracic spine. Review of Systems Review of Systems: Limited All systems reviewed & are unremarkable except as noted in HPI and below [facility] Past Medical History Medical History Anxiety Bipolar disorder, unspecified Chronic kidney disease, stage IV (severe) Depression Hypertensive chronic kidney disease with stage 1 through stage 4 chronic kidney disease, or unspecified chronic kidney disease Hypothyroidism, unspecified Obesity (BMI 30-39.9) Pneumonia Pure hypercholesterolemia, unspecified Secondary renal hyperparathyroidism Stage 5 chronic kidney disease Type 2 diabetes mellitus with diabetic chronic kidney disease Uterine cancer Vitamin D deficiency Surgical History Surgical History History of colonoscopy with polypectomy History of hysterectomy for cancer Family History Family History Father Acute myocardial infarction Mother Diabetes mellitus Heart disease Emphysema lung Sibling Breast cancer Sibling Heart disease Diabetes mellitus Social History Social History Social History: Surrogate medical decision maker: Radha Cheng, . Code status: Full code. Smoking status: Never smoker Second hand tobacco smoke exposure: No Alcohol intake: never Substance use: never Substance use type: does not use Do You Feel Safe in your Home?: Yes Lack of Transportation: No Lack of Food: Never True Current Housing: I Have Housing Concerned About Future Housing: No Difficulty Paying Gas/Electric Bills: No Difficulty Paying for Meds: No Currently Unemployed: No Education: Bachelor's Degree Difficulty w/ Childcare or Family Care: No Living arrangements: alone Occupation/Education: retired Gender identity (if verbalized by the patient): Female Spiritual care concerns: No Agree to blood products: Yes Meds Home Medications and Allergies Home Medications Medication Instructions Recorded Confirmed Type benztropine 0.5 mg tablet 0.5 mg PO BID 06/09/21 09/03/23 History ch
--- NOTE | 2023-09-03 16:51 | PM.CNGS ---
Assessment and Plan Assessment and plan (1) Acute hyperkalemia: Code(s): E87.5 - Hyperkalemia Status: Acute Assessment and Plan: The patient presented after a fall that was not witnessed and she remained on the ground overnight. She was found to be severely hyperkalemic with EKG changes. Will place a right femoral Mihai temporary dialysis catheter emergently for dialysis to be done today. Patient currently has a cervical collar in place therefore internal jugular does not appear to be a safe location for dialysis access until she is cleared for removal of the cervical collar. Could consider alternate location once patient is more stable and C-spine has been cleared. (2) Chronic kidney disease (CKD), stage V: Code(s): N18.5 - Chronic kidney disease, stage 5 Status: Acute (3) Bipolar disorder, unspecified: Code(s): F31.9 - Bipolar disorder, unspecified Status: Chronic (4) Type 2 diabetes mellitus: Code(s): E11.9 - Type 2 diabetes mellitus without complications Status: Acute History of Present Illness Consult details Consult date: 09/03/23 Reason for consult: other (Emergent dialysis access) Requesting physician: David Ladd MD Narrative: This is a 63-year-old woman who I am asked to see for placement of an emergent dialysis catheter. She presented to the emergency department today after suffering a fall at home yesterday. She has a history of chronic renal failure and has been getting closer to needing dialysis but has not required dialysis so far. In the emergency department her BUN and creatinine were slightly more elevated from baseline. She was noted to have a potassium level of 10 and was showing some EKG abnormalities consistent with severe hyperkalemia. Patient has bipolar disorder and history is difficult to obtain. Her sister was available in the emergency department for further questioning. Her fall was not witnessed but she was noted to be on the floor when her family came to check on her this morning. She was noted to have a cervical spine transverse process fracture and is currently in a cervical collar. Review of Systems Review of Systems: All systems reviewed & are unremarkable except as noted in HPI and below Constitutional: Constitutional: Denies chills and Denies fever(s) Cardiovascular: Cardiovascular: Denies chest pain and Denies dyspnea Respiratory: Respiratory: Denies dyspnea Gastrointestinal: Gastrointestinal: Denies abdominal pain, Denies diarrhea and Denies vomiting PMFSH Past Medical History Medical History Anxiety Bipolar disorder, unspecified Chronic kidney disease, stage IV (severe) Depression Hypertensive chronic kidney disease with stage 1 through stage 4 chronic kidney disease, or unspecified chronic kidney disease Hypothyroidism, unspecified Obesity (BMI 30-39.9) Pneumonia Pure hypercholesterolemia, unspecified Secondary renal hyperparathyroidism Stage 5 chronic kidney disease Type 2 diabetes mellitus with diabetic chronic kidney disease Uterine cancer Vitamin D deficiency Surgical History Surgical History History of colonoscopy with polypectomy History of hysterectomy for cancer Family History Family History Father Acute myocardial infarction Mother Diabetes mellitus Heart disease Emphysema lung Sibling Breast cancer Sibling Heart disease Diabetes mellitus Social History Social History Social History: Surrogate medical decision maker: Radha Cheng, . Code status: Full code. Smoking status: Never smoker Second hand tobacco smoke exposure: No Alcohol intake: never Substance use: current Substance use type: does not use Do You Feel Safe in your Home?: Yes Lack
--- NOTE | 2023-09-03 16:56 | ADMGEN ---
This patient, Nicky Villalobos, was admitted to Intensive Care Unit-8. Patient/family oriented to hospital policies and general routines including ID bracelet, bed and alarms, visiting hours, pain management, procedures, bathroom and other care routines, personal items, smoking policy, room service/diet, and visiting hours. Information on how to activate the Rapid Response Team has been discussed. Patient/Family are encouraged to report perceived risks to care and to ask questions if they do not understand what they are told or what they should do.
[2023-09-03] MEDS: SODIUM CHLORIDE 0.9% IV 1,000 ML 999 ML IV CONT (17:00)
--- NOTE | 2023-09-03 17:01 | W.PM.PROC2 ---
Procedure Note - Detailed Date of Procedure 09/03/23 Pre-op Diagnosis Hyperkalemia, CKD stage 5 Post-op Diagnosis Same Procedure Performed Right femoral Mihai dialysis catheter placement under ultrasound guidance Surgeon Wilder Gr, DO Anesthesia Local (1% lidocaine) Indications Hyperkalemia with chronic stage 5 kidney disease Findings SonoSite ultrasound was used to identify the right femoral vein. This was visualized as a compressible vessel just medial to the pulsatile femoral artery. An 18 gauge introducer needle was advanced under ultrasound guidance directly into the lumen of the femoral vein. Dark nonpulsatile blood was aspirated. Description of Procedure Procedure as well as risks, benefits, and alternatives were discussed with the patient and sister who is POA. Written consent was obtained and placed in chart prior to procedure. Patient was placed supine in ICU bed. Time-out was done to confirm patient and procedure. Her right groin area was prepped and draped in sterile fashion using chlorhexidine prep. SonoSite ultrasound was used to identify the right femoral vein. 1% lidocaine with epinephrine was anesthetized directly over this area. An 18 gauge introducer needle was then advanced under ultrasound guidance directly into the lumen of the right femoral vein. Dark nonpulsatile blood was aspirated. A 0.035 in guidewire was then advanced through the needle using a modified Seldinger technique. The guidewire advanced smoothly and then the needle was removed. A small incision was made at the insertion site using an 11 blade scalpel. Blue dilators were then advanced over the guidewire to dilate the tract. The 12.5 Pakistani triple-lumen dialysis catheter was then advanced over the guidewire until it was in place at 20 cm. The guidewire was then removed and all 3 lumens were capped. All 3 lumens were aspirated and flushed with sterile saline and functioned with ease. Glue and a Biopatch were placed at the insertion site. The catheter was then sutured in place at the skin using 3-0 silk simple interrupted sutures. Tegaderm dressing was then applied. Implants 12.5 Pakistani triple-lumen 20 cm dialysis catheter Estimated Blood Loss 5 Complications No immediate complications Condition Critical Disposition ICU [facility] Billing Surgery - Charge Forward: Surgery Billing
[2023-09-03 17:03] LABS: Hepatitis B Surface Antigen Negative (Negative)
--- NOTE | 2023-09-03 17:08 | ECG_ITS ---
Test Date: 2023-09-03 17:11:15 Measurements Intervals [place] Rate: 82 P: 46 IA: 199 QRS: 9 QRSD: 141 T: 18 QT: 372 QTc: 436 Interpretive Statements SINUS RHYTHM INTRAVENTRICULAR CONDUCTION DELAY [130+ ms QRS DURATION] poor R-wave progression possible old anterior wall AZ possible old inferior wall AZ INTERPRETATION BASED ON A DEFAULT AGE OF 40 YEARS Compared to ECG 09/03/2023 13:23:26 First degree AV block no longer present Tall peaked to wave no longer present Electronically Signed On 09-04-2023 13:04:41 CDT by Darwin Morejon M.D.
[2023-09-03 17:21] LABS: Hepatitis B Surface Anti Res Negative
[2023-09-03 17:24] LABS: Appearance Urine Cloudy (Clear); Bacteria Urine 4+ /hpf; Bilirubin Urine Negative (Negative); Blood Urine 1+ (Negative); Color Urine Yellow (Yellow); Glucose Urine UA 1+ mg/dL (Negative); Ketones Urine Negative (Negative); Leukocyte Esterase Ur 2+ LEU/UL (Negative); Nitrate Urine Negative (Negative); Non Pathogenic Casts 0-2; Protein Urine 1+ mg/dL (Negative); RBC Urine 0-2 /hpf (0-2); Specific Grav Ur 1.008 (1.001-1.035); Squamous Epithelial Cell Urine None Seen /hpf (Few); Urobilinogen Urine 0.2 mg/dL (<2.0); WBC Urine 51-100 /hpf (0-3); pH Urine 6.5 (5.0-9.0)
--- NOTE | 2023-09-03 17:34 | P.CONNP_ITS ---
Assessment and Plan Assessment and plan (1) Hyperkalemia: Code(s): E87.5 - Hyperkalemia Status: Acute Assessment and Plan: * quite severe on presentation * etiology not clear -- seems a bit out of proportion to degree of kidney disease (as was not present before) * s/p medical management in the ER * emergent dialysis now * may require further dialysis treatments depending of trend of K+ level (2) Chronic kidney disease (CKD), stage V: Code(s): N18.5 - Chronic kidney disease, stage 5 Status: Chronic Assessment and Plan: * baseline creatinine runs around 3.7 - 4.1mg/dl * thought to be secondary to her diabetes, hypertension, vascular disease and possibly 40 years of lithium use * slow progression noted in the last few months * will likely need detention renal replacement therapy soon (although her issues with hyperkalemia may have pushed the need to be sooner) (3) Status post fall: Code(s): Z91.81 - History of falling Status: Acute Assessment and Plan: * as noted by history * caused by hyperkalemia(?) * PT/OT once more stable * imaging noted/reviewed (4) C7 cervical fracture: Code(s): S12.600A - Unspecified displaced fracture of seventh cervical vertebra, initial encounter for closed fracture Status: Acute Assessment and Plan: * as noted by admission imaging * cervical collar in place * Neurosurgery consulted (5) Anemia: Code(s): D64.9 - Anemia, unspecified Status: Chronic Assessment and Plan: * presumably related to advanced CKD * follow trend of H/H * consider empiric Epogen (6) Hypertension: Code(s): I10 - Essential (primary) hypertension Status: Chronic Assessment and Plan: * reasonable control * maybe fluctuating more due to pain * resume home medications as needed * follow trend of hemodynamics (7) Type 2 diabetes mellitus: Code(s): E11.9 - Type 2 diabetes mellitus without complications Status: Chronic Assessment and Plan: * follow accu-cheks * glycemic control per hospitalists Long extensive discussion (greater than 20 minutes) with the patient regarding her life-threatening hyperkalemia in conjunction with her known advanced chronic kidney disease as well as the need for emergent dialysis to correct this electrolyte abnormality efficiently. She appeared to voice understanding. I will continue follow patient with you while she remains hospitalized and make further recommendations as deemed necessary Thank you for allowing me to participate in the care of this patient. History of Present Illness Reason for Consult Consult date: 09/03/23 Reason for consult: chronic renal failure and hyperkalemia Chief Complaint Chief complaint: Hyerkalemia History of Present Illness Narrative: Most of the information that I have obtained is from review of the electronic medical record as well as discussion with the ER physician along with my personal knowledge of the patient as is difficult to call to get a full and complete history from the patient as she does not focus on the questions asked and tends to go off on tangents unrelated to the questions being asked of her (has some baseline cognitive issues). The patient is a 63-year-old female with a past medical history as outlined below who presented to [facility] Emergency Room for further evaluation status post fall. The patient lives independently and apparently she had a fall last night around 11:00 p.m.. She repo
--- NOTE | 2023-09-03 17:34 | PM.CNNEP ---
Assessment and Plan Assessment and plan (1) Hyperkalemia: Code(s): E87.5 - Hyperkalemia Status: Acute Assessment and Plan: quite severe on presentation etiology not clear -- seems a bit out of proportion to degree of kidney disease (as was not present before) s/p medical management in the ER emergent dialysis now may require further dialysis treatments depending of trend of K+ level (2) Chronic kidney disease (CKD), stage V: Code(s): N18.5 - Chronic kidney disease, stage 5 Status: Chronic Assessment and Plan: baseline creatinine runs around 3.7 - 4.1mg/dl thought to be secondary to her diabetes, hypertension, vascular disease and possibly 40 years of lithium use slow progression noted in the last few months will likely need exterminator helper renal replacement therapy soon (although her issues with hyperkalemia may have pushed the need to be sooner) (3) Status post fall: Code(s): Z91.81 - History of falling Status: Acute Assessment and Plan: as noted by history caused by hyperkalemia(?) PT/OT once more stable imaging noted/reviewed (4) C7 cervical fracture: Code(s): S12.600A - Unspecified displaced fracture of seventh cervical vertebra, initial encounter for closed fracture Status: Acute Assessment and Plan: as noted by admission imaging cervical collar in place Neurosurgery consulted (5) Anemia: Code(s): D64.9 - Anemia, unspecified Status: Chronic Assessment and Plan: presumably related to advanced CKD follow trend of H/H consider empiric Epogen (6) Hypertension: Code(s): I10 - Essential (primary) hypertension Status: Chronic Assessment and Plan: reasonable control maybe fluctuating more due to pain resume home medications as needed follow trend of hemodynamics (7) Type 2 diabetes mellitus: Code(s): E11.9 - Type 2 diabetes mellitus without complications Status: Chronic Assessment and Plan: follow accu-cheks glycemic control per hospitalists Long extensive discussion (greater than 20 minutes) with the patient regarding her life-threatening hyperkalemia in conjunction with her known advanced chronic kidney disease as well as the need for emergent dialysis to correct this electrolyte abnormality efficiently. She appeared to voice understanding. I will continue follow patient with you while she remains hospitalized and make further recommendations as deemed necessary Thank you for allowing me to participate in the care of this patient. History of Present Illness Reason for Consult Consult date: 09/03/23 Reason for consult: chronic renal failure and hyperkalemia Chief Complaint Chief complaint: Hyerkalemia History of Present Illness Narrative: Most of the information that I have obtained is from review of the electronic medical record as well as discussion with the ER physician along with my personal knowledge of the patient as is difficult to call to get a full and complete history from the patient as she does not focus on the questions asked and tends to go off on tangents unrelated to the questions being asked of her (has some baseline cognitive issues). The patient is a 63-year-old female with a past medical history as outlined below who presented to [facility] Emergency Room for further evaluation status post fall. The patient lives independently and apparently she had a fall last night around 11:00 p.m.. She reports that her legs felt somewhat weak and she thinks she might have felt lightheaded but she is not completely sure. She fell on the floor on her left side and denied hitting her head or losing consciousness prior to or after the fall. Following the fall, she noted left shoulder pain, low back pain, and neck pain. Unfortunately, due to the severity of the fall, she was unable to get up due to pain and generalized weakness so she
[2023-09-03 17:45] LABS: Troponin I 0.034 ng/mL (0.000-0.034)
[2023-09-03 18:02] LABS: Add Urine Microscopic? YES
[2023-09-03 18:27] LABS: MRSA (PCR) NOT DETECTED (NOT DETECTE)
--- NOTE | 2023-09-03 19:19 | PHAR ---
PT'S HOME MED TRIFLUOPERAZINE 2 MG TABS VERIFIED BY PHARMACY
[2023-09-03] MEDS: SODIUM BICARBONATE TAB 650 MG TABLET PO (20:34)
[2023-09-03] MEDS: BENZTROPINE MESYLATE 0.5 MG TABLET PO (20:35)
[2023-09-03] MEDS: chlorproMAZINE HCL 25 MG TABLET 100 MG PO (20:35)
[2023-09-03] MEDS: DIVALPROEX SODIUM DR 250 MG TABEC 500 MG PO (20:40)
[2023-09-03] MEDS: HEPARIN SODIUM 1,000 UNITS/ML VIAL 4000 UNITS (21:30)
[2023-09-03] MEDS: CENTRAL LINE FLUSH 10 ML IV PUSH (22:00)
--- NOTE | 2023-09-03 22:26 | ECG_ITS ---
Test Date: 2023-09-03 22:44:02 Measurements Intervals [place] Rate: 115 P: 78 OR: 152 QRS: 61 QRSD: 102 T: 91 QT: 330 QTc: 457 Interpretive Statements SINUS TACHYCARDIA CANNOT R/O SEPTAL INFARCT, AGE INDETERMINATE INFERIOR INFARCT, AGE INDETERMINATE BORDERLINE ST-T WAVE ABNORMALITY- HIGH LATERAL LEADS BASELINE ARTIFACT- V1-V6 ABNORMAL ECG Compared to ECG 09/03/2023 13:23:26 HEART RATE HAS INCREASED PEAKED T WAVES RESOLVED Electronically Signed On 09-04-2023 06:55:53 CDT by Jordan Ann D.O.
[2023-09-03 23:26] LABS: Troponin I 0.044 ng/mL (0.000-0.034)
[2023-09-03 23:29] LABS: Anion Gap 8 mmol/L (4-12); Blood Urea Nitrogen 21 mg/dL (7-17); Carbon Dioxide 31 mmol/L (22-30); Chloride 102 mmol/L (98-107); Estimated CRCL calculation 28 ml/min; Estimated Glomerular Filt Rate 30; Glucose 87 mg/dL (65-110); Potassium 3.9 mmol/L (3.4-5.0); Sodium 141 mmol/L (137-145)
[2023-09-04] VITALS (35 sets, daily range): BP systolic 93–136; BP diastolic 64–89; PULSE 89–120; RESP 11–19; TEMP 36.6–38.2; O2SAT 91–99
[2023-09-04] MEDS: CENTRAL LINE FLUSH 10 ML IV PUSH ×3 (06:00→22:00)
[2023-09-04 06:13] LABS: Basophils Absolute Auto 0.1 K/mm3 (0.0-0.1); Eosinophils Absolute Auto 0.3 K/mm3 (0-0.3); Eosinophils Percent Auto 3.6 % (0-4.4); Hematocrit 28.4 % (37.0-47.0); Hemoglobin 8.4 g/dL (12.0-15.0); Immature Granulocyte Absolute 0.05 K/mm3 (0.00-0.031); Immature Granulocyte Percent A 0.6 % (0-0.5); Lymphocytes Absolute Auto 1.49 K/mm3 (0.9-3.2); Lymphocytes Percent Auto 18.6 % (18.3-44.2); Mean Corpuscular HGB Conc 29.6 g/dl (32-36); Mean Corpuscular Hemoglobin 27.4 pg (26-34); Mean Corpuscular Volume 92.5 fl (80-100); Mean Platelet Volume 9.3 fl (7.4-10.4); Monocytes Percent Auto 12.2 % (2.6-8.5); Neutrophils Absolute Auto 5.1 K/mm3 (1.3-6.7); Platelet Count Result 160 k/mm3 (150-375); Red Blood Count 3.07 M/mm3 (4.2-5.4); Red Cell Distribution Width 17.9 % (11.5-14.5)
[2023-09-04 06:25] LABS: Alanine Aminotransferase 16 U/L (6-35); Albumin Level 3.5 g/dL (3.5-5.1); Alkaline Phosphatase 64 U/L (38-126); Anion Gap 7 mmol/L (4-12); Aspartate Amino Transferase 30 U/L (14-36); Bilirubin,Total 0.4 mg/dL (0.2-1.3); Blood Urea Nitrogen 27 mg/dL (7-17); Calcium 9.1 mg/dL (8.4-10.2); Carbon Dioxide 30 mmol/L (22-30); Chloride 104 mmol/L (98-107); Creatine Kinase 99 U/L (30-135); Estimated CRCL calculation 21 ml/min; Estimated Glomerular Filt Rate 21; Glucose 79 mg/dL (65-110); Magnesium 1.9 mg/dL (1.6-2.3); Phosphorus 5.1 mg/dL (2.5-4.5); Potassium 5.2 mmol/L (3.4-5.0); Sodium 141 mmol/L (137-145)
[2023-09-04] MEDS: DIVALPROEX SODIUM DR 250 MG TABEC 500 MG PO ×2 (06:26→20:37)
[2023-09-04] MEDS: LEVOTHYROXINE SODIUM 50 MCG TABLET PO (06:26)
[2023-09-04 06:55] LABS: Thyroid Stimulating Hormone Reflex 0.632 uIU/mL (0.465-4.68)
[2023-09-04 06:58] LABS: Anisocytosis 1+; Hypochromasia 1+; Platelet Estimate Adequate (Adequate); Schistocytes None Seen
[2023-09-04 07:06] LABS: Hemoglobin A1C 5.5 % (<5.7)
[2023-09-04 08:21] LABS: Glucose Point of Care 68 mg/dl (65-105)
[2023-09-04] MEDS: DEXTROSE 50% 25 GM/50 ML SYRINGE IV PUSH (08:28)
[2023-09-04] MEDS: SODIUM ZIRCONIUM CYCLOSILICATE 10 GM POWD.PACK PO (08:40)
[2023-09-04] MEDS: ENOXAPARIN 30 MG/0.3 ML SYRINGE SUB-Q (08:44)
[2023-09-04 08:54] LABS: Glucose Point of Care 126 mg/dl (65-105)
--- NOTE | 2023-09-04 09:08 | WPDCNINT ---
Assessment and Plan Assessment and plan (1) Hyperkalemia: Code(s): E87.5 - Hyperkalemia Status: Acute Assessment and Plan: Patient presented with potassium level of 10 with EKG changes She was treated chemically in the ER blood by emergency dialysis last night Her potassium is 5.2 this morning and I will give her 1 dose of Lokelma I have spoken to seasoning sprayer and will plan to dialyze her again today Continue monitor electrolytes (2) Multiple transverse process fractures: Status: Acute Assessment and Plan: C-collar is in place neurosurgery has been consulted Neuro checks ordered Discussed with neurosurgeon and in light of some weakness on the left side he requested MRI C-spine routine which has been ordered (3) Hypertension: Qualifiers: Hypertension type: secondary to other renal disorders Qualified Code(s): I15.1 - Hypertension secondary to other renal disorders Code(s): I10 - Essential (primary) hypertension Status: Chronic Assessment and Plan: Continue amlodipine (4) Chronic kidney disease (CKD), stage V: Code(s): N18.5 - Chronic kidney disease, stage 5 Status: Chronic Assessment and Plan: Patient has history of chronic kidney disease did secondary to diabetes and hypertension Which likely has progressed to end-stage renal disease Patient is now on dialysis Nephrology swallowing and will defer further management to seasoning sprayer (5) Type 2 diabetes mellitus with diabetic chronic kidney disease: Qualifiers: Chronic kidney disease stage: stage 5, not on chronic dialysis Diabetes mellitus half-way insulin use: without regional intermodal truck driver use Qualified Code(s): E11.22 - Type 2 diabetes mellitus with diabetic chronic kidney disease; N18.5 - Chronic kidney disease, stage 5 Code(s): E11.22 - Type 2 diabetes mellitus with diabetic chronic kidney disease Status: Chronic Assessment and Plan: Sliding scale is ordered patient had episode of hypoglycemia this morning hence I will hold glipizide for now Hyperglycemia was treated and will be monitored Patient has orders for diet (6) Hypothyroidism, unspecified: Code(s): E03.9 - Hypothyroidism, unspecified Status: Chronic Assessment and Plan: TSH is normal Continue Levothyroxine at 50 micro (7) Bipolar disorder, unspecified: Qualifiers: Active/Remission status: remission status unspecified Qualified Code(s): F31.9 - Bipolar disorder, unspecified Code(s): F31.9 - Bipolar disorder, unspecified Status: Chronic Assessment and Plan: Continue patient's home medications of trifluoperazine valproic acid chlorpromazine and benztropine (8) Acute UTI: Code(s): N39.0 - Urinary tract infection, site not specified Status: Acute Assessment and Plan: UA suggestive of UTI Urine cultures ordered Continue Rocephin (9) Acute metabolic encephalopathy: Code(s): G93.41 - Metabolic encephalopathy Status: Acute Assessment and Plan: Patient appears drowsy this morning. She was arousable and oriented but appears sleepy. Only until 10:00 a.m. she became fully awake and alert. She received her psychiatric medicine last night and they could be playing a role I have decreased the dose of chlorpromazine to 50 mg at this time I will also check ammonia level since patient is on valproic acid Her TSH was normal Head CT and CT spine were normal Hold all other sedatives Plan DVT prophylaxis -Lovenox Stress ulcer prophylaxis -Protonix Nutrition -diet ordered Code Status - Full Code Total Critical Care Time - 35 minutes Due to a high probability of clinically significant, life threatening deterioration, the patient required my highest level of preparedness to intervene emergently and I personally spent this critical care time directly and personally managing the patient. This critical care time included obtaining a hist
[2023-09-04] MEDS: SODIUM CHLORIDE 0.9% IV 1,000 ML 999 ML IV CONT (10:00)
--- NOTE | 2023-09-04 10:50 | PM.PNNEP ---
Progress Note: A&P Assessment and Plan (1) Hyperkalemia: Code(s): E87.5 - Hyperkalemia Status: Acute Assessment and Plan: quite severe on presentation - K+ was 10.0!!! etiology not clear -- seems a bit out of proportion to degree of kidney disease (as was not present before) s/p medical management in the ER emergent dialysis yesterday HD today for further optimization of K+ may require further dialysis treatments depending of trend of K+ level (2) Chronic kidney disease (CKD), stage V: Code(s): N18.5 - Chronic kidney disease, stage 5 Status: Chronic Assessment and Plan: baseline creatinine runs around 3.7 - 4.1mg/dl thought to be secondary to her diabetes, hypertension, vascular disease and possibly 40 years of lithium use slow progression noted in the last few months will likely need intermediate frame tender renal replacement therapy soon (although her issues with hyperkalemia as noted on this admission may have pushed the need for LABEL MAKER to be needed sooner) (3) Status post fall: Code(s): Z91.81 - History of falling Status: Acute Assessment and Plan: as noted by history caused by hyperkalemia(?) PT/OT once more stable imaging noted/reviewed (4) C7 cervical fracture: Qualifiers: Encounter type: initial encounter Fracture alignment: nondisplaced Fracture morphology: unspecified fracture morphology Fracture type: closed Qualified Code(s): S12.601A - Unspecified nondisplaced fracture of seventh cervical vertebra, initial encounter for closed fracture Code(s): S12.600A - Unspecified displaced fracture of seventh cervical vertebra, initial encounter for closed fracture Status: Acute Assessment and Plan: as noted by admission imaging cervical collar in place Neurosurgery consulted (5) Acute UTI: Code(s): N39.0 - Urinary tract infection, site not specified Status: Acute Assessment and Plan: admission UA suggestive follow culture data on antibiotics (6) Anemia: Qualifiers: Anemia type: due to chronic kidney disease Chronic kidney disease stage: stage 5, not on chronic dialysis Qualified Code(s): N18.5 - Chronic kidney disease, stage 5; D63.1 - Anemia in chronic kidney disease Code(s): D64.9 - Anemia, unspecified Status: Chronic Assessment and Plan: presumably related to advanced CKD follow trend of H/H Epogen with HD today (7) Hypertension: Qualifiers: Hypertension type: secondary to other renal disorders Qualified Code(s): I15.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 Subjective Date/time seen: 09/04/23 10:50 Interval history: Follow-up for hyperkalemia and chronic kidney disease. S/P emergent dialysis yesterday afternoon/evening for severe hyperkalemia -- tolerated treatment well with post HD treatment potassium down to 4.3; tolerating repeat dialysis treatment this morning (seen on HD at 10:40AM); major complaint in that if neck and associated bilateral upper arm pain; more awake and alert in comparison to earlier this morning. Exam Narrative: General: WD/WN female in NAD; cervical collar in place Heart: normal S1 and S2; no rub Lungs: clear to auscultation Abdomen: soft, nontender, nondistended, positive bowel sounds Extremities: no cyanosis or clubbing; no edema Skin: warm and dry Objective Data Vital Signs Vital Signs: Vital Signs Temp Pulse Resp BP Pul
--- NOTE | 2023-09-04 10:50 | P.PNNP_ITS ---
Progress Note: A&P Assessment and Plan (1) Hyperkalemia: Code(s): E87.5 - Hyperkalemia Status: Acute Assessment and Plan: * quite severe on presentation - K+ was 10.0!!! * etiology not clear -- seems a bit out of proportion to degree of kidney disease (as was not present before) * s/p medical management in the ER * emergent dialysis yesterday * HD today for further optimization of K+ * may require further dialysis treatments depending of trend of K+ level (2) Chronic kidney disease (CKD), stage V: Code(s): N18.5 - Chronic kidney disease, stage 5 Status: Chronic Assessment and Plan: * baseline creatinine runs around 3.7 - 4.1mg/dl * thought to be secondary to her diabetes, hypertension, vascular disease and possibly 40 years of lithium use * slow progression noted in the last few months * will likely need snf renal replacement therapy soon (although her issues with hyperkalemia as noted on this admission may have pushed the need for PROBATION WORKER to be needed sooner) (3) Status post fall: Code(s): Z91.81 - History of falling Status: Acute Assessment and Plan: * as noted by history * caused by hyperkalemia(?) * PT/OT once more stable * imaging noted/reviewed (4) C7 cervical fracture: Qualifiers: Encounter type: initial encounter Fracture alignment: nondisplaced Fracture morphology: unspecified fracture morphology Fracture type: closed Qualified Code(s): S12.601A - Unspecified nondisplaced fracture of seventh cervical vertebra, initial encounter for closed fracture Code(s): S12.600A - Unspecified displaced fracture of seventh cervical vertebra, initial encounter for closed fracture Status: Acute Assessment and Plan: * as noted by admission imaging * cervical collar in place * Neurosurgery consulted (5) Acute UTI: Code(s): N39.0 - Urinary tract infection, site not specified Status: Acute Assessment and Plan: * admission UA suggestive * follow culture data * on antibiotics (6) Anemia: Qualifiers: Anemia type: due to chronic kidney disease Chronic kidney disease stage: stage 5, not on chronic dialysis Qualified Code(s): N18.5 - Chronic kidney disease, stage 5; D63.1 - Anemia in chronic kidney disease Code(s): D64.9 - Anemia, unspecified Status: Chronic Assessment and Plan: * presumably related to advanced CKD * follow trend of H/H * Epogen with HD today (7) Hypertension: Qualifiers: Hypertension type: secondary to other renal disorders Qualified Code(s): I15.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 Subjective Date/time seen: 09/04/23 10:50 Interval history: Follow-up for hyperkalemia and chronic kidney disease. S/P emergent dialysis yesterday afternoon/evening for severe hyperkalemia -- tolerated treatment well with post HD treatment potassium down to 4.3; tolerating repeat dialysis treatment this morning (seen on HD at 10:40AM); major complaint in that if neck and associa
--- NOTE | 2023-09-04 11:21 | WPDNEUROSGCN ---
Assessment and Plan Assessment and plan (1) C7 cervical fracture: Qualifiers: Encounter type: initial encounter Fracture type: closed Fracture morphology: unspecified fracture morphology Fracture alignment: nondisplaced Qualified Code(s): S12.601A - Unspecified nondisplaced fracture of seventh cervical vertebra, initial encounter for closed fracture Code(s): S12.600A - Unspecified displaced fracture of seventh cervical vertebra, initial encounter for closed fracture Status: Acute Assessment and Plan: Fracture appears stable. Continue cervical collar for now (2) Status post fall: Code(s): Z91.81 - History of falling Status: Acute (3) Cervical radiculopathy at C7: Code(s): M54.12 - Radiculopathy, cervical region Status: Acute Assessment and Plan: Likely 2/2 fracture. Needs cervical MRI when stable- can wait until Mon/Tu Plan Cervical collar for fracture Cervical MRI w/o contrast for left C7 weakness Consult date: 09/04/23 HPI: Nicky Villalobos is a 63 year old female with PMH of anxiety/depression, bipolar disorder, CKD, HTN, hypothyroidism, secondary renal hyperparathyroidism, type 2 diabetes, and vitamin-D deficiency. She was admitted through the ED yesterday after a ground level fall. Denied head strike. Admission diagnoses include CKD grade V with hyperkalemia (10), started on emergent dialysis. Evaluation in ED revealed cervical fracture and Neurosurgery consulted. She complains of a neck pain at present (5/10) with pain in both arms. Admits to some numbness in her left hand. PENDING SALE TO [facility] Past Medical History Medical History Anxiety Bipolar disorder, unspecified Chronic kidney disease, stage IV (severe) Depression Hypertensive chronic kidney disease with stage 1 through stage 4 chronic kidney disease, or unspecified chronic kidney disease Hypothyroidism, unspecified Obesity (BMI 30-39.9) Pneumonia Pure hypercholesterolemia, unspecified Secondary renal hyperparathyroidism Stage 5 chronic kidney disease Type 2 diabetes mellitus with diabetic chronic kidney disease Uterine cancer Vitamin D deficiency Surgical History Surgical History History of colonoscopy with polypectomy History of hysterectomy for cancer Family History Family History Father Acute myocardial infarction Mother Diabetes mellitus Heart disease Emphysema lung Sibling Breast cancer Sibling Heart disease Diabetes mellitus Social History Social History Social History: Surrogate medical decision maker: Radha Cheng, . Code status: Full code. Smoking status: Never smoker Second hand tobacco smoke exposure: No Alcohol intake: never Substance use: never Substance use type: does not use Do You Feel Safe in your Home?: Yes Lack of Transportation: No Lack of Food: Never True Current Housing: I Have Housing Concerned About Future Housing: No Difficulty Paying Gas/Electric Bills: No Difficulty Paying for Meds: No Currently Unemployed: No Education: Bachelor's Degree Difficulty w/ Childcare or Family Care: No Living arrangements: alone Occupation/Education: retired Gender identity (if verbalized by the patient): Female Spiritual care concerns: No Agree to blood products: Yes Meds Home Medications and Allergies Home Medications Medication Instructions Recorded Confirmed Type benztropine 0.5 mg tablet 0.5 mg PO BID 06/09/21 09/03/23 History chlorpromazine 100 mg tablet 100 mg PO QHS 06/09/21 09/03/23 History trifluoperazine 2 mg tablet 2 mg PO QHS 06/09/21 09/03/23 History pantoprazole 40 mg tablet,delayed 40 mg PO QAM #30 tabs 05/25/23 09/03/23 Rx release amlodipine 10 mg tablet 10 mg PO DAILY 05/29/23 09/03/23 Histo
[2023-09-04] MEDS: PANTOPRAZOLE 40 MG TABLET PO (11:43)
[2023-09-04] MEDS: ACETAMINOPHEN 500 MG TABLET PO ×2 (11:43→20:37)
[2023-09-04 11:48] LABS: Glucose Point of Care 102 mg/dl (65-105)
[2023-09-04] MEDS: EPOETIN ALFA-EPBX 10,000 UNITS/ML VIAL 10000 UNITS IV PUSH (12:29)
[2023-09-04 13:51] LABS: Ammonia < 9 umol/L (9-30)
--- NOTE | 2023-09-04 14:15 | PM.IMPN ---
Progress Note: A&P Assessment and Plan (1) Hyperkalemia: Code(s): E87.5 - Hyperkalemia Status: Acute Assessment and Plan: - K 10.5, repeat 9.5 - emergent dialysis started 09/03/2023 - general surgery consulted for dialysis catheter placement, right femoral Mihai temporary dialysis catheter placed on 09/02 - nephrology consulted for emergent dialysis - telemetry monitoring (2) Chronic kidney disease (CKD), stage V: Code(s): N18.5 - Chronic kidney disease, stage 5 Status: Chronic Assessment and Plan: - creatinine 4.4, GFR 10, BUN 74 - baseline creatinine: 3.7-4.1 - nephrology consulted, per note patient may need HD long-term soon - dialysis, further treatments dependent on K level - trend renal function - trend electrolytes, correct as needed (3) C7 cervical fracture: Qualifiers: Encounter type: initial encounter Fracture type: closed Fracture morphology: unspecified fracture morphology Fracture alignment: nondisplaced Qualified Code(s): S12.601A - Unspecified nondisplaced fracture of seventh cervical vertebra, initial encounter for closed fracture Code(s): S12.600A - Unspecified displaced fracture of seventh cervical vertebra, initial encounter for closed fracture Status: Acute Assessment and Plan: due to fall - C-spine CT: Acute nondisplaced fracture of the left facet/transverse process of C7. Additional nondisplaced fracture of the right C7 transverse process. - neurosurgery consulted - Sarah Ann C-collar in place - no focal deficits on exam Plan for MRI as ordered (4) Fall: Qualifiers: Encounter type: initial encounter Qualified Code(s): W19.XXXA - Unspecified fall, initial encounter Code(s): W19.XXXA - Unspecified fall, initial encounter Status: Acute Assessment and Plan: - fall precautions - trauma workup significant for C7 fx - shoulder XR, CXR, and CT chest/abd/pelvis showed no injury or acute fracture - PT/OT eval and treat once more stable (5) Acute UTI: Code(s): N39.0 - Urinary tract infection, site not specified Status: Acute Assessment and Plan: - UA: Cloudy, 1+ protein, 1+ glucose, 1+ blood, 2+ leuks, 51-100 WBC, no epithelial cells, 4+ bacteria - UC pending, obtained on 09/02 - previous micro reviewed: Aerococcus urinae, pansensitive - started on Ceftriaxone on 09/02 (6) Bipolar disorder, unspecified: Qualifiers: Active/Remission status: remission status unspecified Qualified Code(s): F31.9 - Bipolar disorder, unspecified Code(s): F31.9 - Bipolar disorder, unspecified Status: Chronic Assessment and Plan: - continue home medications as prescribed, sister spoke with staff and reported that any alterations/disruptions to her home medications would cause her to have behavioral changes that are persistent for weeks - monitor mood (7) Anemia: Qualifiers: Anemia type: due to chronic kidney disease Chronic kidney disease stage: stage 5, not on chronic dialysis Qualified Code(s): N18.5 - Chronic kidney disease, stage 5; D63.1 - Anemia in chronic kidney disease Code(s): D64.9 - Anemia, unspecified Status: Chronic Assessment and Plan: - hemoglobin 9.2, MCV 92.2, MCHC 29.8 - previous Hgb 10.5 in 05/2023 - likely anemia in setting of CKD, per Nephrology consider empiric Epogen - monitor (8) Type 2 diabetes mellitus with diabetic chronic kidney disease: Qualifiers: Diabetes mellitus laborer marine terminal insulin use: without laborer marine terminal use Chronic kidney disease stage: stage 5, not on chronic dialysis Qualified Code(s): E11.22 - Type 2 diabetes mellitus with diabetic chronic kidney disease; N18.5 - Chronic kidney disease, stage 5 Code(s): E11.22 - Type 2 diabetes mellitus with diabetic chronic kidney disease Status: Chronic Assessment and Plan: - hypoglycemia protocol - PO
[2023-09-04] MEDS: BENZTROPINE MESYLATE 0.5 MG TABLET PO (15:42)
[2023-09-04] MEDS: DIVALPROEX SODIUM DR 250 MG TABEC PO (15:42)
[2023-09-04 16:08] LABS: Glucose Point of Care 80 mg/dl (65-105)
[2023-09-04] MEDS: SODIUM BICARBONATE TAB 650 MG TABLET PO (20:37)
[2023-09-04] MEDS: chlorproMAZINE HCL 25 MG TABLET 50 MG PO (20:38)
[2023-09-04 20:53] LABS: Glucose Point of Care 210 mg/dl (65-105)
--- NOTE | 2023-09-04 21:51 | ADMGEN ---
This patient, Nicky Villalobos, was admitted to Intensive Care Unit-8 at 2144. Patient/family oriented to hospital policies and general routines including ID bracelet, bed and alarms, visiting hours, pain management, procedures, bathroom and other care routines, personal items, smoking policy, room service/diet, and visiting hours. Information on how to activate the Rapid Response Team has been discussed. Patient/Family are encouraged to report perceived risks to care and to ask questions if they do not understand what they are told or what they should do.
[2023-09-05] VITALS (11 sets, daily range): BP systolic 98–142; BP diastolic 74–127; PULSE 80–107; RESP 11–20; TEMP 36.5–37.6; O2SAT 84–100
[2023-09-05 05:21] LABS: Hematocrit 26.8 % (37.0-47.0); Hemoglobin 8.2 g/dL (12.0-15.0); Mean Corpuscular HGB Conc 30.6 g/dl (32-36); Mean Corpuscular Hemoglobin 28.4 pg (26-34); Mean Corpuscular Volume 92.7 fl (80-100); Mean Platelet Volume 9.4 fl (7.4-10.4); Platelet Count Result 151 k/mm3 (150-375); Red Blood Count 2.89 M/mm3 (4.2-5.4); Red Cell Distribution Width 17.3 % (11.5-14.5); White Blood Count 6.8 K/mm3 (4.5-10.0)
[2023-09-05] MEDS: ACETAMINOPHEN 500 MG TABLET PO ×2 (05:28→16:24)
[2023-09-05 05:29] LABS: Alanine Aminotransferase 16 U/L (6-35); Albumin Level 3.1 g/dL (3.5-5.1); Alkaline Phosphatase 59 U/L (38-126); Anion Gap 5 mmol/L (4-12); Aspartate Amino Transferase 26 U/L (14-36); Bilirubin,Total 0.2 mg/dL (0.2-1.3); Blood Urea Nitrogen 26 mg/dL (7-17); Carbon Dioxide 29 mmol/L (22-30); Chloride 106 mmol/L (98-107); Estimated CRCL calculation 19 ml/min; Estimated Glomerular Filt Rate 19; Glucose 97 mg/dL (65-110); Potassium 4.1 mmol/L (3.4-5.0); Sodium 140 mmol/L (137-145)
[2023-09-05] MEDS: LEVOTHYROXINE SODIUM 50 MCG TABLET PO (06:18)
[2023-09-05] MEDS: DIVALPROEX SODIUM DR 250 MG TABEC 500 MG PO ×2 (06:18→20:49)
[2023-09-05] MEDS: CENTRAL LINE FLUSH 10 ML IV PUSH ×3 (06:19→21:06)
[2023-09-05] MEDS: PANTOPRAZOLE 40 MG TABLET PO (08:06)
[2023-09-05] MEDS: ENOXAPARIN 30 MG/0.3 ML SYRINGE SUB-Q (08:06)
[2023-09-05] MEDS: BENZTROPINE MESYLATE 0.5 MG TABLET PO ×2 (08:06→16:13)
[2023-09-05] MEDS: amLODIPine BESYLATE 5 MG TABLET PO (08:08)
[2023-09-05 08:10] LABS: Glucose Point of Care 111 mg/dl (65-105)
--- NOTE | 2023-09-05 08:36 | WPDINTPN ---
Progress Note: A&P Assessment and Plan (1) Hyperkalemia: Code(s): E87.5 - Hyperkalemia Status: Acute Assessment and Plan: Patient presented with potassium level of 10 with EKG changes She was treated chemically in the ER blood by emergency dialysis last night Her potassium is 5.2 this morning and I will give her 1 dose of Lokelma Patient was dialyzed over last 2 days and hyperkalemia has resolved Continue monitor electrolytes (2) Multiple transverse process fractures: Status: Acute Assessment and Plan: C-collar is in place neurosurgery has been consulted Neuro checks ordered Discussed with neurosurgeon and in light of some weakness on the left side he requested MRI C-spine routine which has been ordered and pending Exam as above (3) Hypertension: Qualifiers: Hypertension type: secondary to other renal disorders Qualified Code(s): I15.1 - Hypertension secondary to other renal disorders Code(s): I10 - Essential (primary) hypertension Status: Chronic Assessment and Plan: Continue amlodipine but decrease dose to 5 mg (4) Chronic kidney disease (CKD), stage V: Code(s): N18.5 - Chronic kidney disease, stage 5 Status: Chronic Assessment and Plan: Patient has history of chronic kidney disease did secondary to diabetes and hypertension Which likely has progressed to end-stage renal disease Patient is now on dialysis and was dialyzed last 2 days Nephrology following and will defer further management to arrow point attacher (5) Type 2 diabetes mellitus with diabetic chronic kidney disease: Qualifiers: Diabetes mellitus oysterman insulin use: without oysterman use Chronic kidney disease stage: stage 5, not on chronic dialysis Qualified Code(s): E11.22 - Type 2 diabetes mellitus with diabetic chronic kidney disease; N18.5 - Chronic kidney disease, stage 5 Code(s): E11.22 - Type 2 diabetes mellitus with diabetic chronic kidney disease Status: Chronic Assessment and Plan: Sliding scale is ordered patient had episode of hypoglycemia this morning hence I will hold glipizide for now Hyperglycemia was treated and will be monitored Patient has orders for diet Sliding scale is ordered (6) Hypothyroidism, unspecified: Code(s): E03.9 - Hypothyroidism, unspecified Status: Chronic Assessment and Plan: TSH is normal Continue Levothyroxine at 50 micro (7) Bipolar disorder, unspecified: Qualifiers: Active/Remission status: remission status unspecified Qualified Code(s): F31.9 - Bipolar disorder, unspecified Code(s): F31.9 - Bipolar disorder, unspecified Status: Chronic Assessment and Plan: Continue patient's home medications of trifluoperazine valproic acid chlorpromazine and benztropine (8) Acute UTI: Code(s): N39.0 - Urinary tract infection, site not specified Status: Acute Assessment and Plan: UA suggestive of UTI Urine cultures ordered Continue Rocephin (9) Acute metabolic encephalopathy: Code(s): G93.41 - Metabolic encephalopathy Status: Acute Assessment and Plan: 09/03 Patient appears drowsy this morning. She was arousable and oriented but appears sleepy. Only until 10:00 a.m. she became fully awake and alert. She received her psychiatric medicine last night and they could be playing a role I decreased the dose of chlorpromazine to 50 mg at this time Ammonia level was normal Her TSH was normal Head CT and CT spine were normal 09/04 patient much more awake and alert this morning. Continue to Hold all other sedatives Plan DVT prophylaxis -Lovenox Stress ulcer prophylaxis -Protonix Nutrition -diet ordered Code Status - Full Code Incentive spirometry Transfer out of ICU today Subjective Date/time seen: 09/05/23 Patient was again dialyzed yesterday. This morning she is much more awake and alert and states she feels much better and is getti
--- NOTE | 2023-09-05 09:28 | PM.PNNEP ---
Progress Note: A&P Assessment and Plan (1) Hyperkalemia: Code(s): E87.5 - Hyperkalemia Status: Acute Assessment and Plan: resolved/resolving quite severe on presentation - K+ was 10.0!!! etiology not clear -- seems a bit out of proportion to degree of kidney disease (as was not present before) s/p medical management in the ER emergent dialysis on 09/02 repeat HD yesterday for further optimization of K+ may require further dialysis treatments depending of trend of K+ level (2) Chronic kidney disease (CKD), stage V: Code(s): N18.5 - Chronic kidney disease, stage 5 Status: Chronic Assessment and Plan: baseline creatinine runs around 3.7 - 4.1mg/dl thought to be secondary to her diabetes, hypertension, vascular disease and possibly 40 years of lithium use slow progression noted in the last few months will likely need long-term renal replacement therapy soon (although her issues with hyperkalemia as noted on this admission may have pushed the need for QUILL MACHINE TENDER to be needed sooner) (3) Status post fall: Code(s): Z91.81 - History of falling Status: Acute Assessment and Plan: as noted by history caused by hyperkalemia(?) PT/OT once more stable imaging noted/reviewed (4) C7 cervical fracture: Qualifiers: Encounter type: initial encounter Fracture alignment: nondisplaced Fracture morphology: unspecified fracture morphology Fracture type: closed Qualified Code(s): S12.601A - Unspecified nondisplaced fracture of seventh cervical vertebra, initial encounter for closed fracture Code(s): S12.600A - Unspecified displaced fracture of seventh cervical vertebra, initial encounter for closed fracture Status: Acute Assessment and Plan: as noted by admission imaging cervical collar in place Neurosurgery following awaiting MRI of cervical spine (5) Acute UTI: Code(s): N39.0 - Urinary tract infection, site not specified Status: Acute Assessment and Plan: admission UA suggestive follow culture data - E.coli noted on antibiotics (6) Anemia: Qualifiers: Anemia type: due to chronic kidney disease Chronic kidney disease stage: stage 5, not on chronic dialysis Qualified Code(s): N18.5 - Chronic kidney disease, stage 5; D63.1 - Anemia in chronic kidney disease Code(s): D64.9 - Anemia, unspecified Status: Chronic Assessment and Plan: presumably related to advanced CKD follow trend of H/H Epogen with HD (7) Hypertension: Qualifiers: Hypertension type: secondary to other renal disorders Qualified Code(s): I15.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 Subjective Date/time seen: 09/05/23 09:28 Interval history: Follow-up for hyperkalemia and chronic kidney disease. Tolerated dialysis morning without any issue or problems; mentation seems to be relatively stable at this time; no apparent distress voiced at the time of my visit; remains hemodynamically stable; noted plans for transfer out of ICU; further imaging to be done regarding C7 cervical fracture. Exam Narrative: General: WD/WN female in NAD; cervical collar in place Heart: normal S1 and S2; no rub Lungs: clear to auscultation Abdomen: soft, nontender, nondistended, positive bowel sounds Extremities: no cyanosis or clubbing; no edema Skin: warm and intact Objective Data Vital Signs Vital Signs: Vital Signs Temp Puls
--- NOTE | 2023-09-05 09:28 | P.PNNP_ITS ---
Progress Note: A&P Assessment and Plan (1) Hyperkalemia: Code(s): E87.5 - Hyperkalemia Status: Acute Assessment and Plan: * resolved/resolving * quite severe on presentation - K+ was 10.0!!! * etiology not clear -- seems a bit out of proportion to degree of kidney disease (as was not present before) * s/p medical management in the ER * emergent dialysis on 09/02 * repeat HD yesterday for further optimization of K+ * may require further dialysis treatments depending of trend of K+ level (2) Chronic kidney disease (CKD), stage V: Code(s): N18.5 - Chronic kidney disease, stage 5 Status: Chronic Assessment and Plan: * baseline creatinine runs around 3.7 - 4.1mg/dl * thought to be secondary to her diabetes, hypertension, vascular disease and possibly 40 years of lithium use * slow progression noted in the last few months * will likely need watermelon inspector renal replacement therapy soon (although her issues with hyperkalemia as noted on this admission may have pushed the need for TRACK ANNOUNCER to be needed sooner) (3) Status post fall: Code(s): Z91.81 - History of falling Status: Acute Assessment and Plan: * as noted by history * caused by hyperkalemia(?) * PT/OT once more stable * imaging noted/reviewed (4) C7 cervical fracture: Qualifiers: Encounter type: initial encounter Fracture alignment: nondisplaced Fracture morphology: unspecified fracture morphology Fracture type: closed Qualified Code(s): S12.601A - Unspecified nondisplaced fracture of seventh cervical vertebra, initial encounter for closed fracture Code(s): S12.600A - Unspecified displaced fracture of seventh cervical vertebra, initial encounter for closed fracture Status: Acute Assessment and Plan: * as noted by admission imaging * cervical collar in place * Neurosurgery following * awaiting MRI of cervical spine (5) Acute UTI: Code(s): N39.0 - Urinary tract infection, site not specified Status: Acute Assessment and Plan: * admission UA suggestive * follow culture data - E.coli noted * on antibiotics (6) Anemia: Qualifiers: Anemia type: due to chronic kidney disease Chronic kidney disease stage: stage 5, not on chronic dialysis Qualified Code(s): N18.5 - Chronic kidney disease, stage 5; D63.1 - Anemia in chronic kidney disease Code(s): D64.9 - Anemia, unspecified Status: Chronic Assessment and Plan: * presumably related to advanced CKD * follow trend of H/H * Epogen with HD (7) Hypertension: Qualifiers: Hypertension type: secondary to other renal disorders Qualified Code(s): I15.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 Subjective Date/time seen: 09/05/23 09:28 Interval history: Follow-up for hyperkalemia and chronic kidney disease. Tolerated dialysis morning without any issue or problems; mentation seems to be relatively stable at this time; no apparent distress voiced at the time of my visit; remains hemodynamical
--- NOTE | 2023-09-05 11:12 | PC.NURSE ---
This patient, Nicky Villalobos, was received from ICU on 09/05/23 at 1112. Patient/family oriented to unit policies and routines. report received from Nitza MACIEL
[2023-09-05 11:55] LABS: Glucose Point of Care 155 mg/dl (65-105)
--- NOTE | 2023-09-05 12:08 | PM.IMPN ---
Progress Note: A&P Assessment and Plan (1) Hyperkalemia: Code(s): E87.5 - Hyperkalemia Status: Acute Assessment and Plan: - K 10.5, repeat 9.5 - emergent dialysis started 09/03/2023 - general surgery consulted for dialysis catheter placement, right femoral Mihai temporary dialysis catheter placed on 09/02 - nephrology consulted for emergent dialysis - telemetry monitoring will be discontinued now (2) Chronic kidney disease (CKD), stage V: Code(s): N18.5 - Chronic kidney disease, stage 5 Status: Chronic Assessment and Plan: - creatinine 4.4, GFR 10, BUN 74 - baseline creatinine: 3.7-4.1 - nephrology consulted, per note patient may need HD long-term soon - dialysis, further treatments dependent on K level - trend renal function - trend electrolytes, correct as needed For the dialysis per Nephrology (3) C7 cervical fracture: Qualifiers: Encounter type: initial encounter Fracture type: closed Fracture morphology: unspecified fracture morphology Fracture alignment: nondisplaced Qualified Code(s): S12.601A - Unspecified nondisplaced fracture of seventh cervical vertebra, initial encounter for closed fracture Code(s): S12.600A - Unspecified displaced fracture of seventh cervical vertebra, initial encounter for closed fracture Status: Acute Assessment and Plan: due to fall - C-spine CT: Acute nondisplaced fracture of the left facet/transverse process of C7. Additional nondisplaced fracture of the right C7 transverse process. - neurosurgery consulted - [place] C-collar in place - no focal deficits on exam Plan for MRI as ordered and done Continue C-collar (4) Fall: Qualifiers: Encounter type: initial encounter Qualified Code(s): W19.XXXA - Unspecified fall, initial encounter Code(s): W19.XXXA - Unspecified fall, initial encounter Status: Acute Assessment and Plan: - fall precautions - trauma workup significant for C7 fx - shoulder XR, CXR, and CT chest/abd/pelvis showed no injury or acute fracture - PT/OT eval and treat once more stable (5) Acute UTI: Code(s): N39.0 - Urinary tract infection, site not specified Status: Acute Assessment and Plan: - UA: Cloudy, 1+ protein, 1+ glucose, 1+ blood, 2+ leuks, 51-100 WBC, no epithelial cells, 4+ bacteria - UC pending, obtained on 09/02 - previous micro reviewed: Aerococcus urinae, pansensitive - started on Ceftriaxone on 09/02 Urine culture grew ESBL E coli will switch to meropenem (6) Bipolar disorder, unspecified: Qualifiers: Active/Remission status: remission status unspecified Qualified Code(s): F31.9 - Bipolar disorder, unspecified Code(s): F31.9 - Bipolar disorder, unspecified Status: Chronic Assessment and Plan: - continue home medications as prescribed, sister spoke with staff and reported that any alterations/disruptions to her home medications would cause her to have behavioral changes that are persistent for weeks - monitor mood (7) Anemia: Qualifiers: Anemia type: due to chronic kidney disease Chronic kidney disease stage: stage 5, not on chronic dialysis Qualified Code(s): N18.5 - Chronic kidney disease, stage 5; D63.1 - Anemia in chronic kidney disease Code(s): D64.9 - Anemia, unspecified Status: Chronic Assessment and Plan: - hemoglobin 9.2, MCV 92.2, MCHC 29.8 - previous Hgb 10.5 in 05/2023 - likely anemia in setting of CKD, per Nephrology consider empiric Epogen - monitor (8) Type 2 diabetes mellitus with diabetic chronic kidney disease: Qualifiers: Diabetes mellitus intermediate accountant insulin use: without intermediate accountant use Chronic kidney disease stage: stage 5, not on chronic dialysis Qualified Code(s): E11.22 - Type 2 diabetes mellitus with diabetic chronic kidney disease; N18.5 - Chronic kidney disease, stage 5 Code(s): E11.22 - Type 2
[2023-09-05 12:23] LABS: Creatinine Urine 13.6 mg/dL; Total Protein Urine Random 73 mg/dL; Ur Ttl Prot Creatinine Ratio 5.37 mg/mg (0-0.20); Urea Random Urine 79 MG/DL
[2023-09-05 12:26] LABS: Sodium Urine Random 46 meq/L
[2023-09-05 12:27] LABS: Eosinophil Urine None Seen % (None Seen); Urine Eos QC 2nd Tech Confirmed
[2023-09-05] MEDS: MEROPENEM 500 MG/NS 100 ML 500 MG/100 ML BAG 200 MG IVPB (13:23)
[2023-09-05] MEDS: DIVALPROEX SODIUM DR 250 MG TABEC PO (16:14)
[2023-09-05 16:54] LABS: Glucose Point of Care 98 mg/dl (65-105)
[2023-09-05] MEDS: chlorproMAZINE HCL 25 MG TABLET 50 MG PO (20:45)
[2023-09-05 21:58] LABS: Glucose Point of Care 181 mg/dl (65-105)
[2023-09-06] VITALS (8 sets, daily range): BP systolic 132–147; BP diastolic 72–89; PULSE 89–107; RESP 16–20; TEMP 36.4–36.9; O2SAT 94–100
[2023-09-06] MEDS: LEVOTHYROXINE SODIUM 50 MCG TABLET PO (06:03)
[2023-09-06] MEDS: CENTRAL LINE FLUSH 10 ML IV PUSH ×3 (06:03→20:24)
[2023-09-06] MEDS: DIVALPROEX SODIUM DR 250 MG TABEC 500 MG PO ×2 (06:03→20:23)
[2023-09-06 06:14] LABS: Hematocrit 29.9 % (37.0-47.0); Hemoglobin 8.7 g/dL (12.0-15.0); Mean Corpuscular HGB Conc 29.1 g/dl (32-36); Mean Corpuscular Hemoglobin 27.8 pg (26-34); Mean Corpuscular Volume 95.5 fl (80-100); Mean Platelet Volume 9.1 fl (7.4-10.4); Platelet Count Result 198 k/mm3 (150-375); Red Blood Count 3.13 M/mm3 (4.2-5.4); Red Cell Distribution Width 17.1 % (11.5-14.5); White Blood Count 7.8 K/mm3 (4.5-10.0)
[2023-09-06 06:27] LABS: Alanine Aminotransferase 14 U/L (6-35); Albumin Level 3.3 g/dL (3.5-5.1); Alkaline Phosphatase 66 U/L (38-126); Anion Gap 11 mmol/L (4-12); Aspartate Amino Transferase 20 U/L (14-36); Bilirubin,Total 0.3 mg/dL (0.2-1.3); Blood Urea Nitrogen 38 mg/dL (7-17); Calcium 9.3 mg/dL (8.4-10.2); Carbon Dioxide 23 mmol/L (22-30); Chloride 105 mmol/L (98-107); Estimated CRCL calculation 15 ml/min; Estimated Glomerular Filt Rate 14; Glucose 119 mg/dL (65-110); Magnesium 2.1 mg/dL (1.6-2.3); Potassium 3.9 mmol/L (3.4-5.0); Sodium 139 mmol/L (137-145)
[2023-09-06 07:55] LABS: Glucose Point of Care 117 mg/dl (65-105)
[2023-09-06] MEDS: ACETAMINOPHEN 500 MG TABLET PO ×2 (08:10→16:15)
[2023-09-06] MEDS: ENOXAPARIN 30 MG/0.3 ML SYRINGE SUB-Q (08:12)
[2023-09-06] MEDS: PANTOPRAZOLE 40 MG TABLET PO (08:13)
[2023-09-06] MEDS: amLODIPine BESYLATE 5 MG TABLET PO (08:14)
[2023-09-06] MEDS: BENZTROPINE MESYLATE 0.5 MG TABLET PO ×2 (08:14→16:17)
--- NOTE | 2023-09-06 10:06 | PM.IMPN ---
Progress Note: A&P Assessment and Plan (1) Hyperkalemia: Code(s): E87.5 - Hyperkalemia Status: Acute Assessment and Plan: - K 10.5, repeat 9.5 - emergent dialysis started 09/03/2023 - general surgery consulted for dialysis catheter placement, right femoral Mihai temporary dialysis catheter placed on 09/02 - nephrology consulted for emergent dialysis - telemetry monitoring will be discontinued now (2) Chronic kidney disease (CKD), stage V: Code(s): N18.5 - Chronic kidney disease, stage 5 Status: Chronic Assessment and Plan: - creatinine 4.4, GFR 10, BUN 74 - baseline creatinine: 3.7-4.1 - nephrology consulted, per note patient may need HD long-term soon - dialysis, further treatments dependent on K level - trend renal function - trend electrolytes, correct as needed Dialysis per Nephrology (3) C7 cervical fracture: Qualifiers: Encounter type: initial encounter Fracture type: closed Fracture morphology: unspecified fracture morphology Fracture alignment: nondisplaced Qualified Code(s): S12.601A - Unspecified nondisplaced fracture of seventh cervical vertebra, initial encounter for closed fracture Code(s): S12.600A - Unspecified displaced fracture of seventh cervical vertebra, initial encounter for closed fracture Status: Acute Assessment and Plan: due to fall - C-spine CT: Acute nondisplaced fracture of the left facet/transverse process of C7. Additional nondisplaced fracture of the right C7 transverse process. - neurosurgery consulted - [place] C-collar in place - no focal deficits on exam MRI cervical spine reveals nondisplaced C7 left lamina/facet fracture along with right transfer process C7 fracture also has mild compression fracture T3. No significant disc bulge or herniation seen at any cervical level with no spinal canal stenosis or cord compression may be bilateral neuroforaminal narrowing at C3-C4 and C4-C5. Continue C-collar (4) Fall: Qualifiers: Encounter type: initial encounter Qualified Code(s): W19.XXXA - Unspecified fall, initial encounter Code(s): W19.XXXA - Unspecified fall, initial encounter Status: Acute Assessment and Plan: - fall precautions - trauma workup significant for C7 fx - shoulder XR, CXR, and CT chest/abd/pelvis showed no injury or acute fracture - PT/OT eval and treat once more stable (5) Acute UTI: Code(s): N39.0 - Urinary tract infection, site not specified Status: Acute Assessment and Plan: - UA: Cloudy, 1+ protein, 1+ glucose, 1+ blood, 2+ leuks, 51-100 WBC, no epithelial cells, 4+ bacteria - UC pending, obtained on 09/02 - previous micro reviewed: Aerococcus urinae, pansensitive - started on Ceftriaxone on 09/02 Urine culture grew ESBL E coli will switch to meropenem day 1 (6) Bipolar disorder, unspecified: Qualifiers: Active/Remission status: remission status unspecified Qualified Code(s): F31.9 - Bipolar disorder, unspecified Code(s): F31.9 - Bipolar disorder, unspecified Status: Chronic Assessment and Plan: - continue home medications as prescribed, sister spoke with staff and reported that any alterations/disruptions to her home medications would cause her to have behavioral changes that are persistent for weeks - monitor mood (7) Anemia: Qualifiers: Anemia type: due to chronic kidney disease Chronic kidney disease stage: stage 5, not on chronic dialysis Qualified Code(s): N18.5 - Chronic kidney disease, stage 5; D63.1 - Anemia in chronic kidney disease Code(s): D64.9 - Anemia, unspecified Status: Chronic Assessment and Plan: - hemoglobin 9.2, MCV 92.2, MCHC 29.8 - previous Hgb 10.5 in 05/2023 - likely anemia in setting of CKD, per Nephrology consider empiric Epogen - monitor (8) Type 2 diabetes mellitus with diabetic chronic kidney disease: Qualifiers:
--- NOTE | 2023-09-06 10:39 | PM.PNNEP ---
Progress Note: A&P Assessment and Plan (1) Hyperkalemia: Code(s): E87.5 - Hyperkalemia Status: Acute Assessment and Plan: resolved/resolving quite severe on presentation - K+ was 10.0!!! etiology not clear -- seems a bit out of proportion to degree of kidney disease (as was not present before) s/p medical management in the ER emergent dialysis on 09/02 repeat HD on 09/03 for further optimization of K+ dialysis on hold now since K+ stable (2) Chronic kidney disease (CKD), stage V: Code(s): N18.5 - Chronic kidney disease, stage 5 Status: Chronic Assessment and Plan: baseline creatinine runs around 3.7 - 4.1mg/dl thought to be secondary to her diabetes, hypertension, vascular disease and possibly 40 years of lithium use slow progression noted in the last few months will likely need residential renal replacement therapy soon (although her issues with hyperkalemia as noted on this admission may have pushed the need for DUMP TRUCK DRIVER to be needed sooner) (3) Status post fall: Code(s): Z91.81 - History of falling Status: Acute Assessment and Plan: as noted by history caused by hyperkalemia(?) PT/OT once more stable imaging noted/reviewed (4) C7 cervical fracture: Qualifiers: Encounter type: initial encounter Fracture alignment: nondisplaced Fracture morphology: unspecified fracture morphology Fracture type: closed Qualified Code(s): S12.601A - Unspecified nondisplaced fracture of seventh cervical vertebra, initial encounter for closed fracture Code(s): S12.600A - Unspecified displaced fracture of seventh cervical vertebra, initial encounter for closed fracture Status: Acute Assessment and Plan: as noted by admission imaging cervical collar in place Neurosurgery following with further recommendations pending MRI of cervical spine noted (5) Acute UTI: Code(s): N39.0 - Urinary tract infection, site not specified Status: Acute Assessment and Plan: admission UA suggestive follow culture data - E.coli noted on antibiotics (6) Anemia: Qualifiers: Anemia type: due to chronic kidney disease Chronic kidney disease stage: stage 5, not on chronic dialysis Qualified Code(s): N18.5 - Chronic kidney disease, stage 5; D63.1 - Anemia in chronic kidney disease Code(s): D64.9 - Anemia, unspecified Status: Chronic Assessment and Plan: presumably related to advanced CKD follow trend of H/H Epogen with HD (7) Hypertension: Qualifiers: Hypertension type: secondary to other renal disorders Qualified Code(s): I15.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 Subjective Date/time seen: 09/06/23 10:39 Interval history: Follow-up for hyperkalemia and chronic kidney disease. Transferred out of ICU yesterday; major complaint is that of neck and shoulder pain; creatinine rising with holding dialysis but K+ has been stable and has been making good urine output since admission as well; no apparent distress voiced; no other issues/events to report. Exam Narrative: General: WD/WN female in NAD; cervical collar in place Heart: normal S1 and S2; no rub Lungs: clear to auscultation Abdomen: soft, nontender, nondistended, positive bowel sounds Extremities: no cyanosis or clubbing; no edema Skin: no rash Objective Data Vital Signs Vital Signs: Vital Signs Temp Pulse Resp BP Pulse Ox O2 Del Me
--- NOTE | 2023-09-06 10:39 | P.PNNP_ITS ---
Progress Note: A&P Assessment and Plan (1) Hyperkalemia: Code(s): E87.5 - Hyperkalemia Status: Acute Assessment and Plan: * resolved/resolving * quite severe on presentation - K+ was 10.0!!! * etiology not clear -- seems a bit out of proportion to degree of kidney disease (as was not present before) * s/p medical management in the ER * emergent dialysis on 09/02 * repeat HD on 09/03 for further optimization of K+ * dialysis on hold now since K+ stable (2) Chronic kidney disease (CKD), stage V: Code(s): N18.5 - Chronic kidney disease, stage 5 Status: Chronic Assessment and Plan: * baseline creatinine runs around 3.7 - 4.1mg/dl * thought to be secondary to her diabetes, hypertension, vascular disease and possibly 40 years of lithium use * slow progression noted in the last few months * will likely need exterminator helper termite renal replacement therapy soon (although her issues with hyperkalemia as noted on this admission may have pushed the need for LEASING REPRESENTATIVE to be needed sooner) (3) Status post fall: Code(s): Z91.81 - History of falling Status: Acute Assessment and Plan: * as noted by history * caused by hyperkalemia(?) * PT/OT once more stable * imaging noted/reviewed (4) C7 cervical fracture: Qualifiers: Encounter type: initial encounter Fracture alignment: nondisplaced Fracture morphology: unspecified fracture morphology Fracture type: closed Qualified Code(s): S12.601A - Unspecified nondisplaced fracture of seventh cervical vertebra, initial encounter for closed fracture Code(s): S12.600A - Unspecified displaced fracture of seventh cervical vertebra, initial encounter for closed fracture Status: Acute Assessment and Plan: * as noted by admission imaging * cervical collar in place * Neurosurgery following with further recommendations pending * MRI of cervical spine noted (5) Acute UTI: Code(s): N39.0 - Urinary tract infection, site not specified Status: Acute Assessment and Plan: * admission UA suggestive * follow culture data - E.coli noted * on antibiotics (6) Anemia: Qualifiers: Anemia type: due to chronic kidney disease Chronic kidney disease stage: stage 5, not on chronic dialysis Qualified Code(s): N18.5 - Chronic kidney disease, stage 5; D63.1 - Anemia in chronic kidney disease Code(s): D64.9 - Anemia, unspecified Status: Chronic Assessment and Plan: * presumably related to advanced CKD * follow trend of H/H * Epogen with HD (7) Hypertension: Qualifiers: Hypertension type: secondary to other renal disorders Qualified Code(s): I15.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 Subjective Date/time seen: 09/06/23 10:39 Interval history: Follow-up for hyperkalemia and chronic kidney disease. Transferred out of ICU yesterday; major complaint is that of neck and shoulder pain; creatinine rising with holding dialysis but K+ has been stable and has been making good urine output s
[2023-09-06 11:37] LABS: Glucose Point of Care 151 mg/dl (65-105)
[2023-09-06] MEDS: MEROPENEM 500 MG/NS 100 ML 500 MG/100 ML BAG 200 MG IVPB (12:16)
[2023-09-06] MEDS: DIVALPROEX SODIUM DR 250 MG TABEC PO (16:16)
--- NOTE | 2023-09-06 16:33 | WPDNEUROSGPN ---
Progress Note: A&P Assessment and Plan (1) Cervical radiculopathy at C7: Code(s): M54.12 - Radiculopathy, cervical region Status: Acute Assessment and Plan: No severe foraminal narrowing from either the fracture of the C6/7 facet on the left or any underlying disc abnormality. C7 radiculopathy likely from neuropraxia from the initial trauma. No urgent surgery indicated. (2) C7 cervical fracture: Qualifiers: Encounter type: initial encounter Fracture type: closed Fracture morphology: unspecified fracture morphology Fracture alignment: nondisplaced Qualified Code(s): S12.601A - Unspecified nondisplaced fracture of seventh cervical vertebra, initial encounter for closed fracture Code(s): S12.600A - Unspecified displaced fracture of seventh cervical vertebra, initial encounter for closed fracture Status: Acute Assessment and Plan: Continue cervical collar for 4 week. Will re-assess in clinic at that time. Plan Follow-up in Neurosurgery clinic in 4 weeks with cervical radiographs at that time. Please call for any further questions during this admission. Collar on whenever out of bed, sitting, ambulating, transports. Can have collar off when laying supine Subjective Date/time seen: 09/06/23 16:33 Interval history: Cervical MRI obtained Objective Data Vital Signs Vital Signs: Vital Signs - 24 hr 09/05/23 20:00 09/05/23 20:00 09/05/23 20:50 Temperature 36.5 C Pulse Rate 96 90 Respiratory Rate 20 Blood Pressure 140/83 Pulse Oximetry 99 Oxygen Delivery Room Air 09/06/23 00:00 09/06/23 00:00 09/06/23 04:00 Temperature 36.4 C Pulse Rate 106 H 96 107 H Respiratory Rate 20 Blood Pressure 132/72 Pulse Oximetry 94 Oxygen Delivery 09/06/23 04:00 09/06/23 08:09 09/06/23 08:00 Temperature 36.6 C Pulse Rate 105 H 93 94 Respiratory Rate 20 16 Blood Pressure 136/87 145/84 H Pulse Oximetry 100 99 Oxygen Delivery 09/06/23 08:12 09/06/23 12:00 09/06/23 12:00 Temperature 36.9 C Pulse Rate 97 103 H Respiratory Rate 16 Blood Pressure 136/89 Pulse Oximetry 96 Oxygen Delivery Room Air 09/06/23 15:54 09/06/23 16:00 Temperature 36.7 C Pulse Rate 101 H 104 H Respiratory Rate 16 Blood Pressure 142/86 H Pulse Oximetry 97 Oxygen Delivery Intake/Output Intake/Output: Intake & Output 09/03/23 09/04/23 09/05/23 09/06/23 23:59 23:59 23:59 23:59 Intake Total 600 1050 1590 1530 Output Total 800 1550 2975 3050 Balance -200 -910 -5225 -1520 Meds/Results Medications: Active Medications Generic Name Dose Route Start Last Admin Trade Name Freq PRN Reason Stop Dose Admin Acetaminophen 500 mg 09/03/23 23:25 09/06/23 16:15 Acetaminophen 500 Mg Tablet PO 500 mg Q6H PRN Administration Mild Pain (1-3) or Fever Hydrocodone Bitart/Acetaminophen 1 tab 09/06/23 10:06 Hydrocodone/Acetaminophen (*Crx) 5-325 Mg Tablet PO Q6H PRN Pain Rated 4-6 Amlodipine Besylate 5 mg 09/05/23 09:00 09/06/23 08:14 Amlodipine Besylate 5 Mg Tablet PO 5 mg DAILY VIRIDIANA Administration Benztropine Mesylate 0.5 mg 09/03/23 17:50 09/06/23 16:17 Benztropine Mesylate 0.5 Mg Tablet PO 0.5 mg BID VIRIDIANA Administration Chlorpromazine HCl 50 mg 09/04/23 21:00 09/05/23 20:45 Chlorpromazine Hcl 25 Mg Tablet PO 50 mg QHS VIRIDIANA Administration Dextrose 12.5 gm 09/03/23 23:15 09/04/23 08:28 Dextrose 50% 25 Gm/50 Ml Syringe IV PUSH 12.5 gm PRN PRN Administration Hypoglycemia Protocol Divalproex Sodium 250 mg 09/04/23 16:00 09/06/23 16:[address] 250 Mg Tabec PO 250 mg 1600 VIRIDIANA Administration Divalproex Sodium 500 mg 09/03/23 21:00 09/06/23 06:[address] 250 Mg Tabec PO 500 mg 0700,2100 VIRIDIANA Administration Enoxaparin Sodium 30 mg 09/04/23 09:00 09/06/23 08:12 Enoxaparin 30 Mg/0.3 Ml Syringe SUB-Q 30 mg DAILY VIRIDIANA
[2023-09-06 16:45] LABS: Glucose Point of Care 167 mg/dl (65-105)
[2023-09-06 20:11] LABS: Glucose Point of Care 199 mg/dl (65-105)
[2023-09-06] MEDS: chlorproMAZINE HCL 25 MG TABLET 50 MG PO (20:23)
[2023-09-07] VITALS (8 sets, daily range): BP systolic 124–145; BP diastolic 76–94; PULSE 75–110; RESP 16–20; TEMP 36.4–36.8; O2SAT 97–98
[2023-09-07 05:18] LABS: Hematocrit 27.9 % (37.0-47.0); Hemoglobin 8.7 g/dL (12.0-15.0); Mean Corpuscular HGB Conc 31.2 g/dl (32-36); Mean Corpuscular Hemoglobin 28.4 pg (26-34); Mean Corpuscular Volume 91.2 fl (80-100); Mean Platelet Volume 8.9 fl (7.4-10.4); Platelet Count Result 222 k/mm3 (150-375); Red Blood Count 3.06 M/mm3 (4.2-5.4); Red Cell Distribution Width 16.8 % (11.5-14.5); White Blood Count 7.6 K/mm3 (4.5-10.0)
[2023-09-07 05:34] LABS: Alanine Aminotransferase 16 U/L (6-35); Albumin Level 3.2 g/dL (3.5-5.1); Alkaline Phosphatase 64 U/L (38-126); Anion Gap 10 mmol/L (4-12); Aspartate Amino Transferase 22 U/L (14-36); Bilirubin,Total 0.3 mg/dL (0.2-1.3); Blood Urea Nitrogen 46 mg/dL (7-17); Calcium 9.2 mg/dL (8.4-10.2); Carbon Dioxide 24 mmol/L (22-30); Chloride 106 mmol/L (98-107); Estimated CRCL calculation 13 ml/min; Estimated Glomerular Filt Rate 12; Glucose 131 mg/dL (65-110); Potassium 4.5 mmol/L (3.4-5.0); Sodium 140 mmol/L (137-145)
[2023-09-07] MEDS: LEVOTHYROXINE SODIUM 50 MCG TABLET PO (05:55)
[2023-09-07] MEDS: CENTRAL LINE FLUSH 10 ML IV PUSH (05:56)
[2023-09-07] MEDS: DIVALPROEX SODIUM DR 250 MG TABEC 500 MG PO ×2 (05:57→21:08)
[2023-09-07] MEDS: ACETAMINOPHEN 500 MG TABLET PO ×2 (06:06→16:34)
[2023-09-07 08:21] LABS: Glucose Point of Care 160 mg/dl (65-105)
[2023-09-07] MEDS: ENOXAPARIN 30 MG/0.3 ML SYRINGE SUB-Q (08:34)
[2023-09-07] MEDS: PANTOPRAZOLE 40 MG TABLET PO (08:35)
[2023-09-07] MEDS: amLODIPine BESYLATE 5 MG TABLET PO (08:35)
[2023-09-07] MEDS: BENZTROPINE MESYLATE 0.5 MG TABLET PO ×2 (08:35→16:31)
[2023-09-07] MEDS: NEOMYCIN/POLYMYXIN/BACITRACIN OINTMENT PACKET 1 PACKET (09:55)
--- NOTE | 2023-09-07 10:21 | PM.PNNEP ---
Progress Note: A&P Assessment and Plan (1) Hyperkalemia: Code(s): E87.5 - Hyperkalemia Status: Acute Assessment and Plan: resolved/resolving quite severe on presentation - K+ was 10.0!!! etiology not clear -- seems a bit out of proportion to degree of kidney disease (as was not present before) s/p medical management in the ER emergent dialysis on 09/02 repeat HD on 09/03 for further optimization of K+ dialysis on hold now since K+ stable d/c femoral HD catheter (2) Chronic kidney disease (CKD), stage V: Code(s): N18.5 - Chronic kidney disease, stage 5 Status: Chronic Assessment and Plan: baseline creatinine runs around 3.7 - 4.1mg/dl thought to be secondary to her diabetes, hypertension, vascular disease and possibly 40 years of lithium use slow progression noted in the last few months will likely need longterm renal replacement therapy soon (although her issues with hyperkalemia as noted on this admission may have pushed the need for ELECTRIC MOTOR CONTROL ASSEMBLER to be needed sooner) (3) Status post fall: Code(s): Z91.81 - History of falling Status: Acute Assessment and Plan: as noted by history caused by hyperkalemia(?) PT/OT once more stable imaging noted/reviewed (4) C7 cervical fracture: Qualifiers: Encounter type: initial encounter Fracture alignment: nondisplaced Fracture morphology: unspecified fracture morphology Fracture type: closed Qualified Code(s): S12.601A - Unspecified nondisplaced fracture of seventh cervical vertebra, initial encounter for closed fracture Code(s): S12.600A - Unspecified displaced fracture of seventh cervical vertebra, initial encounter for closed fracture Status: Acute Assessment and Plan: as noted by admission imaging cervical collar in place Neurosurgery following with further recommendations pending MRI of cervical spine noted (5) Acute UTI: Code(s): N39.0 - Urinary tract infection, site not specified Status: Acute Assessment and Plan: admission UA suggestive follow culture data - E.coli noted on antibiotics (6) Anemia: Qualifiers: Anemia type: due to chronic kidney disease Chronic kidney disease stage: stage 5, not on chronic dialysis Qualified Code(s): N18.5 - Chronic kidney disease, stage 5; D63.1 - Anemia in chronic kidney disease Code(s): D64.9 - Anemia, unspecified Status: Chronic Assessment and Plan: presumably related to advanced CKD follow trend of H/H was getting Epogen with HD -- will likely transition to SQ (7) Hypertension: Qualifiers: Hypertension type: secondary to other renal disorders Qualified Code(s): I15.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 Subjective Date/time seen: 09/07/23 10:21 Interval history: Follow-up for hyperkalemia and chronic kidney disease. No apparent distress noted at the time of my visit; feels reasonably well; continue to make excellent urine output in spite of rising creatinine without dialytic support; no other issues/events overnight or earlier this morning; temporary femoral HD catheter has since been removed. Exam Narrative: General: WD/WN female in NAD; cervical collar in place Heart: normal S1 and S2; no rub Lungs: clear to auscultation Abdomen: soft, nontender, nondistended, positive bowel sounds Extremities: no cyanosis or clubbing; no edema Skin: no nodules Objective Data Vi
--- NOTE | 2023-09-07 10:21 | P.PNNP_ITS ---
Progress Note: A&P Assessment and Plan (1) Hyperkalemia: Code(s): E87.5 - Hyperkalemia Status: Acute Assessment and Plan: * resolved/resolving * quite severe on presentation - K+ was 10.0!!! * etiology not clear -- seems a bit out of proportion to degree of kidney disease (as was not present before) * s/p medical management in the ER * emergent dialysis on 09/02 * repeat HD on 09/03 for further optimization of K+ * dialysis on hold now since K+ stable * d/c femoral HD catheter (2) Chronic kidney disease (CKD), stage V: Code(s): N18.5 - Chronic kidney disease, stage 5 Status: Chronic Assessment and Plan: * baseline creatinine runs around 3.7 - 4.1mg/dl * thought to be secondary to her diabetes, hypertension, vascular disease and possibly 40 years of lithium use * slow progression noted in the last few months * will likely need literacy coach renal replacement therapy soon (although her issues with hyperkalemia as noted on this admission may have pushed the need for SP[employer] M[employer] to be needed sooner) (3) Status post fall: Code(s): Z91.81 - History of falling Status: Acute Assessment and Plan: * as noted by history * caused by hyperkalemia(?) * PT/OT once more stable * imaging noted/reviewed (4) C7 cervical fracture: Qualifiers: Encounter type: initial encounter Fracture alignment: nondisplaced Fracture morphology: unspecified fracture morphology Fracture type: closed Qualified Code(s): S12.601A - Unspecified nondisplaced fracture of seventh cervical vertebra, initial encounter for closed fracture Code(s): S12.600A - Unspecified displaced fracture of seventh cervical vertebra, initial encounter for closed fracture Status: Acute Assessment and Plan: * as noted by admission imaging * cervical collar in place * Neurosurgery following with further recommendations pending * MRI of cervical spine noted (5) Acute UTI: Code(s): N39.0 - Urinary tract infection, site not specified Status: Acute Assessment and Plan: * admission UA suggestive * follow culture data - E.coli noted * on antibiotics (6) Anemia: Qualifiers: Anemia type: due to chronic kidney disease Chronic kidney disease stage: stage 5, not on chronic dialysis Qualified Code(s): N18.5 - Chronic kidney disease, stage 5; D63.1 - Anemia in chronic kidney disease Code(s): D64.9 - Anemia, unspecified Status: Chronic Assessment and Plan: * presumably related to advanced CKD * follow trend of H/H * was getting Epogen with HD -- will likely transition to SQ (7) Hypertension: Qualifiers: Hypertension type: secondary to other renal disorders Qualified Code (s): I15.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 Subjective Date/time seen: 09/07/23 10:21 Interval history: Follow-up for hyperkalemia and chronic kidney disease. No apparent distress noted at the time of my visit; feels reasonably well; continue to make excellent urine output i
[2023-09-07 12:19] LABS: Glucose Point of Care 133 mg/dl (65-105)
[2023-09-07 13:16] LABS: Appearance Urine Clear (Clear); Bacteria Urine None Seen /hpf; Bilirubin Urine Negative (Negative); Blood Urine Negative (Negative); Color Urine Yellow (Yellow); Glucose Urine UA Trace mg/dL (Negative); Ketones Urine Negative (Negative); Leukocyte Esterase Ur 2+ LEU/UL (Negative); Nitrate Urine Negative (Negative); Non Pathogenic Casts 0-2; Protein Urine 1+ mg/dL (Negative); RBC Urine 0-2 /hpf (0-2); Specific Grav Ur 1.005 (1.001-1.035); Squamous Epithelial Cell Urine None Seen /hpf (Few); Urobilinogen Urine 0.2 mg/dL (<2.0); WBC Urine 21-50 /hpf (0-3); pH Urine 7.5 (5.0-9.0)
[2023-09-07 13:22] LABS: Add Urine Microscopic? YES
--- NOTE | 2023-09-07 13:29 | PM.IMPN ---
Progress Note: A&P Assessment and Plan (1) Hyperkalemia: Code(s): E87.5 - Hyperkalemia Status: Acute Assessment and Plan: - K 10.5, repeat 9.5 - emergent dialysis started 09/03/2023 - general surgery consulted for dialysis catheter placement, right femoral Mihai temporary dialysis catheter placed on 09/02 - nephrology consulted for emergent dialysis and potassium is stabilized adequate urine output. Chronic dialysis not anticipated at this time and hence temporary dialysis catheter has been removed - telemetry monitoring will be discontinued now (2) Chronic kidney disease (CKD), stage V: Code(s): N18.5 - Chronic kidney disease, stage 5 Status: Chronic Assessment and Plan: - creatinine 4.4, GFR 10, BUN 74 - baseline creatinine: 3.7-4.1 - nephrology consulted, per note patient may need HD long-term soon - dialysis, further treatments dependent on K level - trend renal function - trend electrolytes, correct as needed Chronic dialysis not anticipated at this time and hence temporary dialysis catheter has been removed. (3) C7 cervical fracture: Qualifiers: Encounter type: initial encounter Fracture alignment: nondisplaced Fracture morphology: unspecified fracture morphology Fracture type: closed Qualified Code(s): S12.601A - Unspecified nondisplaced fracture of seventh cervical vertebra, initial encounter for closed fracture Code(s): S12.600A - Unspecified displaced fracture of seventh cervical vertebra, initial encounter for closed fracture Status: Acute Assessment and Plan: due to fall - C-spine CT: Acute nondisplaced fracture of the left facet/transverse process of C7. Additional nondisplaced fracture of the right C7 transverse process. - neurosurgery consulted - [place] C-collar in place - no focal deficits on exam MRI cervical spine reveals nondisplaced C7 left lamina/facet fracture along with right transfer process C7 fracture also has mild compression fracture T3. No significant disc bulge or herniation seen at any cervical level with no spinal canal stenosis or cord compression may be bilateral neuroforaminal narrowing at C3-C4 and C4-C5. Continue C-collar (4) Fall: Qualifiers: Encounter type: initial encounter Qualified Code(s): W19.XXXA - Unspecified fall, initial encounter Code(s): W19.XXXA - Unspecified fall, initial encounter Status: Acute Assessment and Plan: - fall precautions - trauma workup significant for C7 fx - shoulder XR, CXR, and CT chest/abd/pelvis showed no injury or acute fracture - PT/OT eval and treat once more stable (5) Acute UTI: Code(s): N39.0 - Urinary tract infection, site not specified Status: Acute Assessment and Plan: - UA: Cloudy, 1+ protein, 1+ glucose, 1+ blood, 2+ leuks, 51-100 WBC, no epithelial cells, 4+ bacteria - UC pending, obtained on 09/02 - previous micro reviewed: Aerococcus urinae, pansensitive - started on Ceftriaxone on 09/02 Urine culture grew ESBL E coli will switch to meropenem day 2 Due to interaction with Depakote; switched to Bactrim for 5 day course of treatment Will monitor for hyperkalemia (6) Bipolar disorder, unspecified: Qualifiers: Active/Remission status: remission status unspecified Qualified Code(s): F31.9 - Bipolar disorder, unspecified Code(s): F31.9 - Bipolar disorder, unspecified Status: Chronic Assessment and Plan: - continue home medications as prescribed, sister spoke with staff and reported that any alterations/disruptions to her home medications would cause her to have behavioral changes that are persistent for weeks - monitor mood (7) Anemia: Qualifiers: Anemia type: due to chronic kidney disease Chronic kidney disease stage: stage 5, not on chronic dialysis Qualified Code(s): N18.5 - Chronic kidney disease, stage 5; D63.1 - Anemia in chronic kidney disease
[2023-09-07] MEDS: SULFAMETHOXAZOLE/TRIMETHOPRIM 400/80 MG TABLET 1 TAB PO (13:59)
[2023-09-07] MEDS: ERTAPENEM SODIUM 0.5 GM in SODIUM CHLORIDE 0.9% IV 50 ML IVPB (14:56)
[2023-09-07] MEDS: DIVALPROEX SODIUM DR 250 MG TABEC PO (16:32)
[2023-09-07 16:43] LABS: Glucose Point of Care 156 mg/dl (65-105)
[2023-09-07 21:08] LABS: Glucose Point of Care 192 mg/dl (65-105)
[2023-09-07] MEDS: chlorproMAZINE HCL 25 MG TABLET 50 MG PO (21:09)
[2023-09-08] VITALS (8 sets, daily range): BP systolic 122–160; BP diastolic 68–95; PULSE 64–93; RESP 16–18; TEMP 36.1–36.9; O2SAT 97–100
[2023-09-08 05:12] LABS: Hematocrit 27.8 % (37.0-47.0); Hemoglobin 8.4 g/dL (12.0-15.0); Mean Corpuscular HGB Conc 30.2 g/dl (32-36); Mean Corpuscular Hemoglobin 27.7 pg (26-34); Mean Corpuscular Volume 91.7 fl (80-100); Mean Platelet Volume 8.9 fl (7.4-10.4); Platelet Count Result 265 k/mm3 (150-375); Red Blood Count 3.03 M/mm3 (4.2-5.4); White Blood Count 8.8 K/mm3 (4.5-10.0)
[2023-09-08 05:21] LABS: Alanine Aminotransferase 28 U/L (6-35); Albumin Level 3.2 g/dL (3.5-5.1); Alkaline Phosphatase 70 U/L (38-126); Anion Gap 9 mmol/L (4-12); Aspartate Amino Transferase 35 U/L (14-36); Bilirubin,Total 0.4 mg/dL (0.2-1.3); Blood Urea Nitrogen 53 mg/dL (7-17); Calcium 9.5 mg/dL (8.4-10.2); Carbon Dioxide 20 mmol/L (22-30); Chloride 106 mmol/L (98-107); Estimated CRCL calculation 12 ml/min; Estimated Glomerular Filt Rate 11; Glucose 128 mg/dL (65-110); Magnesium 2.1 mg/dL (1.6-2.3); Potassium 4.3 mmol/L (3.4-5.0); Sodium 135 mmol/L (137-145)
[2023-09-08] MEDS: LEVOTHYROXINE SODIUM 50 MCG TABLET PO (06:41)
[2023-09-08] MEDS: DIVALPROEX SODIUM DR 250 MG TABEC 500 MG PO ×2 (06:41→20:02)
[2023-09-08] MEDS: ACETAMINOPHEN 500 MG TABLET PO ×2 (06:45→16:28)
[2023-09-08 07:57] LABS: Glucose Point of Care 124 mg/dl (65-105)
[2023-09-08] MEDS: PANTOPRAZOLE 40 MG TABLET PO (08:22)
[2023-09-08] MEDS: ENOXAPARIN 30 MG/0.3 ML SYRINGE SUB-Q (08:22)
[2023-09-08] MEDS: amLODIPine BESYLATE 5 MG TABLET PO (08:22)
[2023-09-08] MEDS: BENZTROPINE MESYLATE 0.5 MG TABLET PO ×2 (08:22→16:27)
[2023-09-08 11:53] LABS: Glucose Point of Care 159 mg/dl (65-105)
--- NOTE | 2023-09-08 13:25 | P.PNNP_ITS ---
Progress Note: A&P Assessment and Plan (1) Hyperkalemia: Code(s): E87.5 - Hyperkalemia Status: Acute Assessment and Plan: * resolved * quite severe on presentation (K+ was 10.0) * etiology not clear -- seems a bit out of proportion to degree of kidney disease (as was not present before) * s/p medical management in the ER * emergent dialysis on 09/02 * repeat HD on 09/03 for further optimization of K+ * dialysis on hold now since K+ stable * follow repeat levels (2) Chronic kidney disease (CKD), stage V: Code(s): N18.5 - Chronic kidney disease, stage 5 Status: Chronic Assessment and Plan: * baseline creatinine runs around 3.7 - 4.1mg/dl * thought to be secondary to her diabetes, hypertension, vascular disease and possibly 40 years of lithium use * slow progression noted in the last few months * will likely need termite treater renal replacement therapy soon (although her issues with hyperkalemia as noted on this admission may have pushed the need for LEGAL COUNSEL to be needed sooner); however, K+ controlled at this time, no severe metabolic acidosis, no volume overload and no signs/symptoms or uremia so need for urgent intitation on renal replacement therapy/dialysis at this time (3) Status post fall: Code(s): Z91.81 - History of falling Status: Acute Assessment and Plan: * as noted by history * caused by hyperkalemia(?) * PT/OT once more stable * imaging noted/reviewed (4) C7 cervical fracture: Qualifiers: Encounter type: initial encounter Fracture alignment: nondisplaced Fracture morphology: unspecified fracture morphology Fracture type: closed Qualified Code(s): S12.601A - Unspecified nondisplaced fracture of seventh cervical vertebra, initial encounter for closed fracture Code(s): S12.600A - Unspecified displaced fracture of seventh cervical vertebra, initial encounter for closed fracture Status: Acute Assessment and Plan: * as noted by admission imaging * cervical collar in place * Neurosurgery following with recommendations reviewed * MRI of cervical spine noted (5) Acute UTI: Code(s): N39.0 - Urinary tract infection, site not specified Status: Acute Assessment and Plan: * admission UA suggestive * follow culture data - E.coli noted * on antibiotics (6) Anemia: Qualifiers: Anemia type: due to chronic kidney disease Chronic kidney disease stage: stage 5, not on chronic dialysis Qualified Code(s): N18.5 - Chronic kidney disease, stage 5; D63.1 - Anemia in chronic kidney disease Code(s): D64.9 - Anemia, unspecified Status: Chronic Assessment and Plan: * presumably related to advanced CKD * follow trend of H/H * was getting Epogen with HD -- will likely transition to SQ (7) Hypertension: Qualifiers: Hypertension type: secondary to other renal disorders Qualified Code(s): I15.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 Subjective Date/time seen: 09/08/23 13:25 Interval history:
--- NOTE | 2023-09-08 13:25 | PM.PNNEP ---
Progress Note: A&P Assessment and Plan (1) Hyperkalemia: Code(s): E87.5 - Hyperkalemia Status: Acute Assessment and Plan: resolved quite severe on presentation (K+ was 10.0) etiology not clear -- seems a bit out of proportion to degree of kidney disease (as was not present before) s/p medical management in the ER emergent dialysis on 09/02 repeat HD on 09/03 for further optimization of K+ dialysis on hold now since K+ stable follow repeat levels (2) Chronic kidney disease (CKD), stage V: Code(s): N18.5 - Chronic kidney disease, stage 5 Status: Chronic Assessment and Plan: baseline creatinine runs around 3.7 - 4.1mg/dl thought to be secondary to her diabetes, hypertension, vascular disease and possibly 40 years of lithium use slow progression noted in the last few months will likely need oysterman renal replacement therapy soon (although her issues with hyperkalemia as noted on this admission may have pushed the need for MUSIC WORKER to be needed sooner); however, K+ controlled at this time, no severe metabolic acidosis, no volume overload and no signs/symptoms or uremia so need for urgent intitation on renal replacement therapy/dialysis at this time (3) Status post fall: Code(s): Z91.81 - History of falling Status: Acute Assessment and Plan: as noted by history caused by hyperkalemia(?) PT/OT once more stable imaging noted/reviewed (4) C7 cervical fracture: Qualifiers: Encounter type: initial encounter Fracture alignment: nondisplaced Fracture morphology: unspecified fracture morphology Fracture type: closed Qualified Code(s): S12.601A - Unspecified nondisplaced fracture of seventh cervical vertebra, initial encounter for closed fracture Code(s): S12.600A - Unspecified displaced fracture of seventh cervical vertebra, initial encounter for closed fracture Status: Acute Assessment and Plan: as noted by admission imaging cervical collar in place Neurosurgery following with recommendations reviewed MRI of cervical spine noted (5) Acute UTI: Code(s): N39.0 - Urinary tract infection, site not specified Status: Acute Assessment and Plan: admission UA suggestive follow culture data - E.coli noted on antibiotics (6) Anemia: Qualifiers: Anemia type: due to chronic kidney disease Chronic kidney disease stage: stage 5, not on chronic dialysis Qualified Code(s): N18.5 - Chronic kidney disease, stage 5; D63.1 - Anemia in chronic kidney disease Code(s): D64.9 - Anemia, unspecified Status: Chronic Assessment and Plan: presumably related to advanced CKD follow trend of H/H was getting Epogen with HD -- will likely transition to SQ (7) Hypertension: Qualifiers: Hypertension type: secondary to other renal disorders Qualified Code(s): I15.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 Subjective Date/time seen: 09/08/23 13:25 Interval history: Follow-up for hyperkalemia and chronic kidney disease. No new issues or complaints to report at the time of my visit; temporary femoral HD catheter removed yesterday without any problems; continues to make good urine output in spite of advanced kidney disease as noted by laboratory trend; no new events overnight or earlier today. Exam Narrative: General: WD/WN female in NAD; cervical collar in place Heart: normal S1 and S2; no rub Lungs: cl
[2023-09-08] MEDS: ERTAPENEM SODIUM 0.5 GM in SODIUM CHLORIDE 0.9% IV 50 ML IVPB (15:14)
--- NOTE | 2023-09-08 16:06 | PM.IMPN ---
Progress Note: A&P Assessment and Plan (1) Hyperkalemia: Code(s): E87.5 - Hyperkalemia Status: Acute Assessment and Plan: - K 10.5, repeat 9.5 - emergent dialysis started 09/03/2023 - general surgery consulted for dialysis catheter placement, right femoral [place] temporary dialysis catheter placed on 09/02 - nephrology consulted for emergent dialysis and potassium is stabilized adequate urine output. Chronic dialysis not anticipated at this time and hence temporary dialysis catheter has been removed - telemetry monitoring was discontinued Potassium normal and stable. (2) Chronic kidney disease (CKD), stage V: Code(s): N18.5 - Chronic kidney disease, stage 5 Status: Chronic Assessment and Plan: - creatinine 4.4, GFR 10, BUN 74 - baseline creatinine: 3.7-4.1 - nephrology consulted, per note patient may need HD long-term soon - dialysis, further treatments dependent on K level - trend renal function - trend electrolytes, correct as needed Chronic dialysis not anticipated at this time and hence temporary dialysis catheter has been removed. (3) C7 cervical fracture: Qualifiers: Encounter type: initial encounter Fracture alignment: nondisplaced Fracture morphology: unspecified fracture morphology Fracture type: closed Qualified Code(s): S12.601A - Unspecified nondisplaced fracture of seventh cervical vertebra, initial encounter for closed fracture Code(s): S12.600A - Unspecified displaced fracture of seventh cervical vertebra, initial encounter for closed fracture Status: Acute Assessment and Plan: due to fall - C-spine CT: Acute nondisplaced fracture of the left facet/transverse process of C7. Additional nondisplaced fracture of the right C7 transverse process. - neurosurgery consulted - [place] C-collar in place - no focal deficits on exam MRI cervical spine reveals nondisplaced C7 left lamina/facet fracture along with right transfer process C7 fracture also has mild compression fracture T3. No significant disc bulge or herniation seen at any cervical level with no spinal canal stenosis or cord compression may be bilateral neuroforaminal narrowing at C3-C4 and C4-C5. Continue C-collar. Will contact [facility] to see if PT/OT can be started. (4) Fall: Qualifiers: Encounter type: initial encounter Qualified Code(s): W19.XXXA - Unspecified fall, initial encounter Code(s): W19.XXXA - Unspecified fall, initial encounter Status: Acute Assessment and Plan: - fall precautions - trauma workup significant for C7 fx - shoulder XR, CXR, and CT chest/abd/pelvis showed no injury or acute fracture - PT/OT eval and treat if okay with others (5) Acute UTI: Code(s): N39.0 - Urinary tract infection, site not specified Status: Acute Assessment and Plan: - UA: Cloudy, 1+ protein, 1+ glucose, 1+ blood, 2+ leuks, 51-100 WBC, no epithelial cells, 4+ bacteria - UC pending, obtained on 09/02 - previous micro reviewed: Aerococcus urinae, pansensitive - started on Ceftriaxone on 09/02 Urine culture grew ESBL E coli will switch to meropenem day 2 Due to interaction with Depakote; switched to Bactrim for 5 day course of treatment but nephrology does not prefer to change to Bactrim due to hyperkalemia due to less interaction with ertapenem, she was switched to ertapenem IV daily for 2 more days (6) Bipolar disorder, unspecified: Qualifiers: Active/Remission status: remission status unspecified Qualified Code(s): F31.9 - Bipolar disorder, unspecified Code(s): F31.9 - Bipolar disorder, unspecified Status: Chronic Assessment and Plan: - continue home medications as prescribed, sister spoke with staff and reported that any alterations/disruptions to her home medications would cause her to have behavioral changes that are persistent for weeks - monitor mood (7) Anemia: Qualifiers:
[2023-09-08] MEDS: DIVALPROEX SODIUM DR 250 MG TABEC PO (16:27)
[2023-09-08 16:34] LABS: Glucose Point of Care 165 mg/dl (65-105)
[2023-09-08] MEDS: chlorproMAZINE HCL 25 MG TABLET 50 MG PO (20:02)
[2023-09-08 21:07] LABS: Glucose Point of Care 198 mg/dl (65-105)
[2023-09-09 04:00] VITALS: BP 122/80; PULSE 99; RESP 18; TEMP 37; O2SAT 99
[2023-09-09 05:38] LABS: Hematocrit 27.4 % (37.0-47.0); Hemoglobin 8.6 g/dL (12.0-15.0); Mean Corpuscular HGB Conc 31.4 g/dl (32-36); Mean Corpuscular Hemoglobin 28.7 pg (26-34); Mean Corpuscular Volume 91.3 fl (80-100); Mean Platelet Volume 8.7 fl (7.4-10.4); Platelet Count Result 277 k/mm3 (150-375); Red Cell Distribution Width 17.2 % (11.5-14.5); White Blood Count 8.7 K/mm3 (4.5-10.0)
[2023-09-09 05:54] LABS: Alanine Aminotransferase 26 U/L (6-35); Albumin Level 3.2 g/dL (3.5-5.1); Alkaline Phosphatase 69 U/L (38-126); Anion Gap 11 mmol/L (4-12); Aspartate Amino Transferase 31 U/L (14-36); Bilirubin,Total 0.4 mg/dL (0.2-1.3); Blood Urea Nitrogen 62 mg/dL (7-17); Calcium 9.3 mg/dL (8.4-10.2); Carbon Dioxide 21 mmol/L (22-30); Chloride 103 mmol/L (98-107); Estimated CRCL calculation 12 ml/min; Estimated Glomerular Filt Rate 11; Glucose 129 mg/dL (65-110); Magnesium 2.2 mg/dL (1.6-2.3); Phosphorus 6.6 mg/dL (2.5-4.5); Potassium 4.7 mmol/L (3.4-5.0); Sodium 135 mmol/L (137-145)
[2023-09-09] MEDS: LEVOTHYROXINE SODIUM 50 MCG TABLET PO (05:58)
[2023-09-09] MEDS: DIVALPROEX SODIUM DR 250 MG TABEC 500 MG PO ×2 (06:06→20:02)
[2023-09-09 08:35] LABS: Glucose Point of Care 119 mg/dl (65-105)
[2023-09-09] MEDS: amLODIPine BESYLATE 5 MG TABLET PO (08:39)
[2023-09-09] MEDS: ENOXAPARIN 30 MG/0.3 ML SYRINGE SUB-Q (08:39)
[2023-09-09] MEDS: ACETAMINOPHEN 500 MG TABLET PO ×3 (08:39→22:04)
[2023-09-09] MEDS: BENZTROPINE MESYLATE 0.5 MG TABLET PO ×2 (08:39→16:16)
[2023-09-09] MEDS: PANTOPRAZOLE 40 MG TABLET PO (08:39)
[2023-09-09 08:52] VITALS: BP 135/92; PULSE 93; RESP 16; TEMP 37.1; O2SAT 97
[2023-09-09 10:00] VITALS: BP 119/78; PULSE 83; RESP 21; TEMP 37; O2SAT 98
--- NOTE | 2023-09-09 11:31 | PM.IMPN ---
Progress Note: A&P Assessment and Plan (1) Hyperkalemia: Code(s): E87.5 - Hyperkalemia Status: Acute Assessment and Plan: Potassium was 10 on admission with repeat 9.5 Right femoral Mihai dialysis catheter placement under ultrasound guidance placed for emergent dialysis started 09/02 Nephrology was consulted for emergent dialysis. Potassium was stabilized with adequate urine output. She was able to maintain a normal potassium off dialysis Chronic dialysis not anticipated at this time and hence temporary dialysis catheter was removed Telemetry monitoring was discontinued Potassium remains normal and stable. (2) Chronic kidney disease (CKD), stage V: Code(s): N18.5 - Chronic kidney disease, stage 5 Status: Chronic Assessment and Plan: Creatinine 4.4 with baseline creatinine: 3.7-4.1 Nephrology consulted, per note patient may need HD long-term soon Chronic dialysis not anticipated at this time and hence temporary dialysis catheter has been removed. Off dialysis, Cr climbed to 3.8-4.2 range. Good UOP Trend renal function, electrolytes and UOP (3) C7 cervical fracture: Qualifiers: Encounter type: initial encounter Fracture type: closed Fracture morphology: unspecified fracture morphology Fracture alignment: nondisplaced Qualified Code(s): S12.601A - Unspecified nondisplaced fracture of seventh cervical vertebra, initial encounter for closed fracture Code(s): S12.600A - Unspecified displaced fracture of seventh cervical vertebra, initial encounter for closed fracture Status: Acute Assessment and Plan: Patient had neck pain after a fall C-spine CT: Acute nondisplaced fracture of the left facet/transverse process of C7 with additional nondisplaced fracture of the right C7 transverse process. MRI cervical spine reveals nondisplaced C7 left lamina/facet fracture along with right transfer process C7 fracture also has mild compression fracture T3. No significant disc bulge or herniation seen at any cervical level with no spinal canal stenosis or cord compression may be bilateral neuroforaminal narrowing at C3-C4 and C4-C5. Neurosurgery consulted and [place] C-collar recommended and placed No focal deficits on exam Continue C-collar. Start PT/OT when okay with others (4) Fall: Qualifiers: Encounter type: initial encounter Qualified Code(s): W19.XXXA - Unspecified fall, initial encounter Code(s): W19.XXXA - Unspecified fall, initial encounter Status: Acute Assessment and Plan: Patient had a fall priro to admission possibly related to her renal disease/electrolyte changes Trauma workup significant for C7 fx Other imaging including shoulder XR, CXR, and CT chest/abd/pelvis showed no injury or acute fracture Continue fall precautions PT/OT eval and treat if okay with others (5) Acute UTI: Code(s): N39.0 - Urinary tract infection, site not specified Status: Acute Assessment and Plan: UA is consistent with UTI. UCx collected. Rocephin started 09/02. UCx ESBL E coli. She was switched to meropenem on 09/06 (switched to Bactrim but nephrology does not prefer to change to Bactrim due to hyperkalemia) Ertapenem Day 3. Continue ertapenem (6) Bipolar disorder, unspecified: Qualifiers: Active/Remission status: remission status unspecified Qualified Code(s): F31.9 - Bipolar disorder, unspecified Code(s): F31.9 - Bipolar disorder, unspecified Status: Chronic Assessment and Plan: Mood stable. Sister spoke with staff and reported that any alterations/disruptions to her home medications would cause her to have behavioral changes that are persistent for weeks Continue home medications as prescribed Monitor mood (7) Anemia: Qualifiers: Anemia type: due to chronic kidney disease Chronic kidney disease stage: stage 5, not on chronic dialysis Qualified Code(s): N18.5 -
[2023-09-09 11:57] LABS: Glucose Point of Care 210 mg/dl (65-105)
[2023-09-09] MEDS: INSULIN ASPART (*BKC) 100 UNITS/ML SUB-Q (12:16)
[2023-09-09 14:00] VITALS: BP 117/70; PULSE 90; RESP 18; TEMP 36.8; O2SAT 97
--- NOTE | 2023-09-09 14:01 | P.PNNP_ITS ---
Progress Note: A&P Assessment and Plan (1) Hyperkalemia: Code(s): E87.5 - Hyperkalemia Status: Acute Assessment and Plan: * resolved * quite severe on presentation (K+ was 10.0) * etiology not clear -- seems a bit out of proportion to degree of kidney disease (as was not present before) * s/p medical management in the ER * emergent dialysis on 09/02 * repeat HD on 09/03 for further optimization of K+ * dialysis on hold now since K+ stable * follow repeat levels (2) Chronic kidney disease (CKD), stage V: Code(s): N18.5 - Chronic kidney disease, stage 5 Status: Chronic Assessment and Plan: * baseline creatinine runs around 3.7 - 4.1mg/dl * thought to be secondary to her diabetes, hypertension, vascular disease and possibly 40 years of lithium use * slow progression noted in the last few months * 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 (although her issues with hyperkalemia as noted on this admission may have pushed the need for ROUTER OPERATOR PIN to be needed sooner); however, K+ controlled at this time, no severe metabolic acidosis, no volume overload and no signs/symptoms or uremia so need for urgent intitation on renal replacement therapy/dialysis at this time (3) Status post fall: Code(s): Z91.81 - History of falling Status: Acute Assessment and Plan: * as noted by history * caused by hyperkalemia(?) * PT/OT once more stable * imaging noted/reviewed (4) C7 cervical fracture: Qualifiers: Encounter type: initial encounter Fracture type: closed Fracture morphology: unspecified fracture morphology Fracture alignment: nondisplaced Qualified Code(s): S12.601A - Unspecified nondisplaced fracture of seventh cervical vertebra, initial encounter for closed fracture Code(s): S12.600A - Unspecified displaced fracture of seventh cervical vertebra, initial encounter for closed fracture Status: Acute Assessment and Plan: * as noted by admission imaging * cervical collar in place * Neurosurgery following with recommendations reviewed * MRI of cervical spine noted (5) Acute UTI: Code(s): N39.0 - Urinary tract infection, site not specified Status: Acute Assessment and Plan: * admission UA suggestive * follow culture data - E.coli noted * on antibiotics (6) Anemia: Qualifiers: Anemia type: due to chronic kidney disease Chronic kidney disease stage: stage 5, not on chronic dialysis Qualified Code(s): N18.5 - Chronic kidney disease, stage 5; D63.1 - Anemia in chronic kidney disease Code(s): D64.9 - Anemia, unspecified Status: Chronic Assessment and Plan: * presumably related to advanced CKD * follow trend of H/H * was getting Epogen with HD -- transition to SQ dosing while hospitalized (7) Hypertension: Qualifiers: Hypertension type: secondary to other renal disorders Qualified Code(s): I15.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 Subjective Date/time seen: 09/09/23 14:01 Interval
--- NOTE | 2023-09-09 14:01 | PM.PNNEP ---
Progress Note: A&P Assessment and Plan (1) Hyperkalemia: Code(s): E87.5 - Hyperkalemia Status: Acute Assessment and Plan: resolved quite severe on presentation (K+ was 10.0) etiology not clear -- seems a bit out of proportion to degree of kidney disease (as was not present before) s/p medical management in the ER emergent dialysis on 09/02 repeat HD on 09/03 for further optimization of K+ dialysis on hold now since K+ stable follow repeat levels (2) Chronic kidney disease (CKD), stage V: Code(s): N18.5 - Chronic kidney disease, stage 5 Status: Chronic Assessment and Plan: baseline creatinine runs around 3.7 - 4.1mg/dl thought to be secondary to her diabetes, hypertension, vascular disease and possibly 40 years of lithium use slow progression noted in the last few months will likely need removable prosthodontist renal replacement therapy soon (although her issues with hyperkalemia as noted on this admission may have pushed the need for [employer] to be needed sooner); however, K+ controlled at this time, no severe metabolic acidosis, no volume overload and no signs/symptoms or uremia so need for urgent intitation on renal replacement therapy/dialysis at this time (3) Status post fall: Code(s): Z91.81 - History of falling Status: Acute Assessment and Plan: as noted by history caused by hyperkalemia(?) PT/OT once more stable imaging noted/reviewed (4) C7 cervical fracture: Qualifiers: Encounter type: initial encounter Fracture type: closed Fracture morphology: unspecified fracture morphology Fracture alignment: nondisplaced Qualified Code(s): S12.601A - Unspecified nondisplaced fracture of seventh cervical vertebra, initial encounter for closed fracture Code(s): S12.600A - Unspecified displaced fracture of seventh cervical vertebra, initial encounter for closed fracture Status: Acute Assessment and Plan: as noted by admission imaging cervical collar in place Neurosurgery following with recommendations reviewed MRI of cervical spine noted (5) Acute UTI: Code(s): N39.0 - Urinary tract infection, site not specified Status: Acute Assessment and Plan: admission UA suggestive follow culture data - E.coli noted on antibiotics (6) Anemia: Qualifiers: Anemia type: due to chronic kidney disease Chronic kidney disease stage: stage 5, not on chronic dialysis Qualified Code(s): N18.5 - Chronic kidney disease, stage 5; D63.1 - Anemia in chronic kidney disease Code(s): D64.9 - Anemia, unspecified Status: Chronic Assessment and Plan: presumably related to advanced CKD follow trend of H/H was getting Epogen with HD -- transition to SQ dosing while hospitalized (7) Hypertension: Qualifiers: Hypertension type: secondary to other renal disorders Qualified Code(s): I15.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 Subjective Date/time seen: 09/09/23 14:01 Interval history: Follow-up for hyperkalemia and chronic kidney disease. Continues to make good urine (murray catheter removed yesterday) with relative stability in potassium level; no apparent distress noted at the time of my visit; as always, remains in good spirits since her admission to the hospital; no other issues/events overnight or earlier this morning. Exam Narrative: General: WD/WN female in NAD; cervical collar in place Heart: normal S1
[2023-09-09] MEDS: ERTAPENEM SODIUM 0.5 GM in SODIUM CHLORIDE 0.9% IV 50 ML IVPB (14:49)
[2023-09-09] MEDS: DIVALPROEX SODIUM DR 250 MG TABEC PO (16:15)
[2023-09-09 16:52] LABS: Glucose Point of Care 145 mg/dl (65-105)
[2023-09-09] MEDS: EPOETIN ALFA-EPBX 20,000 UNITS/ML VIAL 20000 UNITS SUB-Q (18:05)
[2023-09-09] MEDS: chlorproMAZINE HCL 25 MG TABLET 50 MG PO (20:02)
[2023-09-09 21:26] VITALS: BP 136/86; PULSE 88; RESP 18; TEMP 36.5; O2SAT 97
[2023-09-09 21:33] LABS: Glucose Point of Care 160 mg/dl (65-105)
[2023-09-10 05:03] LABS: Basophils Absolute Auto 0.1 K/mm3 (0.0-0.1); Basophils Percent Auto 0.8 % (0.2-1.2); Eosinophils Absolute Auto 1.4 K/mm3 (0-0.3); Eosinophils Percent Auto 14.9 % (0-4.4); Hematocrit 27.7 % (37.0-47.0); Hemoglobin 8.6 g/dL (12.0-15.0); Immature Granulocyte Absolute 0.06 K/mm3 (0.00-0.031); Immature Granulocyte Percent A 0.6 % (0-0.5); Lymphocytes Absolute Auto 2.35 K/mm3 (0.9-3.2); Lymphocytes Percent Auto 25.2 % (18.3-44.2); Mean Corpuscular Hemoglobin 28.7 pg (26-34); Mean Corpuscular Volume 92.3 fl (80-100); Monocytes Absolute Auto 1.2 K/mm3 (0.1-0.6); Monocytes Percent Auto 12.8 % (2.6-8.5); Neutrophils Absolute Auto 4.3 K/mm3 (1.3-6.7); Neutrophils Percent Auto 45.7 % (45.5-73.1); Platelet Count Result 287 k/mm3 (150-375); Red Cell Distribution Width 17.5 % (11.5-14.5); White Blood Count 9.3 K/mm3 (4.5-10.0)
[2023-09-10 05:14] VITALS: BP 142/78; PULSE 80; RESP 14; TEMP 36.4; O2SAT 100
[2023-09-10 05:14] LABS: Albumin Level 3.3 g/dL (3.5-5.1); Anion Gap 12 mmol/L (4-12); Blood Urea Nitrogen 70 mg/dL (7-17); Calcium 9.4 mg/dL (8.4-10.2); Carbon Dioxide 20 mmol/L (22-30); Chloride 105 mmol/L (98-107); Estimated CRCL calculation 12 ml/min; Estimated Glomerular Filt Rate 11; Glucose 131 mg/dL (65-110); Phosphorus 7.1 mg/dL (2.5-4.5); Potassium 5.1 mmol/L (3.4-5.0); Sodium 137 mmol/L (137-145)
[2023-09-10 05:33] LABS: Iron 30 ug/dL (37-170)
[2023-09-10 05:42] LABS: Percent Iron Saturation 11 % (20-50)
[2023-09-10 06:17] LABS: Folic Acid 4.7 ng/mL (2.76->20)
[2023-09-10] MEDS: DIVALPROEX SODIUM DR 250 MG TABEC 500 MG PO ×2 (06:19→20:14)
[2023-09-10] MEDS: LEVOTHYROXINE SODIUM 50 MCG TABLET PO (06:19)
[2023-09-10] MEDS: ACETAMINOPHEN 500 MG TABLET PO ×2 (06:21→20:15)
[2023-09-10 08:05] LABS: Glucose Point of Care 132 mg/dl (65-105)
[2023-09-10] MEDS: PANTOPRAZOLE 40 MG TABLET PO (08:09)
[2023-09-10] MEDS: BENZTROPINE MESYLATE 0.5 MG TABLET PO ×2 (08:09→16:43)
[2023-09-10] MEDS: amLODIPine BESYLATE 5 MG TABLET PO (08:09)
[2023-09-10] MEDS: HYDROcodone/acetaminophen (*CRX) 5-325 MG TABLET 1 TAB PO (08:10)
[2023-09-10] MEDS: ENOXAPARIN 30 MG/0.3 ML SYRINGE SUB-Q (08:10)
[2023-09-10] MEDS: EPOETIN ALFA-EPBX 10,000 UNITS/ML VIAL 10000 UNITS SUB-Q (08:11)
[2023-09-10] MEDS: IRON SUCROSE COMPLEX 100 MG in SODIUM CHLORIDE 0.9% IV 50 ML 220 MG IVPB (08:12)
--- NOTE | 2023-09-10 10:56 | PCNWS ---
Weekly nutritional screen. Patient is tolerating current diet with adequate intake. No weight loss reported. No nutritional needs at this time.
[2023-09-10 11:47] LABS: Potassium 5.1 mmol/L (3.4-5.0)
--- NOTE | 2023-09-10 12:10 | P.PNNP_ITS ---
Progress Note: A&P Assessment and Plan (1) Hyperkalemia: Code(s): E87.5 - Hyperkalemia Status: Acute Assessment and Plan: * Improved after dialysis he is on 09/02 and . * No dialysis since then. * Potassium was normal after that until today which was 5.1 and repeat is 5.1 again. * dialysis on hold now since K+ stable * follow repeat levels * Will repeat a potassium tomorrow and see what happens. (2) Chronic kidney disease (CKD), stage V: Code(s): N18.5 - Chronic kidney disease, stage 5 Status: Chronic Assessment and Plan: * baseline creatinine runs around 3.7 - 4.1mg/dl * thought to be secondary to her diabetes, hypertension, vascular disease and possibly 40 years of lithium use * slow progression noted in the last few months * No uremic symptoms. * Her potassium is a little higher today. Will see what it is tomorrow. * She may end up needing more dialysis down the line. (3) Status post fall: Code(s): Z91.81 - History of falling Status: Acute Assessment and Plan: * as noted by history * caused by hyperkalemia(?) * PT/OT once more stable. Timing per hospitalist/ neurosurgery depending on strength and situation with her neck. (4) C7 cervical fracture: Qualifiers: Encounter type: initial encounter Fracture type: closed Fracture morphology: unspecified fracture morphology Fracture alignment: nondisplaced Qualified Code(s): S12.601A - Unspecified nondisplaced fracture of seventh cervical vertebra, initial encounter for closed fracture Code(s): S12.600A - Unspecified displaced fracture of seventh cervical vertebra, initial encounter for closed fracture Status: Acute Assessment and Plan: * as noted by admission imaging * cervical collar in place * Neurosurgery following with recommendations reviewed * MRI of cervical spine noted (5) Acute UTI: Code(s): N39.0 - Urinary tract infection, site not specified Status: Acute Assessment and Plan: * admission UA suggestive * follow culture data - E.coli noted * on ertapenem (6) Anemia: Qualifiers: Anemia type: due to chronic kidney disease Chronic kidney disease stage: stage 5, not on chronic dialysis Qualified Code(s): N18.5 - Chronic kidney disease, stage 5; D63.1 - Anemia in chronic kidney disease Code(s): D64.9 - Anemia, unspecified Status: Chronic Assessment and Plan: * presumably related to advanced CKD * Hemoglobin stable in the mid 8s. * On subcu EPO (7) Hypertension: Qualifiers: Hypertension type: secondary to other renal disorders Qualified Code(s): I15.1 - Hypertension secondary to other renal disorders Code(s): I10 - Essential (primary) hypertension Status: Chronic Assessment and Plan: * Systolic ranging 110-140 * Patient is on amlodipine 5mg per day. (8) Type 2 diabetes mellitus: Code(s): E11.9 - Type 2 diabetes mellitus without complications Status: Chronic Assessment and Plan: * follow accu-cheks * glycemic control per hospitalists Will continue to follow. Subjective Date/time seen: 09/10/23 12:10 Interval history: Nicky is feeling okay today. She is in good spirits No chest pain or shortness of breath. Exam Narrative: General: WD/WN female in NAD; cervical collar in place Heart: normal S1 and S2; no rub or gallop Lungs: clear bilaterally Abdomen: soft, nontender, nondistend
--- NOTE | 2023-09-10 12:10 | PM.PNNEP ---
Progress Note: A&P Assessment and Plan (1) Hyperkalemia: Code(s): E87.5 - Hyperkalemia Status: Acute Assessment and Plan: Improved after dialysis he is on 09/02 and . No dialysis since then. Potassium was normal after that until today which was 5.1 and repeat is 5.1 again. dialysis on hold now since K+ stable follow repeat levels Will repeat a potassium tomorrow and see what happens. (2) Chronic kidney disease (CKD), stage V: Code(s): N18.5 - Chronic kidney disease, stage 5 Status: Chronic Assessment and Plan: baseline creatinine runs around 3.7 - 4.1mg/dl thought to be secondary to her diabetes, hypertension, vascular disease and possibly 40 years of lithium use slow progression noted in the last few months No uremic symptoms. Her potassium is a little higher today. Will see what it is tomorrow. She may end up needing more dialysis down the line. (3) Status post fall: Code(s): Z91.81 - History of falling Status: Acute Assessment and Plan: as noted by history caused by hyperkalemia(?) PT/OT once more stable. Timing per hospitalist/ neurosurgery depending on strength and situation with her neck. (4) C7 cervical fracture: Qualifiers: Encounter type: initial encounter Fracture type: closed Fracture morphology: unspecified fracture morphology Fracture alignment: nondisplaced Qualified Code(s): S12.601A - Unspecified nondisplaced fracture of seventh cervical vertebra, initial encounter for closed fracture Code(s): S12.600A - Unspecified displaced fracture of seventh cervical vertebra, initial encounter for closed fracture Status: Acute Assessment and Plan: as noted by admission imaging cervical collar in place Neurosurgery following with recommendations reviewed MRI of cervical spine noted (5) Acute UTI: Code(s): N39.0 - Urinary tract infection, site not specified Status: Acute Assessment and Plan: admission UA suggestive follow culture data - E.coli noted on ertapenem (6) Anemia: Qualifiers: Anemia type: due to chronic kidney disease Chronic kidney disease stage: stage 5, not on chronic dialysis Qualified Code(s): N18.5 - Chronic kidney disease, stage 5; D63.1 - Anemia in chronic kidney disease Code(s): D64.9 - Anemia, unspecified Status: Chronic Assessment and Plan: presumably related to advanced CKD Hemoglobin stable in the mid 8s. On subcu EPO (7) Hypertension: Qualifiers: Hypertension type: secondary to other renal disorders Qualified Code(s): I15.1 - Hypertension secondary to other renal disorders Code(s): I10 - Essential (primary) hypertension Status: Chronic Assessment and Plan: Systolic ranging 110-140 Patient is on amlodipine 5mg per day. (8) Type 2 diabetes mellitus: Code(s): E11.9 - Type 2 diabetes mellitus without complications Status: Chronic Assessment and Plan: follow accu-cheks glycemic control per hospitalists Will continue to follow. Subjective Date/time seen: 09/10/23 12:10 Interval history: Nicky is feeling okay today. She is in good spirits No chest pain or shortness of breath. Exam Narrative: General: WD/WN female in NAD; cervical collar in place Heart: normal S1 and S2; no rub or gallop Lungs: clear bilaterally Abdomen: soft, nontender, nondistended, positive bowel sounds Extremities: no cyanosis or clubbing; no edema Skin: No rash Objective Data Vital Signs Vital Signs: Vital Signs - 24 hr 09/09/23 14:00 09/09/23 20:00 09/09/23 21:26 Temperature 98.3 F 97.7 F Pulse Rate 90 88 Respiratory Rate 18 18 Blood Pressure 117/70 136/86 Pulse Oximetry 97 97 Oxygen Delivery Room Air 09/10/23 05:14 09/10/23 08:10 Temperature 97.6 F Pulse Rate 80 Respiratory Rate 14 Blood Pressure 142/78 H Pulse Oxi
[2023-09-10 12:14] LABS: Glucose Point of Care 345 mg/dl (65-105)
[2023-09-10] MEDS: INSULIN ASPART (*BKC) 100 UNITS/ML SUB-Q (12:17)
--- NOTE | 2023-09-10 12:41 | PM.IMPN ---
Progress Note: A&P Assessment and Plan (1) Hyperkalemia: Code(s): E87.5 - Hyperkalemia Status: Acute Assessment and Plan: Potassium was 10 on admission with repeat 9.5 Right femoral Mihai dialysis catheter placement under ultrasound guidance placed for emergent dialysis started 09/02 Nephrology was consulted for emergent dialysis. Potassium was stabilized with adequate urine output. She was able to maintain a normal potassium off dialysis Chronic dialysis not anticipated at this time and hence temporary dialysis catheter was removed Telemetry monitoring was discontinued Potassium slightly elevated today but stable. Will monitor for now. Discussed with nephrology (2) Chronic kidney disease (CKD), stage V: Code(s): N18.5 - Chronic kidney disease, stage 5 Status: Chronic Assessment and Plan: Creatinine 4.4 with baseline creatinine: 3.7-4.1 Nephrology consulted, per note patient may need HD long-term soon Chronic dialysis not anticipated at this time and hence temporary dialysis catheter has been removed. Off dialysis, Cr climbed to 3.8-4.2 range and [place]. Good UOP Trend renal function, electrolytes and UOP (3) C7 cervical fracture: Qualifiers: Encounter type: initial encounter Fracture type: closed Fracture morphology: unspecified fracture morphology Fracture alignment: nondisplaced Qualified Code(s): S12.601A - Unspecified nondisplaced fracture of seventh cervical vertebra, initial encounter for closed fracture Code(s): S12.600A - Unspecified displaced fracture of seventh cervical vertebra, initial encounter for closed fracture Status: Acute Assessment and Plan: Patient had neck pain after a fall C-spine CT: Acute nondisplaced fracture of the left facet/transverse process of C7 with additional nondisplaced fracture of the right C7 transverse process. MRI cervical spine reveals nondisplaced C7 left lamina/facet fracture along with right transfer process C7 fracture also has mild compression fracture T3. No significant disc bulge or herniation seen at any cervical level with no spinal canal stenosis or cord compression may be bilateral neuroforaminal narrowing at C3-C4 and C4-C5. Neurosurgery consulted and [place] C-collar recommended and placed No focal deficits on exam Continue C-collar. SNS felt we could start PT/OT so this was ordered. Placement being planned. (4) Fall: Qualifiers: Encounter type: initial encounter Qualified Code(s): W19.XXXA - Unspecified fall, initial encounter Code(s): W19.XXXA - Unspecified fall, initial encounter Status: Acute Assessment and Plan: Patient had a fall prior to admission possibly related to her renal disease/electrolyte changes Trauma workup significant for C7 fx Other imaging including shoulder XR, CXR, and CT chest/abd/pelvis showed no injury or acute fracture Continue fall precautions PT/OT eval and treat (5) Acute UTI: Code(s): N39.0 - Urinary tract infection, site not specified Status: Acute Assessment and Plan: UA is consistent with UTI. UCx collected. Rocephin started 09/02. UCx ESBL E coli. Sandhu out now. She was switched to meropenem on 09/04 and received 2 doses (nephrology did not want pt on Bactrim due to hyperkalemia) She started Ertapenem 09/06 and today is Day 4/5. Continue ertapenem through tomorrow. (6) Bipolar disorder, unspecified: Qualifiers: Active/Remission status: remission status unspecified Qualified Code(s): F31.9 - Bipolar disorder, unspecified Code(s): F31.9 - Bipolar disorder, unspecified Status: Chronic Assessment and Plan: Mood stable. Sister spoke with staff and reported that any alterations/disruptions to her home medications would cause her to have behavioral changes that are persistent for weeks Continue home medications as prescribed Monitor mood (7) Anemia: Qualifiers:
[2023-09-10 14:00] VITALS: BP 150/77; PULSE 81; RESP 20; TEMP 36.4; O2SAT 99
[2023-09-10] MEDS: ERTAPENEM SODIUM 0.5 GM in SODIUM CHLORIDE 0.9% IV 50 ML IVPB (15:50)
[2023-09-10] MEDS: DIVALPROEX SODIUM DR 250 MG TABEC PO (15:54)
[2023-09-10 17:01] LABS: Glucose Point of Care 130 mg/dl (65-105)
[2023-09-10] MEDS: chlorproMAZINE HCL 25 MG TABLET 50 MG PO (20:14)
[2023-09-10 20:20] VITALS: BP 128/66; PULSE 75; RESP 16; TEMP 36.5; O2SAT 100
[2023-09-10 21:17] LABS: Glucose Point of Care 172 mg/dl (65-105)
[2023-09-11] MEDS: DIVALPROEX SODIUM DR 250 MG TABEC 500 MG PO (06:03)
[2023-09-11] MEDS: LEVOTHYROXINE SODIUM 50 MCG TABLET PO (06:04)
[2023-09-11] MEDS: ACETAMINOPHEN 500 MG TABLET PO ×2 (06:04→14:06)
[2023-09-11 06:30] VITALS: BP 130/76; PULSE 77; RESP 16; TEMP 36.4; O2SAT 99
[2023-09-11 06:40] LABS: Albumin Level 3.5 g/dL (3.5-5.1); Anion Gap 13 mmol/L (4-12); Blood Urea Nitrogen 74 mg/dL (7-17); Calcium 9.5 mg/dL (8.4-10.2); Carbon Dioxide 20 mmol/L (22-30); Chloride 104 mmol/L (98-107); Estimated CRCL calculation 13 ml/min; Estimated Glomerular Filt Rate 12; Glucose 110 mg/dL (65-110); Phosphorus 7.3 mg/dL (2.5-4.5); Sodium 137 mmol/L (137-145)
[2023-09-11 07:59] LABS: Glucose Point of Care 96 mg/dl (65-105)
[2023-09-11] MEDS: BENZTROPINE MESYLATE 0.5 MG TABLET PO ×2 (08:20→16:43)
[2023-09-11] MEDS: PANTOPRAZOLE 40 MG TABLET PO (08:20)
[2023-09-11] MEDS: IRON SUCROSE COMPLEX 100 MG in SODIUM CHLORIDE 0.9% IV 50 ML 220 MG IVPB (08:21)
[2023-09-11] MEDS: ENOXAPARIN 30 MG/0.3 ML SYRINGE SUB-Q (08:21)
[2023-09-11] MEDS: amLODIPine BESYLATE 5 MG TABLET PO (08:21)
[2023-09-11 12:09] LABS: Glucose Point of Care 212 mg/dl (65-105)
[2023-09-11] MEDS: INSULIN ASPART (*BKC) 100 UNITS/ML SUB-Q (12:33)
--- NOTE | 2023-09-11 13:20 | PM.IMPN ---
Progress Note: A&P Assessment and Plan (1) Hyperkalemia: Code(s): E87.5 - Hyperkalemia Status: Acute Assessment and Plan: Potassium was 10 on admission with repeat 9.5 Right femoral Mihai dialysis catheter placement under ultrasound guidance placed for emergent dialysis started 09/02 Nephrology was consulted for emergent dialysis. Potassium was stabilized with adequate urine output. She was able to maintain a normal potassium off dialysis Chronic dialysis not anticipated at this time and hence temporary dialysis catheter was removed Telemetry monitoring was discontinued Potassium still slightly elevated today but stable. Will monitor for now. (2) Chronic kidney disease (CKD), stage V: Code(s): N18.5 - Chronic kidney disease, stage 5 Status: Chronic Assessment and Plan: Creatinine 4.4 with baseline creatinine: 3.7-4.1 Nephrology consulted - per note patient may need HD long-term soon Chronic dialysis not anticipated at this time and hence temporary dialysis catheter has been removed. Off dialysis, Cr climbed to 3.8-4.2 range and stable Trend renal function, electrolytes and UOP (3) C7 cervical fracture: Qualifiers: Encounter type: initial encounter Fracture type: closed Fracture morphology: unspecified fracture morphology Fracture alignment: nondisplaced Qualified Code(s): S12.601A - Unspecified nondisplaced fracture of seventh cervical vertebra, initial encounter for closed fracture Code(s): S12.600A - Unspecified displaced fracture of seventh cervical vertebra, initial encounter for closed fracture Status: Acute Assessment and Plan: Patient had neck pain after a fall C-spine CT: Acute nondisplaced fracture of the left facet/transverse process of C7 with additional nondisplaced fracture of the right C7 transverse process. MRI cervical spine reveals nondisplaced C7 left lamina/facet fracture along with right transfer process C7 fracture also has mild compression fracture T3. No significant disc bulge or herniation seen at any cervical level with no spinal canal stenosis or cord compression may be bilateral neuroforaminal narrowing at C3-C4 and C4-C5. Neurosurgery consulted and [place] C-collar recommended and placed Working with PT/OT and walking short distances Continue C-collar. Placement being planned. (4) Fall: Qualifiers: Encounter type: initial encounter Qualified Code(s): W19.XXXA - Unspecified fall, initial encounter Code(s): W19.XXXA - Unspecified fall, initial encounter Status: Acute Assessment and Plan: Patient had a fall prior to admission possibly related to her renal disease/electrolyte changes Trauma workup significant for C7 fx Other imaging including shoulder XR, CXR, and CT chest/abd/pelvis showed no injury or acute fracture Continue fall precautions PT/OT eval and treat (5) Acute UTI: Code(s): N39.0 - Urinary tract infection, site not specified Status: Acute Assessment and Plan: UA is consistent with UTI. UCx collected. Rocephin started 09/02. UCx ESBL E coli. Sandhu out now. She was switched to meropenem on 09/04 and received 2 doses (nephrology did not want pt on Bactrim due to hyperkalemia) She changed to Ertapenem 09/06 and today is Day 5. Day 7 of appropriate abx so stop ertapenem today. (6) Bipolar disorder, unspecified: Qualifiers: Active/Remission status: remission status unspecified Qualified Code(s): F31.9 - Bipolar disorder, unspecified Code(s): F31.9 - Bipolar disorder, unspecified Status: Chronic Assessment and Plan: Mood stable. Sister spoke with staff and reported that any alterations/disruptions to her home medications would cause her to have behavioral changes that are persistent for weeks Continue home medications as prescribed Monitor mood (7) Anemia: Qualifiers: Anemia type: due to chronic kidney
[2023-09-11 14:00] VITALS: BP 119/76; PULSE 92; RESP 20; TEMP 36.1; O2SAT 99
--- NOTE | 2023-09-11 14:44 | PM.DS ---
DS: Admitting Diagnosis Discharge Date 09/11/23 Admitting Diagnosis Fall DS: Discharge Diagnosis Discharge Diagnosis (1) Hyperkalemia: Code(s): E87.5 - Hyperkalemia Status: Acute (2) Chronic kidney disease (CKD), stage V: Code(s): N18.5 - Chronic kidney disease, stage 5 Status: Chronic (3) C7 cervical fracture: Qualifiers: Encounter type: initial encounter Fracture type: closed Fracture morphology: unspecified fracture morphology Fracture alignment: nondisplaced Qualified Code(s): S12.601A - Unspecified nondisplaced fracture of seventh cervical vertebra, initial encounter for closed fracture Code(s): S12.600A - Unspecified displaced fracture of seventh cervical vertebra, initial encounter for closed fracture Status: Acute (4) Fall: Qualifiers: Encounter type: initial encounter Qualified Code(s): W19.XXXA - Unspecified fall, initial encounter Code(s): W19.XXXA - Unspecified fall, initial encounter Status: Acute (5) Acute UTI: Code(s): N39.0 - Urinary tract infection, site not specified Status: Acute (6) Bipolar disorder, unspecified: Qualifiers: Active/Remission status: remission status unspecified Qualified Code(s): F31.9 - Bipolar disorder, unspecified Code(s): F31.9 - Bipolar disorder, unspecified Status: Chronic (7) Anemia: Qualifiers: Anemia type: due to chronic kidney disease Chronic kidney disease stage: stage 5, not on chronic dialysis Qualified Code(s): N18.5 - Chronic kidney disease, stage 5; D63.1 - Anemia in chronic kidney disease Code(s): D64.9 - Anemia, unspecified Status: Chronic (8) Type 2 diabetes mellitus with diabetic chronic kidney disease: Qualifiers: Diabetes mellitus correction insulin use: without correction use Chronic kidney disease stage: stage 5, not on chronic dialysis Qualified Code(s): E11.22 - Type 2 diabetes mellitus with diabetic chronic kidney disease; N18.5 - Chronic kidney disease, stage 5 Code(s): E11.22 - Type 2 diabetes mellitus with diabetic chronic kidney disease Status: Chronic (9) Hypertension: Qualifiers: Hypertension type: secondary to other renal disorders Qualified Code(s): I15.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 Please see H&P for details. Hospital Course: Patient had neck pain after a fall and presented for evaluation. C-spine CT: Acute nondisplaced fracture of the left facet/transverse process of C7 with additional nondisplaced fracture of the right C7 transverse process. MRI cervical spine reveals nondisplaced C7 left lamina/facet fracture along with right transfer process C7 fracture also has mild compression fracture T3. No significant disc bulge or herniation seen at any cervical level with no spinal canal stenosis or cord compression may be bilateral neuroforaminal narrowing at C3-C4 and C4-C5. Other imaging including shoulder XR, CXR, and CT chest/abd/pelvis showed no injury or acute fracture. Neurosurgery was consulted and [place] C-collar recommended and placed. Potassium was 10 on admission with repeat 9.5. Right femoral Mihai dialysis catheter placement under ultrasound guidance placed for emergent dialysis started 09/02. Nephrology was consulted for emergent dialysis. Potassium was stabilized with adequate urine output. She was able to maintain a normal potassium off dialysis. Chronic dialysis not anticipated at this time and hence temporary dialysis catheter was removed. Telemetry monitoring was discontinued. Potassium still slightly elevated but st
[2023-09-11 14:50] LABS: SARS-CoV-2 RNA PCR Negative (Negative)
--- NOTE | 2023-09-11 15:32 | P.PNNP_ITS ---
Progress Note: A&P Assessment and Plan (1) Hyperkalemia: Code(s): E87.5 - Hyperkalemia Status: Acute Assessment and Plan: * Improved after dialysis he is on 09/02 and . * No dialysis since then. * Potassium was normal after that until yesterday when it bryan to 5.1. Now it is 5.0. * dialysis on hold now since K+ stable * She should get some labs as an outpatient and also see Dr. Julee haddad (2) Chronic kidney disease (CKD), stage V: Code(s): N18.5 - Chronic kidney disease, stage 5 Status: Chronic Assessment and Plan: * baseline creatinine runs around 3.7 - 4.1mg/dl * thought to be secondary to her diabetes, hypertension, vascular disease and possibly 40 years of lithium use * slow progression noted in the last few months * No uremic symptoms. * her creatinine fell again today okay to hold off on dialysis (3) Status post fall: Code(s): Z91.81 - History of falling Status: Acute Assessment and Plan: * potassium is stable * she will need close follow-up as an outpatient * PT/OT once more stable. Timing per hospitalist/ neurosurgery depending on strength and situation with her neck. (4) C7 cervical fracture: Qualifiers: Encounter type: initial encounter Fracture type: closed Fracture morphology: unspecified fracture morphology Fracture alignment: nondisplaced Qualified Code(s): S12.601A - Unspecified nondisplaced fracture of seventh cervical vertebra, initial encounter for closed fracture Code(s): S12.600A - Unspecified displaced fracture of seventh cervical vertebra, initial encounter for closed fracture Status: Acute Assessment and Plan: * as noted by admission imaging * cervical collar in place * Neurosurgery following with recommendations reviewed * MRI of cervical spine noted (5) Acute UTI: Code(s): N39.0 - Urinary tract infection, site not specified Status: Acute Assessment and Plan: * admission UA suggestive * follow culture data - E.coli noted * finish ertapenem (6) Anemia: Qualifiers: Anemia type: due to chronic kidney disease Chronic kidney disease stage: stage 5, not on chronic dialysis Qualified Code(s): N18.5 - Chronic kidney disease, stage 5; D63.1 - Anemia in chronic kidney disease Code(s): D64.9 - Anemia, unspecified Status: Chronic Assessment and Plan: * presumably related to advanced CKD * Hemoglobin stable in the mid 8s. * On subcu EPO * she can continue this with Dr. Elkins as an outpatient. She should see him in the office. (7) Hypertension: Qualifiers: Hypertension type: secondary to other renal disorders Qualified Code(s): I15.1 - Hypertension secondary to other renal disorders Code(s): I10 - Essential (primary) hypertension Status: Chronic Assessment and Plan: * Systolic ranging 110-140 * Patient is on amlodipine 5mg per day. (8) Type 2 diabetes mellitus: Code(s): E11.9 - Type 2 diabetes mellitus without complications Status: Chronic Assessment and Plan: * follow accu-cheks * glycemic control per hospitalists Subjective Date/time seen: 09/11/23 15:32 Interval history: Nicky is feeling better. She is eager for discharge Exam Narrative: General: WD/WN female in NAD; cervical collar in place Heart: normal S1 and S2; no rub or gallop Lungs: clear to auscultate Abdomen: soft, nontender, nondistended, posi
--- NOTE | 2023-09-11 15:32 | PM.PNNEP ---
Progress Note: A&P Assessment and Plan (1) Hyperkalemia: Code(s): E87.5 - Hyperkalemia Status: Acute Assessment and Plan: Improved after dialysis he is on 09/02 and . No dialysis since then. Potassium was normal after that until yesterday when it bryan to 5.1. Now it is 5.0. dialysis on hold now since K+ stable She should get some labs as an outpatient and also see Dr. Julee haddad (2) Chronic kidney disease (CKD), stage V: Code(s): N18.5 - Chronic kidney disease, stage 5 Status: Chronic Assessment and Plan: baseline creatinine runs around 3.7 - 4.1mg/dl thought to be secondary to her diabetes, hypertension, vascular disease and possibly 40 years of lithium use slow progression noted in the last few months No uremic symptoms. her creatinine fell again today okay to hold off on dialysis (3) Status post fall: Code(s): Z91.81 - History of falling Status: Acute Assessment and Plan: potassium is stable she will need close follow-up as an outpatient PT/OT once more stable. Timing per hospitalist/ neurosurgery depending on strength and situation with her neck. (4) C7 cervical fracture: Qualifiers: Encounter type: initial encounter Fracture type: closed Fracture morphology: unspecified fracture morphology Fracture alignment: nondisplaced Qualified Code(s): S12.601A - Unspecified nondisplaced fracture of seventh cervical vertebra, initial encounter for closed fracture Code(s): S12.600A - Unspecified displaced fracture of seventh cervical vertebra, initial encounter for closed fracture Status: Acute Assessment and Plan: as noted by admission imaging cervical collar in place Neurosurgery following with recommendations reviewed MRI of cervical spine noted (5) Acute UTI: Code(s): N39.0 - Urinary tract infection, site not specified Status: Acute Assessment and Plan: admission UA suggestive follow culture data - E.coli noted finish ertapenem (6) Anemia: Qualifiers: Anemia type: due to chronic kidney disease Chronic kidney disease stage: stage 5, not on chronic dialysis Qualified Code(s): N18.5 - Chronic kidney disease, stage 5; D63.1 - Anemia in chronic kidney disease Code(s): D64.9 - Anemia, unspecified Status: Chronic Assessment and Plan: presumably related to advanced CKD Hemoglobin stable in the mid 8s. On subcu EPO she can continue this with Dr. Elkins as an outpatient. She should see him in the office. (7) Hypertension: Qualifiers: Hypertension type: secondary to other renal disorders Qualified Code(s): I15.1 - Hypertension secondary to other renal disorders Code(s): I10 - Essential (primary) hypertension Status: Chronic Assessment and Plan: Systolic ranging 110-140 Patient is on amlodipine 5mg per day. (8) Type 2 diabetes mellitus: Code(s): E11.9 - Type 2 diabetes mellitus without complications Status: Chronic Assessment and Plan: follow accu-cheks glycemic control per hospitalists Subjective Date/time seen: 09/11/23 15:32 Interval history: Nicky is feeling better. She is eager for discharge Exam Narrative: General: WD/WN female in NAD; cervical collar in place Heart: normal S1 and S2; no rub or gallop Lungs: clear to auscultate Abdomen: soft, nontender, nondistended, positive bowel sounds Extremities: no cyanosis or clubbing; no edema Skin: No rash or subcu nodule Objective Data Vital Signs Vital Signs: Vital Signs - 24 hr 09/10/23 20:20 09/10/23 20:00 09/11/23 06:30 Temperature 97.7 F 97.6 F Pulse Rate 75 77 Respiratory Rate 16 16 Blood Pressure 128/66 130/76 Pulse Oximetry 100 99 Oxygen Delivery Room Air 09/11/23 08:30 09/11/23 14:00 Temperature 97.0 F L Pulse Rate 92 Respiratory Rate 20 Blood Pressure 119/7
[2023-09-11] MEDS: DIVALPROEX SODIUM DR 250 MG TABEC PO (16:12)
[2023-09-11] MEDS: ERTAPENEM SODIUM 0.5 GM in SODIUM CHLORIDE 0.9% IV 50 ML IVPB (16:41)
[2023-09-11 16:45] LABS: Glucose Point of Care 186 mg/dl (65-105)
== END 2023-09-11 18:31 | DRG 425 ==
LOC: ANHED 15:59 → ANHICU 15:59 → ANH2MED 09-05 10:31
PROVIDERS: Internal Medicine; Internal Medicine Nephrology; Student in an Organized Health Care Education/Training Program; Admitting Provider Internal Medicine; Emergency Provider Emergency Medicine; PCP Family Medicine Adolescent Medicine; Visit Provider Internal Medicine
DX: E87.5 Hyperkalemia (principal); I12.0 Hypertensive chronic kidney disease with stage 5 chronic kidney disease or end stage renal disease; E11.22 Type 2 diabetes mellitus with diabetic chronic kidney disease; N18.5 Chronic kidney disease, stage 5; N39.0 Urinary tract infection, site not specified; B96.20 Unspecified Escherichia coli [E. coli] as the cause of diseases classified elsewhere; Z16.12 Extended spectrum beta lactamase (ESBL) resistance; D63.1 Anemia in chronic kidney disease; S12.601A Unspecified nondisplaced fracture of seventh cervical vertebra, initial encounter for closed fracture; W19.XXXA Unspecified fall, initial encounter; M54.12 Radiculopathy, cervical region; F31.9 Bipolar disorder, unspecified; F41.9 Anxiety disorder, unspecified; E66.9 Obesity, unspecified; E55.9 Vitamin D deficiency, unspecified; Z99.2 Dependence on renal dialysis; N25.81 Secondary hyperparathyroidism of renal origin; Z68.31 Body mass index [BMI] 31.0-31.9, adult; Z90.710 Acquired absence of both cervix and uterus; Z85.42 Personal history of malignant neoplasm of other parts of uterus
CPT/HCPCS: 36415; 70450; 71045; 71250; 72125; 72128; 72131; 72141; 73030; 74176; 76775; 80048; 80053; 80069; 80164; 80165; 81001; 81050; 82140; 82550; 82570; 82607; 82728; 82746; 82948; 83036; 83540; 83550; 83605; 83690; 83735; 84100; 84132; 84156; 84300; 84443; 84484; 84540; 85025; 85027; 85610; 85730; 85999; 86706; 87086; 87186; 87340; 87635; 87641; 93005; 96365; 96368; 97110; 97162; 97166; 97530; 99285; A9270; C1751; C1752; G0257; J0613; J0696; J1335; J1644; J1650; J1756; J1815; J2185; J7030; J7040; L0140; Q5105

== ENCOUNTER 2023-10-05 18:37 | Emergency (ER) | payer OTHER, SELFPAY ==
--- NOTE | ~2023-10-05 | XR_ITS ---
EXAMINATION: XR chest 1V portable Exam Date/Time: 10/05/2023 19:52 CDT HISTORY: syncope Comparison: 09/04/2023. RESULT: Lines, tubes, and devices: None. Lungs and pleura: Clear. Cardiomediastinal silhouette: Stable. Other: No acute osseous or upper abdominal finding. IMPRESSION: No acute cardiopulmonary process. Reviewed, dictated and finalized at location K.
[2023-10-05 18:36] VITALS: BP 141/83; PULSE 110; RESP 12; TEMP 36.8; O2SAT 99
--- NOTE | 2023-10-05 19:29 | ECG_ITS ---
Test Date: 2023-10-05 21:53:18 Measurements Intervals [place] Rate: 65 P: 18 TX: 152 QRS: 0 QRSD: 109 T: 82 QT: 433 QTc: 453 Interpretive Statements SINUS RHYTHM WITH SINUS ARRHYTHMIA INFERIOR MYOCARDIAL INFARCTION , OF INDETERMINATE AGE [40+ ms Q WAVE AND/OR ST/T ABNORMALITY IN II/aVF] Compared to ECG 09/03/2023 22:44:02 NO SIGNIFICANT CHANGES Electronically Signed On 10-06-2023 09:27:36 CDT by Anahi Ty M.D.
--- NOTE | 2023-10-05 19:45 | ED.SYNCOPE ---
HPI - Syncope General Chief Complaint: Recheck/Abnormal Lab/Rx Stated Complaint: Decreased LOC Time Seen by Provider: 10/05/23 19:02 History of Present Illness HPI narrative: This is a 63-year-old female with a past medical history significant for hypertension, diabetes, hyperlipidemia, recent admission for acute kidney failure requiring emergent hemodialysis and a UTI that was treated with IV antibiotics. Patient is normally alert and oriented x2 and as at her baseline mentation presently. Today she presents from her skilled care facility for an episode of brief unresponsiveness without clear indication if she syncopized or not. Presently patient is at her baseline mentation and has no acute complaints. She states that she is hungry the neck at her dinner at the care facility. Denies any headache, vision change, nausea, vomiting, diarrhea, constipation, back pain. She has an [place] collar from recent C7 facet fracture that is being handled on an outpatient basis without any new falls or trauma according to the patient. Patient states she is no longer on hemodialysis. I did review the EMR and find a note from last month that she had removal of her Mihai dialysis catheter with no per long-term dialysis plans at this time. Patient is not presently on any antibiotics. senior living documentation was reviewed for collateral information. Patient has no acute complaints. Related Data Home Medications Medication Instructions Recorded Confirmed benztropine 0.5 mg tablet 0.5 mg PO BID 06/09/21 09/03/23 chlorpromazine 100 mg tablet 100 mg PO QHS 06/09/21 09/03/23 trifluoperazine 2 mg tablet 2 mg PO QHS 06/09/21 09/03/23 sodium bicarbonate 650 mg tablet 650 mg PO QHS 05/29/23 09/03/23 divalproex 500 mg tablet,delayed See Rx Instructions .Route .COMPLEX 09/03/23 09/03/23 release Allergies Allergy/AdvReac Type Severity Reaction Status Date / Time Penicillins Allergy Unknown unknown Verified 09/03/23 12:06 Review of Systems Review of Systems: As reviewed above in the HPI [facility] Past Medical History Medical History Anxiety Bipolar disorder, unspecified Chronic kidney disease, stage IV (severe) Depression Hypertensive chronic kidney disease with stage 1 through stage 4 chronic kidney disease, or unspecified chronic kidney disease Hypothyroidism, unspecified Obesity (BMI 30-39.9) Pneumonia Pure hypercholesterolemia, unspecified Secondary renal hyperparathyroidism Stage 5 chronic kidney disease Type 2 diabetes mellitus with diabetic chronic kidney disease Uterine cancer Vitamin D deficiency Surgical History Surgical History History of colonoscopy with polypectomy History of hysterectomy for cancer Family History Family History Father Acute myocardial infarction Mother Diabetes mellitus Heart disease Emphysema lung Sibling Breast cancer Sibling Heart disease Diabetes mellitus Social History Social History Social History: Surrogate medical decision maker: Radha Cheng, . Code status: Full code. Smoking status: Never smoker Second hand tobacco smoke exposure: No Alcohol intake: never Substance use: never Substance use type: does not use Do You Feel Safe in your Home?: Yes Lack of Transportation: No Lack of Food: Never True Current Housing: I Have Housing Concerned About Future Housing: No Difficulty Paying Gas/Electric Bills: No Difficulty Paying for Meds: No Currently Unemployed: No Education: Bachelor's Degree Difficulty w/ Childcare or Family Care: No Living arrangements: alone Occupation/Education: retired Gender identity (if verbalized by the patient): Female Spiritual care concerns: No Agree to blood products: Y
[2023-10-05 20:17] LABS: Basophils Absolute Auto 0.1 K/mm3 (0.0-0.1); Eosinophils Absolute Auto 0.3 K/mm3 (0-0.3); Hematocrit 32.8 % (37.0-47.0); Hemoglobin 9.9 g/dL (12.0-15.0); Immature Granulocyte Absolute 0.08 K/mm3 (0.00-0.031); Immature Granulocyte Percent A 1.1 % (0-0.5); Lymphocytes Percent Auto 28.9 % (18.3-44.2); Mean Corpuscular HGB Conc 30.2 g/dl (32-36); Mean Corpuscular Hemoglobin 28.4 pg (26-34); Mean Corpuscular Volume 94.3 fl (80-100); Mean Platelet Volume 9.5 fl (7.4-10.4); Monocytes Absolute Auto 0.7 K/mm3 (0.1-0.6); Monocytes Percent Auto 10.1 % (2.6-8.5); Neutrophils Percent Auto 54.9 % (45.5-73.1); Platelet Count Result 214 k/mm3 (150-375); Red Blood Count 3.48 M/mm3 (4.2-5.4); Red Cell Distribution Width 13.8 % (11.5-14.5); White Blood Count 7.3 K/mm3 (4.5-10.0)
[2023-10-05 20:28] LABS: Alanine Aminotransferase 7 U/L (6-35); Albumin Level 3.6 g/dL (3.5-5.1); Alkaline Phosphatase 62 U/L (38-126); Anion Gap 11 mmol/L (4-12); Aspartate Amino Transferase 18 U/L (14-36); Bilirubin,Total 0.2 mg/dL (0.2-1.3); Blood Urea Nitrogen 77 mg/dL (7-17); Calcium 9.3 mg/dL (8.4-10.2); Carbon Dioxide 23 mmol/L (22-30); Chloride 107 mmol/L (98-107); Estimated Glomerular Filt Rate 12; Glucose 102 mg/dL (65-110); Magnesium 2.4 mg/dL (1.6-2.3); Potassium 5.4 mmol/L (3.4-5.0); Prothrombin Time 13.4 Seconds (11.1-14.7); Sodium 141 mmol/L (137-145)
[2023-10-05 20:29] LABS: Partial Thromboplastin Time 34.1 Seconds (22.3-36.8)
[2023-10-05 20:40] LABS: NT Pro B Type Natriuretic Pept 1030 pg/mL (19.9-100); Troponin I 0.026 ng/mL (0.000-0.034)
[2023-10-05] MEDS: SODIUM CHLORIDE 0.9% IV 1,000 ML 999 ML IV CONT (20:47)
[2023-10-05] MEDS: SODIUM BICARBONATE 8.4% 50 MEQ/50 ML SYRINGE IV PUSH (20:48)
[2023-10-05] MEDS: DEXTROSE 50% 25 GM/50 ML SYRINGE IV PUSH (20:48)
[2023-10-05] MEDS: SODIUM ZIRCONIUM CYCLOSILICATE 10 GM POWD.PACK PO (20:49)
[2023-10-05] MEDS: INSULIN HUMAN REGULAR (*BKC) 100 UNITS/ML IV PUSH (20:49)
[2023-10-05 21:26] VITALS: BP 154/79; PULSE 103; RESP 20; TEMP 36.3; O2SAT 100
[2023-10-05 21:34] LABS: Add Urine Microscopic? YES; Appearance Urine Clear (Clear); Bacteria Urine None Seen /hpf; Bilirubin Urine Negative (Negative); Blood Urine Negative (Negative); Color Urine Yellow (Yellow); Glucose Urine UA Trace mg/dL (Negative); Ketones Urine Negative (Negative); Leukocyte Esterase Ur Trace LEU/UL (Negative); Nitrate Urine Negative (Negative); Non Pathogenic Casts 0-2; Protein Urine 1+ mg/dL (Negative); RBC Urine 0-2 /hpf (0-2); Specific Grav Ur 1.008 (1.001-1.035); Squamous Epithelial Cell Urine None Seen /hpf (Few); Urobilinogen Urine 0.2 mg/dL (<2.0); pH Urine 6.5 (5.0-9.0)
[2023-10-05 22:00] VITALS: BP 140/71; PULSE 84; RESP 19; O2SAT 95
--- NOTE | 2023-10-05 22:04 | PC.NURSE ---
2200-IV FLUIDS RUNNING BEHIND PATIENT WILL NOT KEEP LEFT ARM STRAIGHT. RN MAKING FREQUENT TRIPS INTO ROOM TO READJUST IV ARM.
[2023-10-05 22:48] LABS: Glucose Point of Care 117 mg/dl (65-105)
[2023-10-05 23:00] VITALS: BP 147/84; PULSE 74; RESP 18; O2SAT 99
[2023-10-05 23:50] LABS: Alveolar/Arterial O2 Gradient 42.1 mmHg; Base Excess ABG -2.5 mEq/l (+/-2.0); Fractional Inspired Oxygen 28 %; HCO3 ABG 23.6 mEq/l (22.0-26.0); Methemoglobin ABG 0.2 %THb (0-1.5); Oxygen Content ABG 14.2 %vol (16.0-22.0); Oxygen Saturation ABG 97.2 % (95.0-100.0); Oxyhemoglobin 97.2 % THb (90.0-100.0); PCO2 ABG 46.8 mmHg (35.0-45.0); PO2 ABG 102.3 mmHg (80.0-100.0); PO2 FiO2 Ratio Arterial Blood 3.65 %; Reduced Hemoglobin 2.6 %THb (0-5.0); Total Hemoglobin 10.3 g/dL (12.0-18.0); pH ABG 7.321 (7.350-7.450)
[2023-10-05 23:51] LABS: Device NASAL CANNULA; Modified Allen's Test Pass; Site Drawn RIGHT RADIAL
[2023-10-06] VITALS (16 sets, daily range): BP systolic 132–163; BP diastolic 73–101; PULSE 92–160; RESP 10–18; O2SAT 90–100
[2023-10-06 02:02] LABS: Anion Gap 10 mmol/L (4-12); Blood Urea Nitrogen 75 mg/dL (7-17); Calcium 9.2 mg/dL (8.4-10.2); Carbon Dioxide 25 mmol/L (22-30); Chloride 109 mmol/L (98-107); Estimated Glomerular Filt Rate 12; Glucose 109 mg/dL (65-110); Sodium 144 mmol/L (137-145)
--- NOTE | 2023-10-06 04:24 | PC.NURSE ---
Called [facility] at 0350 for a update. New eta will be 0600.
--- NOTE | 2023-10-06 05:39 | PC.NURSE ---
Called [facility] at [phone], new eta will be 0615.
--- NOTE | 2023-10-06 06:28 | PC.NURSE ---
Pt linens and depends changed. Belongings placed in a bag to go with pt during transportation.
== END 2023-10-06 06:31 ==
PROVIDERS: Emergency Provider Student in an Organized Health Care Education/Training Program; PCP Family Medicine Adolescent Medicine
DX: I12.9 Hypertensive chronic kidney disease with stage 1 through stage 4 chronic kidney disease, or unspecified chronic kidney disease (principal); N18.5 Chronic kidney disease, stage 5; E11.22 Type 2 diabetes mellitus with diabetic chronic kidney disease; R55 Syncope and collapse; E87.5 Hyperkalemia; E03.9 Hypothyroidism, unspecified; E66.9 Obesity, unspecified; E78.00 Pure hypercholesterolemia, unspecified; E55.9 Vitamin D deficiency, unspecified; Z87.01 Personal history of pneumonia (recurrent); Z85.42 Personal history of malignant neoplasm of other parts of uterus; Z86.010 Personal history of colon polyps; Z90.710 Acquired absence of both cervix and uterus; R94.31 Abnormal electrocardiogram [ECG] [EKG]
CPT/HCPCS: 36415; 36600; 71045; 80048; 80053; 81001; 82375; 82805; 82948; 83050; 83735; 83880; 84484; 85025; 85610; 85730; 87077; 87086; 87088; 87181; 93005; 96361; 96374; 96375; 99284; A9270; J1815; J7030

== ENCOUNTER 2023-10-11 10:23 | Outpatient (CLI) | payer OTHER, SELFPAY ==
--- NOTE | ~2023-10-11 | XR_ITS ---
[id number] Ordering provider: Britney Randolph MD History: . M54.12 - Radiculopathy, cervical region . Comparison: None. FINDINGS: VERTEBRAL BODIES: Normal height and alignment. No visible fracture or subluxation. The dens is intact . DISK SPACES: Well maintained. Multilevel uncovertebral joint osteoarthritic changes. PARASPINOUS SOFT TISSUES: No prevertebral soft tissue swelling. IMPRESSION: No acute osseous abnormality cervical spine. Reviewed, dictated and finalized at location A.
== END 2023-10-11 10:24 | disposition home or self-care (01) ==
PROVIDERS: PCP Family Medicine Adolescent Medicine; Visit Provider Neurological Surgery
DX: M54.12 Radiculopathy, cervical region (principal)
CPT/HCPCS: 72040

== ENCOUNTER 2023-11-24 08:23 | Emergency (ER) | payer OTHER, SELFPAY ==
[2023-11-24] VITALS (19 sets, daily range): BP systolic 0–124; BP diastolic 0–87; PULSE 0–128; RESP 0–31; TEMP 36.2; O2SAT 0–100
--- NOTE | ~2023-11-24 | CT_ITS ---
Noncontrast CT scan of the cervical spine Technique: Multiple contiguous axial [address] images of the cervical spine were obtained and rec onstructed in 2D sagittal and coronal planes on the acquisition scanner. Dose reduction technique was used on this scan by utilizing automated exposure control, adjustment of the mA and/or kV according to patient size. The dose-length product (DLP) was 430.62 mGy-cm. Clinical History: Pain COMPARISON: 09/03/2023 Findings: No fractures or dislocations. Mild facet joint degenerative changes are present. The inter vertebral disc spaces are preserved. No prevertebral soft tissue swelling. Impression: No fracture or subluxation of the cervical spine. Reviewed, dictated and finalized at location . Impression: No fracture or subluxation of the cervical spine.
--- NOTE | ~2023-11-24 | XR_ITS ---
EXAMINATION: XR abdomen gastric tube rechec DATE: 11/24/2023 10:26 INDICATION: Orogastric tube readjustment TECHNIQUE: A supine view of the abdomen and lower chest was obtained for evaluation of feeding tube placement. COMPARISON: None. FINDINGS: Orogastric tube tip in proximal side port in the body the stomach. No dilated loops of gas-filled bow el in the visualized abdomen. Opacities in the left lower lung zone. Heart size is normal. IMPRESSION: 1. Orogastric tube in stomach. 2. Opacities in the left lower lung zone which could represent atelectasis, pneumonia, small left ple ural effusion or some combination thereof. Reviewed, dictated and finalized at location A. IMPRESSION: 1. Orogastric tube in stomach. 2. Opacities in the left lower lung zone which could represent atelectasis, pne umonia, small left pleural effusion or some combination thereof.
--- NOTE | ~2023-11-24 | XR_ITS ---
XR chest ET placement Ordering provider: Kameron Mc MD History: 63 years Female with . ET TUBE PLACEMENT . Comparison: October 05, 2023 FINDINGS: MEDIASTINUM: The cardiac silhouette is not enlarged. Endotracheal tube is seen above the abhay by ab out 2.5 cm. Kinking of the nasogastric tube is seen in the esophagus with the tip in the upper neck. LUNGS: No pneumothorax. Opacification in the left lung base suggestive of atelectasis versus pneumoni a with possible effusion. Opacification in the left upper lobe suggestive of pneumonia. OTHER: No free air under the diaphragm. IMPRESSION: Endotracheal tube with the tip above the abhay by about 2.5 cm. Kinking of the nasogastric tube in the esophagus with the tip directed to the neck Left upper and lower lobe pneumonia with possible left effusion. Reviewed, dictated and finalized at location A. IMPRESSION: Endotracheal tube with the tip above the abhay by about 2.5 cm. Kinking of the nasogastric tube in the esophagus with the tip directed to the n catrina Left upper and lower lobe pneumonia with possible left effusion.
--- NOTE | ~2023-11-24 | CT_ITS ---
CT head without contrast Indication: Unresponsive COMPARISON: 09/03/2023 Technique: Serial scans were obtained through the brain without the administration of contrast. Dose reduction technique was used on this scan by utilizing automated exposure control and iterative recon struction technique. The dose-length product (DLP) was 681.00 mGy-cm. Findings: There is no evidence of intracranial hemorrhage, mass lesion, or acute infarct. The ventri cles and subarachnoid spaces are dilated, consistent with mild atrophy. Low attenuation regions are seen within the periventricular white matter bilaterally, likely representing changes from chronic mi crovascular ischemic disease. There is no evidence of edema, mass effect or midline shift. The visu alized paranasal sinuses and mastoid air cells are clear. Impression: No intracranial hemorrhage, mass, or acute infarct. Atrophy and chronic white matter changes, as above. Reviewed, dictated and finalized at location . Impression: No intracranial hemorrhage, mass, or acute infarct. Atrophy and chronic white matter changes, as above.
--- NOTE | 2023-11-24 08:36 | ECG_ITS ---
Test Date: 2023-11-24 09:38:15 Measurements Intervals [place] Rate: 86 P: 148 GA: 135 QRS: -23 QRSD: 129 T: 150 QT: 393 QTc: 472 Interpretive Statements NORMAL SINUS RHYTHM INFERIOR MYOCARDIAL INFARCTION , PROBABLY OLD [40+ ms Q WAVE AND/OR ST/T ABNORMALITY IN II/aVF] MODERATE T-WAVE ABNORMALITY, CONSIDER LATERAL ISCHEMIA [-0.1+ mV T WAVE IN I/aVL/V5/V6] ABNORMAL ECG Electronically Signed On 11-24-2023 14:03:56 CDT by Danny Ruiz M.D.
[2023-11-24] MEDS: NALOXONE HCL INJ 2 MG/2 ML AMP (08:37)
[2023-11-24] MEDS: SODIUM CHLORIDE 0.9% IV 1,000 ML 999 ML IV CONT (08:45)
[2023-11-24 08:49] LABS: Glucose Point of Care 127 mg/dl (65-105)
--- NOTE | 2023-11-24 08:49 | PC.NURSE ---
Addendum entered by Lashanda Murry RN 11/24/23 09:55: CORRECTION - 20MG ETOMIDATE AT 0849 Original Note: 0848 - ER MD AND RESPIRATORY AT BEDSIDE FOR INTUBATION. 0849 - 100MG ETOMIDATE IN. 0850 - 100MG BIANKA IN. 0851 - COLOR CHANGE NOTED. 7.5 ET TUBE - 21 AT THE LIP. 0854 - 2M ATIVAN. 0855 - 1MG DILAUDID. 0900 - 16F BENJAMIN PLACED. 0905 - OG 65 AT LIP.
[2023-11-24] MEDS: LORazepam INJ (*CRX) 2 MG/ML VIAL (08:54)
[2023-11-24] MEDS: HYDROmorphone HCL INJ (*CRX) 1 MG/ML SYR (08:55)
[2023-11-24 08:59] LABS: Basophils Absolute Auto 0.1 K/mm3 (0.0-0.1); Basophils Percent Auto 0.7 % (0.2-1.2); Eosinophils Absolute Auto 0.3 K/mm3 (0-0.3); Eosinophils Percent Auto 3.3 % (0-4.4); Hematocrit 34.2 % (37.0-47.0); Hemoglobin 10.2 g/dL (12.0-15.0); Immature Granulocyte Absolute 0.13 K/mm3 (0.00-0.031); Immature Granulocyte Percent A 1.4 % (0-0.5); Lymphocytes Absolute Auto 1.82 K/mm3 (0.9-3.2); Lymphocytes Percent Auto 19.3 % (18.3-44.2); Mean Corpuscular HGB Conc 29.8 g/dl (32-36); Mean Corpuscular Hemoglobin 28.1 pg (26-34); Mean Corpuscular Volume 94.2 fl (80-100); Mean Platelet Volume 8.9 fl (7.4-10.4); Monocytes Percent Auto 10.9 % (2.6-8.5); Neutrophils Absolute Auto 6.1 K/mm3 (1.3-6.7); Neutrophils Percent Auto 64.4 % (45.5-73.1); Platelet Count Result 180 k/mm3 (150-375); Red Blood Count 3.63 M/mm3 (4.2-5.4); Red Cell Distribution Width 13.9 % (11.5-14.5); White Blood Count 9.5 K/mm3 (4.5-10.0)
--- NOTE | 2023-11-24 09:01 | PCRCNOTE ---
ABG'S delayed. Pt was intubated and placed on vent. ABG to be drawn after pt on placed on vent.
[2023-11-24 09:09] LABS: Prothrombin Time 13.2 Seconds (11.1-14.7)
[2023-11-24 09:10] LABS: Partial Thromboplastin Time 27.4 Seconds (22.3-36.8)
[2023-11-24 09:11] LABS: Alanine Aminotransferase 6 U/L (6-35); Albumin Level 3.7 g/dL (3.5-5.1); Alkaline Phosphatase 75 U/L (38-126); Anion Gap 8 mmol/L (4-12); Aspartate Amino Transferase 20 U/L (14-36); Bilirubin,Total 0.2 mg/dL (0.2-1.3); Blood Urea Nitrogen 76 mg/dL (7-17); Calcium 9.2 mg/dL (8.4-10.2); Carbon Dioxide 24 mmol/L (22-30); Chloride 107 mmol/L (98-107); Creatine Kinase 29 U/L (30-135); Estimated Glomerular Filt Rate 10; Glucose 129 mg/dL (65-110); Lipase 75 U/L (23-300); Magnesium 2.5 mg/dL (1.6-2.3); Phosphorus 6.7 mg/dL (2.5-4.5); Potassium 5.4 mmol/L (3.4-5.0); Sodium 139 mmol/L (137-145)
[2023-11-24 09:24] LABS: Lactic Acid Reflex < 0.5 mmol/L (0.7-2.0); NT Pro B Type Natriuretic Pept 1040 pg/mL (19.9-100); Troponin I 0.048 ng/mL (0.000-0.034)
[2023-11-24 09:36] LABS: Alveolar/Arterial O2 Gradient 198.4 mmHg; Base Excess ABG -7.8 mEq/l (+/-2.0); Fractional Inspired Oxygen 40 %; HCO3 ABG 16.7 mEq/l (22.0-26.0); Oxygen Content ABG 11.3 %vol (16.0-22.0); Oxyhemoglobin 89.8 % THb (90.0-100.0); PCO2 ABG 30.1 mmHg (35.0-45.0); PO2 ABG 52.2 mmHg (80.0-100.0); PO2 FiO2 Ratio Arterial Blood 1.31 %; Total Hemoglobin 8.9 g/dL (12.0-18.0); pH ABG 7.362 (7.350-7.450)
[2023-11-24 09:37] LABS: Oxygen Saturation ABG 86.3 % (95.0-100.0)
[2023-11-24 09:38] LABS: Device VENTILATOR; Site Drawn RIGHT RADIAL
[2023-11-24 09:39] LABS: Arterial Blood Gas PEEP 5 cmH2O; Arterial Blood Gas Vent Mode CMV; Arterial Blood Gas Ventilator rate 16 /MIN
[2023-11-24 09:40] LABS: Arterial Blood Gas Tidal Volume 400 ml
[2023-11-24 09:42] LABS: Platelet Estimate Adequate (Adequate); Schistocytes None Seen
[2023-11-24 09:45] LABS: Thyroid Stimulating Hormone Reflex 0.118 uIU/mL (0.465-4.68)
[2023-11-24] MEDS: RAPID SEQUENCE INTUBATION KIT 1 EACH (09:51)
[2023-11-24 09:56] LABS: Add Urine Microscopic? YES; Appearance Urine Turbid (Clear); Bacteria Urine 4+ /hpf; Bilirubin Urine Negative (Negative); Blood Urine 2+ (Negative); Color Urine Yellow (Yellow); Glucose Urine UA Negative (Negative); Ketones Urine Negative (Negative); Leukocyte Esterase Ur 3+ LEU/UL (Negative); Nitrate Urine Positive (Negative); Protein Urine 2+ mg/dL (Negative); Specific Grav Ur 1.008 (1.001-1.035); Squamous Epithelial Cell Urine None Seen /hpf (Few); Urobilinogen Urine 0.2 mg/dL (<2.0); WBC Urine >100 /hpf (0-3)
[2023-11-24 09:57] LABS: Ethanol < 10 mg/dL (<10)
[2023-11-24 10:10] LABS: Amphetamine Screen Urine Negative (Negative); Barbiturate Screen Urine Negative (Negative); Benzodiazepines Screen Urine Negative (Negative); Cannabinoid Screen Urine Negative (Negative); Cocaine Screen Urine Negative (Negative); Methadone Screen Urine Negative (Negative); Opiate Screen Urine Negative (Negative); Phencyclidine Screen Urine Negative (Negative)
--- NOTE | 2023-11-24 10:14 | ED.GENADULT ---
HPI - General Adult General Chief complaint: Altered Mental Status Stated complaint: ams History of Present Illness HPI narrative: This is a 63-year-old female with a severe kidney disease, bipolar disorder recent neck fracture presenting for altered mental status. Last known normal was last evening before bed. The rehab facility found her this morning unresponsive. Snoring respirations. EMS was called and she was brought to hospital for further management. On arrival patient is agonally Per her paperwork she is pending a DNR. I reached out to her POA Radha Cheng. At this time she would like performed to see if there is a reversible cause of the patient's altered mental status. Related Data Home Medications Medication Instructions Recorded Confirmed benztropine 0.5 mg tablet 0.5 mg PO BID 06/09/21 10/20/23 chlorpromazine 100 mg tablet 100 mg PO QHS 06/09/21 10/20/23 trifluoperazine 2 mg tablet 2 mg PO QHS 06/09/21 10/20/23 sodium bicarbonate 650 mg tablet 650 mg PO QHS 05/29/23 10/20/23 divalproex 500 mg tablet,delayed See Rx Instructions .Route .COMPLEX 09/03/23 10/20/23 release Allergies Allergy/AdvReac Type Severity Reaction Status Date / Time Penicillins Allergy Unknown unknown Verified 11/24/23 09:04 [facility] Past Medical History Medical History Anxiety Bipolar disorder, unspecified Chronic kidney disease, stage IV (severe) Depression Hypertensive chronic kidney disease with stage 1 through stage 4 chronic kidney disease, or unspecified chronic kidney disease Hypothyroidism, unspecified Obesity (BMI 30-39.9) Pneumonia Pure hypercholesterolemia, unspecified Secondary renal hyperparathyroidism Stage 5 chronic kidney disease Type 2 diabetes mellitus with diabetic chronic kidney disease Uterine cancer Vitamin D deficiency Surgical History Surgical History History of colonoscopy with polypectomy History of hysterectomy for cancer Family History Family History Father Acute myocardial infarction Mother Diabetes mellitus Heart disease Emphysema lung Sibling Breast cancer Sibling Heart disease Diabetes mellitus Social History Social History Social History: Surrogate medical decision maker: Radha Cheng, sister. Code status: Full code. Smoking status: Never smoker Second hand tobacco smoke exposure: No Alcohol intake: never Substance use: never Substance use type: does not use Do You Feel Safe in your Home?: Yes Lack of Transportation: No Lack of Food: Never True Current Housing: I Have Housing Concerned About Future Housing: No Difficulty Paying Gas/Electric Bills: No Difficulty Paying for Meds: No Currently Unemployed: No Education: Bachelor's Degree Difficulty w/ Childcare or Family Care: No Living arrangements: alone Occupation/Education: retired Gender identity (if verbalized by the patient): Female Spiritual care concerns: No Agree to blood products: Yes Exam Narrative: APPEARANCE: Patient appears ill, she is pale, she is breathing actively, nonresponsive to pain Head: atraumatic. EYES: 3 mm equal and reactive NOSE: Atraumatic NECK: Dauphin collar in place RESPIRATORY: Agonal breathing, scattered rhonchi CARDIOVASCULAR: No peripheral edema ABDOMINAL: Soft nontender MUSCULOSKELETAl: No obvious deformities NEURO: Unresponsive SKIN:: Pale PSYCHIATRIC: Unresponsive Course Vital Signs Vital signs: Vital Signs Temperature 97.2 F L 11/24/23 08:23 Pulse Rate 117 H 11/24/23 08:23 Respiratory Rate 18 11/24/23 08:23 Blood Pressure 118/75 11/24/23 08:23 Pulse Oximetry 100 11/24/23 08:23 Oxygen Delivery Non-Rebreather Mask 11/24/23 08:23 Oxygen Flow Rate 15 11/24/23 08:23 Temperature 97.
[2023-11-24 10:27] LABS: Influenza A QL RT-PCR Negative (Negative); Influenza B QL RT-PCR Negative (Negative); RSV RNA, RT-PCR Negative (Negative); SARS-CoV-2 RNA PCR Negative (Negative)
--- NOTE | 2023-11-24 10:45 | PC.NURSE ---
BP NOTED TO BE LOW - DR. DUNHAM MADE AWARE. WILL SPEAK WITH SISTER REGARDING PLAN OF CARE.
[2023-11-24] MEDS: SODIUM CHLORIDE 0.9% IV 2,000 ML 999 ML IV CONT (11:00)
[2023-11-24 11:01] LABS: Total Triiodothyronine (T3) 0.78 NG/ML (0.97-1.69)
--- NOTE | 2023-11-24 11:48 | PC.NURSE ---
FAMILY [employer] JUDGE AT BEDSIDE W/ SISTER, NIECE, AND [id number].
[2023-11-24] MEDS: LORazepam INJ (*CRX) 2 MG/ML VIAL IV PUSH ×2 (12:04→13:22)
[2023-11-24] MEDS: MORPHINE SULFATE (*CRX) 4 MG/ML INJ IV PUSH ×2 (12:04→13:16)
[2023-11-24] MEDS: GLYCOPYRROLATE INJ (*SP) 0.2 MG/ML VIAL IV PUSH (12:05)
--- NOTE | 2023-11-24 16:00 | PC.NURSE ---
FAMILY LEFT BEDSIDE. POST MORTEM CARE WILL BE GIVEN, SO PT CAN BE TRANSFERRED TO [facility] [place] AND AWAIT DISPATCHER MOTOR VEHICLE BY HOME.
--- NOTE | 2023-11-24 16:00 | PC.NURSE ---
CALL PLACED TO [facility] TO UPDATE ON PT'S EXPIRATION.
== END 2023-11-24 16:35 | disposition expired ==
PROVIDERS: Emergency Provider Emergency Medicine; PCP Family Medicine Adolescent Medicine
DX: J18.9 Pneumonia, unspecified organism (principal); N39.0 Urinary tract infection, site not specified; N17.9 Acute kidney failure, unspecified; R40.20 Unspecified coma; Z20.822 Contact with and (suspected) exposure to COVID-19; I12.9 Hypertensive chronic kidney disease with stage 1 through stage 4 chronic kidney disease, or unspecified chronic kidney disease; N18.5 Chronic kidney disease, stage 5; E11.22 Type 2 diabetes mellitus with diabetic chronic kidney disease; N25.81 Secondary hyperparathyroidism of renal origin; E78.00 Pure hypercholesterolemia, unspecified; E03.9 Hypothyroidism, unspecified; E66.9 Obesity, unspecified; Z68.31 Body mass index [BMI] 31.0-31.9, adult; E55.9 Vitamin D deficiency, unspecified; F41.9 Anxiety disorder, unspecified; F31.9 Bipolar disorder, unspecified; Z85.42 Personal history of malignant neoplasm of other parts of uterus; Z86.0100 Personal history of colon polyps, unspecified; Z90.710 Acquired absence of both cervix and uterus
CPT/HCPCS: 31500; 36415; 36600; 70450; 72125; 80053; 80307; 81001; 82550; 82805; 82948; 83605; 83690; 83735; 83880; 84100; 84439; 84443; 84480; 84484; 85018; 85025; 85610; 85730; 87086; 87186; 87637; 93005; 94002; 96374; 96375; 96376; 99291; C1751; J1171; J1596; J2060; J2270; J2310; J7030